=== PATIENT | male | born 1950 | race Caucasian/White ===

== ENCOUNTER → 2016-11-10 | Outpatient (CLI) | payer OTHER ==
[~2016-11-10] MED LIST: AMLO10TA2 PO; CLIN1CAP5 PO; GLIP10TA6 PO; GLUCTES27 TOP; LANTUS2P SQ; LISI40TA PO; PERM5CRE TOPICAL; TAMS0.4C4 PO
[2016-11-10 07:49] LABS: ALKALINE PHOSPHATASE 134 U/L (45-117); HDL CHOLESTEROL 38.3 MG/DL (40.0-60.0); TOTAL BILIRUBIN ADULT 0.5 MG/DL (0.2-1.0)
[2016-11-10 07:51] LABS: ALT (GPT) 30 U/L (12-78); ANION GAP 7 MEQ/L (5-15); AST (GOT) 26 U/L (15-37); BICARBONATE 24.8 MEQ/L (21.0-32.0); BLOOD UREA NITROGEN 17 MG/DL (7-18); CHLORIDE 108 MEQ/L (98-107); GLOMERULAR FILTRATION RATE 42 ML/MIN (>89); GLUCOSE,FASTING 152 MG/DL (74-99); LDL CHOLESTEROL 106 MG/DL (0-99); SODIUM (NA) 140 MEQ/L (136-145)
[2016-11-10 07:52] LABS: POTASSIUM 4.3 MEQ/L (3.5-5.1)
[2016-11-10 13:32] LABS: HEMOGLOBIN A1a 1.1 %; HEMOGLOBIN Ao 80.7 %; HEMOGLOBIN LA1C 2.9 %; HEMOGLOBIN P3 4.9 %
== END ==
LOC: CLAB 06:47
PROVIDERS: ATTEND Family Medicine
DX: E11.40 Type 2 diabetes mellitus with diabetic neuropathy, unspecified (principal); I10 Essential (primary) hypertension
CPT/HCPCS: 36415; 80053; 80061; 83036; 84443

== ENCOUNTER → 2016-11-14 | Outpatient (CLI) | payer OTHER ==
[2016-11-14 07:30] LABS: BICARBONATE 27.2 MEQ/L (21.0-32.0); POTASSIUM 4.3 MEQ/L (3.5-5.1)
[2016-11-14 09:59] LABS: URINE TOTAL PROTEIN TIMED 230.5 MG/DL
== END ==
LOC: CLAB 06:34
PROVIDERS: ATTEND Family Medicine
DX: N19 Unspecified kidney failure (principal)
CPT/HCPCS: 36415; 80069; 84157

== ENCOUNTER → 2016-12-09 | Outpatient (CLI) | payer OTHER ==
[~2016-12-09] MED LIST changes: -TAMS0.4C4 PO
--- NOTE | 2016-12-09 11:20 | RADRPT ---
EXAM DATE/TIME: 12/09/2016 08:50 [facility] COMPARISON: US KIDNEY/RENAL/BLADDER, April 17, 2013, 12:16. INDICATIONS : Elevated protein in urine. MEDICAL HISTORY : Hypertension. Diabetes mellitus type 2. Elevated protein in urine. Renal cyst. SURGICAL HISTORY : None. Wrist surgery. ENCOUNTER: Initial ACUITY: 4-6 days PAIN SCORE: 0/10 LOCATION: Bilateral flank MEASUREMENTS: RIGHT KIDNEY: 10.9 x 5.5 x 6.6 cm LEFT KIDNEY: 12.2 x 4.4 x 5.8 cm FINDINGS: RIGHT KIDNEY: Renal cortex is normal in thickness and echotexture. No hydronephrosis, stone, or mass. Kidney is s table compared to prior study and 2013. 2 simple cysts are again identified within the right kidney. There is a 5.3 cm cyst in the upper pole and a 2.7 cm cyst in the midpole. LEFT KIDNEY: Renal cortex is normal in thickness and echotexture. No hydronephrosis, stone, or mass. BLADDER: Within normal limits given the degree of distension. CONCLUSION: Stable renal ultrasound No evidence of hydronephrosis Stable right renal cysts. Kaden Guidry MD on December 09, 2016 at 10:56 Board Certified Radiologist. This report was verified electronically.
== END ==
LOC: HRAD 08:00
PROVIDERS: ATTEND Family Medicine
DX: N19 Unspecified kidney failure (principal); R80.9 Proteinuria, unspecified
CPT/HCPCS: 76775

== ENCOUNTER 2017-03-25 10:00 | Emergency (ER) | payer OTHER ==
[~2017-03-25] VITALS: Ht 180.3 cm; Wt 90.0 kg
[~2017-03-25 10:00] MED LIST changes: -CLIN1CAP5 PO; -PERM5CRE TOPICAL
[2017-03-25 10:02] VITALS: BP 139/81; PULSE 92; RESP 14; TEMP 98; O2SAT 98
[2017-03-25] MEDS ORDERED: CLIN1CAP5 PO (11:04)
--- NOTE | 2017-03-25 11:04 | PD ---
HPI Chief Complaint: Skin Problem Time Seen by Provider: 11:02 Travel History International Travel<30 days: No Contact w/Intl Traveler<30days: No Traveled to known affect area: No History of Present Illness HPI 66-year-old male presents to the emergency department with complaint of possible bug bite to the back of his right leg since Thursday. Reports drainage from the area. Denies fever, vomiting. Has not taken any medications return intermittently to his symptoms. [facility] come to the emergency department for evaluation. Has a follow-up appointment at the [facility] on Thursday. Reports being up-to-date on his tetanus vaccination. Has no other medical complaints. Allergies to metoprolol. No other modifying factors or associated signs and symptoms. PFSH Past Medical History Arthritis: Yes Blood Disorders: No Anxiety: No Depression: No Cancer: No Cardiovascular Problems: Yes Diabetes: Yes (TYPE 2 ) Patient Takes Glucophage: No Diminished Hearing: No Endocrine: Yes Gastrointestinal Disorders: Yes ( ABDOMINAL HERNIATION) GERD: Yes Genitourinary: Yes (PATIENT STATED WAS TOLD HE HAD DECREASE IN KIDNEY FUNCTION) Hypertension: Yes Immune Disorder: No Implanted Vascular Access Dvce: No Musculoskeletal: Yes (OCC. 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 Reported Meds & Prescriptions Reported Meds & Active Scripts Active Clindamycin (Clindamycin HCl) 150 Mg Cap 450 Mg PO Q6H 10 Days Lantus Inj (Insulin Glargine) 1,000 Unit/10 Ml Vial 30 Units SQ HS Glipizide 10 Mg Tab 10 Mg PO BIDAC Take 30 minutes before a meal Amlodipine (Amlodipine Besylate) 10 Mg Tab 10 Mg PO DAILY Lisinopril 40 Mg Tab 40 Mg PO HS Review of Systems Except as stated in HPI: all other systems reviewed are Neg Physical Exam Narrative GENERAL: Well-nourished, well-developed male patient, in no acute distress; afebrile, nontoxic-appearing SKIN: There is an indurated area to the right calf which measures about 2cm in diameter. It is fluctuant and there is pointing and purulent drainage. There is a zone of inflammation around it but no lymphangitis. HEAD: Atraumatic. Normocephalic. EYES: Pupils equal and round. No scleral icterus. No injection or drainage. ENT: Mucosa pink and moist. Airway patent. NECK: Trachea midline. CARDIOVASCULAR: Regular rate. RESPIRATORY: No accessory muscle use. GASTROINTESTINAL: Flat. MUSCULOSKELETAL: No obvious deformities. No clubbing. No cyanosis. No edema. NEUROLOGICAL: Awake and alert. Oriented 3. No obvious cranial nerve deficits. Motor grossly within normal limits. Normal speech. PSYCHIATRIC: Appropriate mood and affect; insight and judgment normal. Data Data Last Documented VS Vital Signs Date Time Temp Pulse Resp B/P Pulse Ox O2 Delivery O2 Flow Rate FiO2 03/25/17 10:02 98.0 92 14 139/81 98 Orders Wound Culture And Gram Stain (03/25/17 11:01) [facility] Medical Decision Making Medical Screen Exam Complete: Yes Emergency Medical Condition: Yes Medical Record Reviewed: Yes Differential Diagnosis Abscess, cellulitis, folliculitis, infected insect bite Narrative Course 66-year-old male with purulent abscess to his right calf. Wound culture pending. Patient is afebrile and nontoxic-appearing. Up-to-date on tetanus vaccination. Clindamycin prescribed for home. Patient verbalizes understanding and agreement with treatment plan. Patient is medically cleared and stable for discharge. Discussed reasons to return to the emergency department. Instructed patient to follow up with primary care provider. Patient agrees with treatment plan. The patients vital signs are stable and the patient is stable for outpatient follow-up and treatment. Patient discharged home, stable and in no acute distress. Diagnosis Primary Impression: Skin abscess Qualified Code: L02.415 - Cutaneous abscess of right lower extremity Referrals: [employer] Attorney Primary Care Physician Patient Instructions: Abscess (ED), Abscess Follow-up (ED), General Instructions Additional Instructions: Complete full course of antibiotics Warm compresses to the affected area Keep area clean and dry Ibuprofen or Tylenol as directed and as needed for pain and inflammation Follow-up with primary care provider Return to emergency department immediately with worsening of symptoms Med/Other Pt SpecificInfo: Prescription(s) given Scripts Clindamycin 150 Mg [id number] Mg PO Q6H 10 Days Ref 0 Prov:Aida Larsen 03/25/17 Disposition: 01 DISCHARGE HOME Condition: Stable Aida Larsen Mar 25, 2017 11:04
== END 2017-03-25 11:20 | disposition home or self-care (01) ==
LOC: NEPK 10:00
DX: L02.415 Cutaneous abscess of right lower limb (principal); M19.90 Unspecified osteoarthritis, unspecified site; E11.9 Type 2 diabetes mellitus without complications; K21.9 Gastro-esophageal reflux disease without esophagitis; I10 Essential (primary) hypertension; Z79.4 Long term (current) use of insulin; Z79.899 Other long term (current) drug therapy
CPT/HCPCS: 86403; 87070; 87186; 99283

== ENCOUNTER 2017-04-29 09:18 | Observation (INO) | payer OTHER ==
[2017-04-29] VITALS (7 sets, daily range): BP systolic 138–169; BP diastolic 71–100; PULSE 77–99; RESP 18–19; TEMP 98.1–98.6; O2SAT 95–99
[~2017-04-29 09:18] MED LIST changes: +CLIN1CAP5 PO; -GLUCTES27 TOP
[2017-04-29] MEDS ORDERED: SODIUM CHLOR 0.9% 1000 ML INJ 1,000 ML IV ONE (10:45)
[2017-04-29] MEDS ORDERED: INSULIN HUMAN REGULAR 1,000 UNITS/10 ML VIAL IV PUSH ONE (10:45)
[2017-04-29] MEDS ORDERED: SODIUM CHLORIDE 0.9% FLUSH 10 ML FLUSH IVF PRN (10:45)
--- NOTE | 2017-04-29 11:08 | PD ---
HPI Chief Complaint: Neuro Symptoms/ Deficits Time Seen by Provider: 10:33 Travel History International Travel<30 days: No Contact w/Intl Traveler<30days: No Traveled to known affect area: No History of Present Illness HPI This is a 66-year-old male with a history of diabetes mellitus, hypertension, presents today with complaints of slurred speech and difficulty walking since Thursday. The patient is homeless and his reported to the EMS team that Thursday he started having slurred speech. She also remarked that he was unsteady with his gait. He has a history of previous trauma to his upper extremities which we will today and numbness and tingling and weakness of his bilateral upper extremities. This is not new. He denies any headache or neck pain. He denies any history of trauma. He denies any fevers, chills. PFSH Past Medical History Arthritis: Yes Blood Disorders: No Anxiety: No Depression: No Cancer: No Cardiovascular Problems: Yes Diabetes: Yes Patient Takes Glucophage: Yes Diminished Hearing: No Endocrine: Yes Gastrointestinal Disorders: Yes ( ABDOMINAL HERNIATION) GERD: Yes Genitourinary: Yes (PATIENT STATED WAS TOLD HE HAD DECREASE IN KIDNEY FUNCTION) Hypertension: Yes Immune Disorder: No Implanted Vascular Access Dvce: No Musculoskeletal: Yes (OCC. 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 fib), No: Chest Pain or Discomfort, Palpitations Respiratory: No: Cough, Shortness of Breath Gastrointestinal: No: Nausea, Vomiting, Abdominal Pain Musculoskeletal: No: Weakness, Pain Neurologic: Positive: Ataxia, Sensory Disturbance (chronic bilateral upper extremities), No: Weakness, Dizziness, Syncope, Headache, Incontinence Physical Exam Narrative GENERAL: Well developed well-nourished gentleman in no obvious respiratory distress. SKIN: Focused skin assessment warm/dry. HEAD: Atraumatic. Normocephalic. EYES: Pupils equal and round. No scleral icterus. No injection or drainage. ENT: No nasal bleeding or discharge. Mucous membranes pink and moist. NECK: Trachea midline. Supple CARDIOVASCULAR: Regular rate with occasional premature beat. No murmurs. RESPIRATORY: No accessory muscle use. Clear to auscultation. Breath sounds equal bilaterally. GASTROINTESTINAL: Abdomen soft, non-tender, nondistended. MUSCULOSKELETAL: No obvious deformities. No clubbing. No cyanosis. No edema. NEUROLOGICAL: Awake and alert. No obvious cranial nerve deficits. Motor grossly within normal limits. Normal heel velasquez bilaterally. Dysarthria Data Data Last Documented VS Vital Signs Date Time Temp Pulse Resp B/P Pulse Ox O2 Delivery O2 Flow Rate FiO2 04/29/17 12:10 95 Room Air 04/29/17 12:08 98.4 92 19 142/80 Orders Electrocardiogram (04/29/17 10:33) Prothrombin Time / Inr (Pt) (04/29/17 10:33) Act Partial Throm Time (Ptt) (04/29/17 10:33) Complete Blood Count With Diff (04/29/17 10:33) Comprehensive Metabolic Panel (04/29/17 10:33) Urinalysis - C+S If Indicated (04/29/17 10:33) Ct Brain W/O Iv Contrast(Rout) (04/29/17 10:33) Chest, Single Ap (04/29/17 10:33) Ecg Monitoring (04/29/17 10:33) Iv Access Insert/Monitor (04/29/17 10:33) Oximetry (04/29/17 10:33) Sodium Chloride 0.9% Flush (Ns Flush) (04/29/17 10:45) Insulin Human Regular Inj (Novolin R Inj (04/29/17 10:45) Sodium Chlor 0.9% 1000 Ml Inj (Ns 1000 M (04/29/17 10:45) Diet Heart Healthy (04/29/17 Dinner) Diet 1800 Ada Cons Carb (04/29/17 Dinner) Vital Signs (Adult) DON.Q4H (04/29/17 14:43) Blood Glucose Goal (Criteria) (04/29/17 14:43) Hypoglycemia 70 Mg/Dl Or < (04/29/17 14:43) Notify Dr: Other (04/29/17 14:43) Dextrose 50% In Kt (Vial) Inj (D50w (Vi (04/29/17 14:45) Glucagon Inj (Glucagon Inj) (04/29/17 14:45) Insulin Aspart Supplemtl Scale (Novolog (04/29/17 16:00) Labs Laboratory Tests Test 04/29/17 04/29/17 10:55 13:35 White Blood Count 9.5 TH/MM3 Red Blood Count 4.57 MIL/MM3 Hemoglobin 14.0 GM/DL Hematocrit 41.7 % Mean Corpuscular Volume 91.4 FL Mean Corpuscular Hemoglobin 30.7 PG Mean Corpuscular Hemoglobin 33.6 % Concent Red Cell Distribution Width 13.6 % Platelet Count 231 TH/MM3 Mean Platelet Volume 8.1 FL Neutrophils (%) (Auto) 71.8 % Lymphocytes (%) (Auto) 17.4 % Monocytes (%) (Auto) 7.3 % Eosinophils (%) (Auto) 3.1 % Basophils (%) (Auto) 0.4 % Neutrophils # (Auto) 6.8 TH/MM3 Lymphocytes # (Auto) 1.7 TH/MM3 Monocytes # (Auto) 0.7 TH/MM3 Eosinophils # (Auto) 0.3 TH/MM3 Basophils # (Auto) 0.0 TH/MM3 CBC Comment DIFF FINAL Differential Comment Prothrombin Time 10.9 SEC Prothromb Time International 1.0 RATIO Ratio Activated Partial 27.9 SEC Thromboplast Time Sodium Level 140 MEQ/L Potassium Level 3.9 MEQ/L Chloride Level 107 MEQ/L Carbon Dioxide Level 23.6 MEQ/L Anion Gap 9 MEQ/L Blood Urea Nitrogen 17 MG/DL Creatinine 1.88 MG/DL Estimat Glomerular Filtration 36 ML/MIN Rate Random Glucose 274 MG/DL Calcium Level 8.5 MG/DL Total Bilirubin 0.6 MG/DL Aspartate Amino Transf 23 U/L (AST/SGOT) Alanine Aminotransferase 34 U/L (ALT/SGPT) Alkaline Phosphatase 117 U/L Total Protein 7.1 GM/DL Albumin 3.2 GM/DL Urine Color YELLOW Urine Turbidity CLEAR Urine pH 6.5 Urine Specific [place] 1.024 Urine Protein 300 mg/dL Urine Glucose (UA) 1000 mg/dL Urine Ketones NEG mg/dL Urine Occult Blood SMALL Urine Nitrite NEG Urine Bilirubin NEG Urine Urobilinogen LESS THAN 2.0 MG/DL Urine Leukocyte Esterase NEG Urine RBC 1 /hpf Urine WBC 1 /hpf Urine Squamous Epithelial <1 /hpf Cells Urine Hyaline Casts 10 /lpf Urine Mucus FEW /lpf Microscopic Urinalysis Comment CATH-CULT NOT IND MDM Medical Decision Making Medical Screen Exam Complete: Yes Emergency Medical Condition: Yes Differential Diagnosis CVA versus TIA versus metabolic arrangement Narrative Course 66-year-old male history diabetes mellitus, hypertension, presents here with slurred speech and ataxia since Thursday. Today is Thursday. 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 Blood sugar was 274. Patient's creatinine was 1.8. Patient does have obvious dysarthria. He was not ambulated secondary to his abnormal gait. He does have normal [id number] bilaterally. 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 [facility] the patient under observation. There'll be an MRI ordered. He has been given 5 units of Regular Insulin and I V fluids. Diagnosis Primary Impression: Dysarthria Additional Impressions: Ataxia Suspected cerebrovascular accident (CVA) Chronic kidney disease Hyperglycemia Admitting Information Admitting Physician Requests: Observation Jd Singh MD Apr 29, 2017 11:08
[2017-04-29 11:52] LABS: AUTOMATED NEUTROPHIL # 6.8 TH/MM3 (1.8-7.7); BASOPHIL % 0.4 % (0.0-2.0); EOSINOPHIL # 0.3 TH/MM3 (0-0.4); EOSINOPHIL % 3.1 % (0.0-4.0); HEMATOCRIT 41.7 % (39.0-51.0); HEMO FLAGS DIFF FINAL; LYMPH % 17.4 % (9.0-44.0); LYMPHOCYTE # 1.7 TH/MM3 (1.0-4.8); MEAN CELL VOLUME 91.4 FL (80.0-100.0); MEAN CORPUSCULAR HEMOGLOBIN 30.7 PG (27.0-34.0); MEAN CORPUSCULAR HGB CONC 33.6 % (32.0-36.0); MONO % 7.3 % (0.0-8.0); NEUT % 71.8 % (16.0-70.0); PLATELET COUNT 231 TH/MM3 (150-450); RED BLOOD COUNT 4.57 MIL/MM3 (4.50-5.90); RED CELL DISTRIBUTION WIDTH 13.6 % (11.6-17.2); WHITE BLOOD COUNT 9.5 TH/MM3 (4.0-11.0)
[2017-04-29 12:00] LABS: APTT (PATIENT) 27.9 SEC (24.3-30.1); PROTHROMBIN TIME - PATIENT 10.9 SEC (9.8-11.6)
--- NOTE | 2017-04-29 12:00 | RADRPT ---
EXAM DATE/TIME: 04/29/2017 11:00 [facility] COMPARISON: No previous studies available for comparison. INDICATIONS : Possible stroke MEDICAL HISTORY : abdominal hernia, heart murmur SURGICAL HISTORY : None. ENCOUNTER: Initial ACUITY: 1 day PAIN SCORE: 0/10 LOCATION: Bilateral chest FINDINGS: A single view of the chest demonstrates the lungs to be symmetrically aerated without evidence of mas s, infiltrate or effusion. The cardiomediastinal contours are unremarkable. Osseous structures are intact. CONCLUSION: 1. No acute cardiopulmonary disease. Niles Hardy MD on April 29, 2017 at 11:58 Board Certified Radiologist. This report was verified electronically.
[2017-04-29 12:06] LABS: ALKALINE PHOSPHATASE 117 U/L (45-117); ALT (GPT) 34 U/L (12-78); TOTAL BILIRUBIN ADULT 0.6 MG/DL (0.2-1.0)
[2017-04-29 12:21] LABS: ANION GAP 9 MEQ/L (5-15); AST (GOT) 23 U/L (15-37); BICARBONATE 23.6 MEQ/L (21.0-32.0); BLOOD UREA NITROGEN 17 MG/DL (7-18); CHLORIDE 107 MEQ/L (98-107); GLOMERULAR FILTRATION RATE 36 ML/MIN (>89); POTASSIUM 3.9 MEQ/L (3.5-5.1); SODIUM (NA) 140 MEQ/L (136-145)
[2017-04-29 14:06] LABS: BLOOD, URINE SMALL (NEG); GLUCOSE,URINE 1000 mg/dL (NEG); HYALINE CAST, URINE 10 /lpf (RARE); KETONE, URINE NEG (NEG); MUCUS URINE FEW /lpf (OCC); NITRITE,URINE NEG (NEG); PH, URINE 6.5 (5.0-8.5); SQUAMOUS EPITHELIAL CELL URINE <1 /hpf (0-5); URINE COLOR YELLOW (YELLW/STRAW)
[2017-04-29 14:09] LABS: COMMENT (UR) CATH-CULT NOT IND; CULTURE IF INDICATED CATH CULTURE NOT IND
--- NOTE | 2017-04-29 14:36 | RADRPT ---
EXAM DATE/TIME: 04/29/2017 13:59 [facility] COMPARISON: MRI BRAIN W/O CONTRAST, June 12, 2016, 12:58. CT BRAIN W/O CONTRAST, June 02, 2016, 13:12. INDICATIONS : Slurred speech, difficulty walking. RADIATION DOSE: 38.18 CTDIvol (mGy) MEDICAL HISTORY : Cardiovascular disease. Hypertension. SURGICAL HISTORY : None. ENCOUNTER: Initial ACUITY: 3 days PAIN SCALE: 0/10 LOCATION: Cranial TECHNIQUE: Multiple contiguous axial images were obtained of the head. Using automated exposure control and adj ustment of the mA and/or kV according to patient size, radiation dose was kept as low as reasonably a chievable to obtain optimal diagnostic quality images. DICOM format image data is available electro nically for review and comparison. FINDINGS: Scattered areas of decreased attenuation are again noted within the bilateral basal ganglia consistent with old lacunar infarcts. Mild to moderate periventricular and subcortical white matter small vessel ischemic changes are again noted and are stable. There is no acute hemorrhage, midline shift or extr a-axial fluid collections. The ventricles, sulci cisterns are astable. The bone windows are unremarkable. Areas of decreased attenuation are noted within the bilateral ricardo consistent with ischemic changes and/or old lacunar infarcts. CONCLUSION: 1. Scattered old lacunar infarcts within the bilateral basal ganglia. 2. Mild to moderate periventricular and subcortical white matter small vessel ischemic changes bilate rally. 3. Scattered old lacunar infarcts and/or ischemic changes within the ricardo bilaterally. 4. No acute hemorrhage, mass effect or extra-axial bleed. Edwardo Arenas MD on April 29, 2017 at 14:13 Board Certified Radiologist. This report was verified electronically.
[2017-04-29] MEDS ORDERED: GLUCAGON 1 MG/ML VIAL OTHER PRN ×2 (14:45→22:00)
[2017-04-29] MEDS ORDERED: DEXTROSE 50% IN WATER 50 ML VIAL(D50) IV PRN (14:45)
--- NOTE | 2017-04-29 15:12 | HHI.HP ---
[facility] Service [facility] Primary Care Physician Khalida Lizarraga MD Admission Diagnosis TIA vs CVA Diagnoses: (1) TIA vs CVA Diagnosis: Principal Chief Complaint: inability to walk Travel History International Travel<30 Days: No Contact w/Intl Traveler <30 Da: No Traveled to Known Affected Are: No History of Present Illness patient is a 66 y/o male with history of hypertension, diabetes, ex-smoker, who presented to ER with ambulatory dysfunction. he says that when he woke up Thursday morning he wasn't steady on his feet and this hasn't improved since then. he denies any focal weakness, headache or vision changes. but he says that he was told that he had some slurred speech this morning. he doesn't recall any prior similar episodes in the past. Review of Systems Constitutional: DENIES: Fever, Weight loss, Chills, Night Sweats Eyes: DENIES: Blurred vision, Diplopia, Vision loss, Double Vision Ears, nose, mouth, throat: DENIES: Tinnitus, Vertigo, Throat pain, Epistaxis Respiratory: DENIES: Apneas, Cough, Snoring, Wheezing, Hemoptysis, Sputum production, Shortness of breath Cardiovascular: DENIES: Chest pain, Palpitations, Syncope, Dyspnea on Exertion , PND, Lower Extremity Edema, Orthopnea, Claudication Gastrointestinal: DENIES: Abdominal pain, Black stools, Bloody stools, Constipation, Diarrhea, Nausea, Vomiting, Difficulty Swallowing, Anorexia Genitourinary: DENIES: Urinary frequency, Urgency, Hematuria, Dysuria Musculoskeletal: DENIES: Joint pain, Muscle aches, Stiffness, Joint Swelling Integumentary: DENIES: Rash Neurologic: COMPLAINS OF: Speech Problems, Poor Balance, DENIES: Abnormal gait , Headache, Localized weakness, Paresthesias, Seizures, Tremor Psychiatric: DENIES: Anxiety, Confusion, Mood changes, Depression, Hallucinations, Agitation, Suicidal Ideation, Homicidal Ideation, Delusions Past Family Social History Past Medical History hypertension diabetes mellitus Reported Medications Clindamycin (Clindamycin HCl) 150 Mg Cap 450 Mg PO Q6H 10 Days Lantus Inj (Insulin Glargine) 1,000 Unit/10 Ml Vial 30 Units SQ HS Glipizide 10 Mg Tab 10 Mg PO BIDAC Take 30 minutes before a meal Amlodipine (Amlodipine Besylate) 10 Mg Tab 10 Mg PO DAILY Lisinopril 40 Mg Tab 40 Mg PO HS Allergies: Coded Allergies: Metoprolol (Verified Allergy, Severe, Itching, 04/29/17) *MDRO Multi-Drug Resistant Organism (Verified Allergy, Unknown, 04/29/17) MRSA 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 Active Ordered Medications Current Medications Sodium Chloride (NS Flush) 2 ml UNSCH PRN IVF FLUSH AFTER USING IV ACCESS; Start 04/29/17 at 10:45 Insulin Human Regular 5 units 5 units ONCE ONCE IV PUSH Last administered on 11:52; Start 04/29/17 at 10:45; Stop 04/29/17 at 10:47; Status DC Sodium Chloride (NS 1000 ml Inj) 1,000 ml @ 999 mls/hr BOLUS ONCE IV Last administered on 04/29/17 11:51; Start 04/29/17 at 10:45; Stop 04/29/17 at 11:45 ; Status DC Dextrose (D50w (Vial) Inj) 50 ml UNSCH PRN IV HYPOGLYCEMIA-SEE COMMENTS; Start 04/29/17 at 14:45; Status UNV Glucagon (Glucagon Inj) 1 mg UNSCH PRN OTHER HYPOGLYCEMIA-SEE COMMENTS; Start 04/29/17 at 14:45; Status UNV Insulin Aspart (NovoLOG SUPPLEMENTAL SCALE) 1 ACHS SLIDING SCALE SQ ; Start at 16:00; Status UNV Family History not significant. Social History quit smoking years ago- quit drinking few months ago. Physical Exam Vital Signs Vital Signs Date Time Temp Pulse Resp B/P Pulse Ox O2 Delivery O2 Flow Rate FiO2 04/29/17 12:10 95 Room Air 04/29/17 12:08 98.4 92 19 142/80 96 Room Air 04/29/17 10:33 98.6 88 19 138/77 95 Physical Exam GENERAL: This is a well-nourished, well-developed patient, in no apparent distress. SKIN: No rashes, ecchymoses or lesions. Cool and dry. HEAD: Atraumatic. Normocephalic. No temporal or scalp tenderness. EYES: Pupils equal round and reactive. Extraocular motions intact. No scleral icterus. No injection or drainage. ENT: Nose without bleeding, purulent drainage or septal hematoma. Throat without erythema, tonsillar hypertrophy or exudate. Uvula midline. Airway patent. NECK: Trachea midline. No JVD or lymphadenopathy. Supple, nontender, no meningeal signs. CARDIOVASCULAR: Regular rate and rhythm without murmurs, gallops, or rubs. RESPIRATORY: Clear to auscultation. Breath sounds equal bilaterally. No wheezes , rales, or rhonchi. GASTROINTESTINAL: Abdomen soft, non-tender, nondistended. No hepato-splenomegaly , or palpable masses. No guarding. MUSCULOSKELETAL: Extremities without clubbing, cyanosis, or edema. No joint tenderness, effusion, or edema noted. No calf tenderness. Negative Homans sign bilaterally. NEUROLOGICAL: Awake and alert.with some dysarthria. Laboratory Laboratory Tests Test 04/29/17 04/29/17 10:55 13:35 White Blood Count 9.5 Red Blood Count 4.57 Hemoglobin 14.0 Hematocrit 41.7 Mean Corpuscular Volume 91.4 Mean Corpuscular Hemoglobin 30.7 Mean Corpuscular Hemoglobin 33.6 Concent Red Cell Distribution Width 13.6 Platelet Count 231 Mean Platelet Volume 8.1 Neutrophils (%) (Auto) 71.8 Lymphocytes (%) (Auto) 17.4 Monocytes (%) (Auto) 7.3 Eosinophils (%) (Auto) 3.1 Basophils (%) (Auto) 0.4 Neutrophils # (Auto) 6.8 Lymphocytes # (Auto) 1.7 Monocytes # (Auto) 0.7 Eosinophils # (Auto) 0.3 Basophils # (Auto) 0.0 CBC Comment DIFF FINAL Differential Comment Prothrombin Time 10.9 Prothromb Time International 1.0 Ratio Activated Partial 27.9 Thromboplast Time Sodium Level 140 Potassium Level 3.9 Chloride Level 107 Carbon Dioxide Level 23.6 Anion Gap 9 Blood Urea Nitrogen 17 Creatinine 1.88 Estimat Glomerular Filtration 36 Rate Random Glucose 274 Calcium Level 8.5 Total Bilirubin 0.6 Aspartate Amino Transf 23 (AST/SGOT) Alanine Aminotransferase 34 (ALT/SGPT) Alkaline Phosphatase 117 Total Protein 7.1 Albumin 3.2 Urine Color YELLOW Urine Turbidity CLEAR Urine pH 6.5 Urine Specific [place] 1.024 Urine Protein 300 Urine Glucose (UA) 1000 Urine Ketones NEG Urine Occult Blood SMALL Urine Nitrite NEG Urine Bilirubin NEG Urine Urobilinogen LESS THAN 2.0 Urine Leukocyte Esterase NEG Urine RBC 1 Urine WBC 1 Urine Squamous Epithelial <1 Cells Urine Hyaline Casts 10 Urine Mucus FEW Microscopic Urinalysis Comment CATH-CULT NOT IND Result Diagram: 04/29/17 1055 04/29/17 1055 Imaging Last Impressions Chest X-Ray 04/29/17 1033 Signed Impressions: Service Date/Time: Thursday, April 29, 2017 11:00 - CONCLUSION: 1. No acute cardiopulmonary disease. Niles Hardy MD Assessment and Plan Assessment and Plan A/P - possible CVA start aspirin- neuro-checks- obtain echo and carotid doppler- consult neurology lipid panel in am- consult PT/ST -hypertension; vasotec as needed- will resume home meds soon. -chronic renal insufficiency- will monitor -diabetes mellitus; accu-check with SSI -DVT prophylaxis with SCD's Discussed Condition With ER physician and the patient. Edgardo Yo MD Apr 29, 2017 15:12
[2017-04-29] MEDS ORDERED: ENALAPRILAT 1.25 MG/ML VIAL IV PUSH PRN (15:15)
[2017-04-29] MEDS: INSULIN ASPART SUPPLEMENTAL SCALE SQ SCH ×2 (16:00→20:10)
[2017-04-29] MEDS ORDERED: ASPIRIN 81 MG CHEW TAB CHEW SCH (16:00)
--- NOTE | 2017-04-29 16:56 | RADRPT ---
EXAM DATE/TIME: 04/29/2017 15:42 [facility] COMPARISON: No previous studies available for comparison. INDICATIONS : Cerebrovascular accident. MEDICAL HISTORY : Hypertension. Arthritis. Diabetes mellitus type 1. Abdominal herniation. GERD. Mumps. MRSA. SURGICAL HISTORY : Right wrist. ENCOUNTER: Initial ACUITY: 4-6 days PAIN SCORE: 0/10 LOCATION: Bilateral neck PEAK SYSTOLIC VELOCITIES (cm/sec): ICA/CCA RATIO: Right: 0.7 Left: 1.7 ICA: Right: 84.5 Left: 139.0 CCA: Right: 127.9 Left: 100.0 ECA: Right: 108.4 Left: 174.7 VERTEBRAL: Right: 32.9 antegrade Left: 51.7 antegrade Elevated flow velocities and ICA/CCA ratios have been found to correlate with increased degrees of vessel stenosis, calculated as percentage of diameter relative to a normal segment of distal ICA/CCA FINDINGS: RIGHT CAROTID: No significant stenosis is visualized. The waveforms are within normal limits. LEFT CAROTID: Abundant calcific plaquing in the carotid bifurcation region. Visibly, there appear to be significant stenosis and there is mild flow velocity acceleration. VERTEBRAL ARTERIES: Antegrade flow is seen in both vertebral arteries. MISCELLANEOUS: None. CONCLUSION: Suspect significant left carotid bifurcation stenosis, likely 50-69%, however potentially more severe . Further evaluation with CTA examination of the arch and carotids is recommended Kris Acharya MD on April 29, 2017 at 16:51 Board Certified Radiologist. This report was verified electronically.
[2017-04-29] MEDS: CEPHALEXIN MONOHYDRATE 250 MG CAP PO SCH ×2 (17:44→22:12)
[2017-04-29] MEDS ORDERED: DEXTROSE 50% IN WATER 50 ML VIAL(D50) IV PUSH PRN (22:00)
[2017-04-29] MEDS ORDERED: SODIUM CHLORIDE 0.9% FLUSH 5 ML FLUSH IV FLUSH PRN (22:00)
[2017-04-29] MEDS: SODIUM CHLOR 0.9% 1000 ML INJ 1,000 ML IV SCH (22:13)
[2017-04-30 04:30] VITALS: PULSE 92
[2017-04-30 05:48] VITALS: BP 136/74; PULSE 67; RESP 18; TEMP 98; O2SAT 98
--- NOTE | 2017-04-30 06:47 | MB ---
cc: IKE MONTGOMERY M.D. DATE OF CONSULTATION 04/29/2017 REASON FOR CONSULTATION Stroke HISTORY OF PRESENT ILLNESS Mr. Miller is a 66-year-old man who on Thursday began to feel weakness, difficulty walking. He thought his left leg was weak and he had slurred speech. He presented to the emergency room today because his symptoms were not improving. PAST MEDICAL HISTORY He has a history of: 1. Hypertension 2. Diabetes MEDICINES AT HOME 1. Lantus 2. Insulin 3. Clindamycin 4. Glipizide 5. Amlodipine 6. Lisinopril ALLERGIES METOPROLOL NEUROLOGIC EXAMINATION VITAL SIGNS: Blood pressure 160/71, pulse 96, respirations 18, temperature 98 degrees. Higher cortical function, he is alert. His speech is dysarthric. Cranial nerves, he has a left facial droop. Motor exam, he has had normal strength in both upper extremities, but slightly diminished fine motor skills in the left hand. He is weak in the left leg at 4/5 with normal strength in the right leg. CT of the brain, no acute change. Carotid ultrasound, he has got 50-69% left carotid stenosis, 50-60% left carotid stenosis. The right carotid is normal. LABORATORY DATA White count 9005, hemoglobin 14, hematocrit 41%, platelet count 231,000, PT 2.9, INR 1, APTT 27.9. Sodium is 140, potassium 3.9, chloride 107, CO2 22.6, BUN is 17, creatinine 1.11, GFR is 36. IMPRESSION Probable right hemisphere stroke with left-sided weakness. He does have left carotid stenosis which is probably not responsible for the current symptoms. RECOMMENDATIONS Start aspirin 325 mg daily. I would like to get a CT angiogram of the carotids for further evaluation, as well as an MRI of the brain and echocardiogram. We will also check a lipid panel. MD MAE Graham/MARÍA ELENA /9:47 PM /6:37 AM
[2017-04-30] MEDS: CEPHALEXIN MONOHYDRATE 250 MG CAP PO SCH ×3 (06:52→16:00)
[2017-04-30] MEDS: INSULIN ASPART SUPPLEMENTAL SCALE SQ SCH ×3 (06:59→16:00)
[2017-04-30 08:07] LABS: HDL CHOLESTEROL 32.1 MG/DL (40.0-60.0); LDL CHOLESTEROL 106 MG/DL (0-99)
[2017-04-30 08:33] VITALS: BP 133/88; PULSE 96; RESP 19; TEMP 97.9; O2SAT 97
[2017-04-30 08:59] LABS: BICARBONATE 20.8 MEQ/L (21.0-32.0)
[2017-04-30] MEDS ORDERED: ASPIRIN 325 MG TAB PO SCH (09:00)
[2017-04-30] MEDS ORDERED: SODIUM CHLORIDE 0.9% FLUSH 5 ML FLUSH IV FLUSH SCH (09:00)
--- NOTE | 2017-04-30 09:47 | RADRPT ---
EXAM DATE/TIME: 04/30/2017 08:42 [facility] COMPARISON: No previous studies available for comparison. INDICATIONS : Dysphasis with difficulty ambulating. MEDICAL HISTORY : Hypertension. Diabetes mellitus type 2. SURGICAL HISTORY : wrist ENCOUNTER: Subsequent ACUITY: 2 day PAIN SCORE: 0/10 LOCATION: cranial Please note a normal MRA of the brain does not entirely exclude the possibility of a small aneurysm, nor the possibility of distal intracranial vessel disease. TECHNIQUE: 3D time of flight MRA was performed. Source images, multiplanar STS MIP, and 3D volume MIP reconstru ctions were reviewed. FINDINGS: Anterior circulation: There is excellent visualization of the major intracranial arteries out to the second-order branch ve ssels. Flow is noted in the anterior and middle cerebral artery branches. There is no evidence for an eurysm, large vessel occlusion or stenosis, and no evidence for vascular malformation. Posterior circulation: The distal right vertebral artery appears occluded and is not visualized. Left vertebral artery is pr ominent in size with flow extending to the basilar artery. 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 Flow extends to the basilar artery and posterior sternal arteries. There is no evidence for aneurysm, large vessel occlusion or stenosis and no evidence for vascular malformation. CONCLUSION: 1. 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 There is a prominent left vertebral artery supplyi ng the basilar artery. 2. Otherwise, unremarkable MRA examination of the brain. Niles Hardy MD on April 30, 2017 at 9:13 Board Certified Radiologist. This report was verified electronically.
--- NOTE | 2017-04-30 09:56 | RADRPT ---
EXAM DATE/TIME: 04/30/2017 08:42 [facility] COMPARISON: MRI BRAIN W/O CONTRAST, June 12, 2016, 12:58. INDICATIONS : Dysphasia with difficulty ambulating. MEDICAL HISTORY : Hypertension. Diabetes mellitus type 2. SURGICAL HISTORY : Wrist surgery. ENCOUNTER: Subsequent ACUITY: 2 day PAIN SCORE: 0/10 LOCATION: Cranial TECHNIQUE: Multiplanar, multisequence MRI of the brain was performed without contrast. FINDINGS: There is a focal signal abnormality within the right ricardo on the diffusion-weighted images indicating acute lacunar infarct. Clinical correlation is recommended. Scattered old lacunar infarcts are not ed within the bilateral basal ganglia. Periventricular and subcortical white matter ischemic changes as well as bilateral pontine ischemic changes are also again noted and are stable. The ventricles, sulci and cisterns are normal in size, shape and position for the patient's age. There is no acute h emorrhage, midline shift or extra-axial fluid collections. The sagittal images demonstrate normal mi dline structures including corpus callosum, pituitary gland and craniocervical junction. CONCLUSION: 1. Acute lacunar infarct within the right ricardo. Clinical correlation is recommended. 2. Mild to moderate periventricular and subcortical white matter small vessel ischemic changes as wel l as mild bilateral pontine small vessel ischemic changes. 3. Scattered old lacunar infarcts within the bilateral basal ganglia. 4. No acute hemorrhage, midline shift or extra-axial fluid collections. Edwardo Arenas MD on April 30, 2017 at 9:46 Board Certified Radiologist. This report was verified electronically.
[2017-04-30 11:00] VITALS: PULSE 97
--- NOTE | 2017-04-30 11:31 | ECHRPT ---
Indication: CVA/TIA CONCLUSIONS Normal size (M-mode measurement off axis) Mild concentric left ventricular hypertrophy. The left ventricular systolic function is low normal with an estimated ejection fraction in the rang e of 50- 55%. Moderate mitral annular calcification. Trace mitral valve regurgitation. Mild aortic valve sclerosis is present. There is trace tricuspid valve regurgitation. The estimated pulmonary arterial pressure is 25 mmHg. The pulmonary valve is not well visualized. BP: / HR: Rhythm: Sinus MEASUREMENTS (Male / Female) Normal Values Technical Quality:Good 2D ECHO LV Diastolic Diameter PLAX 6.4 cm 4.2 - 5.9 / 3.9 - 5.3 cm LV Systolic Diameter PLAX 4.8 cm IVS Diastolic Thickness 1.1 cm 0.6 - 1.0 / 0.6 - 0.9 cm LVPW Diastolic Thickness 0.8 cm 0.6 - 1.0 / 0.6 - 0.9 cm LV Relative Wall Thickness 0.3 RV Internal Dim ED PLAX 1.9 cm LA Systolic Diameter LX 4.0 cm 3.0 - 4.0 / 2.7 - 3.8 cm M-MODE Aortic Root Diameter MM 3.4 cm AV Cusp Separation MM 1.8 cm DOPPLER AV Peak Velocity 310.0 cm/s AV Peak Gradient 38.4 mmHg AV Mean Gradient 19.0 mmHg AV Velocity Time Integral 73.6 cm LVOT Peak Velocity 126.0 cm/s LVOT Peak Gradient 6.4 mmHg MV Peak Velocity 199.0 cm/s MV Peak Gradient 15.8 mmHg MV Mean Velocity 93.6 cm/s MV Mean Gradient 5.0 mmHg MV Area PHT 3.1 cm Mitral E Point Velocity 91.6 cm/s Mitral A Point Velocity 93.8 cm/s Mitral E to A Ratio 1.0 TR Peak Velocity 224.0 cm/s TR Peak Gradient 20.1 mmHg FINDINGS LEFT VENTRICLE Normal size (M-mode measurement off axis) Mild concentric left ventricular hypertrophy. The left ventricular systolic function is low normal with an estimated ejection fraction in the rang e of 50- 55%. RIGHT VENTRICLE Normal right ventricular size and systolic function. LEFT ATRIUM The left atrial size is normal. RIGHT ATRIUM The right atrial size is normal. ATRIAL SEPTUM Normal atrial septal thickness without atrial level shunting by limited color doppler interrogation. AORTA The aortic root and proximal ascending aorta are normal in size on limited imaging. MITRAL VALVE Moderate mitral annular calcification. Trace mitral valve regurgitation. AORTIC VALVE Mild aortic valve sclerosis is present. TRICUSPID VALVE There is trace tricuspid valve regurgitation. The estimated pulmonary arterial pressure is 25 mmHg. PULMONARY VALVE The pulmonary valve is not well visualized. VESSELS The inferior vena cava is normal in size. PERICARDIUM No pericardial effusion. Anoop Lopez MD (Electronically Signed) Final Date:30 April 2017 11:30
[2017-04-30] MEDS: SODIUM CHLOR 0.9% 1000 ML INJ 1,000 ML IV SCH (12:08)
[2017-04-30 12:12] VITALS: BP 155/73; PULSE 88; RESP 18; TEMP 98.1; O2SAT 92
--- NOTE | 2017-04-30 13:03 | EKG ---
Date Performed: 04/29/2017 Time Performed: 12:05:25 PTAGE: 66 years EKG: Sinus rhythm WITH OCCASIONAL SUPRAVENTRICULAR PREMATURE COMPLEXES NONSPECIFIC ST & T-WAVE ABNORMALITY BORDERLINE ECG PREVIOUS TRACING : 06/02/2016 12.49 DOCTOR: Leonid Davenport Interpretating Date/Time 04/30/2017 12:56:29
[2017-04-30 16:00] VITALS: BP 132/82; PULSE 86; RESP 18; TEMP 98.3; O2SAT 93
--- NOTE | 2017-04-30 16:02 | HHI.PR ---
Subjective Remarks Follow up for acute stroke. Patient is currently doing well. He feels that he is back to his baseline. His speech is back to normal. Objective Vitals Vital Signs Date Time Temp Pulse Resp B/P Pulse Ox O2 Delivery O2 Flow Rate FiO2 04/30/17 12:12 98.1 88 18 155/73 92 04/30/17 10:12 21 04/30/17 08:33 97.9 96 19 133/88 97 04/30/17 05:48 98.0 67 18 136/74 98 04/30/17 04:30 92 04/29/17 23:40 98.4 77 18 142/83 98 04/29/17 21:30 21 04/29/17 21:25 98.1 96 18 160/71 97 04/29/17 17:44 99 18 169/100 97 Room Air Result Diagram: 04/29/17 1055 04/30/17 0640 Imaging Last Impressions Head Magnetic Resonance Angiography 04/30/17 0000 Signed Impressions: Service Date/Time: April 08:42 - CONCLUSION: 1. 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 There is a prominent left vertebral artery supplying the basilar artery. 2. Otherwise, unremarkable MRA examination of the brain. Niles Hardy MD Brain MRI 04/30/17 0000 Signed Impressions: Service Date/Time: April 08:42 - CONCLUSION: 1. Acute lacunar infarct within the right ricardo. Clinical correlation is recommended. 2. Mild to moderate periventricular and subcortical white matter small vessel ischemic changes as well as mild bilateral pontine small vessel ischemic changes. 3. Scattered old lacunar infarcts within the bilateral basal ganglia. 4. No acute hemorrhage, midline shift or extra-axial fluid collections. Edwardo Arenas MD Head CT 04/29/17 1033 Signed Impressions: Service Date/Time: Saturday, April 29, 2017 13:59 - CONCLUSION: 1. Scattered old lacunar infarcts within the bilateral basal ganglia. 2. Mild to moderate periventricular and subcortical white matter small vessel ischemic changes bilaterally. 3. Scattered old lacunar infarcts and/or ischemic changes within the ricardo bilaterally. 4. No acute hemorrhage, mass effect or extra-axial bleed. Edwardo Arenas MD Chest X-Ray 04/29/17 1033 Signed Impressions: Service Date/Time: Saturday, April 29, 2017 11:00 - CONCLUSION: 1. No acute cardiopulmonary disease. Niles Hardy MD Carotid Artery Ultrasound 04/29/17 0000 Signed Impressions: Service Date/Time: Saturday, April 29, 2017 15:42 - CONCLUSION: Suspect significant left carotid bifurcation stenosis, likely 50-69%%, however potentially more severe. Further evaluation with CTA examination of the arch and carotids is recommended Kris Acharya MD Objective Remarks GENERAL: Alert, NAD SKIN: Warm and dry. HEAD: Normocephalic. EYES: No scleral icterus. No injection or drainage. NECK: Supple, trachea midline. No JVD or lymphadenopathy. CARDIOVASCULAR: Regular rate and rhythm without murmurs, gallops, or rubs. RESPIRATORY: Breath sounds equal bilaterally. No accessory muscle use. GASTROINTESTINAL: Abdomen soft, non-tender, nondistended. MUSCULOSKELETAL: No cyanosis, or edema. BACK: Nontender without obvious deformity. No CVA tenderness. A/P Problem List: (1) TIA vs CVA Status: Acute Assessment and Plan Mr. Miller is a 66 year old male with a history of DM, HTN who was admitted due to acute stroke. MRI Shows acute right ricardo lacunar infarction. Patient's symptoms improved very quickly and felt like he was at his baseline on the day of discharge (04/30/2017) - Acute lacunar infarction of right ricardo - Neurology evaluated patient. - Continue Aspirin 325mg Qday - Will start Lipitor on discharge. - Hypertension - Diabetes mellitus - Continue home medications. Full code. Discharge patient to home Condition on discharge: Improved Diabetic Diet as tolerated Ad Mirian activity Rx written: Aspirin 325mg Qday Lipitor 40mg QHS Follow-up with primary care physician within one week. Prema Mccarthy DO Apr 30, 2017 16:02
[2017-04-30] MEDS ORDERED: LIPI40TA PO (16:05)
[2017-04-30] MEDS ORDERED: ASPI325T PO (16:05)
[2017-04-30 18:08] LABS: HEMOGLOBIN A1b 0.8 %; HEMOGLOBIN F 1.2 %; HEMOGLOBIN P3 4.7 %
--- NOTE | 2017-05-01 08:42 | PD.CONS ---
Assessment and Plan Plan Consult received per stroke order set. EMR reviewed. Patient noted to be neurological baseline. Ambulating with RW CG/min assist with PT. Wiill follow pt as outpatient. Thanks. Olga Lozano MD May 01, 2017 08:42
== END 2017-04-30 19:39 | disposition home or self-care (01) ==
LOC: NEPE 09:18 → NEDH 15:32 → NEPHCDU 19:27
PROVIDERS: ADMIT Hospitalist; ATTEND Hospitalist
DX: I63.9 Cerebral infarction, unspecified (principal); R27.0 Ataxia, unspecified; N18.9 Chronic kidney disease, unspecified; I12.9 Hypertensive chronic kidney disease with stage 1 through stage 4 chronic kidney disease, or unspecified chronic kidney disease; E11.22 Type 2 diabetes mellitus with diabetic chronic kidney disease; I65.22 Occlusion and stenosis of left carotid artery; R47.1 Dysarthria and anarthria; K21.9 Gastro-esophageal reflux disease without esophagitis; M19.079 Primary osteoarthritis, unspecified ankle and foot; M19.049 Primary osteoarthritis, unspecified hand; Z59.0 Homelessness; N28.9 Disorder of kidney and ureter, unspecified; Z79.899 Other long term (current) drug therapy; Z87.891 Personal history of nicotine dependence; Z79.4 Long term (current) use of insulin
CPT/HCPCS: 70450; 70544; 70551; 71010; 80048; 80053; 80061; 81001; 82948; 83036; 85025; 85610; 85730; 87641; 92523; 93005; 93306; 93880; 96361; 96374; 97162; 99285; G0378; G8987; G8988; G8999; G9158; G9186; J1815; J7030

== ENCOUNTER 2017-06-24 10:30 | Emergency (ER) | payer MEDICARE, OTHER ==
[~2017-06-24] VITALS: Ht 180.3 cm; Wt 91.3 kg
[~2017-06-24 10:30] MED LIST changes: +ASPI325T PO; -CLIN1CAP5 PO; +LIPI40TA PO
[2017-06-24 10:32] VITALS: BP 160/79; PULSE 99; RESP 20; TEMP 97.5; O2SAT 99
[2017-06-24] MEDS ORDERED: CLIN1CAP6 PO (11:16)
[2017-06-24] MEDS ORDERED: MUPI2OIN TOPICAL (11:16)
--- NOTE | 2017-06-24 11:18 | PD ---
HPI Chief Complaint: Skin Problem Time Seen by Provider: 10:52 Travel History International Travel<30 days: No Contact w/Intl Traveler<30days: No Traveled to known affect area: No History of Present Illness HPI 7-year-old male presenting to the emergency department for evaluation of possible skin infection. Patient states a few days ago he was scratching his legs, he then noticed pustules on the back of his right lower leg and a friend at work told him to get it evaluated. He denies any fever, chills, nausea, vomiting. He rates his pain is a 3 out of 10 and states it's sore. Patient has had similar rashes in the past. Past medical history is significant for type 2 diabetes, CVA, hypertension, hyperlipidemia. He is currently followed at the community [facility] with Dr. Lizarraga. COUNT INCLUDES THE [facility] Past Medical History Arthritis: Yes Asthma: No Blood Disorders: No Anxiety: No Depression: No Heart Rhythm Problems: No Cancer: No High Cholesterol: Yes Chemotherapy: No Chest Pain: No Congestive Heart Failure: No COPD: No Cerebrovascular Accident: Yes Diabetes: Yes Diminished Hearing: No Gastrointestinal Disorders: Yes ( ABDOMINAL HERNIATION) GERD: Yes Hypertension: Yes Immune Disorder: No Implanted Vascular Access Dvce: No Neurologic: No Psychiatric: No Reproductive: No Respiratory: No Immunizations Current: Yes Radiation Therapy: No Sleep Apnea: No Thyroid Disease: No Past Surgical History AICD: No Joint Replacement: No Pacemaker: No Other Surgery: No Social History Alcohol Use: No (CLEAN FIVE YEARS) Tobacco Use: No Substance Use: No Allergies-Medications (Allergen,Severity, Reaction): Coded Allergies: metoprolol (Verified Allergy, Severe, Itching, 06/24/17) *MDRO Multi-Drug Resistant Organism (Verified Allergy, Unknown, 06/24/17) MRSA Hand wound 10/2012 Reported Meds & Prescriptions Reported Meds & Active Scripts Active Amlodipine (Amlodipine Besylate) 10 Mg Tab 10 Mg PO DAILY Lisinopril 40 Mg Tab 40 Mg PO HS Glipizide 10 Mg Tab 10 Mg PO BIDAC Take 30 minutes before a meal Lipitor (Atorvastatin Calcium) 40 Mg Tab 40 Mg PO HS Aspirin 325 Mg Tab 325 Mg PO DAILY Lantus Inj (Insulin Glargine) 1,000 Unit/10 Ml Vial 30 Units SQ HS Review of Systems Except as stated in HPI: all other systems reviewed are Neg General / Constitutional: No: Fever, Chills Cardiovascular: No: Chest Pain or Discomfort Respiratory: No: Shortness of Breath Gastrointestinal: No: Nausea, Abdominal Pain Musculoskeletal: Positive: Pain Skin: Positive Rash, Positive Itching, Positive Lesions Physical Exam Narrative GENERAL: Well-developed, well-nourished, alert male. Resting comfortably in no acute distress. SKIN: Warm and dry. Small pustular lesions noted to the posterior right lower leg. Healing, scabbed lesions noted to bilateral thighs and bilateral forearms. HEAD: Normocephalic. EYES: No scleral icterus. No injection or drainage. NECK: Supple, trachea midline. No JVD or lymphadenopathy. CARDIOVASCULAR: Regular rate and rhythm without murmurs, gallops, or rubs. RESPIRATORY: Breath sounds equal bilaterally. No accessory muscle use. GASTROINTESTINAL: Abdomen soft, non-tender, nondistended. MUSCULOSKELETAL: No cyanosis. Trace pedal edema, 2+ dorsalis pedal pulses bilaterally. BACK: Nontender without obvious deformity. No CVA tenderness. Data Data Last Documented VS Vital Signs Date Time Temp Pulse Resp B/P (MAP) Pulse Ox O2 Delivery O2 Flow Rate FiO2 06/24/17 10:32 97.5 99 20 160/79 (106) 99 Room Air Orders Orders Wound Culture And Gram Stain (06/24/17 11:02) Wound Care (06/24/17 11:04) MDM Medical Decision Making Medical Screen Exam Complete: Yes Emergency Medical Condition: Yes Medical Record Reviewed: Yes Interpretation(s) Vital Signs Date Time Temp Pulse Resp B/P (MAP) Pulse Ox O2 Delivery O2 Flow Rate FiO2 06/24/17 10:32 97.5 99 20 160/79 (106) 99 Room Air Differential Diagnosis Folliculitis versus contact dermatitis versus impetigo versus cellulitis versus other Narrative Course Patient is 67-year-old male presenting for evaluation of a skin rash to the posterior right lower leg. Vital signs are stable, wound culture obtained, wound care ordered. Patient will be started on clindamycin, he was encouraged to keep area covered and apply topical antibiotic ointment as prescribed. He is encouraged to follow -up with his primary doctor. He was advised to return to emergency department immediately for any new or worsening symptoms. Patient verbalized understanding of discharge instructions. Patient stable for discharge. Diagnosis Primary Impression: Pruritic rash Additional Impression: Pustular lesion Referrals: Khalida Lizarraga MD 2 days Patient Instructions: General Instructions Additional Instructions: Complete full course of antibiotics as prescribed Follow up with Dr. Lizarraga Keep area clean and dry, cover with gauze dressing Return to the Emergency Department for any new or worsening symptoms Med/Other Pt SpecificInfo: Prescription(s) given Scripts Mupirocin Topical (Mupirocin Topical) 2 % Oint 1 APPLIC TOPICAL BID for Mgmt Bacterial Infection, #22 GM 0 Refills Prov: Bryanna Martinez 06/24/17 Clindamycin (Clindamycin) 300 Mg Cap 300 MG PO Q6H for Infection for 10 Days, #40 CAP 0 Refills Prov: Bryanna Martinez 06/24/17 Disposition: 01 DISCHARGE HOME Condition: Stable Bryanna Martinez Jun 24, 2017 11:17
== END 2017-06-24 12:06 | disposition home or self-care (01) ==
LOC: NEPD 10:30
DX: L08.0 Pyoderma (principal); B95.61 Methicillin susceptible Staphylococcus aureus infection as the cause of diseases classified elsewhere; B95.0 Streptococcus, group A, as the cause of diseases classified elsewhere
CPT/HCPCS: 86403; 87070; 87186; 99283

== ENCOUNTER 2017-07-03 09:08 | Emergency (ER) | payer SELFPAY ==
[~2017-07-03 09:08] MED LIST changes: +CLIN1CAP6 PO; +MUPI2OIN TOPICAL
[2017-07-03 09:10] VITALS: BP 153/106; PULSE 90; RESP 12; TEMP 97.9; O2SAT 97
--- NOTE | 2017-07-03 10:01 | PD ---
HPI Chief Complaint: Musculoskeletal Complaint Time Seen by Provider: 09:25 Travel History International Travel<30 days: No Contact w/Intl Traveler<30days: No Traveled to known affect area: No History of Present Illness HPI 67-year-old male presents emergency department for evaluation of wound recheck. Patient was seen and treated for folliculitis/cellulitis on the right lower extremity approximately one week ago. Patient reports that he is compliant with the antibiotics. He reports decreased pain and redness. He denies fever or chills. He has no medical complaint. PFSH Past Medical History Arthritis: Yes Asthma: No Blood Disorders: No Anxiety: No Depression: No Heart Rhythm Problems: No Cancer: No Cardiovascular Problems: Yes (murmur) High Cholesterol: Yes Chemotherapy: No Chest Pain: No Congestive Heart Failure: No COPD: No Cerebrovascular Accident: Yes (April 29) Diabetes: Yes Diminished Hearing: No Gastrointestinal Disorders: Yes ( ABDOMINAL HERNIATION) GERD: Yes Hypertension: Yes Immune Disorder: No Implanted Vascular Access Dvce: No Neurologic: No Psychiatric: No Reproductive: No Respiratory: No Immunizations Current: Yes Radiation Therapy: No Sleep Apnea: No Thyroid Disease: No Past Surgical History AICD: No Joint Replacement: No Pacemaker: No Other Surgery: No Social History Alcohol Use: No (CLEAN FIVE YEARS) Tobacco Use: No Substance Use: No Allergies-Medications (Allergen,Severity, Reaction): Coded Allergies: metoprolol (Verified Allergy, Severe, Itching, 07/03/17) *MDRO Multi-Drug Resistant Organism (Verified Allergy, Unknown, 07/03/17) MRSA Hand wound 10/2012 Reported Meds & Prescriptions Reported Meds & Active Scripts Active Mupirocin Topical (Mupirocin) 2 % Oint 1 Applic TOPICAL BID Clindamycin (Clindamycin HCl) 300 Mg Cap 300 Mg PO Q6H 10 Days Amlodipine (Amlodipine Besylate) 10 Mg Tab 10 Mg PO DAILY Lisinopril 40 Mg Tab 40 Mg PO HS Glipizide 10 Mg Tab 10 Mg PO BIDAC Take 30 minutes before a meal Lipitor (Atorvastatin Calcium) 40 Mg Tab 40 Mg PO HS Aspirin 325 Mg Tab 325 Mg PO DAILY Lantus Inj (Insulin Glargine) 1,000 Unit/10 Ml Vial 30 Units SQ HS Review of Systems Except as stated in HPI: all other systems reviewed are Neg Physical Exam Narrative GENERAL: Well-nourished, well-developed patient. SKIN: Focused skin assessment warm/dry. Healing wounds to the right lower extremity without evidence of infection. No lymphangitis no cellulitis. HEAD: Normocephalic. EYES: No scleral icterus. No injection or drainage. NECK: Supple, trachea midline. No JVD or lymphadenopathy. CARDIOVASCULAR: Regular rate and rhythm without murmurs, gallops, or rubs. RESPIRATORY: Breath sounds equal bilaterally. No accessory muscle use. GASTROINTESTINAL: Abdomen soft, non-tender, nondistended. MUSCULOSKELETAL: No cyanosis, or edema. Data Data Last Documented VS Vital Signs Date Time Temp Pulse Resp B/P (MAP) Pulse Ox O2 Delivery O2 Flow Rate FiO2 07/03/17 09:10 97.9 90 12 153/106 (122) 97 MDM Medical Decision Making Medical Screen Exam Complete: Yes Emergency Medical Condition: Yes Differential Diagnosis Wound recheck, infected wound, cellulitis Narrative Course 67-year-old male here for wound recheck of his right lower kidney. Patient was seen and evaluated diagnosed with folliculitis/cellulitis. Patient reports compliance with medication. He has no medical complaint. He denies fever or chills. He reports wounds are healing. On exam he has healing wounds to the right lower extremity without evidence of infection. He was instructed to follow-up with his PCP in the future. Patient verbalizes understanding and agrees to plan Diagnosis Primary Impression: Encounter for wound re-check Referrals: [facility] Additional Instructions: Continue the antibiotics as prescribed. Keep her follow-up appointment with your primary doctor as discussed. Return to emergency department if he developed new or worsening symptoms. Disposition: 01 DISCHARGE HOME Condition: Stable Mimi Davis Jul 03, 2017 10:01
== END 2017-07-03 10:10 | disposition home or self-care (01) ==
LOC: NEPK 09:08
DX: Z51.89 Encounter for other specified aftercare (principal); L03.115 Cellulitis of right lower limb; M19.90 Unspecified osteoarthritis, unspecified site; E78.00 Pure hypercholesterolemia, unspecified; E11.9 Type 2 diabetes mellitus without complications; I10 Essential (primary) hypertension; K21.9 Gastro-esophageal reflux disease without esophagitis; R01.1 Cardiac murmur, unspecified; Z86.73 Personal history of transient ischemic attack (TIA), and cerebral infarction without residual deficits
CPT/HCPCS: 99281

== ENCOUNTER 2017-09-08 12:40 | Emergency (ER) | payer MEDICARE, OTHER ==
[~2017-09-08 12:40] MED LIST changes: +ASPI-183 PO; -ASPI325T PO; -CLIN1CAP6 PO; +CLIN300C5 PO
[2017-09-08 12:44] VITALS: BP 167/92; PULSE 97; RESP 18; TEMP 98; O2SAT 98
[2017-09-08] MEDS ORDERED: INSULIN DETEMIR 100 UNITS/ML VIAL SQ STA (13:22)
[2017-09-08] MEDS ORDERED: SODIUM CHLOR 0.9% 1000 ML INJ 1,000 ML IV ONE ×2 (13:30)
[2017-09-08] MEDS ORDERED: INSULIN ASPART 1,000 UNITS/10 ML VIAL SQ ONE ×2 (13:30)
[2017-09-08 13:50] VITALS: BP 152/69; PULSE 92; RESP 18; O2SAT 96
[2017-09-08 13:57] LABS: AUTOMATED NEUTROPHIL # 10.2 TH/MM3 (1.8-7.7); BASOPHIL % 0.4 % (0.0-2.0); EOSINOPHIL # 0.1 TH/MM3 (0-0.4); EOSINOPHIL % 0.7 % (0.0-4.0); HEMATOCRIT 39.4 % (39.0-51.0); HEMO FLAGS DIFF FINAL; LYMPH % 12.7 % (9.0-44.0); LYMPHOCYTE # 1.6 TH/MM3 (1.0-4.8); MEAN CELL VOLUME 90.6 FL (80.0-100.0); MEAN CORPUSCULAR HEMOGLOBIN 30.8 PG (27.0-34.0); MONO % 6.7 % (0.0-8.0); NEUT % 79.5 % (16.0-70.0); PLATELET COUNT 190 TH/MM3 (150-450); RED BLOOD COUNT 4.34 MIL/MM3 (4.50-5.90); RED CELL DISTRIBUTION WIDTH 13.9 % (11.6-17.2); WHITE BLOOD COUNT 12.9 TH/MM3 (4.0-11.0)
[2017-09-08 14:13] LABS: BICARBONATE 24.8 MEQ/L (21.0-32.0); POTASSIUM 3.7 MEQ/L (3.5-5.1)
[2017-09-08] MEDS ORDERED: LANTUS2P SQ (14:34)
[2017-09-08] MEDS ORDERED: GLIP10TA6 PO (14:34)
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
[2017-09-08 15:34] VITALS: BP 161/83
== END 2017-09-08 15:37 | disposition home or self-care (01) ==
LOC: NEPC 12:40
DX: E11.65 Type 2 diabetes mellitus with hyperglycemia (principal); R42 Dizziness and giddiness; D64.9 Anemia, unspecified; Z79.4 Long term (current) use of insulin; Z79.82 Long term (current) use of aspirin; Z79.899 Other long term (current) drug therapy; Z88.8 Allergy status to other drugs, medicaments and biological substances
CPT/HCPCS: 80048; 85025; 96360; 96372; 99283; J1815; J7030

== ENCOUNTER 2017-09-30 09:48 | Emergency (ER) | payer OTHER ==
[~2017-09-30] VITALS: Ht 175.3 cm; Wt 89.0 kg
[~2017-09-30 09:48] MED LIST changes: -CLIN300C5 PO
[2017-09-30 09:51] VITALS: BP 179/98; PULSE 99; RESP 20; TEMP 97.9; O2SAT 96
[2017-09-30] MEDS ORDERED: CEPH-460 PO (10:26)
[2017-09-30] MEDS ORDERED: DOXY100C PO (10:26)
[2017-09-30] MEDS ORDERED: DIPHTH/TETANUS/ACEL PERTUSSIS (BOOSTER) 0.5 ML VIAL/PFS IM ONE (10:30)
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
[2017-09-30 12:45] VITALS: BP 172/76
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
== END 2017-09-30 13:15 | disposition home or self-care (01) ==
LOC: NEPC 09:48
DX: L03.116 Cellulitis of left lower limb (principal); E11.9 Type 2 diabetes mellitus without complications; I10 Essential (primary) hypertension; E78.00 Pure hypercholesterolemia, unspecified; Z23 Encounter for immunization; Z79.4 Long term (current) use of insulin
CPT/HCPCS: 73590; 90471; 90715

== ENCOUNTER 2017-11-14 08:47 | Emergency (ER) | payer OTHER ==
[~2017-11-14] VITALS: Ht 180.3 cm; Wt 90.0 kg
[~2017-11-14 08:47] MED LIST changes: +CEPH-460 PO; +DOXY100C PO
[2017-11-14 08:49] VITALS: BP 170/84; PULSE 91; RESP 14; TEMP 98.8; O2SAT 99
[2017-11-14 09:08] VITALS: BP 159/83; PULSE 89; RESP 14; O2SAT 96; O2SAT 97
[2017-11-14] MEDS ORDERED: CEPH-460 PO (10:05)
--- NOTE | 2017-11-14 10:05 | PD ---
HPI Chief Complaint: Skin Problem Time Seen by Provider: 09:15 Travel History International Travel<30 days: No Contact w/Intl Traveler<30days: No Traveled to known affect area: No History of Present Illness HPI This 67-year-old male presents emergency department complaining of a wound to his right great toe. He states he split it open about a month or so ago. 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 Is a minimal pain. There is no erythema redness fevers. Does have a history of diabetes with neuropathy. He otherwise has been feeling generally well and healthy. No history of chronic infections or other problems. No other complaints. History Past Medical History Narrative Medical Hypertension Diabetes Tetanus Vaccination: < 5 Years Influenza Vaccination: Yes Social History Alcohol Use: No Tobacco Use: No Allergies-Medications (Allergen,Severity, Reaction): Coded Allergies: metoprolol (Verified Allergy, Severe, Itching, 11/14/17) *MDRO Multi-Drug Resistant Organism (Verified Allergy, Unknown, 09/08/17) MRSA Hand wound 10/2012 Reported Meds & Prescriptions Reported Meds & Active Scripts Active Keflex (Cephalexin) 500 Mg Capsule 500 Mg PO Q8H 7 Days Glipizide 10 Mg Tab 10 Mg PO BIDAC Take 30 minutes before a meal Lantus Inj (Insulin Glargine) 1,000 Unit/10 Ml Vial 30 Units SQ HS Amlodipine (Amlodipine Besylate) 10 Mg Tab 10 Mg PO DAILY Lisinopril 40 Mg Tab 40 Mg PO HS Lipitor (Atorvastatin Calcium) 40 Mg Tab 40 Mg PO HS Review of Systems Except as stated in HPI: all other systems reviewed are Neg Physical Exam Narrative GENERAL: 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 SKIN: Warm and dry. CARDIOVASCULAR: Warm and well perfused. RESPIRATORY: Normal rate and effort. MUSCULOSKELETAL: Focused examination of the right foot reveals minimal swelling. There is no real erythema or warmth. There is some hyperkeratotic tissue on the distal part of the toe with the splint that appears to be well- healed. There is a subungual hematoma. The nail was not dislodged. NEUROLOGICAL: Awake and alert. No gross deficits. Data Data Last Documented VS Vital Signs Date Time Temp Pulse Resp B/P (MAP) Pulse Ox O2 Delivery O2 Flow Rate FiO2 11/14/17 09:08 89 14 159/83 (108) 97 Room Air 11/14/17 08:49 98.8 Orders Orders Toe (Min 2vws) (11/14/17 ) [facility] Medical Decision Making Medical Screen Exam Complete: Yes Emergency Medical Condition: Yes Interpretation(s) My personal review of right great toe x-ray: Negative. Differential Diagnosis Diabetic neuropathy, infection, occult injury, other Narrative Course Medical decision making INITIAL: Is a 67-year-old man who presents to the emergency department complaining of right great toe wound. It actually looks pretty well-healed. There is a subungual hematoma. He has neuropathy and may have some occult trauma. Will check an x-ray. Suspect this will be normal. There is not really significant erythema or redness around the toe. I will give him a prescription of Bactrim to start if the redness worsens. I will have him follow up with the wound care center if needed. Diagnosis Primary Impression: Open wound of right great toe Referrals: [facility] as needed Patient Instructions: General Instructions Additional Instructions: If you develop redness swelling or drainage from the wound, take Keflex as prescribed. Follow-up with wound care if needed. Return to the emergency department for any new or worsening symptoms. Med/Other Pt SpecificInfo: Prescription(s) given Scripts Cephalexin (Keflex) 500 Mg Capsule 500 MG PO Q8H for Infection for 7 Days, #21 CAP 0 Refills Prov: Aquiles Wilkins MD 11/14/17 Disposition: 01 DISCHARGE HOME Condition: Stable Aquiles Wilkins MD Nov 14, 2017 10:05
--- NOTE | 2017-11-14 10:13 | RADRPT ---
EXAM DATE/TIME: 11/14/2017 09:44 [facility] COMPARISON: No previous studies available for comparison. INDICATIONS : Open sore on right distal great toe for 1 month MEDICAL HISTORY : None. SURGICAL HISTORY : None. ENCOUNTER: Initial ACUITY: 1 month PAIN SCORE: 0/10 LOCATION: Right distal great toe FINDINGS: Examination of the first digit of the right foot demonstrates no evidence of fracture or dislocation. No radiopaque foreign bodies are seen. There is soft tissue disruption overlying the first digit di stal phalanx. CONCLUSION: Soft tissue disruption of the distal first phalanx without evidence of osteomyelitis or foreign body. Mone Nelson MD on November 14, 2017 at 10:09 Board Certified Radiologist. This report was verified electronically.
== END 2017-11-14 10:16 | disposition home or self-care (01) ==
LOC: NEPC 08:47
DX: S91.101A Unspecified open wound of right great toe without damage to nail, initial encounter (principal); E11.40 Type 2 diabetes mellitus with diabetic neuropathy, unspecified; I10 Essential (primary) hypertension; X58.XXXA Exposure to other specified factors, initial encounter; Z79.4 Long term (current) use of insulin
CPT/HCPCS: 73660; 99283

== ENCOUNTER 2018-01-26 22:31 | Emergency (ER) | payer OTHER ==
[~2018-01-26] VITALS: Ht 180.3 cm; Wt 85.0 kg
[~2018-01-26 22:31] MED LIST changes: -ASPI-183 PO; -DOXY100C PO; -MUPI2OIN TOPICAL
[2018-01-26 23:08] VITALS: BP 162/76; PULSE 91; RESP 16; TEMP 98.4; O2SAT 98
[2018-01-27 00:10] VITALS: BP_SYST 155; BP_SYST 174; BP_DIAS 70; BP_DIAS 93; PULSE 84; RESP 15; O2SAT 95
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
[2018-01-27] MEDS ORDERED: KETOROLAC TROMETHAMINE 30 MG/ML (IVP) VIAL IV PUSH ONE (01:00)
[2018-01-27] MEDS ORDERED: CLINDAMYCIN 600 MG/NS PREMIX 50 ML IV ONE (01:00)
[2018-01-27 01:18] LABS: BASOPHIL # 0.1 TH/MM3 (0-0.2); BASOPHIL % 0.7 % (0.0-2.0); EOSINOPHIL # 0.3 TH/MM3 (0-0.4); EOSINOPHIL % 2.4 % (0.0-4.0); HEMATOCRIT 41.4 % (39.0-51.0); HEMOGLOBIN 14.3 GM/DL (13.0-17.0); LYMPH % 17.2 % (9.0-44.0); LYMPHOCYTE # 1.9 TH/MM3 (1.0-4.8); MEAN CELL VOLUME 87.7 FL (80.0-100.0); MEAN CORPUSCULAR HEMOGLOBIN 30.2 PG (27.0-34.0); MEAN CORPUSCULAR HGB CONC 34.4 % (32.0-36.0); MEAN PLATELET VOLUME 7.8 FL (7.0-11.0); MONO % 6.8 % (0.0-8.0); MONOCYTE # 0.7 TH/MM3 (0-0.9); NEUT % 72.9 % (16.0-70.0); PLATELET COUNT 271 TH/MM3 (150-450); RED BLOOD COUNT 4.73 MIL/MM3 (4.50-5.90); RED CELL DISTRIBUTION WIDTH 14.3 % (11.6-17.2)
[2018-01-27 01:38] LABS: BICARBONATE 25.7 MEQ/L (21.0-32.0); CALCIUM 8.7 MG/DL (8.5-10.1); CREATININE 1.59 MG/DL (0.60-1.30)
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
[2018-01-27] MEDS ORDERED: CLIN150C14 PO (03:27)
[2018-01-27 03:30] VITALS: RESP 20
== END 2018-01-27 03:53 | disposition home or self-care (01) ==
LOC: NEPC 22:31
DX: L03.116 Cellulitis of left lower limb (principal); E11.9 Type 2 diabetes mellitus without complications; E78.00 Pure hypercholesterolemia, unspecified; I10 Essential (primary) hypertension; Z79.4 Long term (current) use of insulin
CPT/HCPCS: 73560; 73590; 73620; 80048; 85025; 96374; 96375; 99284; J1885

== ENCOUNTER 2018-07-09 19:11 | Observation (INO) ==
--- NOTE | 2018-07-09 20:25 | ED ---
HPI General Chief Complaint: Chest Pain Stated Complaint: Chest pain Time Seen by Provider: 07/09/18 20:12 History of Present Illness HPI narrative: Patient is 68-year-old male with history of diabetes, high blood pressure, presented to ER for chronic chest pain since April 2018. Patient stated that he was diagnosed with cHEST/Mediastinal mass in [facility]. Patient was evaluated for this mass(had endoscopy done, CT, was recommended to f /u with oncologist when have medical insurance(?) No new complaints today. No dyspnea. No fever. Sometimes patient has difficulty to swallow food. Related Data Home Medications Medication Instructions Recorded Confirmed amlodipine 10 mg PO DAILY 07/09/18 07/09/18 glipizide 10 mg PO DAILY 07/09/18 07/09/18 Allergies Allergy/AdvReac Type Severity Reaction Status Date / Time metoprolol Allergy Severe Itching Verified 03/29/18 13:15 *MDRO Multi-Drug Resistant Allergy Unknown Uncoded 01/26/18 23:08 Organism Review of Systems ROS: all other systems reviewed are negative Cardiovascular Reports [facility] Medical History Medical History Diabetes (Acute) HTN (hypertension) (Acute) Heart murmur (Acute) History of abdominal hernia (Acute) Surgical History Surgical History S/P wrist surgery (Acute) Social History Social History Substance History: No History of Abuse Second Hand Smoke Exposure: Yes Smoking Status: Former smoker Tobacco Type: Cigarettes How Often Do You Have a Drink Containing Alcohol: Never Recent Travel in [place] within the Last 8 Weeks: No Recent Out of Country Travel within the Last 8 Weeks: No Exam Narrative Exam Narrative: GENERAL: 68-year-old male in no apparent distress SKIN: Focused skin assessment warm/dry. HEAD: Atraumatic. Normocephalic. EYES: Pupils equal and round. No scleral icterus. No injection or drainage. ENT: No nasal bleeding or discharge. Mucous membranes pink and moist. NECK: Trachea midline. No JVD. CARDIOVASCULAR: Regular rate and rhythm. No murmur appreciated. RESPIRATORY: No accessory muscle use. Clear to auscultation. Breath sounds equal bilaterally. GASTROINTESTINAL: Abdomen soft, non-tender, nondistended. Hepatic and splenic margins not palpable. MUSCULOSKELETAL: No obvious deformities. No clubbing. No cyanosis. No edema. NEUROLOGICAL: Awake and alert. No obvious cranial nerve deficits. Motor grossly within normal limits. Normal speech. PSYCHIATRIC: Appropriate mood and affect; insight and judgment normal. 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 Today he presented for evaluation of his chest pain, cardiac workup will be done. Medical Screen Exam Complete: Yes Emergency Medical Condition: Yes Differential Diagnosis Differential Diagnosis: Chest pain rule out ME versus chronic chest mass. Lab Data Result diagrams: 07/09/18 21:00 07/09/18 21:00 Lab Results 07/09/18 07/09/18 07/09/18 Range/Units 21:00 21:00 21:00 WBC 15.8 H (4.0-11.0) th/mm3 RBC 4.43 L (4.50-5.90) mil/mm3 Hgb 13.6 (13.0-17.0) gm/dL Hct 39.6 (39.0-51.0) % MCV 89.5 (80.0-100.0) fL MCH 30.6 (27.0-34.0) pg MCHC 34.2 (32.0-36.0) % RDW 13.3 (11.6-17.2) % Plt Count 414 (150-450) th/mm3 MPV 7.8 (7.0-11.0) fL Neut % (Auto) 69.9 (16.0-70.0) % Lymph % (Auto) 20.9 (9.0-44.0) % [place] % (Auto) 6.9 (0.0-8.0) % Eos % (Auto) 1.7 (0.0-4.0) % Baso % (Auto) 0.6 (0.0-2.0) % Neut # (Auto) 11.1 H (1.8-7.7) th/mm3 Lymph # (Auto) 3.3 (1.0-4.8) th/mm3 [place] # (Auto) 1.1 H (0.0-0.9) th/mm3 Eos # (Auto) 0.3 (0.0-0.4) th/mm3 Baso # (Auto) 0.1 (0.0-0.2) th/mm3 WBC Differential . Differential Comment Auto diff final PT 10.5 (9.8-11.6) sec INR 1.0 Ratio APTT 27.1 (24.3-30.1) sec Sodium (136-145) meq/L Potassium (3.5-5.1) meq/L Chloride (98-107) meq/L Carbon Dioxide (21.0-32.0) meq/L Anion Gap (5-15) meq/L BUN (7-18) mg/dL Creatinine (0.60-1.30) mg/dL Estimated GFR (>89) mL/min Random Glucose (74-106) mg/dL Calcium (8.5-10.1) mg/dL Total Bilirubin (0.2-1.0) mg/dL AST (15-37) U/L ALT (12-78) U/L Alkaline Phosphatase (45-117) U/L Troponin I (0.02-0.05) ng/mL B-Natriuretic Peptide 115 H (0-100) pg/mL Total Protein (6.4-8.2) g/dL Albumin (3.4-5.0) g/dL Urine Color (Yellw/Straw) Urine Clarity (Clear) Urine pH (5.0-8.5) Ur Specific [place] (1.002-1.035) Urine Protein (Neg-Trace) mg/dL Urine Glucose (UA) (Negative) mg/dL Urine Ketones (Negative) mg/dL Urine Occult Blood (Negative) Urine Nitrate (Negative) Urine Bilirubin (Negative) Urine Urobilinogen (Less than 2) mg/dL Ur Leukocyte Esterase (Negative) Urine WBC (0-5) /hpf Ur Squamous Epith Cells (0-5) /hpf Hyaline Casts (0-3) /lpf Granular Casts (None) /lpf Urine Mucus (Occasional) /lpf Ur Microscopic Review 07/09/18 07/09/18 07/10/18 Range/Units 21:00 22:05 04:19 WBC (4.0-11.0) th/mm3 RBC (4.50-5.90) mil/mm3 Hgb (13.0-17.0) gm/dL Hct (39.0-51.0) % MCV (80.0-100.0) fL MCH (27.0-34.0) pg MCHC (32.0-36.0) % RDW (11.6-17.2) % Plt Count (150-450) th/mm3 MPV (7.0-11.0) fL Neut % (Auto) (16.0-70.0) % Lymph % (Auto) (9.0-44.0) % [place] % (Auto) (0.0-8.0) % Eos % (Auto) (0.0-4.0) % Baso % (Auto) (0.0-2.0) % Neut # (Auto) (1.8-7.7) th/mm3 Lymph # (Auto) (1.0-4.8) th/mm3 [place] # (Auto) (0.0-0.9) th/mm3 Eos # (Auto) (0.0-0.4) th/mm3 Baso # (Auto) (0.0-0.2) th/mm3 WBC Differential Differential Comment PT (9.8-11.6) sec INR Ratio APTT (24.3-30.1) sec Sodium 141 (136-145) meq/L Potassium 3.1 L (3.5-5.1) meq/L Chloride 105 (98-107) meq/L Carbon Dioxide 26.4 (21.0-32.0) meq/L Anion Gap 10 (5-15) meq/L BUN 18 (7-18) mg/dL Creatinine 1.75 H (0.60-1.30) mg/dL Estimated GFR 39 L (>89) mL/min Random Glucose 155 H (74-106) mg/dL Calcium 8.1 L (8.5-10.1) mg/dL Total Bilirubin 0.5 (0.2-1.0) mg/dL AST 16 (15-37) U/L ALT 16 (12-78) U/L Alkaline Phosphatase 178 H (45-117) U/L Troponin I Less than 0.02 L Less than 0.02 L (0.02-0.05) ng/mL B-Natriuretic Peptide (0-100) pg/mL Total Protein 7.2 (6.4-8.2) g/dL Albumin 2.4 L (3.4-5.0) g/dL Urine Color Yellow (Yellw/Straw) Urine Clarity Hazy H (Clear) Urine pH 5.0 (5.0-8.5) Ur Specific [place] 1.026 (1.002-1.035) Urine Protein 500 or greater (Neg-Trace) mg/dL Urine Glucose (UA) 150 H (Negative) mg/dL Urine Ketones Negative (Negative) mg/dL Urine Occult Blood Negative (Negative) Urine Nitrate Negative (Negative) Urine Bilirubin Negative (Negative) Urine Urobilinogen Less than 2 (Less than 2) mg/dL Ur Leukocyte Esterase Negative (Negative) Urine WBC 3 (0-5) /hpf Ur Squamous Epith Cells <1 (0-5) /hpf Hyaline Casts 11 (0-3) /lpf Granular Casts 3 (None) /lpf Urine Mucus Few H (Occasional) /lpf Ur Microscopic Review Not Reportable Imaging Data Radiologist's impression: Chest X-Ray 07/09/18 20:19 CONCLUSION: No evidence of acute cardiopulmonary disease. Chest CT 07/09/18 22:04 CONCLUSION: 1. Large mass of the mid esophagus, malignant until proven otherwise. No convincing evidence of metastatic disease on these noncontrast images. 2. Nonaneurysmal thoracic aorta. A noncontrast study was done. Nothing to suggest dissection. 3. Cirrhotic liver. 4. Coronary artery calcification. ECG Data EKG Prior to Arrival: Yes Attestation: I personally reviewed and interpreted this ECG as follows: Prior ECG tracings: available for review Interpretation: Normal sinus rhythm with PVCs, rate 94, no ST elevation. Discharge Plan Discharge Disposition Patient Disposition: 30 Still Patient Discharge Condition Condition: Fair Discharge Details Diagnosis: Atypical chest pain, Mass of esophagus Physicians Team ED Provider: Roberto Killian Primary Care Provider: UNKNOWN, Attending Provider: Henna Yo Other Providers: Cece Berman Status ED Status: Left Department Discharge Information Discharge Date/Time: 07/09/18 23:52
--- NOTE | 2018-07-09 21:02 | XR ---
EXAM DATE: 07/09/2018 8:19 PM EDT AGE/SEX: 68 years / Male INDICATIONS: Chest pain. CLINICAL DATA: This is the patient's initial encounter. Patient reports that signs and symptoms have been present for 3 months and indicates a pain score of 4/10. MEDICAL/SURGICAL HISTORY: . Hypertension. Diabetes mellitus type II. . Rt wrist surgery COMPARISON: [facility] [place], CHEST SINGLE AP, 03/29/2018. . FINDINGS: A single AP view of the chest demonstrates the lungs to be symmetrically aerated without evidence of mass, infiltrate or effusion. The cardiomediastinal contours are unremarkable. Osseous structures a re intact. CONCLUSION: No evidence of acute cardiopulmonary disease. Electronically signed by: Kris Lozano MD 07/09/2018 9:01 PM EDT
[2018-07-09 21:37] LABS: Baso # (Auto) 0.1 th/mm3 (0.0-0.2); Baso % (Auto) 0.6 % (0.0-2.0); Eos # (Auto) 0.3 th/mm3 (0.0-0.4); Eos % (Auto) 1.7 % (0.0-4.0); Hematocrit 39.6 % (39.0-51.0); Hemoglobin 13.6 gm/dL (13.0-17.0); Lymph # (Auto) 3.3 th/mm3 (1.0-4.8); Lymph % (Auto) 20.9 % (9.0-44.0); Mean Corpuscular HGB Conc 34.2 % (32.0-36.0); Mean Corpuscular Hemoglobin 30.6 pg (27.0-34.0); Mean Corpuscular Volume 89.5 fL (80.0-100.0); Mean Platelet Volume 7.8 fL (7.0-11.0); Mono # (Auto) 1.1 th/mm3 (0.0-0.9); Mono % (Auto) 6.9 % (0.0-8.0); Neut # (Auto) 11.1 th/mm3 (1.8-7.7); Neut % (Auto) 69.9 % (16.0-70.0); Platelet Count 414 th/mm3 (150-450); Red Blood Count 4.43 mil/mm3 (4.50-5.90); Red Cell Distribution Width 13.3 % (11.6-17.2); White Blood Count 15.8 th/mm3 (4.0-11.0)
[2018-07-09 21:38] LABS: Activated Partial Thrombo Time 27.1 sec (24.3-30.1); Prothrombin Time 10.5 sec (9.8-11.6)
[2018-07-09 21:59] LABS: Albumin 2.4 g/dL (3.4-5.0); Anion Gap 10 meq/L (5-15); Aspartate Aminotransferase 16 U/L (15-37); Blood Urea Nitrogen 18 mg/dL (7-18); Calcium 8.1 mg/dL (8.5-10.1); Carbon Dioxide 26.4 meq/L (21.0-32.0); Chloride 105 meq/L (98-107); Glomerular Filtration Rate 39 mL/min (>89); Glucose,Random 155 mg/dL (74-106); Potassium 3.1 meq/L (3.5-5.1); Sodium 141 meq/L (136-145)
[2018-07-09 22:00] LABS: Alanine Aminotransferase 16 U/L (12-78)
[2018-07-09 22:03] LABS: Alkaline Phosphatase 178 U/L (45-117); Total Protein 7.2 g/dL (6.4-8.2)
[2018-07-09 22:28] LABS: Bilirubin,Urine Negative (Negative); Clarity,Urine Hazy (Clear); Color,Urine Yellow (Yellw/Straw); Glucose,Urine (UA) 150 mg/dL (Negative); Hyaline Casts,Urine 11 /lpf (0-3); Leukocyte Esterase,Urine Negative (Negative); Mucus,Urine Few /lpf (Occasional); Nitrite,Urine Negative (Negative); Specific Gravity,Urine 1.026 (1.002-1.035); Squamous Epithelial Cell,Urine <1 /hpf (0-5)
--- NOTE | 2018-07-09 22:29 | CT ---
EXAM DATE: 07/09/2018 10:07 PM EDT AGE/SEX: 68 years / Male INDICATIONS: Chest pain; possible aneurysm. CLINICAL DATA: This is the patient's initial encounter. Patient reports that signs and symptoms have been present for 1 day and indicates a pain score of 8/10. MEDICAL/SURGICAL HISTORY: Diabetes. Hypertension. Hernia None. RADIATION DOSE: 7.63 CTDI (mGy) COMPARISON: No prior exams available for comparison. TECHNIQUE: Multiple contiguous axial images were obtained through the chest without contrast. Image s were obtained in suspended respiration using multiple row detector helical technique. Using automa shawn exposure control and adjustment of the mA and/or kV according to patient size, radiation dose was kept as low as reasonably achievable to obtain optimal diagnostic quality images. DICOM format imag e data is available electronically for review and comparison. FINDINGS: Near the level of the saad is a large mass of the esophagus, approximately 4.1 x 5.5 x 11 cm in siz e. There appears to be some nodular thickening of the wall of the esophagus distal to the main portio n of the mass. Upstream esophagus is distended consistent with a degree of associated obstruction. On these noncontrast images, no lymphadenopathy seen. No infiltrate, effusion or pneumothorax of the lungs. There is a 4 mm left mid lung nodule which is p robably postinflammatory. The upper abdomen is partly included on the study. There is a macro lobular configuration of the live r consistent with cirrhosis. No perceptible focal hepatic lesion. No ascites. Spleen size appears to be upper limits of normal. There are couple cysts partly seen of the right kidney. Mild atherosclerosis seen of the thoracic aorta. There is no aneurysm. Heart size within normal limit s. There is coronary artery calcification. CONCLUSION: 1. Large mass of the mid esophagus, malignant until proven otherwise. No convincing evidence of meta static disease on these noncontrast images. 2. Nonaneurysmal thoracic aorta. A noncontrast study was done. Nothing to suggest dissection. 3. Cirrhotic liver. 4. Coronary artery calcification. Electronically signed by: Kris Lozano MD 07/09/2018 10:28 PM EDT
[2018-07-09] MEDS ORDERED: Bisacodyl 10 MG Supp RECTAL PRN (23:17)
[2018-07-09] MEDS ORDERED: Dextrose 50% in Water 50 ML Vial IV.PUSH PRN (23:20)
--- NOTE | 2018-07-09 23:21 | P.HPIM ---
History of Present Illness Primary Care Physician: UNKNOWN History of Present Illness: This is a 68-year-old male with a PMH of HTN, Hyperlipidemia and DM who presented to ER with complaints of chest pain. States symptoms have been ongoing since April 2018, was seen at at that time and diagnosed w/ mass in his chest, was instructed to follow up w/ Oncology, however did not have insurance at the time and unable to do so. Returns today w/ ongoing symptoms, now w/ difficulty swallowing. Reports chest pain is substernal, constant, moderate, 7/10, non-radiating. On arrival, BP 189/82, HR 92, O2 sat 96% on RA, Afebrile. WBC 15.8. INR 1.0. K+ 3.1. Creatinine 1.75, previously 1.33 on . Troponin negative. CXR with no acute findings. CT Chest with large mass of mid esophagus, malignant until proven otherwise, no convincing evidence of metastatic disease, non-aneurysmal thoracic aorta, cirrhotic liver. Currently chest pain-free. - Diagnosis (1) Chest pain (2) Esophageal mass (3) Renal insufficiency (4) Leukocytosis (5) DM (diabetes mellitus) Review of Systems PAST FAMILY HISTORY: Reviewed. No h/o DM or CAD All other systems reviewed negative except as stated in HPI PMFSH - History History Provided By: Patient - Medical History Medical History: Medical History (Last Updated 07/09/18 @ 21:26 by Scotty Bashir) Diabetes HTN (hypertension) Heart murmur History of abdominal hernia - Surgical History Surgical History: Surgical History (Last Updated 07/09/18 @ 21:26 by Scotty Bashir) S/P wrist surgery - Tobacco History Smoking Status: Former smoker - Alcohol History How Often Do You Have a Drink Containing Alcohol: Never - Substance Use History Substance History: No History of Abuse - Travel History Recent Travel in the [place] Within the Last 8 Weeks: No Recent Travel Out of the Country Within the Last 8 Weeks: No - Immunization History Tetanus Immunization: Unsure Medications and Allergies Active Medications: Active Medications Sodium Chloride (Ns Flush) 2 ml IV.FLUSH UNSCH PRN PRN Reason: FLUSH AFTER USING IV ACCESS Allergies Allergy/AdvReac Type Severity Reaction Status Date / Time metoprolol Allergy Severe Itching Verified 03/29/18 13:15 *MDRO Multi-Drug Resistant Allergy Unknown Uncoded 01/26/18 23:08 Organism Home Medications Medication Instructions Recorded Confirmed Type amlodipine 10 mg PO DAILY 07/09/18 07/09/18 History glipizide 10 mg PO DAILY 07/09/18 07/09/18 History Exam Vital signs: Vital Signs 07/09/18 19:20 07/09/18 21:26 07/09/18 21:27 Temperature 98.4 F 98.4 F Pulse Rate 92 H 97 H 97 H Respiratory Rate 20 18 Blood Pressure 189/82 H 169/80 H Pulse Oximetry 96 99 99 07/09/18 22:38 Temperature Pulse Rate Respiratory Rate 16 Blood Pressure Pulse Oximetry Intake & Output 07/09/18 07/09/18 07/10/18 06:59 18:59 06:59 Weight 77.111 kg Narrative: PE: GENERAL: Middle-aged white male in no acute distress. SKIN: Focused skin assessment warm and dry. HEENT: PERRLA, EOMI. No scleral icterus or conjunctival pallor. No lid lag or facial droop. CARDIOVASCULAR: Regular rate and rhythm. No obvious murmurs to auscultation. No chest tenderness to palpation. RESPIRATORY: No obvious rhonchi or wheezing. Clear to auscultation. Breath sounds equal bilaterally. GASTROINTESTINAL: Abdomen soft, non-tender, nondistended. BS normal. MUSCULOSKELETAL: Extremities without clubbing, cyanosis, or edema. No obvious deformities. NEUROLOGICAL: Awake, alert and oriented x4. No focal neurologic deficits. Moving both upper and lower extremities spontaneously. PSYCHIATRIC: Appropriate mood and affect. Insight and judgment normal. Results - Labs CBC & Chem 7: 07/09/18 21:00 07/09/18 21:00 Labs: Short CBC 07/09/18 Range/Units 21:00 WBC 15.8 H (4.0-11.0) th/mm3 Hgb 13.6 (13.0-17.0) gm/dL Hct 39.6 (39.0-51.0) % Plt Count 414 (150-450) th/mm3 BMP 07/09/18 21:00 Sodium 141 Potassium 3.1 L Chloride 105 Carbon Dioxide 26.4 BUN 18 Creatinine 1.75 H Calcium 8.1 L Cardiac Enzymes 07/09/18 Range/Units 21:00 Troponin I Less than 0.02 L (0.02-0.05) ng/mL Liver Function 07/09/18 Range/Units 21:00 Total Bilirubin 0.5 (0.2-1.0) mg/dL AST 16 (15-37) U/L ALT 16 (12-78) U/L Alkaline Phosphatase 178 H (45-117) U/L Albumin 2.4 L (3.4-5.0) g/dL Urine 07/09/18 Range/Units 22:05 Urine Color Yellow (Yellw/Straw) Urine Clarity Hazy H (Clear) Urine pH 5.0 (5.0-8.5) Ur Specific [place] 1.026 (1.002-1.035) Urine Protein 500 or greater (Neg-Trace) mg/dL Urine Glucose (UA) 150 H (Negative) mg/dL - Imaging Impressions Chest X-Ray 07/09/18 20:19 CONCLUSION: No evidence of acute cardiopulmonary disease. Chest CT 07/09/18 22:04 CONCLUSION: 1. Large mass of the mid esophagus, malignant until proven otherwise. No convincing evidence of metastatic disease on these noncontrast images. 2. Nonaneurysmal thoracic aorta. A noncontrast study was done. Nothing to suggest dissection. 3. Cirrhotic liver. 4. Coronary artery calcification. Caprini VTE Risk Assessment Caprini VTE Risk Assessment: No/Low Risk (score <= 1) Caprini Risk Assessment Model: Point Value = 1 Point Value = 2 Point Value = 3 Point Value = 5 Age 41-60 Minor surgery BMI > 25 kg/m2 Swollen legs Varicose veins or History of unexplained or recurrent spontaneous Oral contraceptives or hormone replacement Sepsis (< 1 month) Serious lung disease, including pneumonia (< 1 month) Abnormal pulmonary function Acute myocardial infarction Congestive heart failure (< 1 month) History of inflammatory bowel disease Medical patient at bed rest Age 61-74 Arthroscopic surgery Major open surgery (> 45 min) Laparoscopic surgery (> 45 min) Malignancy Confined to bed (> 72 hours) Immobilizing plaster cast Central venous access Age >= 75 History of VTE Family history of VTE Factor V Leiden Prothrombin [id number] Lupus anticoagulant Anticardiolipin antibodies Elevated serum homocysteine Heparin-induced thrombocytopenia Other congenital or acquired thrombophilia Stroke (< 1 month) Elective arthroplasty Hip, pelvis, or leg fracture Acute spinal cord injury (< 1 month) Prophylaxis Regimen: Total Risk Factor Score Risk Level Prophylaxis Regimen 0-1 Low Early ambulation 2 Moderate Order ONE of the following: *Sequential Compression Device (SCD) *Heparin 5000 units SQ BID 3-4 Higher Order ONE of the following medications: *Heparin 5000 units SQ TID *Enoxaparin/Lovenox 40 mg SQ daily (WT < 150 kg, CrCl > 30 mL/min) *Enoxaparin/Lovenox 30 mg SQ daily (WT < 150 kg, CrCl > 10-29 mL/min) *Enoxaparin/Lovenox 30 mg SQ BID (WT < 150 kg, CrCl > 30 mL/min) AND/OR *Sequential Compression Device (SCD) 5 or more Highest Order ONE of the following medications: *Heparin 5000 units SQ TID (Preferred with Epidurals) *Enoxaparin/Lovenox 40 mg SQ daily (WT < 150 kg, CrCl > 30 mL/min) *Enoxaparin/Lovenox 30 mg SQ daily (WT < 150 kg, CrCl > 10-29 mL/min) *Enoxaparin/Lovenox 30 mg SQ BID (WT < 150 kg, CrCl > 30 mL/min) AND *Sequential Compression Device (SCD) Assessment and Plan - Assessment (1) Chest pain Code(s): R07.9 - Chest pain, unspecified Status: Acute (2) Esophageal mass Code(s): K22.9 - Disease of esophagus, unspecified Status: Acute (3) Renal insufficiency Code(s): N28.9 - Disorder of kidney and ureter, unspecified Status: Acute (4) Leukocytosis Code(s): D72.829 - Elevated white blood cell count, unspecified Status: Acute (5) DM (diabetes mellitus) Code(s): E11.9 - Type 2 diabetes mellitus without complications Status: Acute - Plan A/P: 1. Chest Pain: Atypical, likely related to esophageal mass, initial trop negative, will place on telemetry, check serial cardiac enzymes, hold ASA in light of esophageal mass and risk for bleed. Morphine prn as needed. 2. Esophageal Mass: reports initially diagnosed April 2018, no further intervention/follow-up due to insurance, CT Chest w/ large esophageal mass, likely malignant, images reviewed. Consult GI/Oncology for further eval/ intervention. Protonix IV. Analgesics/antiemetics as needed. 3. PAM: Acute on Chronic. Creatinine 1.75, previously 1.33 on 04/01/18, IVF for hydration, repeat labs in am, monitor I/O. 4. Leukocytosis: WBC 12, no evidence of infection, possibly reactive, will repeat labs in am. 5. DM: Sliding scale w/ Accu-checks. 6. DVT Prophylaxis: SCD/Teds 7. Social work for d/c planning as needed 8. Case discussed w/ ER physician at length, labs/records/imaging reviewed by me.
[2018-07-09] MEDS ORDERED: Sodium Chloride 0.9% 2 ML Flush PRN IV.FLUSH (23:29)
[2018-07-10] MEDS: Pantoprazole Inj 40 MG Vial IV.PUSH SCH ×3 (02:08→23:16)
[2018-07-10] MEDS: Sod Chloride 0.9% Inj 1,000 ML IV.CONT SCH ×3 (02:09→20:53)
[2018-07-10 08:00] LABS: Baso # (Auto) 0.1 th/mm3 (0.0-0.2); Baso % (Auto) 0.6 % (0.0-2.0); Eos # (Auto) 0.2 th/mm3 (0.0-0.4); Eos % (Auto) 1.8 % (0.0-4.0); Hematocrit 35.5 % (39.0-51.0); Hemoglobin 12.3 gm/dL (13.0-17.0); Lymph # (Auto) 2.2 th/mm3 (1.0-4.8); Lymph % (Auto) 17.8 % (9.0-44.0); Mean Corpuscular HGB Conc 34.7 % (32.0-36.0); Mean Corpuscular Hemoglobin 31.1 pg (27.0-34.0); Mean Corpuscular Volume 89.6 fL (80.0-100.0); Mean Platelet Volume 7.4 fL (7.0-11.0); Mono % (Auto) 7.9 % (0.0-8.0); Neut # (Auto) 8.8 th/mm3 (1.8-7.7); Neut % (Auto) 71.9 % (16.0-70.0); Platelet Count 276 th/mm3 (150-450); Red Blood Count 3.97 mil/mm3 (4.50-5.90); Red Cell Distribution Width 13.2 % (11.6-17.2); White Blood Count 12.2 th/mm3 (4.0-11.0)
[2018-07-10] MEDS: Sodium Chloride 0.9% 2 ML Flush BID IV.FLUSH SCH ×2 (08:04→20:52)
[2018-07-10] MEDS: Senna/Docusate Sodium 8.6/50 MG Tablet PO SCH ×2 (08:04→20:52)
[2018-07-10 08:25] LABS: Alanine Aminotransferase 15 U/L (12-78); Albumin 2.2 g/dL (3.4-5.0); Anion Gap 9 meq/L (5-15); Aspartate Aminotransferase 13 U/L (15-37); Blood Urea Nitrogen 19 mg/dL (7-18); Calcium 7.6 mg/dL (8.5-10.1); Carbon Dioxide 27.1 meq/L (21.0-32.0); Chloride 108 meq/L (98-107); Glomerular Filtration Rate 44 mL/min (>89); Glucose,Random 162 mg/dL (74-106); Potassium 3.2 meq/L (3.5-5.1); Sodium 144 meq/L (136-145)
[2018-07-10] MEDS ORDERED: Potassium Chlor 20 mEq Premix 20 MEQ/100 ML PIGGYBACK IV.SIG ONE (08:27)
[2018-07-10 08:29] LABS: Alkaline Phosphatase 156 U/L (45-117); Total Protein 6.3 g/dL (6.4-8.2)
[2018-07-10] MEDS: Insulin NovoLOG Aspart Correctional Sugar Inj SQ SCH ×4 (08:32→20:52)
[2018-07-10] MEDS: Morphine Sulfate Inj 2 MG/ML Vial IV.PUSH PRN ×4 (09:00→23:15)
--- NOTE | 2018-07-10 09:23 | P.PN ---
Subjective Interval history: Follow-up for chest pain with esophageal mass. Patient reports continued constant substernal chest pressure, temporarily relieved by pain medications. He denies any nausea or vomiting. She denies any abdominal pain. Denies any fever/chills. He denies any dysphasia/odynophagia. He states he has been tolerating oral intake without difficulty. He has no other medical complaints at this time. Physical Exam Vital signs: Vital Signs 07/09/18 19:20 07/09/18 21:26 07/09/18 21:27 Temperature 98.4 F 98.4 F Pulse Rate 92 H 97 H 97 H Respiratory Rate 20 18 Blood Pressure 189/82 H 169/80 H Pulse Oximetry 96 99 99 07/09/18 22:38 07/10/18 00:00 07/10/18 04:00 Temperature 98.3 F 98.1 F Pulse Rate 77 73 Respiratory Rate 16 18 19 Blood Pressure 162/87 H 164/87 H Pulse Oximetry 94 L 95 07/10/18 08:00 Temperature 98.0 F Pulse Rate 75 Respiratory Rate 16 Blood Pressure 156/86 H Pulse Oximetry 97 Intake & Output 07/09/18 07/10/18 07/10/18 18:59 06:59 18:59 Intake Total 600 / 600 Balance 600 / 600 Weight 77.11 kg Intake: Other 600 / 600 Other: Other Intake Source Saline Solution # Voids 3 Date of Last Bowel Movement 07/09/18 Weight On Admission 77.111 kg Narrative: GENERAL: Well-nourished, well-developed male patient in [facility]. SKIN: Warm and dry. No rash. HEENT: Normocephalic. Atraumatic. Pupils equal and round. Mucous membranes pink and moist. NECK: Supple. Trachea midline. CARDIOVASCULAR: Regular rate and rhythm. 3/6 systolic murmur noted. RESPIRATORY: No accessory muscle use. Clear to auscultation. Breath sounds equal bilaterally. GASTROINTESTINAL: Abdomen soft, non-tender, nondistended. Normoactive bowel sounds x4. MUSCULOSKELETAL: No obvious deformities. Extremities without clubbing, cyanosis , or edema. NEUROLOGICAL: Awake and alert. No obvious cranial nerve deficits. Motor grossly within normal limits. Moving all extremities spontaneously. Normal speech. PSYCHIATRIC: Appropriate mood and affect; insight and judgment normal. Results - Labs CBC & Chem 7: 07/10/18 06:45 07/10/18 06:40 Laboratory Results - last 24 hr 07/09/18 07/09/18 07/09/18 21:00 21:00 21:00 WBC 15.8 H RBC 4.43 L Hgb 13.6 Hct 39.6 MCV 89.5 MCH 30.6 MCHC 34.2 RDW 13.3 Plt Count 414 MPV 7.8 Neut % (Auto) 69.9 Lymph % (Auto) 20.9 Adams % (Auto) 6.9 Eos % (Auto) 1.7 Baso % (Auto) 0.6 Neut # (Auto) 11.1 H Lymph # (Auto) 3.3 Adams # (Auto) 1.1 H Eos # (Auto) 0.3 Baso # (Auto) 0.1 WBC Differential . Differential Comment Auto diff final PT 10.5 INR 1.0 APTT 27.1 Sodium Potassium Chloride Carbon Dioxide Anion Gap BUN Creatinine Estimated GFR Random Glucose Calcium Total Bilirubin AST ALT Alkaline Phosphatase Troponin I B-Natriuretic Peptide 115 H Total Protein Albumin Urine Color Urine Clarity Urine pH Ur Specific Hamilton Urine Protein Urine Glucose (UA) Urine Ketones Urine Occult Blood Urine Nitrate Urine Bilirubin Urine Urobilinogen Ur Leukocyte Esterase Urine WBC Ur Squamous Epith Cells Hyaline Casts Granular Casts Urine Mucus Ur Microscopic Review 07/09/18 07/09/18 07/10/18 21:00 22:05 04:19 WBC RBC Hgb Hct MCV MCH MCHC RDW Plt Count MPV Neut % (Auto) Lymph % (Auto) Adams % (Auto) Eos % (Auto) Baso % (Auto) Neut # (Auto) Lymph # (Auto) Adams # (Auto) Eos # (Auto) Baso # (Auto) WBC Differential Differential Comment PT INR APTT Sodium 141 Potassium 3.1 L Chloride 105 Carbon Dioxide 26.4 Anion Gap 10 BUN 18 Creatinine 1.75 H Estimated GFR 39 L Random Glucose 155 H Calcium 8.1 L Total Bilirubin 0.5 AST 16 ALT 16 Alkaline Phosphatase 178 H Troponin I Less than 0.02 L Less than 0.02 L B-Natriuretic Peptide Total Protein 7.2 Albumin 2.4 L Urine Color Yellow Urine Clarity Hazy H Urine pH 5.0 Ur Specific Hamilton 1.026 Urine Protein 500 or greater Urine Glucose (UA) 150 H Urine Ketones Negative Urine Occult Blood Negative Urine Nitrate Negative Urine Bilirubin Negative Urine Urobilinogen Less than 2 Ur Leukocyte Esterase Negative Urine WBC 3 Ur Squamous Epith Cells <1 Hyaline Casts 11 Granular Casts 3 Urine Mucus Few H Ur Microscopic Review Not Reportable 07/10/18 07/10/18 07/10/18 06:40 06:40 06:45 WBC 12.2 H RBC 3.97 L Hgb 12.3 L Hct 35.5 L MCV 89.6 MCH 31.1 MCHC 34.7 RDW 13.2 Plt Count 276 D MPV 7.4 Neut % (Auto) 71.9 H Lymph % (Auto) 17.8 Adams % (Auto) 7.9 Eos % (Auto) 1.8 Baso % (Auto) 0.6 Neut # (Auto) 8.8 H Lymph # (Auto) 2.2 Adams # (Auto) 1.0 H Eos # (Auto) 0.2 Baso # (Auto) 0.1 WBC Differential . Differential Comment Auto diff final PT INR APTT Sodium 144 Potassium 3.2 L Chloride 108 H Carbon Dioxide 27.1 Anion Gap 9 BUN 19 H Creatinine 1.58 H Estimated GFR 44 L Random Glucose 162 H Calcium 7.6 L Total Bilirubin 0.5 AST 13 L ALT 15 Alkaline Phosphatase 156 H Troponin I Less than 0.02 L Less than 0.02 L B-Natriuretic Peptide Total Protein 6.3 L D Albumin 2.2 L Urine Color Urine Clarity Urine pH Ur Specific Hamilton Urine Protein Urine Glucose (UA) Urine Ketones Urine Occult Blood Urine Nitrate Urine Bilirubin Urine Urobilinogen Ur Leukocyte Esterase Urine WBC Ur Squamous Epith Cells Hyaline Casts Granular Casts Urine Mucus Ur Microscopic Review - Imaging Impressions Chest X-Ray 07/09/18 20:19 CONCLUSION: No evidence of acute cardiopulmonary disease. Chest CT 07/09/18 22:04 CONCLUSION: 1. Large mass of the mid esophagus, malignant until proven otherwise. No convincing evidence of metastatic disease on these noncontrast images. 2. Nonaneurysmal thoracic aorta. A noncontrast study was done. Nothing to suggest dissection. 3. Cirrhotic liver. 4. Coronary artery calcification. Assessment and Plan - Assessment (1) Chest pain Code(s): R07.9 - Chest pain, unspecified Status: Acute (2) Esophageal mass Code(s): K22.9 - Disease of esophagus, unspecified Status: Acute (3) Renal insufficiency Code(s): N28.9 - Disorder of kidney and ureter, unspecified Status: Acute (4) Leukocytosis Code(s): D72.829 - Elevated white blood cell count, unspecified Status: Acute (5) DM (diabetes mellitus) Code(s): E11.9 - Type 2 diabetes mellitus without complications Status: Acute - Plan 68-year-old male with a PMH of HTN, Hyperlipidemia and DM who presented to ER with complaints of chest pain. States symptoms have been ongoing since April 2018, was seen at at that time and diagnosed w/ mass in his chest, was instructed to follow up w/ Oncology, however did not have insurance at the time and unable to do so. Chest Pain: Atypical, likely related to esophageal mass. -ACS ruled out with negative serial cardiac enzymes x3 and EKG without acute ischemic changes -Pain control with IV morphine -Monitor on telemetry -hold ASA in light of esophageal mass and risk for bleed. 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 -Consult GI and Oncology for further eval/intervention. -Give Protonix IV. Analgesics/antiemetics as needed. -Diet as tolerated for now PAM: Acute on Chronic. -Creatinine 1.75, previously 1.33 on 04/01/18 -Continue IVF for hydration -Avoid nephrotoxins -Repeat labs improving, Cr 1.58 today -Monitor BMP Leukocytosis: WBC 12, no evidence of infection, possibly reactive -Monitor for fevers -Repeat labs show improvement, WBC 12.2 K today -Continue to monitor DM: Chronic -Sliding scale w/ Accu-checks. Hypokalemia: K 3.2, suspect secondary to decreased oral intake -give IV KCl replacement -Repeat labs in am DVT Prophylaxis: SCD/Teds
--- NOTE | 2018-07-10 09:31 | P.CONGI ---
History of Present Illness Consult date: 07/10/18 Consult reason: Esophageal mass Chief complaint: chronic Chest pain, mass of esophagus History of Present Illness: This patient is a 68-year-old male with a past medical history significant for hypertension, hyperlipidemia and diabetes. Patient was diagnosed with esophageal mass in June 2018. Patient presented to the emergency room at [facility] on 07/09/2018 with complaints of midsternal chest wall pain patient states that the pain has been present since April 2018 he describes the pain as a pressure type pain rates it at this time at 8 out of 10 accompanied by intermittent weakness and is constant. The pain is aggravated per patient when he is laying supine and is somewhat alleviated when he is standing. Patient denies any dysphagia. He denies any coughing or choking or pain with swallowing. Patient also denies hematemesis. Patient states he stopped drinking alcohol 5 years ago. Prior to that he drank a 6 pack of beer each day for many years. Patient states he quit smoking cigarettes in the 1970s. He denies any known family history of gastrointestinal cancers patient states his last EGD was in June whereby he was diagnosed with his esophageal mass. Patient denies any blood noted in stool states his stools are soft and brown and he moves his bowels daily. Patient denies ever having had a colonoscopy in the past and denies taking any blood thinners. CT of chest done on admission reveals the following--Large mass of the mid esophagus, malignant until proven otherwise. No convincing evidence of metastatic disease on these noncontrast images. Nonaneurysmal thoracic aorta. A noncontrast study was done. Nothing to suggest dissection.Cirrhotic liver.Coronary artery calcification. Patient reports inability to follow-up with oncology post discharge from [facility] in April 2018 due to lack of insurance but states he is able to follow with oncology at this time due to receiving insurance. 07/10/2018 labs WBC 12.2 hemoglobin 12.3 hematocrit 35.5 with a platelet count of 276 INR 1.0 total bilirubin 0.5 AST 13 ALT 15 with a alk phos of 156. <Ingrid Gray - Last Filed: 07/10/18 09:43> Review of Systems All other systems reviewed negative except as stated in HPI <Ingrid Gray - Last Filed: 07/10/18 09:43> PMFSH - History History Provided By: Patient - Medical History Medical History: Medical History (Last Updated 07/09/18 @ 21:26 by Scotty Bashir) Diabetes HTN (hypertension) Heart murmur History of abdominal hernia - Surgical History Surgical History: Surgical History (Last Updated 07/09/18 @ 21:26 by Scotty Bashir) S/P wrist surgery - Tobacco History Second Hand Smoke Exposure: Yes Tobacco Use In Past 30 Days: No Smoking Status: Former smoker Tobacco Type: Cigarettes - Alcohol History How Often Do You Have a Drink Containing Alcohol: Never - Substance Use History Substance History: No History of Abuse - Travel History Recent Travel in the [place] Within the Last 8 Weeks: No Recent Travel Out of the Country Within the Last 8 Weeks: No - Immunization History Tetanus Immunization: Unsure <Ingrid Gray - Last Filed: 07/10/18 09:43> - Medical History Medical History: Medical History (Last Updated 07/09/18 @ 21:26 by Scotty Bashir) Diabetes HTN (hypertension) Heart murmur History of abdominal hernia - Surgical History Surgical History: Surgical History (Last Updated 07/09/18 @ 21:26 by Scotty Bashir) S/P wrist surgery <Cece Berman - Last Filed: 07/10/18 11:41> Medications and Allergies Active Medications: Active Medications Al Hydroxide/Mg Hydroxide (Milk Of Magnesia Liq) 30 ml PO Q12H PRN PRN Reason: Mild Constipation Bisacodyl (Dulcolax Supp) 10 mg RECTAL DAILY PRN PRN Reason: SEVERE CONSITIPATION Dextrose (D50w Vial) 50 ml IV.PUSH UNSCH PRN PRN Reason: PER HYPOGLYCEMIA PROTOCOL Glucagon (Glucagon Inj) 1 mg OTHER PRN PRN PRN Reason: for Hypoglycemia Protocol Sodium Chloride (Ns Inj) 1,000 mls @ 100 mls/hr IV.CONT .Q10H LORIE Last Admin: 07/10/18 02:09 Dose: 100 mls/hr Potassium Chloride (Kcl 20 Meq Premix Inj) 20 meq in 100 mls @ 50 mls/hr IV.SIG ONCE ONE Stop: 07/10/18 10:26 Insulin Aspart (Novolog Insulin Correctional Sugar Inj) 0 unit SQ ACHS LORIE; Protocol Last Admin: 07/10/18 08:32 Dose: Not Given Lactulose (Lactulose Liq) 30 ml PO DAILY PRN PRN Reason: SEVERE CONSITIPATION Morphine Sulfate (Morphine Inj) 2 mg IV.PUSH Q4H PRN PRN Reason: PAIN 6-10 Ondansetron HCl (Zofran Inj) 4 mg IV.PUSH Q6H PRN PRN Reason: NAUSEA OR VOMITING Pantoprazole Sodium (Protonix Inj) 40 mg IV.PUSH Q12H [facility] Last Admin: 07/10/18 02:08 Dose: 40 mg Senna/Docusate Sodium (Poly-Colace) 1 tab PO BID [facility] Last Admin: 07/10/18 08:04 Dose: Not Given Sennosides (Senokot) 17.2 mg PO Q12H PRN PRN Reason: Moderate Constipation Sodium Chloride (Ns Flush) 2 ml IV.FLUSH BID [facility] Last Admin: 07/10/18 08:04 Dose: Not Given Sodium Chloride (Ns Flush) 2 ml IV.FLUSH PRN PRN PRN Reason: FLUSH AFTER USING IV ACCESS <Ingrid Gray - Last Filed: 07/10/18 09:43> Active Medications: Active Medications Al Hydroxide/Mg Hydroxide (Milk Of Magnesia Liq) 30 ml PO Q12H PRN PRN Reason: Mild Constipation Bisacodyl (Dulcolax Supp) 10 mg RECTAL DAILY PRN PRN Reason: SEVERE CONSITIPATION Dextrose (D50w Vial) 50 ml IV.PUSH UNSCH PRN PRN Reason: PER HYPOGLYCEMIA PROTOCOL Glucagon (Glucagon Inj) 1 mg OTHER PRN PRN PRN Reason: for Hypoglycemia Protocol Sodium Chloride (Ns Inj) 1,000 mls @ 100 mls/hr IV.CONT .Q10H [facility] Last Admin: 07/10/18 10:10 Dose: 100 mls/hr Insulin Aspart (Novolog Insulin Correctional Sugar Inj) 0 unit SQ [facility]; Protocol Last Admin: 07/10/18 08:32 Dose: Not Given Lactulose (Lactulose Liq) 30 ml PO DAILY PRN PRN Reason: SEVERE CONSITIPATION Morphine Sulfate (Morphine Inj) 2 mg IV.PUSH Q4H PRN PRN Reason: PAIN 6-10 Last Admin: 07/10/18 09:00 Dose: 2 mg Ondansetron HCl (Zofran Inj) 4 mg IV.PUSH Q6H PRN PRN Reason: NAUSEA OR VOMITING Last Admin: 07/10/18 09:00 Dose: 4 mg Pantoprazole Sodium (Protonix Inj) 40 mg IV.PUSH Q12H [facility] Last Admin: 07/10/18 02:08 Dose: 40 mg Senna/Docusate Sodium (Poly-Colace) 1 tab PO BID [facility] Last Admin: 07/10/18 08:04 Dose: Not Given Sennosides (Senokot) 17.2 mg PO Q12H PRN PRN Reason: Moderate Constipation Sodium Chloride (Ns Flush) 2 ml IV.FLUSH BID [facility] Last Admin: 07/10/18 08:04 Dose: Not Given Sodium Chloride (Ns Flush) 2 ml IV.FLUSH PRN PRN PRN Reason: FLUSH AFTER USING IV ACCESS <Cece Berman - Last Filed: 07/10/18 11:41> Allergies Allergy/AdvReac Type Severity Reaction Status Date / Time metoprolol Allergy Severe Itching Verified 03/29/18 13:15 *MDRO Multi-Drug Resistant Allergy Unknown Uncoded 01/26/18 23:08 Organism Home Medications Medication Instructions Recorded Confirmed Type amlodipine 10 mg PO DAILY 07/09/18 07/09/18 History glipizide 10 mg PO DAILY 07/09/18 07/09/18 History Exam Vital signs: Vital Signs 07/09/18 19:20 07/09/18 21:26 07/09/18 21:27 Temperature 98.4 F 98.4 F Pulse Rate 92 H 97 H 97 H Respiratory Rate 20 18 Blood Pressure 189/82 H 169/80 H Pulse Oximetry 96 99 99 07/09/18 22:38 07/10/18 00:00 07/10/18 04:00 Temperature 98.3 F 98.1 F Pulse Rate 77 73 Respiratory Rate 16 18 19 Blood Pressure 162/87 H 164/87 H Pulse Oximetry 94 L 95 07/10/18 08:00 Temperature 98.0 F Pulse Rate 75 Respiratory Rate 16 Blood Pressure 156/86 H Pulse Oximetry 97 Intake & Output 07/09/18 07/10/18 07/10/18 18:59 06:59 18:59 Intake Total 600 / 600 Balance 600 / 600 Weight 77.11 kg Intake: Other 600 / 600 Other: Other Intake Source Saline Solution # Voids 3 Date of Last Bowel Movement 07/09/18 Weight On Admission 77.111 kg - Constitutional no acute distress, mild distress - Routine HEENT Exam Head: Present: normocephalic ENT: Present: mucous membranes moist, oropharynx clear - Routine Neck Exam Present: supple, full ROM, trachea midline. Absent: tenderness, swelling - Routine Respiratory Exam Present: CTA bilaterally. Absent: accessory muscle use, respiratory distress - Routine Cardiovascular Exam Present: RRR - Routine Abdominal Exam Present: soft, normoactive bowel sounds. Absent: tenderness, distended, guarding, firm - Routine Extremities Exam Present: full ROM. Absent: edema - Routine Neurological Exam Present: alert, oriented X3 <Ingrid Gray - Last Filed: 07/10/18 09:43> Vital signs: Vital Signs 07/09/18 19:20 07/09/18 21:26 07/09/18 21:27 Temperature 98.4 F 98.4 F Pulse Rate 92 H 97 H 97 H Respiratory Rate 20 18 Blood Pressure 189/82 H 169/80 H Pulse Oximetry 96 99 99 07/09/18 22:38 07/10/18 00:00 07/10/18 04:00 Temperature 98.3 F 98.1 F Pulse Rate 77 73 Respiratory Rate 16 18 19 Blood Pressure 162/87 H 164/87 H Pulse Oximetry 94 L 95 07/10/18 08:00 Temperature 98.0 F Pulse Rate 75 Respiratory Rate 16 Blood Pressure 156/86 H Pulse Oximetry 97 Intake & Output 07/09/18 07/10/18 07/10/18 18:59 06:59 18:59 Intake Total 600 / 600 1100 / 1100 Balance 600 / 600 1100 / 1100 Weight 77.11 kg Intake: IV 1100 / 1100 NS Inj 1,000 ML @ 100 mls/hr IV 1000 / 1000 .CONT .Q10H LORIE Rx#:[id number] KCl 20 mEq Premix Inj 20 meq In 100 / 100 100 ml @ 50 mls/hr IV.SIG ONCE ONE Rx#:[id number] Other 600 / 600 Other: Other Intake Source Saline Solution # Voids 3 Date of Last Bowel Movement 07/09/18 07/09/18 Weight On Admission 77.111 kg <Cece Berman - Last Filed: 07/10/18 11:41> Results - Labs CBC & Chem 7: 07/10/18 06:45 07/10/18 06:40 Labs: Laboratory Results - last 24 hr 07/09/18 07/09/18 07/09/18 21:00 21:00 21:00 WBC 15.8 H RBC 4.43 L Hgb 13.6 Hct 39.6 MCV 89.5 MCH 30.6 MCHC 34.2 RDW 13.3 Plt Count 414 MPV 7.8 Neut % (Auto) 69.9 Lymph % (Auto) 20.9 Moody % (Auto) 6.9 Eos % (Auto) 1.7 Baso % (Auto) 0.6 Neut # (Auto) 11.1 H Lymph # (Auto) 3.3 Moody # (Auto) 1.1 H Eos # (Auto) 0.3 Baso # (Auto) 0.1 WBC Differential . Differential Comment Auto diff final PT 10.5 INR 1.0 APTT 27.1 Sodium Potassium Chloride Carbon Dioxide Anion Gap BUN Creatinine Estimated GFR Random Glucose Calcium Total Bilirubin AST ALT Alkaline Phosphatase Troponin I B-Natriuretic Peptide 115 H Total Protein Albumin Urine Color Urine Clarity Urine pH Ur Specific [place] Urine Protein Urine Glucose (UA) Urine Ketones Urine Occult Blood Urine Nitrate Urine Bilirubin Urine Urobilinogen Ur Leukocyte Esterase Urine WBC Ur Squamous Epith Cells Hyaline Casts Granular Casts Urine Mucus Ur Microscopic Review 07/09/18 07/09/18 07/10/18 21:00 22:05 04:19 WBC RBC Hgb Hct MCV MCH MCHC RDW Plt Count MPV Neut % (Auto) Lymph % (Auto) Moody % (Auto) Eos % (Auto) Baso % (Auto) Neut # (Auto) Lymph # (Auto) Moody # (Auto) Eos # (Auto) Baso # (Auto) WBC Differential Differential Comment PT INR APTT Sodium 141 Potassium 3.1 L Chloride 105 Carbon Dioxide 26.4 Anion Gap 10 BUN 18 Creatinine 1.75 H Estimated GFR 39 L Random Glucose 155 H Calcium 8.1 L Total Bilirubin 0.5 AST 16 ALT 16 Alkaline Phosphatase 178 H Troponin I Less than 0.02 L Less than 0.02 L B-Natriuretic Peptide Total Protein 7.2 Albumin 2.4 L Urine Color Yellow Urine Clarity Hazy H Urine pH 5.0 Ur Specific [place] 1.026 Urine Protein 500 or greater Urine Glucose (UA) 150 H Urine Ketones Negative Urine Occult Blood Negative Urine Nitrate Negative Urine Bilirubin Negative Urine Urobilinogen Less than 2 Ur Leukocyte Esterase Negative Urine WBC 3 Ur Squamous Epith Cells <1 Hyaline Casts 11 Granular Casts 3 Urine Mucus Few H Ur Microscopic Review Not Reportable 07/10/18 07/10/18 07/10/18 06:40 06:40 06:45 WBC 12.2 H RBC 3.97 L Hgb 12.3 L Hct 35.5 L MCV 89.6 MCH 31.1 MCHC 34.7 RDW 13.2 Plt Count 276 D MPV 7.4 Neut % (Auto) 71.9 H Lymph % (Auto) 17.8 Moody % (Auto) 7.9 Eos % (Auto) 1.8 Baso % (Auto) 0.6 Neut # (Auto) 8.8 H Lymph # (Auto) 2.2 Moody # (Auto) 1.0 H Eos # (Auto) 0.2 Baso # (Auto) 0.1 WBC Differential . Differential Comment Auto diff final PT INR APTT Sodium 144 Potassium 3.2 L Chloride 108 H Carbon Dioxide 27.1 Anion Gap 9 BUN 19 H Creatinine 1.58 H Estimated GFR 44 L Random Glucose 162 H Calcium 7.6 L Total Bilirubin 0.5 AST 13 L ALT 15 Alkaline Phosphatase 156 H Troponin I Less than 0.02 L Less than 0.02 L B-Natriuretic Peptide Total Protein 6.3 L D Albumin 2.2 L Urine Color Urine Clarity Urine pH Ur Specific [place] Urine Protein Urine Glucose (UA) Urine Ketones Urine Occult Blood Urine Nitrate Urine Bilirubin Urine Urobilinogen Ur Leukocyte Esterase Urine WBC Ur Squamous Epith Cells Hyaline Casts Granular Casts Urine Mucus Ur Microscopic Review - Imaging Impressions Chest X-Ray 07/09/18 20:19 CONCLUSION: No evidence of acute cardiopulmonary disease. Chest CT 07/09/18 22:04 CONCLUSION: 1. Large mass of the mid esophagus, malignant until proven otherwise. No convincing evidence of metastatic disease on these noncontrast images. 2. Nonaneurysmal thoracic aorta. A noncontrast study was done. Nothing to suggest dissection. 3. Cirrhotic liver. 4. Coronary artery calcification. <Ingrid Gray - Last Filed: 07/10/18 09:43> - Labs CBC & Chem 7: 07/10/18 06:45 07/10/18 06:40 Labs: Laboratory Results - last 24 hr 07/09/18 07/09/18 07/09/18 21:00 21:00 21:00 WBC 15.8 H RBC 4.43 L Hgb 13.6 Hct 39.6 MCV 89.5 MCH 30.6 MCHC 34.2 RDW 13.3 Plt Count 414 MPV 7.8 Neut % (Auto) 69.9 Lymph % (Auto) 20.9 Moody % (Auto) 6.9 Eos % (Auto) 1.7 Baso % (Auto) 0.6 Neut # (Auto) 11.1 H Lymph # (Auto) 3.3 Moody # (Auto) 1.1 H Eos # (Auto) 0.3 Baso # (Auto) 0.1 WBC Differential . Differential Comment Auto diff final PT 10.5 INR 1.0 APTT 27.1 Sodium Potassium Chloride Carbon Dioxide Anion Gap BUN Creatinine Estimated GFR Random Glucose Calcium Magnesium Total Bilirubin AST ALT Alkaline Phosphatase Troponin I B-Natriuretic Peptide 115 H Total Protein Albumin Urine Color Urine Clarity Urine pH Ur Specific [place] Urine Protein Urine Glucose (UA) Urine Ketones Urine Occult Blood Urine Nitrate Urine Bilirubin Urine Urobilinogen Ur Leukocyte Esterase Urine WBC Ur Squamous Epith Cells Hyaline Casts Granular Casts Urine Mucus Ur Microscopic Review 07/09/18 07/09/18 07/10/18 21:00 22:05 04:19 WBC RBC Hgb Hct MCV MCH MCHC RDW Plt Count MPV Neut % (Auto) Lymph % (Auto) Moody % (Auto) Eos % (Auto) Baso % (Auto) Neut # (Auto) Lymph # (Auto) Moody # (Auto) Eos # (Auto) Baso # (Auto) WBC Differential Differential Comment PT INR APTT Sodium 141 Potassium 3.1 L Chloride 105 Carbon Dioxide 26.4 Anion Gap 10 BUN 18 Creatinine 1.75 H Estimated GFR 39 L Random Glucose 155 H Calcium 8.1 L Magnesium Total Bilirubin 0.5 AST 16 ALT 16 Alkaline Phosphatase 178 H Troponin I Less than 0.02 L Less than 0.02 L B-Natriuretic Peptide Total Protein 7.2 Albumin 2.4 L Urine Color Yellow Urine Clarity Hazy H Urine pH 5.0 Ur Specific [place] 1.026 Urine Protein 500 or greater Urine Glucose (UA) 150 H Urine Ketones Negative Urine Occult Blood Negative Urine Nitrate Negative Urine Bilirubin Negative Urine Urobilinogen Less than 2 Ur Leukocyte Esterase Negative Urine WBC 3 Ur Squamous Epith Cells <1 Hyaline Casts 11 Granular Casts 3 Urine Mucus Few H Ur Microscopic Review Not Reportable 07/10/18 07/10/18 07/10/18 06:40 06:40 06:40 WBC RBC Hgb Hct MCV MCH MCHC RDW Plt Count MPV Neut % (Auto) Lymph % (Auto) Moody % (Auto) Eos % (Auto) Baso % (Auto) Neut # (Auto) Lymph # (Auto) Moody # (Auto) Eos # (Auto) Baso # (Auto) WBC Differential Differential Comment PT INR APTT Sodium 144 Potassium 3.2 L Chloride 108 H Carbon Dioxide 27.1 Anion Gap 9 BUN 19 H Creatinine 1.58 H Estimated GFR 44 L Random Glucose 162 H Calcium 7.6 L Magnesium 2.0 Total Bilirubin 0.5 AST 13 L ALT 15 Alkaline Phosphatase 156 H Troponin I Less than 0.02 L Less than 0.02 L B-Natriuretic Peptide Total Protein 6.3 L D Albumin 2.2 L Urine Color Urine Clarity Urine pH Ur Specific [place] Urine Protein Urine Glucose (UA) Urine Ketones Urine Occult Blood Urine Nitrate Urine Bilirubin Urine Urobilinogen Ur Leukocyte Esterase Urine WBC Ur Squamous Epith Cells Hyaline Casts Granular Casts Urine Mucus Ur Microscopic Review 07/10/18 06:45 WBC 12.2 H RBC 3.97 L Hgb 12.3 L Hct 35.5 L MCV 89.6 MCH 31.1 MCHC 34.7 RDW 13.2 Plt Count 276 D MPV 7.4 Neut % (Auto) 71.9 H Lymph % (Auto) 17.8 Moody % (Auto) 7.9 Eos % (Auto) 1.8 Baso % (Auto) 0.6 Neut # (Auto) 8.8 H Lymph # (Auto) 2.2 Moody # (Auto) 1.0 H Eos # (Auto) 0.2 Baso # (Auto) 0.1 WBC Differential . Differential Comment Auto diff final PT INR APTT Sodium Potassium Chloride Carbon Dioxide Anion Gap BUN Creatinine Estimated GFR Random Glucose Calcium Magnesium Total Bilirubin AST ALT Alkaline Phosphatase Troponin I B-Natriuretic Peptide Total Protein Albumin Urine Color Urine Clarity Urine pH Ur Specific [place] Urine Protein Urine Glucose (UA) Urine Ketones Urine Occult Blood Urine Nitrate Urine Bilirubin Urine Urobilinogen Ur Leukocyte Esterase Urine WBC Ur Squamous Epith Cells Hyaline Casts Granular Casts Urine Mucus Ur Microscopic Review - Imaging Impressions Chest X-Ray 07/09/18 20:19 CONCLUSION: No evidence of acute cardiopulmonary disease. Chest CT 07/09/18 22:04 CONCLUSION: 1. Large mass of the mid esophagus, malignant until proven otherwise. No convincing evidence of metastatic disease on these noncontrast images. 2. Nonaneurysmal thoracic aorta. A noncontrast study was done. Nothing to suggest dissection. 3. Cirrhotic liver. 4. Coronary artery calcification. <CullenCece altman - Last Filed: 07/10/18 11:41> Assessment and Plan (1) Esophageal mass Status: Acute Code(s): K22.9 - Disease of esophagus, unspecified - Plan This patient is a 68-year-old male with a past medical history significant for hypertension, hyperlipidemia and diabetes. Patient was diagnosed with esophageal mass in June 2018. Patient presented to the emergency room at [facility] on 07/09/2018 with complaints of midsternal chest wall pain patient states that the pain has been present since April 2018 he describes the pain as a pressure type pain rates it at this time at 8 out of 10 accompanied by intermittent weakness and is constant. The pain is aggravated per patient when he is laying supine and is somewhat alleviated when he is standing. Patient denies any dysphagia. He denies any coughing or choking or pain with swallowing. Patient also denies hematemesis. Patient states he stopped drinking alcohol 5 years ago. Prior to that he drank a 6 pack of beer each day for many years. Patient states he quit smoking cigarettes in the 1970s. He denies any known family history of gastrointestinal cancers patient states his last EGD was in June whereby he was diagnosed with his esophageal mass. Patient denies any blood noted in stool states his stools are soft and brown and he moves his bowels daily. Patient denies ever having had a colonoscopy in the past and denies taking any blood thinners. CT of chest done on admission reveals the following--Large mass of the mid esophagus, malignant until proven otherwise. No convincing evidence of metastatic disease on these noncontrast images. Nonaneurysmal thoracic aorta. A noncontrast study was done. Nothing to suggest dissection.Cirrhotic liver.Coronary artery calcification. Patient reports inability to follow-up with oncology post discharge from [facility] in April 2018 due to lack of insurance but states he is able to follow with oncology at this time due to receiving insurance. 07/10/2018 labs WBC 12.2 hemoglobin 12.3 hematocrit 35.5 with a platelet count of 276 INR 1.0 total bilirubin 0.5 AST 13 ALT 15 with a alk phos of 156. Plan: -Low sodium diet -Continue PPI -Obtain medical records from [facility]--> EGD with BX results -Possible EGD on Thursday -Analgesics and anti-emetics as needed -Supportive care -Further recommendations to follow This patient has been seen by myself in Dr. Berman and this note is written on his behalf - Attending Attestation Dr. Berman <Ingrid Gray - Last Filed: 07/10/18 09:43> (1) Esophageal mass Status: Acute Code(s): K22.9 - Disease of esophagus, unspecified - Plan Seen and examined with [facility], recent diagnosis of esophageal cancer per patient. Waiting for insurance to kick in to see oncologist. Records requested from [facility]. Possible egd on thursday. Thank you The exam, history, and the medical decision-making described in the above note were completed with the assistance of the mid-level provider. I reviewed and agree with the findings presented. I attest that I had a [id number] encounter with the patient on the same day, and personally performed and documented my assessment and findings in the medical record. <Cece Berman - Last Filed: 07/10/18 11:41>
--- NOTE | 2018-07-10 12:55 | MB ---
cc: Marina Sanchez MD DATE: 07/09/2018 CHIEF COMPLAINT: Esophageal mass. HISTORY OF PRESENT ILLNESS: Mr. Miller is a 68-year-old gentleman with a history of diabetes, hypertension, abdominal hernia, hyperlipidemia, who presented to our emergency department on 07/09/2018 with chest pain of approximately 4 months' duration. The patient reports that his chest pain began in approximately April 2018. He reports that he was diagnosed with an esophageal mass sometime approximately 06/24/2018. He reports that he underwent an EGD and biopsy. He states that he was unable to follow up with Oncology prior to that because he did not have insurance. He reports that he has some intermittent difficulty with swallowing. CT scan of the chest performed on admission showed a large mass of the mid esophagus likely malignant. No convincing evidence of metastatic disease and evidence of liver cirrhosis. Also noted is a 4 mm left mid lung nodule, which is probably postinflammatory. Esophageal mass measures 4.1 x 5.5 x 11 cm in size. The gastroenterology service has been consulted on this patient and, of course, we will plan to proceed with getting records from [facility] to see if further EGD and procedures would need to be done. ROS as above in HPI PAST MEDICAL HISTORY: 1. Esophageal mass. 2. Diabetes. 3. Hypertension. 4. Hyperlipidemia. 5. History of hernias. PAST SURGICAL HISTORY: Wrist surgery. SOCIAL HISTORY: The patient reports that he quit smoking approximately 30 years ago and he quit drinking approximately 5 years ago. He reports a past history of heavy tobacco and alcohol use. He has a good support system in this area. FAMILY HISTORY: No known family history of malignancy. ALLERGIES: METOPROLOL. HOSPITAL MEDICATIONS: Include, 1. Lactulose. 2. Morphine. 3. Zofran. 4. Protonix. 5. Senna. PHYSICAL EXAMINATION: VITAL SIGNS: Temperature 98, pulse 75, respiratory rate 16, blood pressure 156/86. GENERAL: Thin, chronically ill-appearing man, in no distress. HEENT: Head is normocephalic, atraumatic. Eyes: PERRLA. EOMI. NECK: Supple with no palpable lymphadenopathy. CARDIOVASCULAR: Regular rate and rhythm. No murmurs. RESPIRATORY: Clear to auscultation bilaterally. ABDOMEN: Soft, nontender, and nondistended. Bowel sounds present. EXTREMITIES: No edema. NEUROLOGIC: Grossly nonfocal. PSYCHIATRIC: Appropriate mood and affect. ASSESSMENT AND PLAN: 1. Esophageal mass suspicious for a malignancy. We will obtain CT scan with contrast of the abdomen to ensure the patient does not have any lesions that are suspicious for metastatic disease. We will need to obtain records from [facility] including records of EGD and biopsy. If no evidence of distant metastatic disease in the outpatient setting, he will need to have close followup with Radiation Oncology. He will also need to have an outpatient PET/CT scan. Inpatient oncology service will continue to follow. MD LAXMI Hill/milagros , 12:19 PM , 12:27 PM MTDD
--- NOTE | 2018-07-10 13:14 | ECG ---
Date Performed: 07/09/2018 Time Performed: 19:19:56 PTAGE: 68 years EKG: Sinus rhythm WITH FREQUENT SUPRAVENTRICULAR PREMATURE COMPLEXES MINIMAL VOLTAGE CRITERIA FOR LVH, CONSIDER NORMAL VARIANT NONSPECIFIC T-WAVE ABNORMALITY ABNORMAL RHYTHM ECG PREVIOUS TRACING : 03/30/2018 07.06 DOCTOR: Andrea Trimble Interpretating Date/Time 07/10/2018 13:10:18
[2018-07-11] MEDS ORDERED: Acetaminophen 325 MG Tablet PO PRN (04:38)
[2018-07-11 05:29] LABS: Baso # (Auto) 0.1 th/mm3 (0.0-0.2); Baso % (Auto) 0.5 % (0.0-2.0); Eos # (Auto) 0.2 th/mm3 (0.0-0.4); Eos % (Auto) 1.2 % (0.0-4.0); Hematocrit 35.9 % (39.0-51.0); Hemoglobin 12.4 gm/dL (13.0-17.0); Lymph # (Auto) 1.5 th/mm3 (1.0-4.8); Lymph % (Auto) 10.8 % (9.0-44.0); Mean Corpuscular HGB Conc 34.5 % (32.0-36.0); Mean Corpuscular Hemoglobin 30.6 pg (27.0-34.0); Mean Corpuscular Volume 88.7 fL (80.0-100.0); Mean Platelet Volume 7.4 fL (7.0-11.0); Mono # (Auto) 0.9 th/mm3 (0.0-0.9); Mono % (Auto) 6.8 % (0.0-8.0); Neut # (Auto) 11.1 th/mm3 (1.8-7.7); Neut % (Auto) 80.7 % (16.0-70.0); Platelet Count 269 th/mm3 (150-450); Red Blood Count 4.04 mil/mm3 (4.50-5.90); Red Cell Distribution Width 12.8 % (11.6-17.2); White Blood Count 13.7 th/mm3 (4.0-11.0)
[2018-07-11 05:44] LABS: Calcium 7.8 mg/dL (8.5-10.1); Carbon Dioxide 27.8 meq/L (21.0-32.0); Magnesium 1.8 mg/dL (1.5-2.5); Potassium 4.1 meq/L (3.5-5.1)
[2018-07-11] MEDS: Sod Chloride 0.9% Inj 1,000 ML IV.CONT SCH ×3 (06:41→20:47)
[2018-07-11] MEDS: Sodium Chloride 0.9% 2 ML Flush BID IV.FLUSH SCH ×2 (09:19→21:49)
[2018-07-11] MEDS: Senna/Docusate Sodium 8.6/50 MG Tablet PO SCH ×2 (09:19→21:49)
[2018-07-11] MEDS: Morphine Sulfate Inj 2 MG/ML Vial IV.PUSH PRN (09:19)
[2018-07-11] MEDS: Insulin NovoLOG Aspart Correctional Sugar Inj SQ SCH ×4 (09:19→21:46)
--- NOTE | 2018-07-11 10:07 | ECG ---
Date Performed: 07/10/2018 Time Performed: 05:26:08 PTAGE: 68 years EKG: Sinus rhythm WITH OCCASIONAL SUPRAVENTRICULAR PREMATURE COMPLEXES BORDERLINE ECG NO PREVIOUS TRACING DOCTOR: Andrea Trimble Interpretating Date/Time 07/11/2018 10:04:01
--- NOTE | 2018-07-11 10:32 | P.PN ---
Subjective Interval history: Follow-up for esophageal mass, atypical chest pain. Patient reports continued constant substernal chest pain/pressure, consistent with previous days. He continues to deny any difficulty swallowing. He is tolerating oral intake. He does get some temporary relief with IV morphine, however then the pain returns when it wears off. He denies any shortness of breath, abdominal pain, nausea/ vomiting, or diarrhea. He has no other medical complaints at this time. Physical Exam Vital signs: Vital Signs 07/10/18 12:00 07/10/18 16:00 07/10/18 19:30 Temperature 97.9 F 97.9 F Pulse Rate 75 77 84 Respiratory Rate 14 18 Blood Pressure 158/91 H 155/56 H Pulse Oximetry 99 97 07/10/18 20:00 07/10/18 23:17 07/11/18 00:00 Temperature 98.0 F 98.4 F Pulse Rate 94 H 84 83 Respiratory Rate 19 18 Blood Pressure 171/103 H 156/88 H Pulse Oximetry 96 96 07/11/18 00:02 07/11/18 04:00 07/11/18 08:00 Temperature 100.6 F H 98.7 F Pulse Rate 88 85 Respiratory Rate 14 19 16 Blood Pressure 138/82 185/83 H Pulse Oximetry 95 95 Intake & Output 07/10/18 07/11/18 07/11/18 18:59 06:59 18:59 Intake Total 1100 / 1100 1999 / 2000 Balance 1100 / 1100 1999 / 1999 Intake: IV 1100 / 1100 1000 / 1000 NS Inj 1,000 ML @ 100 mls/hr IV 1000 / 1000 1000 / 1000 .CONT .Q10H LORIE Rx#:[id number] KCl 20 mEq Premix Inj 20 meq In 100 / 100 100 ml @ 50 mls/hr IV.SIG ONCE ONE Rx#:[id number] Other 1000 / 1000 Other: Other Intake Source Saline Solution # Voids 1 Date of Last Bowel Movement 07/09/18 07/09/18 07/10/18 Narrative: GENERAL: Well-nourished, well-developed male patient in [facility]. SKIN: Warm and dry. No rash. HEENT: Normocephalic. Atraumatic. Pupils equal and round. Mucous membranes pink and moist. NECK: Supple. Trachea midline. CARDIOVASCULAR: Regular rate and rhythm. 3/6 systolic murmur noted. RESPIRATORY: No accessory muscle use. Clear to auscultation. Breath sounds equal bilaterally. GASTROINTESTINAL: Abdomen soft, non-tender, nondistended. Normoactive bowel sounds x4. MUSCULOSKELETAL: No obvious deformities. Extremities without clubbing, cyanosis , or edema. NEUROLOGICAL: Awake and alert. No obvious cranial nerve deficits. Motor grossly within normal limits. Moving all extremities spontaneously. Normal speech. PSYCHIATRIC: Appropriate mood and affect; insight and judgment normal. Results - Labs CBC & Chem 7: 07/11/18 05:13 07/11/18 05:00 Laboratory Results - last 24 hr 07/10/18 07/10/18 07/10/18 12:59 18:31 20:29 WBC RBC Hgb Hct MCV MCH MCHC RDW Plt Count MPV Neut % (Auto) Lymph % (Auto) [place] % (Auto) Eos % (Auto) Baso % (Auto) Neut # (Auto) Lymph # (Auto) [place] # (Auto) Eos # (Auto) Baso # (Auto) WBC Differential Differential Comment Sodium Potassium Chloride Carbon Dioxide Anion Gap BUN Creatinine Estimated GFR POC Glucose 133 H 198 H 249 H Random Glucose Calcium Magnesium 07/11/18 07/11/18 07/11/18 05:00 05:13 09:18 WBC 13.7 H RBC 4.04 L Hgb 12.4 L Hct 35.9 L MCV 88.7 MCH 30.6 MCHC 34.5 RDW 12.8 Plt Count 269 MPV 7.4 Neut % (Auto) 80.7 H Lymph % (Auto) 10.8 [place] % (Auto) 6.8 Eos % (Auto) 1.2 Baso % (Auto) 0.5 Neut # (Auto) 11.1 H Lymph # (Auto) 1.5 [place] # (Auto) 0.9 Eos # (Auto) 0.2 Baso # (Auto) 0.1 WBC Differential . Differential Comment Auto diff final Sodium 141 Potassium 4.1 D Chloride 105 Carbon Dioxide 27.8 Anion Gap 8 BUN 16 Creatinine 1.59 H Estimated GFR 44 L POC Glucose 114 H Random Glucose 140 H Calcium 7.8 L Magnesium 1.8 - Imaging Chest X-Ray 07/09/18 20:19 CONCLUSION: No evidence of acute cardiopulmonary disease. Chest CT 07/09/18 22:04 CONCLUSION: 1. Large mass of the mid esophagus, malignant until proven otherwise. No convincing evidence of metastatic disease on these noncontrast images. 2. Nonaneurysmal thoracic aorta. A noncontrast study was done. Nothing to suggest dissection. 3. Cirrhotic liver. 4. Coronary artery calcification. Assessment and Plan - Assessment (1) Chest pain Code(s): R07.9 - Chest pain, unspecified Status: Acute (2) Esophageal mass Code(s): K22.9 - Disease of esophagus, unspecified Status: Acute (3) Renal insufficiency Code(s): N28.9 - Disorder of kidney and ureter, unspecified Status: Acute (4) Leukocytosis Code(s): D72.829 - Elevated white blood cell count, unspecified Status: Acute (5) DM (diabetes mellitus) Code(s): E11.9 - Type 2 diabetes mellitus without complications Status: Acute - Plan 68-year-old male with a PMH of HTN, Hyperlipidemia and DM who presented to ER with complaints of chest pain. States symptoms have been ongoing since April 2018, was seen at at that time and diagnosed w/ mass in his chest, was instructed to follow up w/ Oncology, however did not have insurance at the time and unable to do so. Chest Pain: Atypical, likely related to esophageal mass. -ACS ruled out with negative serial cardiac enzymes x3 and EKG without acute ischemic changes -Pain control with IV morphine -Monitor on telemetry -hold ASA in light of esophageal mass and risk for bleed. 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 -Consult GI and Oncology for further eval/intervention. -Give Protonix IV, antiemetics prn, pain control with [place] prn and IV morphine prn breakthrough pain -Diet as tolerated for now -Case management to assist with arranging outpatient follow up PAM on CKD stage III: Acute on Chronic. -Creatinine 1.75, previously 1.33 on 04/01/18 -Continue IVF for hydration -Avoid nephrotoxins -Repeat labs improving, Cr 1.59 today, consistent with patient's baseline -Monitor BMP SIRS: WBC 15.8K, Tmax 100.6, tachycardia HR 97, no obvious source of infection , possibly reactive -Monitor for recurrent fevers -Blood cultures pending -Repeat labs show improvement with WBC 13.7 K today -Continue to monitor DM: Chronic. A1c 8.12 April 2017 -Sliding scale w/ Accu-checks. -Repeat HgbA1c Hypokalemia: K 3.2, suspect secondary to decreased oral intake -given IV KCl replacement -Repeat labs improved with K 4.1 DVT Prophylaxis: SCD/Teds Discharge Planning: Patient spiked fever today. Await blood cultures. Await further recommendations from oncology. Possible discharge tomorrow.
[2018-07-11] MEDS: Pantoprazole Inj 40 MG Vial IV.PUSH SCH (13:03)
[2018-07-11 13:04] LABS: Hemoglobin A1c 7.5 % (4.3-6.0)
--- NOTE | 2018-07-11 17:09 | P.PNGI ---
Subjective Interval history: Patient sitting up in bed resting comfortably. Reports intermittent continued chest wall pain. Plan of care discussed. <Ingrid Gray - Last Filed: 07/11/18 16:59> Physical Exam Vital signs: Vital Signs 07/10/18 19:30 07/10/18 20:00 07/10/18 23:17 Temperature 98.0 F Pulse Rate 84 94 H 84 Respiratory Rate 19 Blood Pressure 171/103 H Pulse Oximetry 96 07/11/18 00:00 07/11/18 00:02 07/11/18 04:00 Temperature 98.4 F 100.6 F H Pulse Rate 83 88 Respiratory Rate 18 14 19 Blood Pressure 156/88 H 138/82 Pulse Oximetry 96 95 07/11/18 08:00 07/11/18 10:00 07/11/18 12:00 Temperature 98.7 F 98.5 F Pulse Rate 85 84 83 Respiratory Rate 16 16 Blood Pressure 185/83 H 130/73 Pulse Oximetry 95 96 07/11/18 16:00 Temperature 98.3 F Pulse Rate 80 Respiratory Rate 14 Blood Pressure 144/77 H Pulse Oximetry 95 Intake & Output 07/10/18 07/11/18 07/11/18 18:59 06:59 18:59 Intake Total 1100 / 1100 2000 / 2000 Balance 1100 / 1100 2000 / 2000 Intake: IV 1100 / 1100 1000 / 1000 NS Inj 1,000 ML @ 100 mls/hr IV 1000 / 1000 1000 / 1000 .CONT .Q10H LORIE Rx#:[id number] KCl 20 mEq Premix Inj 20 meq In 100 / 100 100 ml @ 50 mls/hr IV.SIG ONCE ONE Rx#:[id number] Other 1000 / 1000 Other: Other Intake Source Saline Solution # Voids 1 Date of Last Bowel Movement 07/09/18 07/09/18 07/10/18 - Constitutional no acute distress, mild distress - Routine HEENT Exam Head: Present: normocephalic - Routine Neck Exam Present: supple, full ROM - Routine Respiratory Exam Present: CTA bilaterally. Absent: accessory muscle use - Routine Cardiovascular Exam Present: RRR - Routine Abdominal Exam Present: soft, normoactive bowel sounds. Absent: tenderness, distended - Routine Extremities Exam Present: full ROM. Absent: edema - Routine Skin Exam Present: dry, warm - Routine Neurological Exam Present: alert, oriented X3 - Detailed Neurological Exam: Coma Scale Eye Opening: Spontaneous Verbal Response: Oriented Motor Response: Obey commands [place] Coma Scale Total: 15 - Routine Psychiatric Exam Present: normal affect, cooperative <Ingrid Gray - Last Filed: 07/11/18 16:59> Vital signs: Vital Signs 07/11/18 16:00 07/11/18 19:35 07/11/18 20:00 Temperature 98.3 F 100.1 F H Pulse Rate 80 85 78 Respiratory Rate 14 21 19 Blood Pressure 144/77 H 146/88 H Pulse Oximetry 95 94 L 07/11/18 23:00 07/11/18 23:38 07/12/18 03:47 Temperature 98.9 F 98.7 F Pulse Rate 82 77 80 Respiratory Rate 19 21 Blood Pressure 156/78 H 162/78 H Pulse Oximetry 93 L 99 07/12/18 08:46 07/12/18 10:16 07/12/18 12:06 Temperature 98.4 F 98.5 F 98.4 F Pulse Rate 83 80 83 Respiratory Rate 18 20 16 Blood Pressure 162/96 H 138/68 164/94 H Pulse Oximetry 96 97 98 Intake & Output 07/11/18 07/12/18 07/12/18 18:59 06:59 18:59 Intake Total 1000 / 1000 1000 / 1000 400 / 400 Output Total 700 / 700 Balance 1000 / 1000 1000 / 1000 -300 / -300 Intake: IV 1000 / 1000 1000 / 1000 NS Inj 1,000 ML @ 100 mls/hr IV 1000 / 1000 1000 / 1000 .CONT .Q10H COUNT INCLUDES [facility] Rx#:[id number] Anesthesia Amount 400 / 400 Output: Urine 700 / 700 Other: # Voids 2 Date of Last Bowel Movement 07/10/18 07/10/18 <Cece Berman - Last Filed: 07/12/18 14:59> Results - Labs CBC & Chem 7: 07/11/18 05:13 07/11/18 05:00 Laboratory Results - last 24 hr 07/10/18 07/10/18 07/11/18 18:31 20:29 05:00 WBC RBC Hgb Hct MCV MCH MCHC RDW Plt Count MPV Neut % (Auto) Lymph % (Auto) [place] % (Auto) Eos % (Auto) Baso % (Auto) Neut # (Auto) Lymph # (Auto) [place] # (Auto) Eos # (Auto) Baso # (Auto) WBC Differential Differential Comment Sodium 141 Potassium 4.1 D Chloride 105 Carbon Dioxide 27.8 Anion Gap 8 BUN 16 Creatinine 1.59 H Estimated GFR 44 L POC Glucose 198 H 249 H Random Glucose 140 H Hemoglobin A1c Calcium 7.8 L Magnesium 1.8 07/11/18 07/11/18 07/11/18 05:13 05:13 09:18 WBC 13.7 H RBC 4.04 L Hgb 12.4 L Hct 35.9 L MCV 88.7 MCH 30.6 MCHC 34.5 RDW 12.8 Plt Count 269 MPV 7.4 Neut % (Auto) 80.7 H Lymph % (Auto) 10.8 [place] % (Auto) 6.8 Eos % (Auto) 1.2 Baso % (Auto) 0.5 Neut # (Auto) 11.1 H Lymph # (Auto) 1.5 [place] # (Auto) 0.9 Eos # (Auto) 0.2 Baso # (Auto) 0.1 WBC Differential . Differential Comment Auto diff final Sodium Potassium Chloride Carbon Dioxide Anion Gap BUN Creatinine Estimated GFR POC Glucose 114 H Random Glucose Hemoglobin A1c 7.5 H Calcium Magnesium 07/11/18 12:50 WBC RBC Hgb Hct MCV MCH MCHC RDW Plt Count MPV Neut % (Auto) Lymph % (Auto) [place] % (Auto) Eos % (Auto) Baso % (Auto) Neut # (Auto) Lymph # (Auto) [place] # (Auto) Eos # (Auto) Baso # (Auto) WBC Differential Differential Comment Sodium Potassium Chloride Carbon Dioxide Anion Gap BUN Creatinine Estimated GFR POC Glucose 234 H Random Glucose Hemoglobin A1c Calcium Magnesium <Ingrid Gray - Last Filed: 07/11/18 16:59> - Labs CBC & Chem 7: 07/11/18 05:13 07/11/18 05:00 Laboratory Results - last 24 hr 07/11/18 07/11/18 07/12/18 17:55 20:45 08:39 POC Glucose 213 H 182 H 120 H 07/12/18 07/12/18 10:26 13:50 POC Glucose 128 H 120 H Microbiology 07/11/18 05:13 Blood - Peripheral Aerobic Blood Culture - Preliminary No growth in 1 day 07/11/18 05:13 Blood - Peripheral Anaerobic Blood Culture - Preliminary No growth in 1 day 07/11/18 05:00 Blood - Peripheral Aerobic Blood Culture - Preliminary No growth in 1 day 07/11/18 05:00 Blood - Peripheral Anaerobic Blood Culture - Preliminary No growth in 1 day <Cece Berman - Last Filed: 07/12/18 14:59> Assessment and Plan (1) Esophageal mass Status: Acute Code(s): K22.9 - Disease of esophagus, unspecified - Plan his patient is a 68-year-old male with a past medical history significant for hypertension, hyperlipidemia and diabetes. Patient was diagnosed with esophageal mass in June 2018. Patient presented to the emergency room at [facility] on 07/09/2018 with complaints of midsternal chest wall pain patient states that the pain has been present since April 2018 he describes the pain as a pressure type pain rates it at this time at 8 out of 10 accompanied by intermittent weakness and is constant. The pain is aggravated per patient when he is laying supine and is somewhat alleviated when he is standing. Patient denies any dysphagia. He denies any coughing or choking or pain with swallowing. Patient also denies hematemesis. Patient states he stopped drinking alcohol 5 years ago. Prior to that he drank a 6 pack of beer each day for many years. Patient states he quit smoking cigarettes in the 1970s. He denies any known family history of gastrointestinal cancers patient states his last EGD was in June whereby he was diagnosed with his esophageal mass. Patient denies any blood noted in stool states his stools are soft and brown and he moves his bowels daily. Patient denies ever having had a colonoscopy in the past and denies taking any blood thinners. CT of chest done on admission reveals the following--Large mass of the mid esophagus, malignant until proven otherwise. No convincing evidence of metastatic disease on these noncontrast images. Nonaneurysmal thoracic aorta. A noncontrast study was done. Nothing to suggest dissection.Cirrhotic liver.Coronary artery calcification. Patient reports inability to follow-up with oncology post discharge from [facility] in April 2018 due to lack of insurance but states he is able to follow with oncology at this time due to receiving insurance. 07/10/2018 labs WBC 12.2 hemoglobin 12.3 hematocrit 35.5 with a platelet count of 276 INR 1.0 total bilirubin 0.5 AST 13 ALT 15 with a alk phos of 156. 07/11/18-patient resting comfortably in bed, reports intermittent continued chest wall pain. Denies any difficulty swallowing or painful swallowing. States he is tolerating diet well. Patient will be n.p.o. after midnight for possible EGD. 07/11/2018 hemoglobin 12.4 hematocrit 35.9 platelet count 269 most recent INR on 07/09/2018 1.0. As per progress note by APRYL Amaya documented on 07/11/2018, EGD June 2018 showed an esophageal mass approximately 5 cm with ulceration, Davis's appearing epithelium, hiatal hernia, antral erythema. Pathology consistent with invasive squamous cell carcinoma. Plan -N.p.o. after midnight for possible EGD -Continue PPI -Analgesics and antiemetics as ordered -Continue supportive care -Further recommendations to follow This patient has been seen by myself and Dr. Berman and this note is written on his behalf <Ingrid Gray - Last Filed: 07/11/18 16:59> (1) Esophageal mass Status: Acute Code(s): K22.9 - Disease of esophagus, unspecified - Plan Seen and examined with [employer], egd planned. <Cece Berman - Last Filed: 07/12/18 14:59>
[2018-07-12] MEDS: Pantoprazole Inj 40 MG Vial IV.PUSH SCH ×3 (00:05→23:36)
[2018-07-12] MEDS: Sod Chloride 0.9% Inj 1,000 ML IV.CONT SCH ×4 (03:41→21:36)
[2018-07-12] MEDS: Insulin NovoLOG Aspart Correctional Sugar Inj SQ SCH ×4 (08:56→21:20)
--- NOTE | 2018-07-12 09:09 | P.PN ---
Subjective Interval history: Follow up for esophageal mass. The patient reports continued constant substernal chest pain. He does get some relief with pain medications. Continue to deny any dysphagia/odynophagia. He is tolerating oral intake. He has no new medical complaints today. Going for EGD. Physical Exam Vital signs: Vital Signs 07/11/18 10:00 07/11/18 12:00 07/11/18 16:00 Temperature 98.5 F 98.3 F Pulse Rate 84 83 80 Respiratory Rate 16 14 Blood Pressure 130/73 144/77 H Pulse Oximetry 96 95 07/11/18 19:35 07/11/18 20:00 07/11/18 23:00 Temperature 100.1 F H Pulse Rate 85 78 82 Respiratory Rate 21 19 Blood Pressure 146/88 H Pulse Oximetry 94 L 07/11/18 23:38 07/12/18 03:47 07/12/18 08:46 Temperature 98.9 F 98.7 F Pulse Rate 77 80 83 Respiratory Rate 19 21 18 Blood Pressure 156/78 H 162/78 H 162/96 H Pulse Oximetry 93 L 99 96 Intake & Output 07/11/18 07/12/18 07/12/18 18:59 06:59 18:59 Intake Total 1000 / 1000 1000 / 1000 Balance 1000 / 1000 1000 / 1000 Intake: IV 1000 / 1000 1000 / 1000 NS Inj 1,000 ML @ 100 mls/hr IV 1000 / 1000 1000 / 1000 .CONT .Q10H LORIE Rx#:[id number] Other: # Voids 2 Date of Last Bowel Movement 07/10/18 07/10/18 Narrative: GENERAL: Well-nourished, well-developed male patient in [facility]. SKIN: Warm and dry. No rash. HEENT: Normocephalic. Atraumatic. Pupils equal and round. Mucous membranes pink and moist. NECK: Supple. Trachea midline. CARDIOVASCULAR: Regular rate and rhythm. 3/6 systolic murmur noted. RESPIRATORY: No accessory muscle use. Clear to auscultation. Breath sounds equal bilaterally. GASTROINTESTINAL: Abdomen soft, non-tender, nondistended. Normoactive bowel sounds x4. MUSCULOSKELETAL: No obvious deformities. Extremities without clubbing, cyanosis , or edema. NEUROLOGICAL: Awake and alert. No obvious cranial nerve deficits. Motor grossly within normal limits. Moving all extremities spontaneously. Normal speech. PSYCHIATRIC: Appropriate mood and affect; insight and judgment normal. Results - Labs CBC & Chem 7: 07/11/18 05:13 07/11/18 05:00 Laboratory Results - last 24 hr 07/11/18 07/11/18 07/11/18 05:13 09:18 12:50 POC Glucose 114 H 234 H Hemoglobin A1c 7.5 H 07/11/18 07/11/18 07/12/18 17:55 20:45 08:39 POC Glucose 213 H 182 H 120 H Hemoglobin A1c - Imaging Chest X-Ray 07/09/18 20:19 CONCLUSION: No evidence of acute cardiopulmonary disease. Chest CT 07/09/18 22:04 CONCLUSION: 1. Large mass of the mid esophagus, malignant until proven otherwise. No convincing evidence of metastatic disease on these noncontrast images. 2. Nonaneurysmal thoracic aorta. A noncontrast study was done. Nothing to suggest dissection. 3. Cirrhotic liver. 4. Coronary artery calcification. Assessment and Plan - Assessment (1) Chest pain Code(s): R07.9 - Chest pain, unspecified Status: Acute (2) Esophageal mass Code(s): K22.9 - Disease of esophagus, unspecified Status: Acute (3) Renal insufficiency Code(s): N28.9 - Disorder of kidney and ureter, unspecified Status: Acute (4) Leukocytosis Code(s): D72.829 - Elevated white blood cell count, unspecified Status: Acute (5) DM (diabetes mellitus) Code(s): E11.9 - Type 2 diabetes mellitus without complications Status: Acute - Plan 68-year-old male with a PMH of HTN, Hyperlipidemia and DM who presented to ER with complaints of chest pain. States symptoms have been ongoing since April 2018, was seen at at that time and diagnosed w/ mass in his chest, was instructed to follow up w/ Oncology, however did not have insurance at the time and unable to do so. Chest Pain: Atypical, likely related to esophageal mass. -ACS ruled out with negative serial cardiac enzymes x3 and EKG without acute ischemic changes -Pain control with [place] prn and IV morphine prn -Monitor on telemetry -hold ASA in light of esophageal mass and risk for bleed. Esophageal Mass: reports initially diagnosed April 2018, no further intervention /follow-up due to insurance barriers -Records from reviewed: -EGD Jun 2018 showed esophageal mass approximately 5 cm with ulceration, Davis's appearing epithelium, hiatal hernia, antral erythema -Pathology consistent with invasive squamous cell carcinoma -Repeat CT Chest w/ large esophageal mass, likely malignant, images reviewed. -Consult GI and Oncology for further eval/intervention. -Give Protonix IV, antiemetics prn, pain control with [place] prn and IV morphine prn breakthrough pain -Planning for EGD today 07/12 -CT abd/pelvis ordered and pending -Case management to assist with arranging outpatient follow up with oncology PAM on CKD stage III: Acute on Chronic. -Creatinine 1.75, previously 1.33 on 04/01/18 -Continue IVF for hydration -Avoid nephrotoxins -Repeat labs improving, Cr 1.59, consistent with patient's baseline -Monitor BMP SIRS: WBC 15.8K, Tmax 100.6, tachycardia HR 97, no obvious source of infection , possibly reactive -Monitor for recurrent fevers -Blood cultures pending -Repeat labs show improvement with WBC 13.7 K -Continue to monitor DM: Chronic. A1c 8.12 April 2017 -Sliding scale w/ Accu-checks. -HgbA1c 7.5 Hypokalemia: K 3.2, suspect secondary to decreased oral intake -given IV KCl replacement -Repeat labs improved with K 4.1 DVT Prophylaxis: SCD/Teds Discharge Planning: Planning for EGD today. CT abd/pelvis pending. Case management to assist with arranging outpatient follow up with oncology. Possible discharge tomorrow 07/13 if cleared by GI/oncology.
[2018-07-12] MEDS ORDERED: Metoprolol Tartrate 25 MG Tablet PO ONE (09:35)
[2018-07-12] MEDS ORDERED: Chlorhexidine Gluconate 2% 1 Pack (2 Cloths) TOPICAL SCH (09:35)
[2018-07-12] MEDS ORDERED: Sodium Chlor 0.9% Inj 500 ML IV.SIG SCH (10:00)
--- NOTE | 2018-07-12 10:09 | GIPROC ---
[facility] [address] [facility]. [facility], [address] EGD PROCEDURE REPORT EXAM DATE: 07/12/2018 PATIENT NAME: Aquiles Miller MR #: [id number] BIRTHDATE: 1950 ATTENDING: Cece Berman MD ORDER #: [id number] PRODUCT DELIVERY SPECIALIST: Monique Luis Wilcox-Hassen, Alice, and Nic Smart STATUS: inpatient INDICATIONS: The patient is a 68 yr old male here for an EGD due to abnormal CT of the GI tract PROCEDURE PERFORMED: EGD w/ biopsy MEDICATIONS: None and Per Anesthesia. TOPICAL ANESTHETIC: CONSENT: The patient understands the risks and benefits of the procedure and understands that these risks include, but are not limited to: sedation, allergic reaction, infection, perforation and/or bleeding. Alternative means of evaluation and treatment include, among others: physical exam, x-rays, and/or surgical intervention. The patient elects to proceed with this endoscopic procedure. medical equipment was checked for proper function. Hand hygiene and appropriate measures for infection prevention was taken. After the risks, benefits and alternatives of the procedure were thoroughly explained, Informed consent was verified, confirmed and timeout was successfully executed by the treatment team. The patient was anesthetized with topical anesthesia and the Pentax [id number] endoscope was introduced through the mouth and advanced to the esophagus mid. The gastroscope was then slowly withdrawn and removed. ESOPHAGUS: Large partially obstructing mid esophageal mass. Unable to traverse. Multiple biopsies obtained. ADVERSE EVENTS: There were no complications. IMPRESSIONS: Large partially obstructing mid esophageal mass. Unable to traverse. Multiple biopsies obtained RECOMMENDATIONS: 1. Await biopsy results. Biopsy results will not be ready for 7-10 days. If you don't hear from us in two weeks, call our office for biopsy results. 2. Continue PPI PATIENT CONDITION: stable DISPOSITION: Inpatient REPEAT EXAM: NONE Cece Berman MD eSigned: Cece Berman MD 07/12/2018 10:08 AM cc:
[2018-07-12] MEDS: Sodium Chloride 0.9% 2 ML Flush BID IV.FLUSH SCH ×2 (14:42→21:20)
[2018-07-12] MEDS: Senna/Docusate Sodium 8.6/50 MG Tablet PO SCH ×2 (14:43→21:20)
--- NOTE | 2018-07-12 15:47 | P.PNONC ---
Subjective Interval history: Resting comfortably in bed. Reports mild abdominal discomfort after EGD. Objective Vital Signs/Intake & Output: Vital Signs 07/11/18 16:00 07/11/18 19:35 07/11/18 20:00 Temperature 98.3 F 100.1 F H Pulse Rate 80 85 78 Respiratory Rate 14 21 19 Blood Pressure 144/77 H 146/88 H Pulse Oximetry 95 94 L 07/11/18 23:00 07/11/18 23:38 07/12/18 03:47 Temperature 98.9 F 98.7 F Pulse Rate 82 77 80 Respiratory Rate 19 21 Blood Pressure 156/78 H 162/78 H Pulse Oximetry 93 L 99 07/12/18 08:46 07/12/18 10:16 07/12/18 12:06 Temperature 98.4 F 98.5 F 98.4 F Pulse Rate 83 80 83 Respiratory Rate 18 20 16 Blood Pressure 162/96 H 138/68 164/94 H Pulse Oximetry 96 97 98 Intake & Output 07/11/18 07/12/18 07/12/18 18:59 06:59 18:59 Intake Total 1000 / 1000 1000 / 1000 400 / 400 Output Total 700 / 700 Balance 1000 / 1000 1000 / 1000 -300 / -300 Intake: IV 1000 / 1000 1000 / 1000 NS Inj 1,000 ML @ 100 mls/hr IV 1000 / 1000 1000 / 1000 .CONT .Q10H LORIE Rx#:[id number] Anesthesia Amount 400 / 400 Output: Urine 700 / 700 Other: # Voids 2 Date of Last Bowel Movement 07/10/18 07/10/18 Result Diagrams: 07/11/18 05:13 07/11/18 05:00 Laboratory Results: Laboratory Results - last 24 hr 07/11/18 07/11/18 07/12/18 17:55 20:45 08:39 POC Glucose 213 H 182 H 120 H 07/12/18 07/12/18 10:26 13:50 POC Glucose 128 H 120 H Culture Results: Microbiology 07/11/18 05:13 Aerobic Blood Culture - Preliminary Blood - Peripheral No growth in 1 day Anaerobic Blood Culture - Preliminary No growth in 1 day 07/11/18 05:00 Aerobic Blood Culture - Preliminary Blood - Peripheral No growth in 1 day Anaerobic Blood Culture - Preliminary No growth in 1 day Medications: Active Medications Generic Name Dose Route Start Last Admin Trade Name Freq PRN Reason Stop Dose Admin Acetaminophen 650 mg 07/11/18 04:38 07/11/18 05:34 Tylenol PO 650 mg Q4H PRN Administration headache/fever/pain1-5 Hydrocodone Bitart/Acetaminophen 1 tab 07/11/18 10:26 07/11/18 22:31 [place] 5/325 PO 1 tab Q6H PRN Administration PAIN SCALE 6 TO 10 Sodium Chloride 1,000 mls @ 100 mls/hr 07/09/18 23:30 07/12/18 14:45 Ns Inj IV.CONT Not Given .Q10H LORIE Lactated Ringer's 1,000 mls @ 30 mls/hr 07/12/18 09:45 07/12/18 14:44 Lr 1000 Ml Inj IV.SIG 07/15/18 09:44 Not Given .Q24H LORIE Sodium Chloride 500 mls @ 30 mls/hr 07/12/18 10:00 07/12/18 14:44 Ns Inj IV.SIG Not Given .Q10H [facility] Insulin Aspart 0 unit 07/10/18 08:00 07/12/18 13:51 Novolog Insulin Correctional Sugar Inj SQ Not Given ACHS [facility] Protocol Morphine Sulfate 2 mg 07/09/18 23:19 07/11/18 09:19 Morphine Inj IV.PUSH 2 mg Q4H PRN Administration BREAKTHROUGH PAIN Ondansetron HCl 4 mg 07/09/18 23:17 07/10/18 09:00 Zofran Inj IV.PUSH 4 mg Q6H PRN Administration NAUSEA OR VOMITING Pantoprazole Sodium 40 mg 07/10/18 00:00 07/12/18 14:45 Protonix Inj IV.PUSH 40 mg Q12H LORIE Administration Senna/Docusate Sodium 1 tab 07/10/18 09:00 07/12/18 14:43 Poly-Colace PO 1 tab BID LORIE Administration Sodium Chloride 2 ml 07/10/18 09:00 07/12/18 14:42 Ns Flush IV.FLUSH Not Given BID LORIE Sodium Chloride 2 ml 07/09/18 23:29 07/10/18 23:16 Ns Flush IV.FLUSH 2 ml PRN PRN Administration FLUSH AFTER USING IV ACCESS Objective Remarks: GENERAL: Well-nourished, well-developed patient. SKIN: Warm and dry. HEAD: Normocephalic. EYES: No scleral icterus. No injection or drainage. RESPIRATORY: No accessory muscle use. EXTREMITIES: No edema. MUSCULOSKELETAL: Adequate muscle tone. NEUROLOGICAL: No obvious focal deficit. Awake, alert, and oriented x3. PSYCHIATRIC: Appropriate mood and affect; insight and judgment normal. Assessment/Plan - Plan 1. findings suspicious for esophageal cancer: s/p EGD with biopsy today. Will obtain CT abdomen/pelvis. Patient will need close follow up in oncology clinic in the outpatient setting.
[2018-07-12] MEDS ORDERED: Diatrizoate Meglum/Diatrizoate Sod Liq 9 ML UDC PO ONE (16:30)
[2018-07-12] MEDS: Morphine Sulfate Inj 2 MG/ML Vial IV.PUSH PRN (18:38)
--- NOTE | 2018-07-12 20:04 | CT ---
EXAM DATE: 07/12/2018 7:43 PM EDT AGE/SEX: 68 years / Male INDICATIONS: Diffuse abdomen pain today. CLINICAL DATA: This is the patient's initial encounter. Patient reports that signs and symptoms have been present for 1 day and indicates a pain score of 3/10. MEDICAL/SURGICAL HISTORY: Diabetes. Hypertension. esophageal cancer . abdominal surgery ORAL CONTRAST: Prescribed oral contrast ingested. RADIATION DOSE: 9.07 CTDI (mGy) COMPARISON: [facility] – [place], CT ABDOMEN & PELVIS W/O CONTRAST, 03/29/2018. . TECHNIQUE: Multiple contiguous axial images were obtained through the abdomen and pelvis following b olus infusion of 86 ml Omnipaque 350 (iohexol) nonionic water-soluble contrast as a single exam dos e. Prescribed oral contrast ingested. Using automated exposure control and adjustment of the mA and/ or kV according to patient size, radiation dose was kept as low as reasonably achievable to obtain op timal diagnostic quality images. DICOM format image data is available electronically for review and comparison. FINDINGS: Lower Lungs: Small bilateral pleural effusions measuring 13 mm on the right and 14 mm on the left, ne w finding from prior examination. Liver: Cirrhotic appearing liver with lobular surface contour; similar to March 2018. No focal masses seen. No biliary ductal dilatation. No calcified gallstone. Spleen: Homogeneous density without enlargement. Pancreas: Unremarkable without mass or calcification. Kidneys: Normal in size and shape. No evidence of mass or hydronephrosis. Large right renal cysts st able from prior. Adrenal Glands: Unremarkable. Aorta: The aorta and proximal iliac vessels are grossly unremarkable without aneurysmal dilation. Bowel/Mesentery: No dilated loops of small or large bowel. Oral contrast passes two thirds of the sm all bowel. Moderate amount of stool throughout the transverse and left colon. Abdominal Wall: Intact. Retroperitoneum: Scattered subcentimeter periaortic lymph nodes in the mid and lower abdomen stable in appearance from prior. Bladder: Contours are smooth. Reproductive Organs: No abnormal masses or calcifications seen. Inguinal: The inguinal region is unremarkable without evidence of adenopathy. Bony Structures: Stable mild degenerative changes in the lower spine.. CONCLUSION: 1. Small bilateral pleural effusions which are a new finding when compared to prior CT in March 2018. 2. Mild amount stool in the left and transverse colon. 3. Other findings, including lobular surface contour to the liver, right renal cyst, subcentimeter p luciano-aortic lymph nodes, and degenerative changes in lumbar spine, stable from prior. Electronically signed by: Justin Anna MD 07/12/2018 8:02 PM EDT
[2018-07-13 07:25] LABS: Baso # (Auto) 0.1 th/mm3 (0.0-0.2); Baso % (Auto) 0.4 % (0.0-2.0); Eos # (Auto) 0.2 th/mm3 (0.0-0.4); Eos % (Auto) 1.2 % (0.0-4.0); Hematocrit 38.3 % (39.0-51.0); Hemoglobin 13.1 gm/dL (13.0-17.0); Lymph # (Auto) 1.9 th/mm3 (1.0-4.8); Lymph % (Auto) 14.3 % (9.0-44.0); Mean Corpuscular HGB Conc 34.2 % (32.0-36.0); Mean Corpuscular Hemoglobin 30.3 pg (27.0-34.0); Mean Corpuscular Volume 88.7 fL (80.0-100.0); Mean Platelet Volume 7.7 fL (7.0-11.0); Mono # (Auto) 0.8 th/mm3 (0.0-0.9); Mono % (Auto) 6.1 % (0.0-8.0); Neut # (Auto) 10.4 th/mm3 (1.8-7.7); Platelet Count 287 th/mm3 (150-450); Red Blood Count 4.32 mil/mm3 (4.50-5.90); Red Cell Distribution Width 13.5 % (11.6-17.2); White Blood Count 13.4 th/mm3 (4.0-11.0)
[2018-07-13] MEDS: Sod Chloride 0.9% Inj 1,000 ML IV.CONT SCH (07:36)
[2018-07-13] MEDS: Sodium Chloride 0.9% 2 ML Flush BID IV.FLUSH SCH (08:10)
[2018-07-13] MEDS: Senna/Docusate Sodium 8.6/50 MG Tablet PO SCH (08:10)
[2018-07-13 08:15] LABS: Calcium 8.5 mg/dL (8.5-10.1); Carbon Dioxide 26.4 meq/L (21.0-32.0); Potassium 3.5 meq/L (3.5-5.1)
[2018-07-13] MEDS: Insulin NovoLOG Aspart Correctional Sugar Inj SQ SCH ×2 (09:11→14:36)
[2018-07-13] MEDS: Pantoprazole Inj 40 MG Vial IV.PUSH SCH (11:58)
[2018-07-13 12:19] VITALS: RESP 16
--- NOTE | 2018-07-13 12:23 | P.PNIM ---
Subjective Interval history: f/u; esophageal mass in no acute distress. has some epigastric pain but with no reported dysphagia,nausea or emesis. Physical Exam Vital signs: Vital Signs 07/12/18 16:00 07/12/18 20:00 07/13/18 00:00 Temperature 98.3 F 98.3 F 98.2 F Pulse Rate 83 75 83 Respiratory Rate 16 16 Blood Pressure 145/88 H 160/79 H 169/80 H Pulse Oximetry 95 98 96 07/13/18 04:00 07/13/18 08:00 07/13/18 11:29 Temperature 98.6 F 97.9 F Pulse Rate 78 85 79 Respiratory Rate 16 18 Blood Pressure 163/92 H 164/89 H Pulse Oximetry 97 97 07/13/18 12:00 Temperature 98.1 F Pulse Rate 102 H Respiratory Rate 16 Blood Pressure 157/93 H Pulse Oximetry 96 Intake & Output 07/12/18 07/13/18 07/13/18 18:59 06:59 18:59 Intake Total 400 / 400 2500 / 2500 Output Total 700 / 700 Balance -300 / -300 2500 / 2500 Intake: IV 1999 NS Inj 1,000 ML @ 100 mls/hr IV 1999 .CONT .Q10H LORIE Rx#:[id number] Oral 500 / 500 Anesthesia Amount 400 / 400 Output: Urine 700 / 700 Other: Date of Last Bowel Movement 07/10/18 - Constitutional no acute distress - Routine Respiratory Exam Present: CTA bilaterally - Routine Cardiovascular Exam Present: RRR - Routine Abdominal Exam Present: soft - Routine Extremities Exam Comments: no pedal edema. - Routine Neurological Exam Present: alert, oriented X3 Results - Labs CBC & Chem 7: 07/13/18 06:00 07/13/18 06:00 Laboratory Results - last 24 hr 07/12/18 07/12/18 07/12/18 13:50 17:19 21:19 WBC RBC Hgb Hct MCV MCH MCHC RDW Plt Count MPV Neut % (Auto) Lymph % (Auto) [place] % (Auto) Eos % (Auto) Baso % (Auto) Neut # (Auto) Lymph # (Auto) [place] # (Auto) Eos # (Auto) Baso # (Auto) WBC Differential Differential Comment Sodium Potassium Chloride Carbon Dioxide Anion Gap BUN Creatinine Estimated GFR POC Glucose 120 H 261 H 132 H Random Glucose Calcium 07/13/18 07/13/18 07/13/18 06:00 06:00 08:12 WBC 13.4 H RBC 4.32 L Hgb 13.1 Hct 38.3 L MCV 88.7 MCH 30.3 MCHC 34.2 RDW 13.5 Plt Count 287 MPV 7.7 Neut % (Auto) 78.0 H Lymph % (Auto) 14.3 [place] % (Auto) 6.1 Eos % (Auto) 1.2 Baso % (Auto) 0.4 Neut # (Auto) 10.4 H Lymph # (Auto) 1.9 [place] # (Auto) 0.8 Eos # (Auto) 0.2 Baso # (Auto) 0.1 WBC Differential . Differential Comment Auto diff final Sodium 141 Potassium 3.5 Chloride 105 Carbon Dioxide 26.4 Anion Gap 10 BUN 12 Creatinine 1.25 Estimated GFR 58 L POC Glucose 119 H Random Glucose 87 Calcium 8.5 07/13/18 12:02 WBC RBC Hgb Hct MCV MCH MCHC RDW Plt Count MPV Neut % (Auto) Lymph % (Auto) [place] % (Auto) Eos % (Auto) Baso % (Auto) Neut # (Auto) Lymph # (Auto) [place] # (Auto) Eos # (Auto) Baso # (Auto) WBC Differential Differential Comment Sodium Potassium Chloride Carbon Dioxide Anion Gap BUN Creatinine Estimated GFR POC Glucose 218 H Random Glucose Calcium Microbiology 07/11/18 05:13 Blood - Peripheral Aerobic Blood Culture - Preliminary No growth in 2 days 07/11/18 05:13 Blood - Peripheral Anaerobic Blood Culture - Preliminary No growth in 2 days 07/11/18 05:00 Blood - Peripheral Aerobic Blood Culture - Preliminary No growth in 2 days 07/11/18 05:00 Blood - Peripheral Anaerobic Blood Culture - Preliminary No growth in 2 days - Imaging Impressions Abdomen/Pelvis CT 07/12/18 00:00 CONCLUSION: 1. Small bilateral pleural effusions which are a new finding when compared to prior CT in March 2018. 2. Mild amount stool in the left and transverse colon. 3. Other findings, including lobular surface contour to the liver, right renal cyst, subcentimeter para-aortic lymph nodes, and degenerative changes in lumbar spine, stable from prior. Assessment and Plan - Assessment (1) Chest pain Code(s): R07.9 - Chest pain, unspecified Status: Acute (2) Esophageal mass Code(s): K22.9 - Disease of esophagus, unspecified Status: Acute (3) Renal insufficiency Code(s): N28.9 - Disorder of kidney and ureter, unspecified Status: Acute (4) Leukocytosis Code(s): D72.829 - Elevated white blood cell count, unspecified Status: Acute (5) DM (diabetes mellitus) Code(s): E11.9 - Type 2 diabetes mellitus without complications Status: Acute - Plan 68-year-old male with a PMH of HTN, Hyperlipidemia and DM who presented to ER with complaints of chest pain. States symptoms have been ongoing since April 2018, was seen at at that time and diagnosed w/ mass in his chest, was instructed to follow up w/ Oncology, however did not have insurance at the time and unable to do so. Chest Pain: Atypical, likely related to esophageal mass. 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 -Consult GI and Oncology for further eval/intervention. -Give Protonix IV, antiemetics prn, pain control with [place] prn and IV morphine prn breakthrough pain -s/p EGD 07/12 with Large partially obstructing mid esophageal mass. Unable to traverse./Multiple biopsies obtained. -Case management to assist with arranging outpatient follow up with oncology PAM on CKD stage III: Acute on Chronic. -improved. SIRS: WBC 15.8K, Tmax 100.6, tachycardia HR 97, no obvious source of infection , possibly reactive -Monitor for recurrent fevers -Blood cultures negative. DM: Chronic. A1c 8.12 April 2017 -Sliding scale w/ Accu-checks. -HgbA1c 7.5 Hypokalemia: improved. DVT Prophylaxis: SCD/Teds Discharge Planning: dc home today with f/u; pcp,oncology and GI. see med list. d/w the patient and . d/vladislav Peter. Arnol-Kat was consulted prior to discharge.
--- NOTE | 2018-07-13 12:38 | P.DS ---
Date of admission: 07/09/18 23:13 Primary care physician: UNKNOWN Brief History from admission: This is a 68-year-old male with a PMH of HTN, Hyperlipidemia and DM who presented to ER with complaints of chest pain. States symptoms have been ongoing since April 2018, was seen at at that time and diagnosed w/ mass in his chest, was instructed to follow up w/ Oncology, however did not have insurance at the time and unable to do so. Returns today w/ ongoing symptoms, now w/ difficulty swallowing. Reports chest pain is substernal, constant, moderate, 7/10, non-radiating. On arrival, BP 189/82, HR 92, O2 sat 96% on RA, Afebrile. WBC 15.8. INR 1.0. K+ 3.1. Creatinine 1.75, previously 1.33 on . Troponin negative. CXR with no acute findings. CT Chest with large mass of mid esophagus, malignant until proven otherwise, no convincing evidence of metastatic disease, non-aneurysmal thoracic aorta, cirrhotic liver. Currently chest pain-free. DS: Diagnosis - Discharge Diagnosis (1) Chest pain Status: Acute (2) Esophageal mass Status: Acute (3) Renal insufficiency Status: Acute (4) Leukocytosis Status: Acute (5) DM (diabetes mellitus) Status: Acute DS: Medications - Discharge Medications Prescriptions: hydrocodone-acetaminophen 1 tab PO Q6H PRN #8 tab PRN Reason: acute pain DS: Summary Hospital Course: patient was admitted. he was found to have esophageal mass for which GI was consulted and he underwent EGD. biopsy of the mass was done-the result of which is pending and needs to be followed up. he was seen by oncology as well and he will have f/u with oncology as outpatient. - Time Spent with Patient Total time spent providing and/or coordinating discharge services: Less than 30 minutes - Quality: VTE Deep Vein Thrombosis/Pulmonary Embolism Present on Admission: No Exam Vital signs: Vital Signs 07/12/18 16:00 07/12/18 20:00 07/13/18 00:00 Temperature 98.3 F 98.3 F 98.2 F Pulse Rate 83 75 83 Respiratory Rate 16 16 Blood Pressure 145/88 H 160/79 H 169/80 H Pulse Oximetry 95 98 96 07/13/18 04:00 07/13/18 08:00 07/13/18 11:29 Temperature 98.6 F 97.9 F Pulse Rate 78 85 79 Respiratory Rate 16 18 Blood Pressure 163/92 H 164/89 H Pulse Oximetry 97 97 07/13/18 12:00 Temperature 98.1 F Pulse Rate 102 H Respiratory Rate 16 Blood Pressure 157/93 H Pulse Oximetry 96 Intake & Output 07/12/18 07/13/18 07/13/18 18:59 06:59 18:59 Intake Total 400 / 400 3500 / 3500 Output Total 700 / 700 Balance -300 / -300 3500 / 3500 Intake: IV 3000 / 3000 NS Inj 1,000 ML @ 100 mls/hr IV 3000 / 3000 .CONT .Q10H LORIE Rx#:[id number] Oral 500 / 500 Anesthesia Amount 400 / 400 Output: Urine 700 / 700 Other: Date of Last Bowel Movement 07/10/18 - Constitutional no acute distress - Routine Respiratory Exam Present: CTA bilaterally - Routine Cardiovascular Exam Present: RRR - Routine Abdominal Exam Present: soft - Routine Extremities Exam Comments: no pedal edema. - Routine Neurological Exam Present: alert, oriented X3 Results Procedures completed during hospitalization: EGD Pending studies at discharge: Pending at discharge 07/12/18 12:32 Surgical [PTH] Routine Labs on day of discharge: Labs from last 24 hours 07/13/18 07/13/18 07/13/18 12:02 08:12 06:00 WBC RBC Hgb Hct MCV MCH MCHC RDW Plt Count MPV Neut % (Auto) Lymph % (Auto) [place] % (Auto) Eos % (Auto) Baso % (Auto) Neut # (Auto) Lymph # (Auto) [place] # (Auto) Eos # (Auto) Baso # (Auto) WBC Differential Differential Comment Sodium 141 Potassium 3.5 Chloride 105 Carbon Dioxide 26.4 Anion Gap 10 BUN 12 Creatinine 1.25 Estimated GFR 58 L POC Glucose 218 H 119 H Random Glucose 87 Calcium 8.5 07/13/18 07/12/18 07/12/18 06:00 21:19 17:19 WBC 13.4 H RBC 4.32 L Hgb 13.1 Hct 38.3 L MCV 88.7 MCH 30.3 MCHC 34.2 RDW 13.5 Plt Count 287 MPV 7.7 Neut % (Auto) 78.0 H Lymph % (Auto) 14.3 [place] % (Auto) 6.1 Eos % (Auto) 1.2 Baso % (Auto) 0.4 Neut # (Auto) 10.4 H Lymph # (Auto) 1.9 [place] # (Auto) 0.8 Eos # (Auto) 0.2 Baso # (Auto) 0.1 WBC Differential . Differential Comment Auto diff final Sodium Potassium Chloride Carbon Dioxide Anion Gap BUN Creatinine Estimated GFR POC Glucose 132 H 261 H Random Glucose Calcium 07/12/18 13:50 WBC RBC Hgb Hct MCV MCH MCHC RDW Plt Count MPV Neut % (Auto) Lymph % (Auto) [place] % (Auto) Eos % (Auto) Baso % (Auto) Neut # (Auto) Lymph # (Auto) [place] # (Auto) Eos # (Auto) Baso # (Auto) WBC Differential Differential Comment Sodium Potassium Chloride Carbon Dioxide Anion Gap BUN Creatinine Estimated GFR POC Glucose 120 H Random Glucose Calcium Preliminary micro results at discharge 07/11/18 05:13 Aerobic Blood Culture - Preliminary Blood - Peripheral No growth in 2 days Anaerobic Blood Culture - Preliminary No growth in 2 days 07/11/18 05:00 Aerobic Blood Culture - Preliminary Blood - Peripheral No growth in 2 days Anaerobic Blood Culture - Preliminary No growth in 2 days - Impressions ITS Impressions Chest X-Ray 07/09/18 20:19 CONCLUSION: No evidence of acute cardiopulmonary disease. Chest CT 07/09/18 22:04 CONCLUSION: 1. Large mass of the mid esophagus, malignant until proven otherwise. No convincing evidence of metastatic disease on these noncontrast images. 2. Nonaneurysmal thoracic aorta. A noncontrast study was done. Nothing to suggest dissection. 3. Cirrhotic liver. 4. Coronary artery calcification. Abdomen/Pelvis CT 07/12/18 00:00 CONCLUSION: 1. Small bilateral pleural effusions which are a new finding when compared to prior CT in March 2018. 2. Mild amount stool in the left and transverse colon. 3. Other findings, including lobular surface contour to the liver, right renal cyst, subcentimeter para-aortic lymph nodes, and degenerative changes in lumbar spine, stable from prior. Discharge Plan - Discharge Disposition Patient Disposition: 01 Discharge Home - Discharge Condition Condition: Fair - Physicians Team Primary Care Provider: UNKNOWN, Attending Provider: Henna Yo Other Providers: Cece Berman MD ; Marina Sanchez ; [employer]
--- NOTE | 2018-07-13 15:33 | P.PNONC ---
Subjective Interval history: Resting comfortably in bed. CT scan of the abdomen with no evidence of metastatic disease. Objective Vital Signs/Intake & Output: Vital Signs 07/12/18 16:00 07/12/18 20:00 07/13/18 00:00 Temperature 98.3 F 98.3 F 98.2 F Pulse Rate 83 75 83 Respiratory Rate 16 16 Blood Pressure 145/88 H 160/79 H 169/80 H Pulse Oximetry 95 98 96 07/13/18 04:00 07/13/18 08:00 07/13/18 11:29 Temperature 98.6 F 97.9 F Pulse Rate 78 85 79 Respiratory Rate 16 18 Blood Pressure 163/92 H 164/89 H Pulse Oximetry 97 97 07/13/18 12:00 Temperature 98.1 F Pulse Rate 102 H Respiratory Rate 16 Blood Pressure 157/93 H Pulse Oximetry 96 Intake & Output 07/12/18 07/13/18 07/13/18 18:59 06:59 18:59 Intake Total 400 / 400 3500 / 3500 Output Total 700 / 700 Balance -300 / -300 3500 / 3500 Intake: IV 3000 / 3000 NS Inj 1,000 ML @ 100 mls/hr IV 3000 / 3000 .CONT .Q10H LORIE Rx#:[id number] Oral 500 / 500 Anesthesia Amount 400 / 400 Output: Urine 700 / 700 Other: Date of Last Bowel Movement 07/10/18 Result Diagrams: 07/13/18 06:00 07/13/18 06:00 Laboratory Results: Laboratory Results - last 24 hr 07/12/18 07/12/18 07/13/18 17:19 21:19 06:00 WBC 13.4 H RBC 4.32 L Hgb 13.1 Hct 38.3 L MCV 88.7 MCH 30.3 MCHC 34.2 RDW 13.5 Plt Count 287 MPV 7.7 Neut % (Auto) 78.0 H Lymph % (Auto) 14.3 [place] % (Auto) 6.1 Eos % (Auto) 1.2 Baso % (Auto) 0.4 Neut # (Auto) 10.4 H Lymph # (Auto) 1.9 [place] # (Auto) 0.8 Eos # (Auto) 0.2 Baso # (Auto) 0.1 WBC Differential . Differential Comment Auto diff final Sodium Potassium Chloride Carbon Dioxide Anion Gap BUN Creatinine Estimated GFR POC Glucose 261 H 132 H Random Glucose Calcium 07/13/18 07/13/18 07/13/18 06:00 08:12 12:02 WBC RBC Hgb Hct MCV MCH MCHC RDW Plt Count MPV Neut % (Auto) Lymph % (Auto) [place] % (Auto) Eos % (Auto) Baso % (Auto) Neut # (Auto) Lymph # (Auto) [place] # (Auto) Eos # (Auto) Baso # (Auto) WBC Differential Differential Comment Sodium 141 Potassium 3.5 Chloride 105 Carbon Dioxide 26.4 Anion Gap 10 BUN 12 Creatinine 1.25 Estimated GFR 58 L POC Glucose 119 H 218 H Random Glucose 87 Calcium 8.5 Culture Results: Microbiology 07/11/18 05:13 Aerobic Blood Culture - Preliminary Blood - Peripheral No growth in 2 days Anaerobic Blood Culture - Preliminary No growth in 2 days 07/11/18 05:00 Aerobic Blood Culture - Preliminary Blood - Peripheral No growth in 2 days Anaerobic Blood Culture - Preliminary No growth in 2 days Imaging Studies: Impressions Abdomen/Pelvis CT 07/12/18 00:00 CONCLUSION: 1. Small bilateral pleural effusions which are a new finding when compared to prior CT in March 2018. 2. Mild amount stool in the left and transverse colon. 3. Other findings, including lobular surface contour to the liver, right renal cyst, subcentimeter para-aortic lymph nodes, and degenerative changes in lumbar spine, stable from prior. Medications: Active Medications Generic Name Dose Route Start Last Admin Trade Name Freq PRN Reason Stop Dose Admin Acetaminophen 650 mg 07/11/18 04:38 07/11/18 05:34 Tylenol PO 650 mg Q4H PRN Administration headache/fever/pain1-5 Hydrocodone Bitart/Acetaminophen 1 tab 07/11/18 10:26 07/13/18 11:58 [place] 5/325 PO 1 tab Q6H PRN Administration PAIN SCALE 6 TO 10 Sodium Chloride 1,000 mls @ 100 mls/hr 07/09/18 23:30 07/13/18 12:27 Ns Inj IV.CONT Infused .Q10H LORIE Infusion Lactated Ringer's 1,000 mls @ 30 mls/hr 07/12/18 09:45 07/13/18 09:12 Lr 1000 Ml Inj IV.SIG 07/15/18 09:44 Not Given .Q24H LORIE Sodium Chloride 500 mls @ 30 mls/hr 07/12/18 10:00 07/12/18 14:44 Ns Inj IV.SIG Not Given .Q10H LORIE Insulin Aspart 0 unit 07/10/18 08:00 07/13/18 14:36 Novolog Insulin Correctional Sugar Inj SQ 3 unit ACHS LORIE Administration Protocol Morphine Sulfate 2 mg 07/09/18 23:19 07/12/18 18:38 Morphine Inj IV.PUSH 2 mg Q4H PRN Administration BREAKTHROUGH PAIN Ondansetron HCl 4 mg 07/09/18 23:17 07/10/18 09:00 Zofran Inj IV.PUSH 4 mg Q6H PRN Administration NAUSEA OR VOMITING Pantoprazole Sodium 40 mg 07/10/18 00:00 07/13/18 11:58 Protonix Inj IV.PUSH 40 mg Q12H LORIE Administration Senna/Docusate Sodium 1 tab 07/10/18 09:00 07/13/18 08:10 Poly-Colace PO 1 tab BID LORIE Administration Sodium Chloride 2 ml 07/10/18 09:00 07/13/18 08:10 Ns Flush IV.FLUSH 2 ml BID LORIE Administration Sodium Chloride 2 ml 07/09/18 23:29 07/10/18 23:16 Ns Flush IV.FLUSH 2 ml PRN PRN Administration FLUSH AFTER USING IV ACCESS Objective Remarks: GENERAL: Well-nourished, well-developed patient. SKIN: Warm and dry. HEAD: Normocephalic. EYES: No scleral icterus. No injection or drainage. CARDIOVASCULAR: Regular rate and rhythm without murmurs. RESPIRATORY: No accessory muscle use. GASTROINTESTINAL: Abdomen soft, non-tender, nondistended. EXTREMITIES: No cyanosis, or edema. MUSCULOSKELETAL: Adequate muscle tone. NEUROLOGICAL: Awake, alert, and oriented x3. Assessment/Plan - Plan 1. Esophageal mass: s/p EGD with biopsy pending. CT CAP with no evidence of distant metastatic disease. He will need close follow up in clinic to discuss further care of malignancy.
[2018-07-13 17:12] VITALS: BP 189/94; PULSE 78; TEMP 98; O2SAT 98
== END 2018-07-13 18:11 | disposition home or self-care (01) ==
LOC: NEPC 19:11 → NEDA 19:11 → NEPGCP 23:54
PROVIDERS: ADMIT Internal Medicine; ATTEND Internal Medicine

== ENCOUNTER 2018-07-22 19:42 | Observation (INO) ==
[2018-07-22] MEDS ORDERED: Famotidine PF Inj 20 MG/2 ML Vial IV.PUSH ONE (20:22)
--- NOTE | 2018-07-22 20:31 | ED ---
HPI General Chief Complaint: Chest Pain Stated Complaint: Chest Pain Complaint Time Seen by Provider: 07/22/18 19:59 Source: patient and old records reviewed Mode of arrival: ambulatory Limitations: no limitations History of Present Illness HPI narrative: Patient is a 68-year-old male, past medical history significant for diabetes, renal insufficiency, esophageal mass, who presents with complaint of chest pain over the last 6 months that has been gradually worsening. He is unsure if there is shortness of breath. It is not associated with exertion. No cough. He has had bilateral lower extremity edema but is unsure if this is new or not. No fever nor chills. complaint: Reports chest pain STEMI Alert: No Onset (ago): month(s) Duration: constant Onset: during rest Pain location: Reports substernal Severity: moderate Quality: Reports heaviness and dull Pain radiation: Reports none Relieving factors: nothing Exacerbating factors: nothing Treatments prior to arrival chest pain: Reports none Related Data Home Medications Medication Instructions Recorded Confirmed amlodipine 10 mg PO DAILY 07/09/18 07/22/18 glipizide 10 mg PO DAILY 07/09/18 07/22/18 atorvastatin 10 mg PO DAILY 07/22/18 07/22/18 Previous Rx's Medication Instructions Recorded hydrocodone-acetaminophen 1 tab PO Q6H PRN #8 tab 07/13/18 pantoprazole [Protonix] 40 mg PO DAILY 14 Days each 07/13/18 Allergies Allergy/AdvReac Type Severity Reaction Status Date / Time metoprolol Allergy Severe Itching Verified 07/22/18 19:53 *MDRO Multi-Drug Resistant Allergy Unknown Anxiety Uncoded 07/22/18 19:53 Organism Review of Systems ROS: all other systems reviewed are negative COUNTS INCLUDE 234 BEDS AT THE [facility] Medical History Medical History Diabetes (Acute) HTN (hypertension) (Acute) Heart murmur (Acute) History of abdominal hernia (Acute) Surgical History Surgical History S/P wrist surgery (Acute) Social History Social History Substance History: No History of Abuse Second Hand Smoke Exposure: Yes Smoking Status: Former smoker Tobacco Type: Cigarettes How Often Do You Have a Drink Containing Alcohol: Never Recent Travel in [facility] within the Last 8 Weeks: No Recent Out of Country Travel within the Last 8 Weeks: No Immunization History Tetanus Immunization: <5 Years Tetanus Immunization Year if Known: 2017 Exam Narrative Exam Narrative: GENERAL: Chronically ill-appearing male in no acute distress SKIN: Focused skin assessment warm/dry. No rashes. HEAD: Atraumatic. Normocephalic. EYES: Pupils equal and round. No scleral icterus. No injection or drainage. ENT: No nasal bleeding or discharge. Mucous membranes pink and moist. NECK: Trachea midline. No JVD. CARDIOVASCULAR: Regular rate and rhythm. No murmur appreciated. Intact and equal peripheral pulses. RESPIRATORY: No accessory muscle use. Clear to auscultation. Breath sounds equal bilaterally. GASTROINTESTINAL: Abdomen soft, non-tender, nondistended. Hepatic and splenic margins not palpable. MUSCULOSKELETAL: No obvious deformities. No clubbing. No cyanosis. No edema. NEUROLOGICAL: Awake and alert. No obvious cranial nerve deficits. Motor grossly within normal limits. Normal sensation. Normal speech. PSYCHIATRIC: Appropriate mood and affect; insight and judgment normal. Course Initial Documented Vital Signs Temperature 97.7 F 07/22/18 19:54 Pulse Rate 76 07/22/18 19:54 Respiratory Rate 20 07/22/18 19:54 Blood Pressure 183/111 H 07/22/18 19:54 Pulse Oximetry 100 07/22/18 19:54 Last Documented Vital Signs Temperature 98.6 F 07/23/18 12:31 Pulse Rate 80 07/23/18 12:31 Respiratory Rate 20 07/23/18 12:31 Blood Pressure 162/83 H 07/23/18 12:31 Pulse Oximetry 99 07/23/18 12:31 Sign Out Sign Out Data: Patient Sign Out occurred on 07/23/18 at 00:57. Patient's care was discussed, and care was transferred from Antonella Loo MD to Saw Weston MD. Sign Out Comment: Delta trop pending. DC home if WNL. Last updated by Antonella Loo MD at 07/22/18 23:24 Medical Decision Making MDM Narrative Medical decision making narrative: Patient is a 68-year-old male who presents with complaint of chest pain. EKG is without acute ischemic changes. Labs reveal renal insufficiency which is consistent with previous values. CT shows chronic mass but no PE. I spoke with Dr Burkett whom stated that his renal insufficiency is relatively chronic and not criteria for admission at this time. Delta troponin pending at time of check out. The patient is 68 years old. He has coronary calcifications on CT pulmonary angiogram. I see no record of catheter or stress test on file here, which is somewhat limited due to some very recent changes in the EHR records which make it very difficult to actually see specifically what has been done however with a reasonable degree of certainty I cannot see any record of cardiology evaluation here. The patient also denies history of cath or stress test. The EKG shows sinus arrhythmia LVH criteria noted nonspecific ST changes noted as well. the troponin has increased from 0.03-0.04. He is chronic hypertensive with noncompliance. 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 I am concerned this patient has coronary disease and he would benefit from nuclear medicine stress test or provocative diagnostic evaluation per discretion of cardiology service. Given the relative chronicity of electrolyte/ renal indices abnormalities I do not believe the patient would benefit from inpatient management and neither is the hospitalist, Dr. Burkett. Chest pain order set has been placed by the undersigned. The patient is in agreement with this. He received 10 mg of oral amlodipine and Nitropaste was applied to the chest wall. Medical Screen Exam Complete: Yes Emergency Medical Condition: Yes Differential Diagnosis Differential Diagnosis: Differential diagnosis includes but is not limited to ACS, cancer pain, pulmonary embolism. Medical Records Medical records reviewed: Yes I reviewed the patient's medical records. Lab Data Lab results reviewed: Yes I reviewed the patient's lab results. Result diagrams: 07/22/18 20:50 07/22/18 20:50 Lab Results 07/22/18 07/22/18 07/22/18 Range/Units 20:50 20:50 20:50 WBC 17.0 H (4.0-11.0) th/mm3 RBC 3.99 L (4.50-5.90) mil/mm3 Hgb 12.1 L (13.0-17.0) gm/dL Hct 35.4 L (39.0-51.0) % MCV 88.6 (80.0-100.0) fL MCH 30.4 (27.0-34.0) pg MCHC 34.3 (32.0-36.0) % RDW 13.0 (11.6-17.2) % Plt Count 317 (150-450) th/mm3 MPV 7.8 (7.0-11.0) fL Neut % (Auto) 82.1 H (16.0-70.0) % Lymph % (Auto) 10.6 (9.0-44.0) % Hettinger % (Auto) 6.0 (0.0-8.0) % Eos % (Auto) 1.0 (0.0-4.0) % Baso % (Auto) 0.3 (0.0-2.0) % Neut # (Auto) 13.9 H (1.8-7.7) th/mm3 Lymph # (Auto) 1.8 (1.0-4.8) th/mm3 Hettinger # (Auto) 1.0 H (0.0-0.9) th/mm3 Eos # (Auto) 0.2 (0.0-0.4) th/mm3 Baso # (Auto) 0.0 (0.0-0.2) th/mm3 WBC Differential . Differential Comment Auto diff final Sodium 139 (136-145) meq/L Potassium 3.3 L (3.5-5.1) meq/L Chloride 103 (98-107) meq/L Carbon Dioxide 26.2 (21.0-32.0) meq/L Anion Gap 10 (5-15) meq/L BUN 21 H (7-18) mg/dL Creatinine 1.79 H (0.60-1.30) mg/dL Estimated GFR 38 L (>89) mL/min Random Glucose 240 H (74-106) mg/dL Calcium 8.5 (8.5-10.1) mg/dL Total Bilirubin 0.5 (0.2-1.0) mg/dL AST 16 (15-37) U/L ALT 21 (12-78) U/L Alkaline Phosphatase 176 H (45-117) U/L Total Creatine Kinase (39-308) U/L Troponin I 0.03 (0.02-0.05) ng/mL B-Natriuretic Peptide 161 H (0-100) pg/mL Total Protein 7.3 (6.4-8.2) g/dL Albumin 2.3 L (3.4-5.0) g/dL 10/07/23/18 07/23/18 Range/Units 00:15 03:20 07:18 WBC (4.0-11.0) th/mm3 RBC (4.50-5.90) mil/mm3 Hgb (13.0-17.0) gm/dL Hct (39.0-51.0) % MCV (80.0-100.0) fL MCH (27.0-34.0) pg MCHC (32.0-36.0) % RDW (11.6-17.2) % Plt Count (150-450) th/mm3 MPV (7.0-11.0) fL Neut % (Auto) (16.0-70.0) % Lymph % (Auto) (9.0-44.0) % Hettinger % (Auto) (0.0-8.0) % Eos % (Auto) (0.0-4.0) % Baso % (Auto) (0.0-2.0) % Neut # (Auto) (1.8-7.7) th/mm3 Lymph # (Auto) (1.0-4.8) th/mm3 Hettinger # (Auto) (0.0-0.9) th/mm3 Eos # (Auto) (0.0-0.4) th/mm3 Baso # (Auto) (0.0-0.2) th/mm3 WBC Differential Differential Comment Sodium (136-145) meq/L Potassium (3.5-5.1) meq/L Chloride (98-107) meq/L Carbon Dioxide (21.0-32.0) meq/L Anion Gap (5-15) meq/L BUN (7-18) mg/dL Creatinine (0.60-1.30) mg/dL Estimated GFR (>89) mL/min Random Glucose (74-106) mg/dL Calcium (8.5-10.1) mg/dL Total Bilirubin (0.2-1.0) mg/dL AST (15-37) U/L ALT (12-78) U/L Alkaline Phosphatase (45-117) U/L Total Creatine Kinase 51 43 (39-308) U/L Troponin I 0.04 0.05 0.04 (0.02-0.05) ng/mL B-Natriuretic Peptide (0-100) pg/mL Total Protein (6.4-8.2) g/dL Albumin (3.4-5.0) g/dL Imaging Data Attestation: I personally reviewed and interpreted this imaging study as follows : Radiologist's impression: Chest X-Ray 07/22/18 20:22 CONCLUSION: No evidence of acute cardiopulmonary disease. Chest CTA 07/22/18 20:35 CONCLUSION: 1. Negative for pulmonary embolus. 2. Mass in mid esophagus measuring around 5 cm in diameter, at least partially obstructing with air-fluid level in the dilated proximal esophagus. 3. Mildly enlarged lymph nodes around the right bronchus intermedius and at the GE junction. 4. Liver cirrhosis. Moderate to severe coronary calcifications. Myocardial Perfusion Scan Nuc Med 07/23/18 00:00 CONCLUSION: 1. No definite reversible perfusion defects are identified to suggest stress- induced myocardial ischemia. ECG Data EKG Prior to Arrival: No Attestation: I personally reviewed and interpreted this ECG as follows: (Sinus rhythm at a rate of 95 bpm. There are slight T wave inversions in aVL but no other ST or T wave changes.) Discharge Plan Discharge Disposition Patient Disposition: 30 Still Patient Discharge Condition Condition: Stable Discharge Details Anticipated Discharge Date: 07/23/18 Diagnosis: Chronic chest pain Physicians Team ED Provider: Saw Weston Primary Care Provider: NON STAFF,PROVIDER Attending Provider: Neftali Bahena Other Providers: Alana Warner Discharge Interventions Interventions: ED Discharge Assessment Last Done: 07/23/18 09:46 Status ED Status: Left Department Discharge Information Discharge Date/Time: 07/23/18 09:49
--- NOTE | 2018-07-22 20:41 | XR ---
EXAM DATE: 07/22/2018 8:22 PM EDT AGE/SEX: 68 years / Male INDICATIONS: . Chest pain CLINICAL DATA: This is the patient's initial encounter. Patient reports that signs and symptoms have been present for 1 day and indicates a pain score of 3/10. MEDICAL/SURGICAL HISTORY: . Hypertension. Diabetes mellitus type II. .Carcinoma, throat . R t wrist surgery COMPARISON: No prior exams available for comparison. FINDINGS: PA and lateral views of the chest demonstrate the lungs to be symmetrically aerated without evidence of mass, infiltrate or effusion. The cardiomediastinal contours are unremarkable. Osseous structures are intact. CONCLUSION: No evidence of acute cardiopulmonary disease. Electronically signed by: Kris Lozano MD 07/22/2018 8:39 PM EDT
[2018-07-22 21:19] LABS: Baso % (Auto) 0.3 % (0.0-2.0); Eos # (Auto) 0.2 th/mm3 (0.0-0.4); Hematocrit 35.4 % (39.0-51.0); Hemoglobin 12.1 gm/dL (13.0-17.0); Lymph # (Auto) 1.8 th/mm3 (1.0-4.8); Lymph % (Auto) 10.6 % (9.0-44.0); Mean Corpuscular HGB Conc 34.3 % (32.0-36.0); Mean Corpuscular Hemoglobin 30.4 pg (27.0-34.0); Mean Corpuscular Volume 88.6 fL (80.0-100.0); Mean Platelet Volume 7.8 fL (7.0-11.0); Neut # (Auto) 13.9 th/mm3 (1.8-7.7); Neut % (Auto) 82.1 % (16.0-70.0); Platelet Count 317 th/mm3 (150-450); Red Blood Count 3.99 mil/mm3 (4.50-5.90)
[2018-07-22 21:39] LABS: Albumin 2.3 g/dL (3.4-5.0); Anion Gap 10 meq/L (5-15); Aspartate Aminotransferase 16 U/L (15-37); Blood Urea Nitrogen 21 mg/dL (7-18); Calcium 8.5 mg/dL (8.5-10.1); Carbon Dioxide 26.2 meq/L (21.0-32.0); Chloride 103 meq/L (98-107); Glomerular Filtration Rate 38 mL/min (>89); Glucose,Random 240 mg/dL (74-106); Potassium 3.3 meq/L (3.5-5.1); Sodium 139 meq/L (136-145)
[2018-07-22 21:44] LABS: Alanine Aminotransferase 21 U/L (12-78); Alkaline Phosphatase 176 U/L (45-117); Total Protein 7.3 g/dL (6.4-8.2); Troponin I 0.03 ng/mL (0.02-0.05)
--- NOTE | 2018-07-22 22:05 | CT ---
EXAM DATE: 07/22/2018 9:05 PM EDT AGE/SEX: 68 years / Male INDICATIONS: Sub-sternal chest pain. CLINICAL DATA: This is the patient's initial encounter. Patient reports that signs and symptoms have been present for 1 day and indicates a pain score of 8/10. MEDICAL/SURGICAL HISTORY: Diabetes. Hypertension. Renal insufficiency. Esophageal mass. None. RADIATION DOSE: 8.32 CTDI (mGy) [place] [facility] [place]09/[place]. . TECHNIQUE: Volumetric scanning was performed using a multi-row detector CT scanner during bolus infu eugenio of 50 ml Visipaque 320 (iodixanol) nonionic water-soluble contrast as a cumulative dose for mul tiple exams. The data was post processed with a variety of visualization algorithms including full vo lume maximum intensity projection and sliding thin slab reformation. Using automated exposure contro l and adjustment of the mA and/or kV according to patient size, radiation dose was kept as low as jennifer sonably achievable to obtain optimal diagnostic quality images. DICOM format image data is available electronically for review and comparison. FINDINGS: No filling defects identified within the pulmonary arteries to suggest pulmonary embolic disease. Aga in seen is a mass in the mid esophagus measuring up to around 5 cm in diameter with esophageal dilata tion and air-fluid level proximal to the mass. Mildly enlarged right peribronchial lymph node noted a t bronchus intermedius. No lung consolidation. No pleural or pericardial effusion. Dense coronary artery calcifications. Upper abdomen reveals cirrhotic liver. Mildly enlarged 1.5 cm lymph node around the GE junction. CONCLUSION: 1. Negative for pulmonary embolus. 2. Mass in mid esophagus measuring around 5 cm in diameter, at least partially obstructing with air- fluid level in the dilated proximal esophagus. 3. Mildly enlarged lymph nodes around the right bronchus intermedius and at the GE junction. 4. Liver cirrhosis. Moderate to severe coronary calcifications. Electronically signed by: Jason Toscano MD 07/22/2018 10:03 PM EDT
[2018-07-22] MEDS ORDERED: Aluminum/Magnesium/Simethacone Susp 30 ML UDC PO ONE (22:35)
[2018-07-22] MEDS ORDERED: Sodium Chlor 0.9% Inj 500 ML IV.SIG SCH (23:00)
[2018-07-23] MEDS ORDERED: amLODIPine 10 MG Tablet PO ONE (00:53)
[2018-07-23] MEDS ORDERED: Aspirin 325 MG Tablet PO ONE (01:24)
[2018-07-23] MEDS ORDERED: Temazepam 15 MG Capsule PO PRN (01:24)
[2018-07-23] MEDS ORDERED: ALPRAZolam 0.25 MG Tablet PO PRN (01:24)
[2018-07-23 04:08] LABS: Troponin I 0.05 ng/mL (0.02-0.05)
[2018-07-23 08:11] LABS: Troponin I 0.04 ng/mL (0.02-0.05)
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
[2018-07-23] MEDS ORDERED: amLODIPine 10 MG Tablet PO SCH (12:00)
[2018-07-23 12:33] VITALS: BP 162/83; PULSE 80; RESP 20; TEMP 98.6; O2SAT 99
[2018-07-23] MEDS ORDERED: Regadenoson Inj 0.4 MG/5 ML Syringe IV.PUSH ONE (13:26)
--- NOTE | 2018-07-23 14:57 | NM ---
EXAM DATE: 07/23/2018 12:53 PM EDT AGE/SEX: 68 years / Male INDICATIONS:Angina. . Chest pain for 6 months. CLINICAL DATA: This is the patient's initial encounter. Patient reports that signs and symptoms have been present for 1 day and indicates a pain score of 2/10. MEDICAL/SURGICAL HISTORY: Diabetes mellitus type II. Hypertension. Renal disease. Inguinal he rnia repair. COMPARISON: No prior exams available for comparison. DOSE: 8.5 mCi Tc 99m Myoview at rest 27.2 mCi [id number] at stress 0.4 mg Lexiscan STRESS SYMPTOMS: None. EJECTION FRACTION: 46 % TECHNIQUE: The patient underwent pharmacologic stress with infusion of prescribed dose. Continuous ECG tracing was monitored during stress. Gated SPECT imaging was performed after stress and conventi onal SPECT imaging was performed at rest. The examination was performed on a SPECT/CT scanner, both attenuation and non-corrected datasets were reviewed. FINDINGS: Distribution: The maximum perfused segment at stress is in the inferior wall. Perfusion Study: The pattern of perfusion at stress is within normal limits. Gated Study: There are intact wall motion and wall thickening without hypokinetic or dyskinetic segm ents. The ejection fraction is calculated at 46%. RISK CATEGORY: Intermediate (1-3 % Annual Mortality Rate) CONCLUSION: 1. No definite reversible perfusion defects are identified to suggest stress-induced myocardial isch emia. Electronically signed by: Delta Yip MD 07/23/2018 2:56 PM EDT
--- NOTE | 2018-07-23 15:38 | TR ---
Date Performed: 07/23/2018 Time Performed: 13:30:11 DOCTOR: Neftali Bahena DRUG LIST: CLINICAL HISTORY: REASON FOR TEST: REASON FOR ENDING: OBSERVATION: CONCLUSION: COMMENTS: Lexiscan stress test was performed under standard four minute protocol. Radionuclide was injected one minute prior to ending the test. No electrocardiographic abormalities were present t o suggest ischemia. Nuclear imaging and interpretation are pending.
--- NOTE | 2018-07-23 17:57 | ECG ---
Date Performed: 07/23/2018 Time Performed: 01:51:28 PTAGE: 68 years EKG: Sinus rhythm WITH OCCASIONAL SUPRAVENTRICULAR PREMATURE COMPLEXES MODERATE VOLTAGE CRITERIA FOR LVH, CONSIDER NOR MAL VARIANT MINOR NONSPECIFIC T WAVE CHANGES Since the previous tracing, no significant change noted BORDERLINE ECG NO PREVIOUS TRACING DOCTOR: Neftali Bahena Interpretating Date/Time 07/23/2018 17:56:53
--- NOTE | 2018-07-23 17:57 | ECG ---
Date Performed: 07/22/2018 Time Performed: 20:22:45 PTAGE: 68 years EKG: Sinus rhythm WITH FREQUENT SUPRAVENTRICULAR PREMATURE COMPLEXES VOLTAGE CRITERIA FOR LVH NONSPECIFIC ST & T-WAVE ABNORMALITY Compared to previous tracing, T wave changes in lead aVL is slightly more prominent, othe rwise no significant change ABNORMAL ECG NO PREVIOUS TRACING DOCTOR: Neftali Bahena Interpretating Date/Time 07/23/2018 17:56:31
--- NOTE | 2018-07-23 17:58 | ECG ---
Date Performed: 07/23/2018 Time Performed: 04:30:53 PTAGE: 68 years EKG: Sinus rhythm WITH FREQUENT SUPRAVENTRICULAR PREMATURE COMPLEXES VOLTAGE CRITERIA FOR LVH MINOR NONSPECIFIC T WAVE CHANGE Since the previous tracing, no significant change noted ABNORMAL ECG PREVIOUS TRACING : 07/22/2018 20.22 DOCTOR: Neftali Bahena Interpretating Date/Time 07/23/2018 17:57:23
== END 2018-07-23 17:06 | disposition home or self-care (01) ==
LOC: NEDA 19:42 → NEPE 19:42 → NEDH 07-23 05:49 → HCIS 07-23 07:55 → NEDH 07-23 09:49 → NEPFCDU 07-23 10:44
DX: E78.5 Hyperlipidemia, unspecified; Z59.0 Homelessness; F17.210 Nicotine dependence, cigarettes, uncomplicated; E11.9 Type 2 diabetes mellitus without complications; Z16.24 Resistance to multiple antibiotics; K22.9 Disease of esophagus, unspecified; R94.31 Abnormal electrocardiogram [ECG] [EKG]; Z79.4 Long term (current) use of insulin; R07.89 Other chest pain; I10 Essential (primary) hypertension

== ENCOUNTER 2018-08-27 19:59 | Inpatient (IN) ==
[2018-08-27] MEDS ORDERED: Morphine Sulfate Inj 2 MG/ML Vial IV.PUSH ONE (20:35)
[2018-08-27] MEDS ORDERED: Sod Chloride 0.9% Inj 1,000 ML IV.SIG SCH (20:45)
--- NOTE | 2018-08-27 20:55 | ED ---
HPI General Chief complaint: Nausea/Vomiting/Diarrhea Stated complaint: N/V Evac Time Seen by Provider: 08/27/18 20:15 Source: patient Mode of arrival: EMS Limitations: no limitations History of Present Illness HPI narrative: 68-year-old male came to the emergency room with history unable to swallow any liquid since yesterday. Patient was diagnosed with esophageal cancer about 2 months back. Patient says that he is supposed to see an oncologist for the first time on Thursday but his condition is worsening. He is unable to keep anything down. Patient was in A. fib with RVR. Upon asking patient says that he does not have history of A. fib. He does have history of diabetes. Patient was seen last month in our emergency department and a CAT scan of the chest was done which showed a 5 cm mass in the esophagus. No history of vomiting or diarrhea. Patient says his last bowel movement was yesterday. Patient has lost 30 pounds in the past 2 months. Patient is complaining of right-sided eye pain and wanted something for the pain. He says this started this morning. Related Data Home Medications Medication Instructions Recorded Confirmed pantoprazole 40 mg PO DAILY 08/27/18 08/27/18 Previous Rx's Medication Instructions Recorded amlodipine 10 mg PO DAILY #30 mg 07/23/18 atorvastatin 10 mg PO DAILY #30 mg 07/23/18 glipizide 10 mg PO DAILY #30 mg 07/23/18 Allergies Allergy/AdvReac Type Severity Reaction Status Date / Time metoprolol Allergy Severe Itching Verified 08/27/18 20:11 *MDRO Multi-Drug Resistant Allergy Unknown Anxiety Uncoded 07/22/18 19:53 Organism Review of Systems ROS: all other systems reviewed are negative [facility] Medical History Medical History Diabetes (Acute) Esophageal mass (Acute) HTN (hypertension) (Acute) Heart murmur (Acute) History of abdominal hernia (Acute) Surgical History Surgical History S/P wrist surgery (Acute) Family History Family History Other Diabetes mellitus Social History Social History Substance History: No History of Abuse Second Hand Smoke Exposure: Yes Smoking Status: Former smoker Tobacco Type: Cigarettes How Often Do You Have a Drink Containing Alcohol: Never Recent Travel in [place] within the Last 8 Weeks: No Recent Out of Country Travel within the Last 8 Weeks: No Immunization History Tetanus Immunization: <5 Years Tetanus Immunization Year if Known: 2014 Exam Narrative Exam Narrative: GENERAL: Awake, alert, moderate distress, disheveled, emaciated SKIN: Focused skin assessment warm/dry. HEAD: Atraumatic. Normocephalic. EYES: Pupils equal and round. No scleral icterus. No injection or drainage. ENT: No nasal bleeding or discharge. Dry mucous membrane, coated tongue, oral thrush NECK: Trachea midline. No JVD. CARDIOVASCULAR: Irregularly irregular heart rhythm with tachycardia. No murmur appreciated. RESPIRATORY: No accessory muscle use. Clear to auscultation. Breath sounds equal bilaterally. GASTROINTESTINAL: Abdomen soft, non-tender, nondistended. Hepatic and splenic margins not palpable. MUSCULOSKELETAL: No obvious deformities. No clubbing. No cyanosis. No edema. NEUROLOGICAL: Awake and alert. No obvious cranial nerve deficits. Motor grossly within normal limits. Normal speech. PSYCHIATRIC: Appropriate mood and affect; insight and judgment normal. Course Initial Documented Vital Signs Temperature 99.7 F H 08/27/18 20:04 Pulse Rate 112 H 08/27/18 20:04 Respiratory Rate 20 08/27/18 20:04 Blood Pressure 119/75 08/27/18 20:04 Pulse Oximetry 98 08/27/18 20:04 Last Documented Vital Signs Temperature 98.6 F 09/01/18 15:51 Pulse Rate 90 09/01/18 17:11 Respiratory Rate 20 09/01/18 15:51 Blood Pressure 162/89 H 09/01/18 15:51 Pulse Oximetry 96 09/01/18 08:00 Medical Decision Making [facility] Narrative Medical decision making narrative: 9 PM awaiting for the blood test results. Patient is getting 1 L of IV fluid bolus. CT scan of his chest, head and neck has been ordered. Awaiting for the CAT scan be done and resulted. 11:[address] scan shows a large mass in the mid thoracic esophagus with dilatation of the proximal esophagus. Patient will require admission for at least a G-tube placement and further plan for the large tumor. Waiting for the hospitalist to call back. His potassium was low and I have ordered for IV potassium replacement. Medical Screen Exam Complete: Yes Emergency Medical Condition: Yes Lab Data Result diagrams: 08/31/18 05:54 08/31/18 05:54 Lab Results 08/27/18 08/27/18 08/28/18 Range/Units 20:35 20:35 03:55 WBC 21.1 H (4.0-11.0) th/mm3 RBC 3.71 L (4.50-5.90) mil/mm3 Hgb 11.7 L (13.0-17.0) gm/dL Hct 31.8 L (39.0-51.0) % MCV 85.8 (80.0-100.0) fL MCH 31.7 (27.0-34.0) pg MCHC 36.9 H (32.0-36.0) % RDW 13.4 (11.6-17.2) % Plt Count 401 (150-450) th/mm3 MPV 7.5 (7.0-11.0) fL Prelim Diff (Auto) Slide review pending Neut % (Auto) 87.0 H (16.0-70.0) % Lymph % (Auto) 6.5 L (9.0-44.0) % [place] % (Auto) 5.6 (0.0-8.0) % Eos % (Auto) 0.3 (0.0-4.0) % Baso % (Auto) 0.6 (0.0-2.0) % Neut # (Auto) 18.3 H (1.8-7.7) th/mm3 Lymph # (Auto) 1.4 (1.0-4.8) th/mm3 [place] # (Auto) 1.2 H (0.0-0.9) th/mm3 Eos # (Auto) 0.1 (0.0-0.4) th/mm3 Baso # (Auto) 0.1 (0.0-0.2) th/mm3 WBC Differential . Diff Scan Auto diff confirmed Differential Comment . PT 11.6 (9.8-11.6) sec INR 1.1 Ratio APTT 30.1 (23.4-31.7) sec Sodium 142 (136-145) meq/L Potassium 3.0 L (3.5-5.1) meq/L Chloride 105 (98-107) meq/L Carbon Dioxide 31.0 (21.0-32.0) meq/L Anion Gap 6 (5-15) meq/L BUN 16 (7-18) mg/dL Creatinine 1.56 H (0.60-1.30) mg/dL Estimated GFR 45 L (>89) mL/min POC Glucose (68-110) mg/dl Random Glucose 139 H (74-106) mg/dL Calcium 8.8 (8.5-10.1) mg/dL Magnesium 1.9 (1.5-2.5) mg/dL Total Bilirubin 0.8 (0.2-1.0) mg/dL AST 22 (15-37) U/L ALT 16 (12-78) U/L Alkaline Phosphatase 151 H (45-117) U/L Total Protein 7.3 (6.4-8.2) g/dL Albumin 2.3 L (3.4-5.0) g/dL Urine Color (Yellw/Straw) Urine Clarity (Clear) Urine pH (5.0-8.5) Ur Specific [place] (1.002-1.035) Urine Protein (Neg-Trace) mg/dL Urine Glucose (UA) (Negative) mg/dL Urine Ketones (Negative) mg/dL Urine Occult Blood (Negative) Urine Nitrate (Negative) Urine Bilirubin (Negative) Urine Urobilinogen (Less than 2) mg/dL Ur Leukocyte Esterase (Negative) Urine RBC (0-3) /hpf Urine WBC (0-5) /hpf Ur Squamous Epith Cells (0-5) /hpf Micro UA Comment Ur Microscopic Review Urine Culture Comments 08/28/18 08/28/18 08/28/18 Range/Units 07:48 11:38 11:40 WBC (4.0-11.0) th/mm3 RBC (4.50-5.90) mil/mm3 Hgb (13.0-17.0) gm/dL Hct (39.0-51.0) % MCV (80.0-100.0) fL MCH (27.0-34.0) pg MCHC (32.0-36.0) % RDW (11.6-17.2) % Plt Count (150-450) th/mm3 MPV (7.0-11.0) fL Prelim Diff (Auto) Neut % (Auto) (16.0-70.0) % Lymph % (Auto) (9.0-44.0) % [place] % (Auto) (0.0-8.0) % Eos % (Auto) (0.0-4.0) % Baso % (Auto) (0.0-2.0) % Neut # (Auto) (1.8-7.7) th/mm3 Lymph # (Auto) (1.0-4.8) th/mm3 [place] # (Auto) (0.0-0.9) th/mm3 Eos # (Auto) (0.0-0.4) th/mm3 Baso # (Auto) (0.0-0.2) th/mm3 WBC Differential Diff Scan Differential Comment PT (9.8-11.6) sec INR Ratio APTT (23.4-31.7) sec Sodium (136-145) meq/L Potassium (3.5-5.1) meq/L Chloride (98-107) meq/L Carbon Dioxide (21.0-32.0) meq/L Anion Gap (5-15) meq/L BUN (7-18) mg/dL Creatinine (0.60-1.30) mg/dL Estimated GFR (>89) mL/min POC Glucose 103 197 H (68-110) mg/dl Random Glucose (74-106) mg/dL Calcium (8.5-10.1) mg/dL Magnesium (1.5-2.5) mg/dL Total Bilirubin (0.2-1.0) mg/dL AST (15-37) U/L ALT (12-78) U/L Alkaline Phosphatase (45-117) U/L Total Protein (6.4-8.2) g/dL Albumin (3.4-5.0) g/dL Urine Color Yellow (Yellw/Straw) Urine Clarity Clear (Clear) Urine pH 6.0 (5.0-8.5) Ur Specific [place] 1.035 (1.002-1.035) Urine Protein 500 or greater (Neg-Trace) mg/dL Urine Glucose (UA) 50 (Negative) mg/dL Urine Ketones Negative (Negative) mg/dL Urine Occult Blood Negative (Negative) Urine Nitrate Negative (Negative) Urine Bilirubin Negative (Negative) Urine Urobilinogen 0.2 (Less than 2) mg/dL Ur Leukocyte Esterase Negative (Negative) Urine RBC 1 (0-3) /hpf Urine WBC 1 (0-5) /hpf Ur Squamous Epith Cells <1 (0-5) /hpf Micro UA Comment Culture not ind Ur Microscopic Review Not Reportable Urine Culture Comments Culture not ind 08/28/18 08/28/18 08/29/18 Range/Units 16:39 20:34 03:25 WBC (4.0-11.0) th/mm3 RBC (4.50-5.90) mil/mm3 Hgb (13.0-17.0) gm/dL Hct (39.0-51.0) % MCV (80.0-100.0) fL MCH (27.0-34.0) pg MCHC (32.0-36.0) % RDW (11.6-17.2) % Plt Count (150-450) th/mm3 MPV (7.0-11.0) fL Prelim Diff (Auto) Neut % (Auto) (16.0-70.0) % Lymph % (Auto) (9.0-44.0) % [place] % (Auto) (0.0-8.0) % Eos % (Auto) (0.0-4.0) % Baso % (Auto) (0.0-2.0) % Neut # (Auto) (1.8-7.7) th/mm3 Lymph # (Auto) (1.0-4.8) th/mm3 [place] # (Auto) (0.0-0.9) th/mm3 Eos # (Auto) (0.0-0.4) th/mm3 Baso # (Auto) (0.0-0.2) th/mm3 WBC Differential Diff Scan Differential Comment PT (9.8-11.6) sec INR Ratio APTT (23.4-31.7) sec Sodium (136-145) meq/L Potassium (3.5-5.1) meq/L Chloride (98-107) meq/L Carbon Dioxide (21.0-32.0) meq/L Anion Gap (5-15) meq/L BUN (7-18) mg/dL Creatinine (0.60-1.30) mg/dL Estimated GFR (>89) mL/min POC Glucose 170 H 89 131 H (68-110) mg/dl Random Glucose (74-106) mg/dL Calcium (8.5-10.1) mg/dL Magnesium (1.5-2.5) mg/dL Total Bilirubin (0.2-1.0) mg/dL AST (15-37) U/L ALT (12-78) U/L Alkaline Phosphatase (45-117) U/L Total Protein (6.4-8.2) g/dL Albumin (3.4-5.0) g/dL Urine Color (Yellw/Straw) Urine Clarity (Clear) Urine pH (5.0-8.5) Ur Specific [place] (1.002-1.035) Urine Protein (Neg-Trace) mg/dL Urine Glucose (UA) (Negative) mg/dL Urine Ketones (Negative) mg/dL Urine Occult Blood (Negative) Urine Nitrate (Negative) Urine Bilirubin (Negative) Urine Urobilinogen (Less than 2) mg/dL Ur Leukocyte Esterase (Negative) Urine RBC (0-3) /hpf Urine WBC (0-5) /hpf Ur Squamous Epith Cells (0-5) /hpf Micro UA Comment Ur Microscopic Review Urine Culture Comments 08/29/18 08/29/18 08/29/18 Range/Units 06:00 06:00 08:26 WBC 13.3 H (4.0-11.0) th/mm3 RBC 3.30 L (4.50-5.90) mil/mm3 Hgb 10.2 L (13.0-17.0) gm/dL Hct 29.1 L (39.0-51.0) % MCV 88.1 (80.0-100.0) fL MCH 30.8 (27.0-34.0) pg MCHC 34.9 (32.0-36.0) % RDW 13.8 (11.6-17.2) % Plt Count 235 D (150-450) th/mm3 MPV 7.4 (7.0-11.0) fL Prelim Diff (Auto) Neut % (Auto) 82.0 H (16.0-70.0) % Lymph % (Auto) 10.5 (9.0-44.0) % [place] % (Auto) 6.3 (0.0-8.0) % Eos % (Auto) 0.8 (0.0-4.0) % Baso % (Auto) 0.4 (0.0-2.0) % Neut # (Auto) 10.9 H (1.8-7.7) th/mm3 Lymph # (Auto) 1.4 (1.0-4.8) th/mm3 [place] # (Auto) 0.8 (0.0-0.9) th/mm3 Eos # (Auto) 0.1 (0.0-0.4) th/mm3 Baso # (Auto) 0.1 (0.0-0.2) th/mm3 WBC Differential . Diff Scan Differential Comment Auto diff final PT (9.8-11.6) sec INR Ratio APTT (23.4-31.7) sec Sodium 142 (136-145) meq/L Potassium 3.8 D (3.5-5.1) meq/L Chloride 108 H (98-107) meq/L Carbon Dioxide 25.6 (21.0-32.0) meq/L Anion Gap 8 (5-15) meq/L BUN 14 (7-18) mg/dL Creatinine 1.39 H (0.60-1.30) mg/dL Estimated GFR 51 L (>89) mL/min POC Glucose 134 H (68-110) mg/dl Random Glucose 143 H (74-106) mg/dL Calcium 7.9 L D (8.5-10.1) mg/dL Magnesium (1.5-2.5) mg/dL Total Bilirubin (0.2-1.0) mg/dL AST (15-37) U/L ALT (12-78) U/L Alkaline Phosphatase (45-117) U/L Total Protein (6.4-8.2) g/dL Albumin (3.4-5.0) g/dL Urine Color (Yellw/Straw) Urine Clarity (Clear) Urine pH (5.0-8.5) Ur Specific [place] (1.002-1.035) Urine Protein (Neg-Trace) mg/dL Urine Glucose (UA) (Negative) mg/dL Urine Ketones (Negative) mg/dL Urine Occult Blood (Negative) Urine Nitrate (Negative) Urine Bilirubin (Negative) Urine Urobilinogen (Less than 2) mg/dL Ur Leukocyte Esterase (Negative) Urine RBC (0-3) /hpf Urine WBC (0-5) /hpf Ur Squamous Epith Cells (0-5) /hpf Micro UA Comment Ur Microscopic Review Urine Culture Comments 08/29/18 08/29/18 08/29/18 Range/Units 12:00 16:56 21:06 WBC (4.0-11.0) th/mm3 RBC (4.50-5.90) mil/mm3 Hgb (13.0-17.0) gm/dL Hct (39.0-51.0) % MCV (80.0-100.0) fL MCH (27.0-34.0) pg MCHC (32.0-36.0) % RDW (11.6-17.2) % Plt Count (150-450) th/mm3 MPV (7.0-11.0) fL Prelim Diff (Auto) Neut % (Auto) (16.0-70.0) % Lymph % (Auto) (9.0-44.0) % [place] % (Auto) (0.0-8.0) % Eos % (Auto) (0.0-4.0) % Baso % (Auto) (0.0-2.0) % Neut # (Auto) (1.8-7.7) th/mm3 Lymph # (Auto) (1.0-4.8) th/mm3 [place] # (Auto) (0.0-0.9) th/mm3 Eos # (Auto) (0.0-0.4) th/mm3 Baso # (Auto) (0.0-0.2) th/mm3 WBC Differential Diff Scan Differential Comment PT (9.8-11.6) sec INR Ratio APTT (23.4-31.7) sec Sodium (136-145) meq/L Potassium (3.5-5.1) meq/L Chloride (98-107) meq/L Carbon Dioxide (21.0-32.0) meq/L Anion Gap (5-15) meq/L BUN (7-18) mg/dL Creatinine (0.60-1.30) mg/dL Estimated GFR (>89) mL/min POC Glucose 184 H 195 H 112 H (68-110) mg/dl Random Glucose (74-106) mg/dL Calcium (8.5-10.1) mg/dL Magnesium (1.5-2.5) mg/dL Total Bilirubin (0.2-1.0) mg/dL AST (15-37) U/L ALT (12-78) U/L Alkaline Phosphatase (45-117) U/L Total Protein (6.4-8.2) g/dL Albumin (3.4-5.0) g/dL Urine Color (Yellw/Straw) Urine Clarity (Clear) Urine pH (5.0-8.5) Ur Specific [place] (1.002-1.035) Urine Protein (Neg-Trace) mg/dL Urine Glucose (UA) (Negative) mg/dL Urine Ketones (Negative) mg/dL Urine Occult Blood (Negative) Urine Nitrate (Negative) Urine Bilirubin (Negative) Urine Urobilinogen (Less than 2) mg/dL Ur Leukocyte Esterase (Negative) Urine RBC (0-3) /hpf Urine WBC (0-5) /hpf Ur Squamous Epith Cells (0-5) /hpf Micro UA Comment Ur Microscopic Review Urine Culture Comments 08/30/18 08/30/18 08/30/18 Range/Units 03:16 07:51 11:45 WBC (4.0-11.0) th/mm3 RBC (4.50-5.90) mil/mm3 Hgb (13.0-17.0) gm/dL Hct (39.0-51.0) % MCV (80.0-100.0) fL MCH (27.0-34.0) pg MCHC (32.0-36.0) % RDW (11.6-17.2) % Plt Count (150-450) th/mm3 MPV (7.0-11.0) fL Prelim Diff (Auto) Neut % (Auto) (16.0-70.0) % Lymph % (Auto) (9.0-44.0) % [place] % (Auto) (0.0-8.0) % Eos % (Auto) (0.0-4.0) % Baso % (Auto) (0.0-2.0) % Neut # (Auto) (1.8-7.7) th/mm3 Lymph # (Auto) (1.0-4.8) th/mm3 [place] # (Auto) (0.0-0.9) th/mm3 Eos # (Auto) (0.0-0.4) th/mm3 Baso # (Auto) (0.0-0.2) th/mm3 WBC Differential Diff Scan Differential Comment PT (9.8-11.6) sec INR Ratio APTT (23.4-31.7) sec Sodium (136-145) meq/L Potassium (3.5-5.1) meq/L Chloride (98-107) meq/L Carbon Dioxide (21.0-32.0) meq/L Anion Gap (5-15) meq/L BUN (7-18) mg/dL Creatinine (0.60-1.30) mg/dL Estimated GFR (>89) mL/min POC Glucose 105 134 H 104 (68-110) mg/dl Random Glucose (74-106) mg/dL Calcium (8.5-10.1) mg/dL Magnesium (1.5-2.5) mg/dL Total Bilirubin (0.2-1.0) mg/dL AST (15-37) U/L ALT (12-78) U/L Alkaline Phosphatase (45-117) U/L Total Protein (6.4-8.2) g/dL Albumin (3.4-5.0) g/dL Urine Color (Yellw/Straw) Urine Clarity (Clear) Urine pH (5.0-8.5) Ur Specific [place] (1.002-1.035) Urine Protein (Neg-Trace) mg/dL Urine Glucose (UA) (Negative) mg/dL Urine Ketones (Negative) mg/dL Urine Occult Blood (Negative) Urine Nitrate (Negative) Urine Bilirubin (Negative) Urine Urobilinogen (Less than 2) mg/dL Ur Leukocyte Esterase (Negative) Urine RBC (0-3) /hpf Urine WBC (0-5) /hpf Ur Squamous Epith Cells (0-5) /hpf Micro UA Comment Ur Microscopic Review Urine Culture Comments 08/30/18 08/30/18 08/31/18 Range/Units 17:20 21:17 03:14 WBC (4.0-11.0) th/mm3 RBC (4.50-5.90) mil/mm3 Hgb (13.0-17.0) gm/dL Hct (39.0-51.0) % MCV (80.0-100.0) fL MCH (27.0-34.0) pg MCHC (32.0-36.0) % RDW (11.6-17.2) % Plt Count (150-450) th/mm3 MPV (7.0-11.0) fL Prelim Diff (Auto) Neut % (Auto) (16.0-70.0) % Lymph % (Auto) (9.0-44.0) % [place] % (Auto) (0.0-8.0) % Eos % (Auto) (0.0-4.0) % Baso % (Auto) (0.0-2.0) % Neut # (Auto) (1.8-7.7) th/mm3 Lymph # (Auto) (1.0-4.8) th/mm3 [place] # (Auto) (0.0-0.9) th/mm3 Eos # (Auto) (0.0-0.4) th/mm3 Baso # (Auto) (0.0-0.2) th/mm3 WBC Differential Diff Scan Differential Comment PT (9.8-11.6) sec INR Ratio APTT (23.4-31.7) sec Sodium (136-145) meq/L Potassium (3.5-5.1) meq/L Chloride (98-107) meq/L Carbon Dioxide (21.0-32.0) meq/L Anion Gap (5-15) meq/L BUN (7-18) mg/dL Creatinine (0.60-1.30) mg/dL Estimated GFR (>89) mL/min POC Glucose 128 H 116 H 253 H (68-110) mg/dl Random Glucose (74-106) mg/dL Calcium (8.5-10.1) mg/dL Magnesium (1.5-2.5) mg/dL Total Bilirubin (0.2-1.0) mg/dL AST (15-37) U/L ALT (12-78) U/L Alkaline Phosphatase (45-117) U/L Total Protein (6.4-8.2) g/dL Albumin (3.4-5.0) g/dL Urine Color (Yellw/Straw) Urine Clarity (Clear) Urine pH (5.0-8.5) Ur Specific [place] (1.002-1.035) Urine Protein (Neg-Trace) mg/dL Urine Glucose (UA) (Negative) mg/dL Urine Ketones (Negative) mg/dL Urine Occult Blood (Negative) Urine Nitrate (Negative) Urine Bilirubin (Negative) Urine Urobilinogen (Less than 2) mg/dL Ur Leukocyte Esterase (Negative) Urine RBC (0-3) /hpf Urine WBC (0-5) /hpf Ur Squamous Epith Cells (0-5) /hpf Micro UA Comment Ur Microscopic Review Urine Culture Comments 08/31/18 08/31/18 08/31/18 Range/Units 05:54 05:54 08:02 WBC 15.1 H (4.0-11.0) th/mm3 RBC 3.26 L (4.50-5.90) mil/mm3 Hgb 9.7 L (13.0-17.0) gm/dL Hct 28.1 L (39.0-51.0) % MCV 86.1 (80.0-100.0) fL MCH 29.8 (27.0-34.0) pg MCHC 34.6 (32.0-36.0) % RDW 13.5 (11.6-17.2) % Plt Count 250 (150-450) th/mm3 MPV 7.5 (7.0-11.0) fL Prelim Diff (Auto) Neut % (Auto) 82.4 H (16.0-70.0) % Lymph % (Auto) 11.3 (9.0-44.0) % [place] % (Auto) 5.3 (0.0-8.0) % Eos % (Auto) 0.7 (0.0-4.0) % Baso % (Auto) 0.3 (0.0-2.0) % Neut # (Auto) 12.5 H (1.8-7.7) th/mm3 Lymph # (Auto) 1.7 (1.0-4.8) th/mm3 [place] # (Auto) 0.8 (0.0-0.9) th/mm3 Eos # (Auto) 0.1 (0.0-0.4) th/mm3 Baso # (Auto) 0.0 (0.0-0.2) th/mm3 WBC Differential . Diff Scan Differential Comment Auto diff final PT (9.8-11.6) sec INR Ratio APTT (23.4-31.7) sec Sodium 138 (136-145) meq/L Potassium 3.6 (3.5-5.1) meq/L Chloride 106 (98-107) meq/L Carbon Dioxide 25.9 (21.0-32.0) meq/L Anion Gap 6 (5-15) meq/L BUN 16 (7-18) mg/dL Creatinine 1.43 H (0.60-1.30) mg/dL Estimated GFR 49 L (>89) mL/min POC Glucose 183 H (68-110) mg/dl Random Glucose 236 H (74-106) mg/dL Calcium 7.8 L (8.5-10.1) mg/dL Magnesium (1.5-2.5) mg/dL Total Bilirubin 0.3 (0.2-1.0) mg/dL AST 9 L (15-37) U/L ALT 9 L (12-78) U/L Alkaline Phosphatase 109 (45-117) U/L Total Protein 5.4 L D (6.4-8.2) g/dL Albumin 1.7 L (3.4-5.0) g/dL Urine Color (Yellw/Straw) Urine Clarity (Clear) Urine pH (5.0-8.5) Ur Specific [place] (1.002-1.035) Urine Protein (Neg-Trace) mg/dL Urine Glucose (UA) (Negative) mg/dL Urine Ketones (Negative) mg/dL Urine Occult Blood (Negative) Urine Nitrate (Negative) Urine Bilirubin (Negative) Urine Urobilinogen (Less than 2) mg/dL Ur Leukocyte Esterase (Negative) Urine RBC (0-3) /hpf Urine WBC (0-5) /hpf Ur Squamous Epith Cells (0-5) /hpf Micro UA Comment Ur Microscopic Review Urine Culture Comments 08/31/18 08/31/18 08/31/18 Range/Units 12:35 16:36 21:19 WBC (4.0-11.0) th/mm3 RBC (4.50-5.90) mil/mm3 Hgb (13.0-17.0) gm/dL Hct (39.0-51.0) % MCV (80.0-100.0) fL MCH (27.0-34.0) pg MCHC (32.0-36.0) % RDW (11.6-17.2) % Plt Count (150-450) th/mm3 MPV (7.0-11.0) fL Prelim Diff (Auto) Neut % (Auto) (16.0-70.0) % Lymph % (Auto) (9.0-44.0) % [place] % (Auto) (0.0-8.0) % Eos % (Auto) (0.0-4.0) % Baso % (Auto) (0.0-2.0) % Neut # (Auto) (1.8-7.7) th/mm3 Lymph # (Auto) (1.0-4.8) th/mm3 [place] # (Auto) (0.0-0.9) th/mm3 Eos # (Auto) (0.0-0.4) th/mm3 Baso # (Auto) (0.0-0.2) th/mm3 WBC Differential Diff Scan Differential Comment PT (9.8-11.6) sec INR Ratio APTT (23.4-31.7) sec Sodium (136-145) meq/L Potassium (3.5-5.1) meq/L Chloride (98-107) meq/L Carbon Dioxide (21.0-32.0) meq/L Anion Gap (5-15) meq/L BUN (7-18) mg/dL Creatinine (0.60-1.30) mg/dL Estimated GFR (>89) mL/min POC Glucose 175 H 201 H 206 H (68-110) mg/dl Random Glucose (74-106) mg/dL Calcium (8.5-10.1) mg/dL Magnesium (1.5-2.5) mg/dL Total Bilirubin (0.2-1.0) mg/dL AST (15-37) U/L ALT (12-78) U/L Alkaline Phosphatase (45-117) U/L Total Protein (6.4-8.2) g/dL Albumin (3.4-5.0) g/dL Urine Color (Yellw/Straw) Urine Clarity (Clear) Urine pH (5.0-8.5) Ur Specific [place] (1.002-1.035) Urine Protein (Neg-Trace) mg/dL Urine Glucose (UA) (Negative) mg/dL Urine Ketones (Negative) mg/dL Urine Occult Blood (Negative) Urine Nitrate (Negative) Urine Bilirubin (Negative) Urine Urobilinogen (Less than 2) mg/dL Ur Leukocyte Esterase (Negative) Urine RBC (0-3) /hpf Urine WBC (0-5) /hpf Ur Squamous Epith Cells (0-5) /hpf Micro UA Comment Ur Microscopic Review Urine Culture Comments 09/01/18 09/01/18 09/01/18 Range/Units 03:16 12:21 16:42 WBC (4.0-11.0) th/mm3 RBC (4.50-5.90) mil/mm3 Hgb (13.0-17.0) gm/dL Hct (39.0-51.0) % MCV (80.0-100.0) fL MCH (27.0-34.0) pg MCHC (32.0-36.0) % RDW (11.6-17.2) % Plt Count (150-450) th/mm3 MPV (7.0-11.0) fL Prelim Diff (Auto) Neut % (Auto) (16.0-70.0) % Lymph % (Auto) (9.0-44.0) % [place] % (Auto) (0.0-8.0) % Eos % (Auto) (0.0-4.0) % Baso % (Auto) (0.0-2.0) % Neut # (Auto) (1.8-7.7) th/mm3 Lymph # (Auto) (1.0-4.8) th/mm3 [place] # (Auto) (0.0-0.9) th/mm3 Eos # (Auto) (0.0-0.4) th/mm3 Baso # (Auto) (0.0-0.2) th/mm3 WBC Differential Diff Scan Differential Comment PT (9.8-11.6) sec INR Ratio APTT (23.4-31.7) sec Sodium (136-145) meq/L Potassium (3.5-5.1) meq/L Chloride (98-107) meq/L Carbon Dioxide (21.0-32.0) meq/L Anion Gap (5-15) meq/L BUN (7-18) mg/dL Creatinine (0.60-1.30) mg/dL Estimated GFR (>89) mL/min POC Glucose 173 H 214 H 143 H (68-110) mg/dl Random Glucose (74-106) mg/dL Calcium (8.5-10.1) mg/dL Magnesium (1.5-2.5) mg/dL Total Bilirubin (0.2-1.0) mg/dL AST (15-37) U/L ALT (12-78) U/L Alkaline Phosphatase (45-117) U/L Total Protein (6.4-8.2) g/dL Albumin (3.4-5.0) g/dL Urine Color (Yellw/Straw) Urine Clarity (Clear) Urine pH (5.0-8.5) Ur Specific [place] (1.002-1.035) Urine Protein (Neg-Trace) mg/dL Urine Glucose (UA) (Negative) mg/dL Urine Ketones (Negative) mg/dL Urine Occult Blood (Negative) Urine Nitrate (Negative) Urine Bilirubin (Negative) Urine Urobilinogen (Less than 2) mg/dL Ur Leukocyte Esterase (Negative) Urine RBC (0-3) /hpf Urine WBC (0-5) /hpf Ur Squamous Epith Cells (0-5) /hpf Micro UA Comment Ur Microscopic Review Urine Culture Comments Imaging Data Radiologist's impression: Chest CT 08/27/18 20:33 CONCLUSION: 1. Large mass of the mid esophagus. Malignancy is the main diagnostic consideration. Patient does appear to have cirrhosis so a component of varices is in the differential but considered less likely. Direct visualization and, if deemed safe, tissue diagnosis is recommended. 2. Scattered nodular opacities of both lungs. Some of it appears infectious or inflammatory although some of the more isolated individual nodules measuring up to 9 mm in size would also have the differential of metastatic disease. Head CT 08/27/18 20:35 CONCLUSION: 1. No acute intracranial abnormality. 2. Chronic ischemic changes. . Soft Tissue Neck CT 08/27/18 20:37 CONCLUSION: 1. Distended upper esophagus. Patient has a mass in the mid thoracic portion of the esophagus and please refer to the chest CT report. 2. No masses or lymphadenopathy at the level of the neck. Port Line Insertion 08/31/18 00:00 CONCLUSION: 1. Uncomplicated ultrasound and fluoroscopic guided implanted central venous port catheter placement as described in detail above. An 8 [employer] port was placed. Abdomen CT 09/01/18 00:00 CONCLUSION: 1. Distal esophageal abnormality and changes in the lung bases as described. 2. Cirrhotic liver appearance and stigmata of portal hypertension including splenomegaly and ascites. 3. Upper abdominal and retroperitoneal lymph node enlargement which is nonspecific 4. Nothing to suggest metastatic disease to the liver parenchyma at present. ECG Data Attestation: I personally reviewed and interpreted this ECG as follows: Interpretation: Twelve-lead EKG was reviewed by me. Anjel bradley with RVR. Heart rate of 114 bpm. Discharge Plan Discharge Disposition Patient Disposition: 30 Still Patient Physicians Team ED Provider: Gail Orona Primary Care Provider: NON STAFF,PROVIDER Attending Provider: Sharla Beck Other Providers: Charo Chandler ; Cameron Hunter ; Clay Jean, Agency ; Marina Sanchez ; Imelda Butler,Agency ; [facility],Agency Status ED Status: Left Department Discharge Information Discharge Date/Time: 08/28/18 04:55
[2018-08-27 21:14] LABS: Baso # (Auto) 0.1 th/mm3 (0.0-0.2); Baso % (Auto) 0.6 % (0.0-2.0); Eos # (Auto) 0.1 th/mm3 (0.0-0.4); Eos % (Auto) 0.3 % (0.0-4.0); Hematocrit 31.8 % (39.0-51.0); Hemoglobin 11.7 gm/dL (13.0-17.0); Lymph # (Auto) 1.4 th/mm3 (1.0-4.8); Lymph % (Auto) 6.5 % (9.0-44.0); Mean Corpuscular Hemoglobin 31.7 pg (27.0-34.0); Mean Corpuscular Volume 85.8 fL (80.0-100.0); Mean Platelet Volume 7.5 fL (7.0-11.0); Mono # (Auto) 1.2 th/mm3 (0.0-0.9); Mono % (Auto) 5.6 % (0.0-8.0); Neut # (Auto) 18.3 th/mm3 (1.8-7.7); Platelet Count 401 th/mm3 (150-450); Red Blood Count 3.71 mil/mm3 (4.50-5.90); Red Cell Distribution Width 13.4 % (11.6-17.2); White Blood Count 21.1 th/mm3 (4.0-11.0)
[2018-08-27 21:27] LABS: Mean Corpuscular HGB Conc 36.9 % (32.0-36.0)
[2018-08-27 21:31] LABS: Albumin 2.3 g/dL (3.4-5.0); Anion Gap 6 meq/L (5-15); Aspartate Aminotransferase 22 U/L (15-37); Blood Urea Nitrogen 16 mg/dL (7-18); Calcium 8.8 mg/dL (8.5-10.1); Chloride 105 meq/L (98-107); Glomerular Filtration Rate 45 mL/min (>89); Glucose,Random 139 mg/dL (74-106); Magnesium 1.9 mg/dL (1.5-2.5); Sodium 142 meq/L (136-145)
[2018-08-27 21:32] LABS: Alanine Aminotransferase 16 U/L (12-78)
[2018-08-27 21:34] LABS: Alkaline Phosphatase 151 U/L (45-117); Total Protein 7.3 g/dL (6.4-8.2)
[2018-08-27] MEDS ORDERED: Potassium Chlor 20 mEq Premix 20 MEQ/100 ML PIGGYBACK IV.SIG ONE (22:06)
--- NOTE | 2018-08-27 22:31 | CT ---
EXAM DATE: 08/27/2018 10:28 PM EST AGE/SEX: 68 years / Male INDICATIONS: Headache. Nausea and vomiting. CLINICAL DATA: This is the patient's initial encounter. Patient reports that signs and symptoms have been present for 1 day and indicates a pain score of 2/10. MEDICAL/SURGICAL HISTORY: Diabetes. Hypertension. Carcinoma, esophageal. Abdominal hernia. None . RADIATION DOSE: 56.35 CTDI (mGy) COMPARISON: [facility] [place]O [place], 03/29/2018. . TECHNIQUE: CT of the head without contrast. Using automated exposure control and adjustment of the mA and/or kV according to patient size, radiation dose was kept as low as reasonably achievable to ob tain optimal diagnostic quality images. DICOM format image data is available electronically for revi ew and comparison. FINDINGS: Cerebrum: The ventricles are normal for age. No evidence of midline shift, mass lesion, hemorrhage or acute infarction. No extraaxial fluid collections are seen. Chronic low-attenuation seen in the p eriventricular white matter. 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 Posterior Fossa: The cerebellum and brainstem are intact. The 4th ventricle is midline. The cerebe llopontine angle is unremarkable. Extracranial: The visualized portion of the orbits is intact. Skull: The calvaria is intact. No evidence of skull fracture. CONCLUSION: 1. No acute intracranial abnormality. 2. Chronic ischemic changes. . Electronically signed by: Kris Lozano MD 08/27/2018 10:30 PM EST
--- NOTE | 2018-08-27 22:48 | CT ---
EXAM DATE: 08/27/2018 10:34 PM EST AGE/SEX: 68 years / Male INDICATIONS: Chest pain. Nausea and vomiting. CLINICAL DATA: This is the patient's initial encounter. Patient reports that signs and symptoms have been present for 2 months and indicates a pain score of 5/10. MEDICAL/SURGICAL HISTORY: Diabetes. Hypertension. Carcinoma, esophageal. Abdominal hernia. None. RADIATION DOSE: 7.21 CTDI (mGy) COMPARISON: [facility], CTA PULMONARY W CONTRAST W 3D, 07/22/2018. . TECHNIQUE: Multiple contiguous axial images were obtained through the chest during bolus infusion of 54 ml Omnipaque 350 (iohexol) nonionic water-soluble contrast as a single exam dose. Images were obtained in suspended respiration using multiple row detector helical technique. Using automated exp osure control and adjustment of the mA and/or kV according to patient size, radiation dose was kept a s low as reasonably achievable to obtain optimal diagnostic quality images. DICOM format image data is available electronically for review and comparison. FINDINGS: Large irregular mass involves the mid esophagus, measures up to 6.7 cm across and roughly 16.5 cm in length. The upstream esophagus is distended and air and fluid-filled. The level of the superior media stinum are some paraesophageal lymph nodes that measure up to 18 mm in size and appear at least parti ally chronic. Liver appears cirrhotic. No ascites seen in the upper abdomen. Spleen size appears normal. There is some patchy tree-in-bud type inflammatory infiltrate in the lung bases, mostly on the left. Scattered individual nodules measure up to 9 mm in size. Tiny pericardial effusion. Coronary artery calcification present. No lytic or sclerotic lesion or other acute abnormality seen of the visualized osseous structures. CONCLUSION: 1. Large mass of the mid esophagus. Malignancy is the main diagnostic consideration. Patient does ap pear to have cirrhosis so a component of varices is in the differential but considered less likely. D irect visualization and, if deemed safe, tissue diagnosis is recommended. 2. Scattered nodular opacities of both lungs. Some of it appears infectious or inflammatory although some of the more isolated individual nodules measuring up to 9 mm in size would also have the differ ential of metastatic disease. Electronically signed by: Kris Lozano MD 08/27/2018 10:47 PM EST
--- NOTE | 2018-08-27 22:52 | CT ---
EXAM DATE: 08/27/2018 10:39 PM EST AGE/SEX: 68 years / Male INDICATIONS: Metastatic disease. CLINICAL DATA: This is the patient's initial encounter. Patient reports that signs and symptoms have been present for 1 day and indicates a pain score of 5/10. MEDICAL/SURGICAL HISTORY: Hypertension. Diabetes. Carcinoma, esophageal. None. RADIATION DOSE: 25.67 CTDI (mGy) COMPARISON: [facility] – [place] CHEST W [place]AST, 08/27/2018. . TECHNIQUE: Helical acquisition was performed using a multirow detector CT scanner during the adminis tration of 54 ml Omnipaque 350 (iohexol) nonionic water-soluble contrast as a single exam dose. Usi ng automated exposure control and adjustment of the mA and/or kV according to patient size, radiation dose was kept as low as reasonably achievable to obtain optimal diagnostic quality images. DICOM fo rmat image data is available electronically for review and comparison. FINDINGS: Nasopharynx: The nasopharyngeal airway has a normal configuration. No mucosal thickening or mass is seen. Oropharynx: The intrinsic muscles of the tongue are symmetric. The tonsillar pillars are intact. T he prevertebral soft tissues are not thickened. Larynx: The supraglottic, glottic, and infraglottic structures are intact. Parapharyngeal: The parapharyngeal space is intact. The cervical portion of the esophagus is distend ed and has air and fluid/debris within the lumen. Salivary Glands: The parotid and submandibular glands are intact. Lymph Nodes: No enlarged or necrotic-appearing nodes. Thyroid: Homogeneous enhancement without evidence of nodule. Bones: Unremarkable. Post Contrast: No abnormal areas of enhancement seen. CONCLUSION: 1. Distended upper esophagus. Patient has a mass in the mid thoracic portion of the esophagus and pl ease refer to the chest CT report. 2. No masses or lymphadenopathy at the level of the neck. Electronically signed by: Kris Lozano MD 08/27/2018 10:51 PM EST
[2018-08-28] MEDS ORDERED: Dextrose 50% in Water 50 ML Vial IV.PUSH PRN (03:30)
[2018-08-28] MEDS ORDERED: Sod Chloride 0.9% Inj 1,000 ML IV.CONT SCH (03:30)
--- NOTE | 2018-08-28 03:43 | P.HP ---
History of Present Illness Service: [facility] Primary Care Physician: PROVIDER NON STAFF History of Present Illness: 68-year-old male with a past medical history significant for recently diagnosed esophageal cancer, biopsy-proven, type 2 diabetes mellitus and hypertension presents the emergency department for the evaluation of inability to swallow. The patient reports that he has been unable to swallow since . He states he has a chest fullness that is worse with swallowing. He is spitting his secretions into a bag. He is an extremely poor historian and states that he was diagnosed at [facility] however records review shows that he was evaluated by oncology at [facility] and a EGD with biopsy was performed here. The patient states he has an appointment with oncology next week and believes that it is in this building but is not sure. He also cannot tell me who his oncologist will be. He denies any fever/chills. No cough or congestion. No chest pain or shortness of breath. No abdominal pain. No nausea/vomiting/diarrhea. No focal neurologic deficits. Inpatient Certification: I certify that the inpatient services were ordered in accordance with Medicare regulations governing the order. This includes certification that hospital inpatient services are reasonable and necessary and in the case of services not specified as inpatient-only under 42 CFR 419.22(n), that they are appropriately provided as inpatient services in accordance to with the 2-midnight benchmark under 43 CFR 412.3(e) Estimated Total Length of Stay (Days): 3 Plans for Post Hospital Care: Not yet determined Review of Systems All other systems reviewed negative except as stated in HPI [facility] - History History Provided By: Patient - Medical History Medical History: Medical History (Last Reviewed 08/28/18 @ 03:36 by Lizzie Burkett MD) Diabetes Esophageal mass HTN (hypertension) Heart murmur History of abdominal hernia - Surgical History Surgical History: Surgical History (Last Reviewed 08/28/18 @ 03:36 by Lizzie Burkett MD) S/P wrist surgery - Family History Family History: Family History (Last Updated 08/28/18 @ 03:36 by Lizzie Burkett MD) Other Diabetes mellitus - Tobacco History Second Hand Smoke Exposure: No Tobacco Use In Past 30 Days: No Smoking Status: Former smoker Tobacco Type: Cigarettes - Alcohol History How Often Do You Have a Drink Containing Alcohol: Never - Substance Use History Substance History: No History of Abuse - Travel History Recent Travel in the [place] Within the Last 8 Weeks: No Recent Travel Out of the Country Within the Last 8 Weeks: No - Immunization History Tetanus Immunization: <5 Years Tetanus Immunization Year if Known: 2014 Medications and Allergies Active Medications: Active Medications Dextrose (D50w Vial) 50 ml IV.PUSH UNSCH PRN PRN Reason: PER HYPOGLYCEMIA PROTOCOL Glucagon (Glucagon Inj) 1 mg OTHER PRN PRN PRN Reason: for Hypoglycemia Protocol Potassium Chloride/Sodium Chloride (Ns + Kcl 20 Meq Inj) 1,000 mls @ 100 mls/ hr IV.CONT .Q10H LORIE Potassium Chloride (Kcl 20 Meq Premix Inj) 20 meq in 100 mls @ 50 mls/hr IV.SIG Q2H LORIE Stop: 08/28/18 07:32 Insulin Aspart (Novolog Insulin Correctional Sugar Inj) 0 unit SQ ACHS AND 3AM LORIE; Protocol Morphine Sulfate (Morphine Inj) 4 mg IV.PUSH Q4H PRN PRN Reason: pain 6-10 Ondansetron HCl (Zofran Inj) 4 mg IV.PUSH Q6H PRN PRN Reason: NAUSEA OR VOMITING Pantoprazole Sodium (Protonix Inj) 40 mg IV.PUSH Q12H LORIE Allergies Allergy/AdvReac Type Severity Reaction Status Date / Time metoprolol Allergy Severe Itching Verified 08/27/18 20:11 *MDRO Multi-Drug Resistant Allergy Unknown Anxiety Uncoded 07/22/18 19:53 Organism Home Medications Medication Instructions Recorded Confirmed Type pantoprazole 40 mg PO DAILY 08/27/18 08/27/18 History Exam Vital signs: Vital Signs 08/27/18 20:04 08/27/18 23:26 Temperature 99.7 F H Pulse Rate 112 H 112 H Respiratory Rate 20 17 Blood Pressure 119/75 137/76 Pulse Oximetry 98 97 Intake & Output 08/27/18 08/27/18 08/28/18 06:59 18:59 06:59 Intake Total 1100 / 1100 Balance 1100 / 1100 Weight 68.353 kg Intake: IV 1100 / 1100 KCl 20 mEq Premix Inj 20 meq In 100 / 100 100 ml @ 50 mls/hr IV.SIG ONCE ONE Rx#:[id number] NS Inj 1,000 ML @ 1000 mls/hr 1000 / 1000 IV.SIG BOLUS LORIE Rx#:[id number] Narrative: Gen.: No acute distress. Lying in bed spitting secretions into a bag. Head: Normocephalic. Atraumatic. EENT: Pupils equal round and reactive to light. Nose without drainage. Airway intact. Throat without injection. Cardiovascular: Regular rate and rhythm. No murmurs, rubs or gallops. Respiratory: Lungs clear to auscultation bilaterally. No wheezes or rhonchi. Abdomen: Soft, nontender, nondistended. No peritoneal signs. Musculoskeletal: No gross deformities. No edema. Skin: No obvious rashes or erythema. Neuro: Sensory and motor grossly intact. Cranial nerves II through XII grossly intact. Results - Labs CBC & Chem 7: 08/27/18 20:35 08/27/18 20:35 Labs: Laboratory Results - last 24 hr 08/27/18 08/27/18 20:35 20:35 WBC 21.1 H RBC 3.71 L Hgb 11.7 L Hct 31.8 L MCV 85.8 MCH 31.7 MCHC 36.9 H RDW 13.4 Plt Count 401 MPV 7.5 Prelim Diff (Auto) Slide review pending Neut % (Auto) 87.0 H Lymph % (Auto) 6.5 L [place] % (Auto) 5.6 Eos % (Auto) 0.3 Baso % (Auto) 0.6 Neut # (Auto) 18.3 H Lymph # (Auto) 1.4 [place] # (Auto) 1.2 H Eos # (Auto) 0.1 Baso # (Auto) 0.1 WBC Differential . Diff Scan Auto diff confirmed Differential Comment . Sodium 142 Potassium 3.0 L Chloride 105 Carbon Dioxide 31.0 Anion Gap 6 BUN 16 Creatinine 1.56 H Estimated GFR 45 L Random Glucose 139 H Calcium 8.8 Magnesium 1.9 Total Bilirubin 0.8 AST 22 ALT 16 Alkaline Phosphatase 151 H Total Protein 7.3 Albumin 2.3 L - Imaging Impressions Chest CT 08/27/18 20:33 CONCLUSION: 1. Large mass of the mid esophagus. Malignancy is the main diagnostic consideration. Patient does appear to have cirrhosis so a component of varices is in the differential but considered less likely. Direct visualization and, if deemed safe, tissue diagnosis is recommended. 2. Scattered nodular opacities of both lungs. Some of it appears infectious or inflammatory although some of the more isolated individual nodules measuring up to 9 mm in size would also have the differential of metastatic disease. Head CT 08/27/18 20:35 CONCLUSION: 1. No acute intracranial abnormality. 2. Chronic ischemic changes. . Soft Tissue Neck CT 08/27/18 20:37 CONCLUSION: 1. Distended upper esophagus. Patient has a mass in the mid thoracic portion of the esophagus and please refer to the chest CT report. 2. No masses or lymphadenopathy at the level of the neck. Caprini VTE Risk Assessment Caprini VTE Risk Assessment: Moderate/High Risk (score >= 2) Caprini Risk Assessment Model: Point Value = 1 Point Value = 2 Point Value = 3 Point Value = 5 Age 41-60 Minor surgery BMI > 25 kg/m2 Swollen legs Varicose veins or History of unexplained or recurrent spontaneous Oral contraceptives or hormone replacement Sepsis (< 1 month) Serious lung disease, including pneumonia (< 1 month) Abnormal pulmonary function Acute myocardial infarction Congestive heart failure (< 1 month) History of inflammatory bowel disease Medical patient at bed rest Age 61-74 Arthroscopic surgery Major open surgery (> 45 min) Laparoscopic surgery (> 45 min) Malignancy Confined to bed (> 72 hours) Immobilizing plaster cast Central venous access Age >= 75 History of VTE Family history of VTE Factor V Leiden Prothrombin [id number] Lupus anticoagulant Anticardiolipin antibodies Elevated serum homocysteine Heparin-induced thrombocytopenia Other congenital or acquired thrombophilia Stroke (< 1 month) Elective arthroplasty Hip, pelvis, or leg fracture Acute spinal cord injury (< 1 month) Prophylaxis Regimen: Total Risk Factor Score Risk Level Prophylaxis Regimen 0-1 Low Early ambulation 2 Moderate Order ONE of the following: *Sequential Compression Device (SCD) *Heparin 5000 units SQ BID 3-4 Higher Order ONE of the following medications: *Heparin 5000 units SQ TID *Enoxaparin/Lovenox 40 mg SQ daily (WT < 150 kg, CrCl > 30 mL/min) *Enoxaparin/Lovenox 30 mg SQ daily (WT < 150 kg, CrCl > 10-29 mL/min) *Enoxaparin/Lovenox 30 mg SQ BID (WT < 150 kg, CrCl > 30 mL/min) AND/OR *Sequential Compression Device (SCD) 5 or more Highest Order ONE of the following medications: *Heparin 5000 units SQ TID (Preferred with Epidurals) *Enoxaparin/Lovenox 40 mg SQ daily (WT < 150 kg, CrCl > 30 mL/min) *Enoxaparin/Lovenox 30 mg SQ daily (WT < 150 kg, CrCl > 10-29 mL/min) *Enoxaparin/Lovenox 30 mg SQ BID (WT < 150 kg, CrCl > 30 mL/min) AND *Sequential Compression Device (SCD) Assessment and Plan - Plan Assessment/plan: 1. Esophageal cancer Biopsy of esophageal mass done on 07/12/18 shows invasive poorly differentiated squamous cell carcinoma arising in a background of Davis's mucosa Oncology consulted, appreciate assistance 2. Dysphagia Patient will likely need evaluation for a G tube, pending oncology evaluation N.p.o. 3. Leukocytosis WBC 21.[address] shows large mass of the esophagus and scattered nodular opacities of both lungs infectious versus metastatic disease Azithromycin/Rocephin to cover for possible pneumonia UA pending 4. Diabetes mellitus Holding home glipizide Findings scale insulin Monitor blood glucose 5. Hypertension/hyperlipidemia Patient normotensive at this time Holding amlodipine as patient n.p.o. Monitor 6. CKD Creatinine 1.56, baseline Monitor renal function FEN N.p.o. Electrolytes: Status post IV repletion of potassium, monitor BMP NS +20 KCl at 100 cc/hour Holding pharmacologic anticoagulation for possible G-tube evaluation
[2018-08-28] MEDS ORDERED: Azithromycin Inj 500 MG in Sodium Chlor 0.9% Inj 250 ML IV.SIG SCH (04:00)
[2018-08-28] MEDS: Pantoprazole Inj 40 MG Vial IV.PUSH SCH ×2 (04:15→16:42)
[2018-08-28 04:26] LABS: Activated Partial Thrombo Time 30.1 sec (23.4-31.7); INR 1.1 Ratio; Prothrombin Time 11.6 sec (9.8-11.6)
[2018-08-28] MEDS: Potassium Chlor 20 mEq Premix 20 MEQ/100 ML PIGGYBACK IV.SIG SCH ×2 (05:15→10:09)
[2018-08-28] MEDS: Morphine Inj 4 MG/ML Vial IV.PUSH PRN ×2 (05:21→10:10)
[2018-08-28] MEDS: Insulin NovoLOG Aspart Correctional Sugar Inj SQ SCH ×4 (07:58→21:13)
[2018-08-28] MEDS ORDERED: Potassium Chloride 25 MEQ Effervescent Tablet PO ONE (11:07)
--- NOTE | 2018-08-28 11:08 | P.PN ---
Subjective Interval history: Follow-up history of throat/esophageal cancer//dysphagia August 28, 2018-patient seen and examined, states he was able to tolerate pured diet after passing swallow eval. Denies any significant shortness of breath. Physical Exam Vital signs: Vital Signs 08/27/18 20:04 08/27/18 23:26 08/28/18 04:16 Temperature 99.7 F H Pulse Rate 112 H 112 H 93 H Respiratory Rate 20 17 16 Blood Pressure 119/75 137/76 136/95 H Pulse Oximetry 98 97 98 08/28/18 05:00 08/28/18 07:00 08/28/18 07:46 Temperature 98.1 F 99.3 F Pulse Rate 119 H 80 90 Respiratory Rate 14 18 Blood Pressure 137/86 142/84 H Pulse Oximetry 96 97 Intake & Output 08/27/18 08/28/18 08/28/18 18:59 06:59 18:59 Intake Total 1200 / 1200 350 / 350 Balance 1200 / 1200 350 / 350 Weight 68.3 kg Intake: IV 1200 / 1200 350 / 350 Azithromycin Inj 500 MG In NS 250 / 250 Inj 250 ML @ 250 mls/hr IV.SIG Q24H LORIE Rx#:[id number] KCl 20 mEq Premix Inj 20 meq In 100 / 100 100 / 100 100 ml @ 50 mls/hr IV.SIG Q2H LORIE Rx#:[id number] NS Inj 1,000 ML @ 1000 mls/hr 1000 / 1000 IV.SIG BOLUS LORIE Rx#:[id number] Rocephin Inj 1,000 MG In NS Inj 100 / 100 100 ML @ 200 mls/hr IV.SIG Q24H LORIE Rx#:[id number] Other: Date of Last Bowel Movement 08/19/18 Narrative: Gen.: NAD Head: Normocephalic. Atraumatic. EENT: Pupils equal round and reactive to light. Nose without drainage. Airway intact. Throat without injection. Cardiovascular: Regular rate and rhythm. No murmurs, rubs or gallops. Respiratory: Lungs clear to auscultation bilaterally. No wheezes or rhonchi. Abdomen: Soft, nontender, nondistended. No peritoneal signs.+BS Musculoskeletal: No gross deformities. No edema. Skin: No obvious rashes or erythema. Neuro: Sensory and motor grossly intact. Cranial nerves II through XII grossly intact. Results - Labs CBC & Chem 7: 08/27/18 20:35 08/27/18 20:35 Laboratory Results - last 24 hr 08/27/18 08/27/18 08/28/18 20:35 20:35 03:55 WBC 21.1 H RBC 3.71 L Hgb 11.7 L Hct 31.8 L MCV 85.8 MCH 31.7 MCHC 36.9 H RDW 13.4 Plt Count 401 MPV 7.5 Prelim Diff (Auto) Slide review pending Neut % (Auto) 87.0 H Lymph % (Auto) 6.5 L [place] % (Auto) 5.6 Eos % (Auto) 0.3 Baso % (Auto) 0.6 Neut # (Auto) 18.3 H Lymph # (Auto) 1.4 [place] # (Auto) 1.2 H Eos # (Auto) 0.1 Baso # (Auto) 0.1 WBC Differential . Diff Scan Auto diff confirmed Differential Comment . PT 11.6 INR 1.1 APTT 30.1 Sodium 142 Potassium 3.0 L Chloride 105 Carbon Dioxide 31.0 Anion Gap 6 BUN 16 Creatinine 1.56 H Estimated GFR 45 L POC Glucose Random Glucose 139 H Calcium 8.8 Magnesium 1.9 Total Bilirubin 0.8 AST 22 ALT 16 Alkaline Phosphatase 151 H Total Protein 7.3 Albumin 2.3 L 08/28/18 07:48 WBC RBC Hgb Hct MCV MCH MCHC RDW Plt Count MPV Prelim Diff (Auto) Neut % (Auto) Lymph % (Auto) [place] % (Auto) Eos % (Auto) Baso % (Auto) Neut # (Auto) Lymph # (Auto) [place] # (Auto) Eos # (Auto) Baso # (Auto) WBC Differential Diff Scan Differential Comment PT INR APTT Sodium Potassium Chloride Carbon Dioxide Anion Gap BUN Creatinine Estimated GFR POC Glucose 103 Random Glucose Calcium Magnesium Total Bilirubin AST ALT Alkaline Phosphatase Total Protein Albumin - Imaging Impressions Chest CT 08/27/18 20:33 CONCLUSION: 1. Large mass of the mid esophagus. Malignancy is the main diagnostic consideration. Patient does appear to have cirrhosis so a component of varices is in the differential but considered less likely. Direct visualization and, if deemed safe, tissue diagnosis is recommended. 2. Scattered nodular opacities of both lungs. Some of it appears infectious or inflammatory although some of the more isolated individual nodules measuring up to 9 mm in size would also have the differential of metastatic disease. Head CT 08/27/18 20:35 CONCLUSION: 1. No acute intracranial abnormality. 2. Chronic ischemic changes. . Soft Tissue Neck CT 08/27/18 20:37 CONCLUSION: 1. Distended upper esophagus. Patient has a mass in the mid thoracic portion of the esophagus and please refer to the chest CT report. 2. No masses or lymphadenopathy at the level of the neck. Assessment and Plan - Plan 68-year-old man with 1. Esophageal cancer with metastasis Biopsy of esophageal mass done on 07/12/18 shows invasive poorly differentiated squamous cell carcinoma arising in a background of Davis's mucosa Oncology consulted, appreciate assistance 2. Dysphagia Speech therapy consulted and patient currently on pured thin liquid diet And will need a PEG tube placement however he is homeless currently 3. Aspiration pneumonia Currently on azithromycin and Rocephin 4. Diabetes mellitus Holding home glipizide Continue insulin scale Monitor blood glucose 5. Hypertension/hyperlipidemia Resume outpatient medications including Norvasc, statin 6. CKD Creatinine 1.56, baseline Monitor renal function
[2018-08-28 12:07] LABS: Bilirubin,Urine Negative (Negative); Clarity,Urine Clear (Clear); Color,Urine Yellow (Yellw/Straw); Glucose,Urine (UA) 50 mg/dL (Negative); Leukocyte Esterase,Urine Negative (Negative); Nitrite,Urine Negative (Negative); Specific Gravity,Urine 1.035 (1.002-1.035); Squamous Epithelial Cell,Urine <1 /hpf (0-5)
[2018-08-28 12:13] LABS: Urobilinogen,Urine 0.2 mg/dL (Less than 2)
--- NOTE | 2018-08-28 14:10 | ECG ---
Date Performed: 08/27/2018 Time Performed: 20:07:21 PTAGE: 68 years EKG: Sinus rhythm WITH FREQUENT PACs NONSPECIFIC ST & T-WAVE ABNORMALITY ABNORMAL RHYTHM ECG PREVIOUS TRACING : 07/23/2018 04.30 DOCTOR: Dominic Adam Interpretating Date/Time 08/28/2018 14:09:40
[2018-08-28] MEDS: Morphine Sulfate Oral Liq 10 MG/0.5 ML Syringe PO PRN (14:30)
--- NOTE | 2018-08-28 15:55 | MB ---
cc: Neftali Macdonald MD DATE: 08/28/2018 REASON FOR CONSULTATION: 68-year-old male, homeless, with a near obstructing esophageal cancer. PATIENT PROFILE: The patient is a 68-year-old white male. He is . He was once. Has 3 children, 2 sons and a daughter. He was born in [place] and has lived in [place] since 1997. He is homeless. He has recently been staying with a friend, but the social situation has deteriorated. He has not worked in 2 years. 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 He stopped smoking 30 years ago and before this had smoked a pack of cigarettes per day. He stopped drinking 5 years ago and prior to this would drink a quart of whiskey a day and then minesh this down with beer. HISTORY OF PRESENT ILLNESS: The patient is a 68-year-old male whose history dates back to about 3 months ago when he developed dysphagia. He was evaluated at [facility] and had a number of tests done leading to a diagnosis of esophageal cancer. On 05/14/2018, he had a CT of the chest which showed a mass in the mid esophagus measuring 5 cm in diameter with at least a partially obstructing mid air fluid level in the dilated proximal esophagus. It was negative for pulmonary embolus. There were mildly enlarged lymph nodes along the right bronchus intermedius and at the GE junction. There was evidence of liver cirrhosis and calcifications involving the coronary arteries. A CT of the abdomen and pelvis dated 07/12/2018 showed small bilateral pleural effusions. There was no evidence of metastatic disease. The contour to the liver was abnormal in that it was lobular. The patient underwent an upper endoscopy by Dr. Berman on 07/12/2018 and was found to have a large partially obstructing mid esophageal mass. He was unable to traverse the mass. Multiple biopsies were obtained. The patient was seen by Dr. Sanchez and an attempt was made to do an outpatient PET scan to be followed by treatment, probably with chemo and radiation therapy and then possible surgery. His situation deteriorated. He returned to live with his friends and nothing worked out. He was unable to make appointments. He was unable to access care. He is a very simple man and is not in a position to understand or deal with the situation that he is faced with. This Thanksgiving he attempted to swallow mashed potatoes and could not. For this reason, he returned to the hospital and is now admitted and I am asked to see him in consultation. He is still able to swallow liquids. There has been a 20 pound weight loss. He has pain in the area of the esophagus where the tumor is present. PAST SURGICAL HISTORY: 1. He had an injury to the right wrist approximately a year ago. His was dying of cancer. She was using cocaine and in attempting to stop her from using the cocaine, she tried to amputated his hand at the wrist. 2. Alcoholism. 3. Locally advanced esophageal cancer. 4. Hypertension. 5. Elevated cholesterol. MEDICATIONS PRIOR TO ADMISSION: 1. Amlodipine 10 mg once a day. 2. Atorvastatin 10 mg a day. 3. Glipizide 10 mg a day. 4. Protonix 40 mg a day. ALLERGIES: METOPROLOL. REVIEW OF SYSTEMS: VISION: He has cataracts. EARS: Hearing is fine. CARDIOVASCULAR: No chest pain, palpitations, orthopnea, PND. RESPIRATORY: No shortness of breath. GASTROINTESTINAL: Severe dysphagia. Discomfort in the mid lower esophageal area. weight loss. GENITOURINARY: No dysuria or frequency. MUSCULOSKELETAL: Muscle loss. NEUROLOGIC: No headaches, focal weakness, TIAs, or syncope. LABORATORY STUDIES: Hemoglobin 11.7, white count 21,000, platelets 401,000. Electrolytes, BUN, and creatinine notable for creatinine 1.56. Alkaline phosphatase 151. On 08/27/2018, CT of the thorax shows large mass in the mid esophagus. The patient appears to have cirrhosis. Scattered nodular opacities in both lungs, some of it appears infectious or inflammatory, although one cannot rule out metastatic disease. CT scan of the head without contrast, no acute intracranial abnormalities. CT soft tissue of neck 08/27/2018, distended upper esophagus with a mass in the mid thoracic portion of the esophagus. No masses or adenopathy involving the neck. PHYSICAL EXAMINATION: GENERAL: Reveals a disheveled male. He started to cry during the interview. He has very limited insight and is very ineffective. His has muscle wasting and appears 20 years older than stated age. VITAL SIGNS: Blood pressure is 135/80, O2 saturation 96%, respiratory rate 18, pulse 88, temperature 99. HEENT: Head is normocephalic. Sclerae and conjunctivae are normal. Oropharynx poor hygiene. 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 Missing teeth. There is no cervical, supraclavicular, axillary, or inguinal adenopathy. HEART: Regular rate and rhythm. LUNGS: Clear. ABDOMEN: Soft. No hepatosplenomegaly or masses. EXTREMITIES: No edema. MUSCULOSKELETAL: Muscle wasting. NEUROLOGIC: Generalized weakness secondary to muscle wasting. PSYCHIATRIC: Limited insight and patient is fearful and overwhelmed. 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 He has no overt evidence of metastatic disease. An attempt was made to pursue further outpatient evaluation and then treatment. This was unsuccessful. This man has limited resources. He is essentially homeless. He has little insight and does not have the ability to direct his own care. RECOMMENDATIONS: 1. He cannot swallow food. I have asked GI to see him and make arrangements for a gastrostomy tube. It may have to be done by radiology. 2. He will need radiation therapy and placement of a port for combined chemo and radiation. I have placed a consult to social service as I do not believe he can continue to live in the current setting. He needs to go to an assisted living facility. He needs to start treatment as soon as possible. He will therefore need a gastrostomy tube, port placement, and radiation oncology consult. Dr. Sanchez will be back at the beginning of the week to see him. MD ILAN Sexton/diane , 01:23 PM , 01:41 PM RYLEE
--- NOTE | 2018-08-28 16:52 | P.CONGI ---
History of Present Illness Consult date: 08/28/18 Consult reason: PEG tube placement Chief complaint: esophageal cancer, dysphagia, dehydration History of Present Illness: This patient is a 68-year-old male with past medical history significant for esophageal cancer diagnosed July 2018, type 2 diabetes and hypertension. Patient presented to the emergency room at [facility] for evaluation of difficulty swallowing. Patient states that he began to have increasing difficulty swallowing 2 days ago. He describes pressure and chest fullness when he attempts to eat meals. Patient spitting saliva into emesis bag during consultation. Patient endorses some coughing and choking with meals. Patient denies any shortness of breath fever or chills. Denies any abdominal pain, nausea or vomiting. Patient denies heartburn. States last EGD was done in July 2018 where in he was found to have a gastric mass. Patient denies ever having had a colonoscopy in the past. Patient denies diarrhea or constipation. Denies any noted bleeding or change in bowel habits. Our service has been consulted to evaluate patient for PEG tube placement <Ingrid Gray - Last Filed: 08/28/18 16:41> Review of Systems All other systems reviewed negative except as stated in HPI <Ingrid Gray - Last Filed: 08/28/18 16:41> PMFSH - History History Provided By: Patient - Medical History Medical History: Medical History (Last Reviewed 08/28/18 @ 08:08 by Nayla Colunga) Diabetes Esophageal mass HTN (hypertension) Heart murmur History of abdominal hernia - Surgical History Surgical History: Surgical History (Last Reviewed 08/28/18 @ 03:36 by Lizzie Burkett MD) S/P wrist surgery - Family History Family History: Family History (Last Updated 08/28/18 @ 03:36 by Lizzie Burkett MD) Other Diabetes mellitus - Tobacco History Second Hand Smoke Exposure: Yes Tobacco Use In Past 30 Days: No Smoking Status: Former smoker Tobacco Type: Cigarettes - Alcohol History How Often Do You Have a Drink Containing Alcohol: Never - Substance Use History Substance History: No History of Abuse - Travel History Recent Travel in the [place] Within the Last 8 Weeks: No Recent Travel Out of the Country Within the Last 8 Weeks: No - Immunization History Tetanus Immunization: <5 Years Tetanus Immunization Year if Known: 2014 Hx Influenza Vaccine This Season: No <Ingrid Gray - Last Filed: 08/28/18 16:41> - Medical History Medical History: Medical History (Last Reviewed 08/28/18 @ 08:08 by Nayla Colunga) Diabetes Esophageal mass HTN (hypertension) Heart murmur History of abdominal hernia - Surgical History Surgical History: Surgical History (Last Reviewed 08/28/18 @ 03:36 by Lizzie Burkett MD) S/P wrist surgery - Family History Family History: Family History (Last Updated 08/28/18 @ 03:36 by Lizzie Burkett MD) Other Diabetes mellitus <Charo Chandler - Last Filed: 08/29/18 11:44> Medications and Allergies Active Medications: Active Medications Amlodipine Besylate (Norvasc) 10 mg PO DAILY LORIE Dextrose (D50w Vial) 50 ml IV.PUSH UNSCH PRN PRN Reason: PER HYPOGLYCEMIA PROTOCOL Glucagon (Glucagon Inj) 1 mg OTHER PRN PRN PRN Reason: for Hypoglycemia Protocol Potassium Chloride/Sodium Chloride (Ns + Kcl 20 Meq Inj) 1,000 mls @ 70 mls/hr IV.CONT .[id number] LORIE Last Admin: 08/28/18 08:36 Dose: 100 mls/hr Ceftriaxone Sodium 1,000 mg/ (Sodium Chloride) 100 mls @ 200 mls/hr IV.SIG Q24H LORIE Azithromycin 500 mg/ Sodium (Chloride) 250 mls @ 250 mls/hr IV.SIG Q24H LORIE Insulin Aspart (Novolog Insulin Correctional Sugar Inj) 0 unit SQ ACHS AND 3AM LORIE; Protocol Last Admin: 08/28/18 11:45 Dose: 1 unit Morphine Sulfate (Roxanol Liq) 10 mg PO Q3H PRN PRN Reason: PAIN 6-10 Last Admin: 08/28/18 14:30 Dose: 10 mg Ondansetron HCl (Zofran Inj) 4 mg IV.PUSH Q6H PRN PRN Reason: NAUSEA OR VOMITING Pantoprazole Sodium (Protonix Inj) 40 mg IV.PUSH Q12H LORIE Last Admin: 08/28/18 04:15 Dose: 40 mg <Ingrid Gray - Last Filed: 08/28/18 16:41> Active Medications: Active Medications Amlodipine Besylate (Norvasc) 10 mg PO DAILY LORIE Last Admin: 08/29/18 08:26 Dose: 10 mg Dextrose (D50w Vial) 50 ml IV.PUSH UNSCH PRN PRN Reason: PER HYPOGLYCEMIA PROTOCOL Glucagon (Glucagon Inj) 1 mg OTHER PRN PRN PRN Reason: for Hypoglycemia Protocol Potassium Chloride/Sodium Chloride (Ns + Kcl 20 Meq Inj) 1,000 mls @ 70 mls/hr IV.CONT .[id number] LORIE Last Infusion: 08/28/18 21:16 Dose: 70 mls/hr Ceftriaxone Sodium 1,000 mg/ (Sodium Chloride) 100 mls @ 200 mls/hr IV.SIG Q24H LORIE Last Infusion: 08/29/18 03:58 Dose: Infused Azithromycin 500 mg/ Sodium (Chloride) 250 mls @ 250 mls/hr IV.SIG Q24H LORIE Last Infusion: 08/29/18 09:52 Dose: Infused Insulin Aspart (Novolog Insulin Correctional Sugar Inj) 0 unit SQ ACHS AND 3AM LORIE; Protocol Last Admin: 08/29/18 08:27 Dose: Not Given Morphine Sulfate (Roxanol Liq) 10 mg PO Q3H PRN PRN Reason: PAIN 6-10 Last Admin: 08/28/18 14:30 Dose: 10 mg Ondansetron HCl (Zofran Inj) 4 mg IV.PUSH Q6H PRN PRN Reason: NAUSEA OR VOMITING Pantoprazole Sodium (Protonix Inj) 40 mg IV.PUSH Q12H LORIE Last Admin: 08/29/18 03:25 Dose: 40 mg <Charo Chandler A - Last Filed: 08/29/18 11:44> Allergies Allergy/AdvReac Type Severity Reaction Status Date / Time metoprolol Allergy Severe Itching Verified 08/27/18 20:11 *MDRO Multi-Drug Resistant Allergy Unknown Anxiety Uncoded 07/22/18 19:53 Organism Home Medications Medication Instructions Recorded Confirmed Type pantoprazole 40 mg PO DAILY 08/27/18 08/27/18 History Exam Vital signs: Vital Signs 08/27/18 20:04 08/27/18 23:26 08/28/18 04:16 Temperature 99.7 F H Pulse Rate 112 H 112 H 93 H Respiratory Rate 20 17 16 Blood Pressure 119/75 137/76 136/95 H Pulse Oximetry 98 97 98 08/28/18 05:00 08/28/18 07:00 08/28/18 07:46 Temperature 98.1 F 99.3 F Pulse Rate 119 H 80 90 Respiratory Rate 14 18 Blood Pressure 137/86 142/84 H Pulse Oximetry 96 97 08/28/18 11:00 08/28/18 11:34 08/28/18 15:54 Temperature 99 F 99.1 F Pulse Rate 90 88 93 H Respiratory Rate 18 18 Blood Pressure 135/87 137/96 H Pulse Oximetry 96 96 Intake & Output 08/27/18 08/28/18 08/28/18 18:59 06:59 18:59 Intake Total 1200 / 1200 350 / 350 Balance 1200 / 1200 350 / 350 Weight 68.3 kg Intake: IV 1200 / 1200 350 / 350 Azithromycin Inj 500 MG In NS 250 / 250 Inj 250 ML @ 250 mls/hr IV.SIG Q24H LORIE Rx#:[id number] KCl 20 mEq Premix Inj 20 meq In 100 / 100 100 / 100 100 ml @ 50 mls/hr IV.SIG Q2H LORIE Rx#:[id number] NS Inj 1,000 ML @ 1000 mls/hr 1000 / 1000 IV.SIG BOLUS LORIE Rx#:[id number] Rocephin Inj 1,000 MG In NS Inj 100 / 100 100 ML @ 200 mls/hr IV.SIG Q24H LORIE Rx#:[id number] Other: Date of Last Bowel Movement 08/19/18 - Constitutional no acute distress - Routine HEENT Exam Head: Present: normocephalic - Routine Respiratory Exam Present: CTA bilaterally - Routine Cardiovascular Exam Present: RRR - Routine Abdominal Exam Present: soft, normoactive bowel sounds. Absent: tenderness, distended, guarding, firm - Routine Extremities Exam Absent: edema - Routine Skin Exam Present: dry, warm - Routine Neurological Exam Present: alert <Gray,Ingrid - Last Filed: 08/28/18 16:41> Vital signs: Vital Signs 08/28/18 15:54 08/28/18 16:00 08/28/18 20:00 Temperature 99.1 F 99.1 F Pulse Rate 93 H 97 H 102 H Respiratory Rate 18 20 Blood Pressure 137/96 H 143/97 H Pulse Oximetry 96 98 08/28/18 23:00 08/28/18 23:41 08/29/18 03:00 Temperature 99 F Pulse Rate 91 H 97 H 96 H Respiratory Rate 18 Blood Pressure 130/75 Pulse Oximetry 97 08/29/18 03:38 08/29/18 07:00 08/29/18 08:19 Temperature 99.4 F 99.9 F H Pulse Rate 99 H 126 H 118 H Respiratory Rate 18 18 Blood Pressure 147/93 H 154/93 H Pulse Oximetry 96 96 Intake & Output 08/28/18 08/29/18 08/29/18 18:59 06:59 18:59 Intake Total 1830 / 1830 581 / 581 250 / 250 Output Total 700 / 700 Balance 1830 / 1830 -119 / -119 250 / 250 Intake: IV 1350 / 1350 101 / 101 250 / 250 NS + KCl 20 mEq Inj 1,000 ML @ 1000 / 1000 1 / 1 70 mls/hr IV.CONT .[id number] LORIE Rx#:[id number] Azithromycin Inj 500 MG In NS 250 / 250 250 / 250 Inj 250 ML @ 250 mls/hr IV.SIG Q24H LORIE Rx#:[id number] KCl 20 mEq Premix Inj 20 meq In 100 / 100 100 ml @ 50 mls/hr IV.SIG Q2H LORIE Rx#:[id number] Rocephin Inj 1,000 MG In NS Inj 100 / 100 100 ML @ 200 mls/hr IV.SIG Q24H LORIE Rx#:[id number] Oral 480 / 480 480 / 480 Output: Urine 700 / 700 Other: # Voids 1 Date of Last Bowel Movement 08/19/18 08/27/18 08/26/18 <Charo Chandler A - Last Filed: 08/29/18 11:44> Results - Labs CBC & Chem 7: 08/27/18 20:35 08/27/18 20:35 Labs: Laboratory Results - last 24 hr 08/27/18 08/27/18 08/28/18 20:35 20:35 03:55 WBC 21.1 H RBC 3.71 L Hgb 11.7 L Hct 31.8 L MCV 85.8 MCH 31.7 MCHC 36.9 H RDW 13.4 Plt Count 401 MPV 7.5 Prelim Diff (Auto) Slide review pending Neut % (Auto) 87.0 H Lymph % (Auto) 6.5 L [place] % (Auto) 5.6 Eos % (Auto) 0.3 Baso % (Auto) 0.6 Neut # (Auto) 18.3 H Lymph # (Auto) 1.4 [place] # (Auto) 1.2 H Eos # (Auto) 0.1 Baso # (Auto) 0.1 WBC Differential . Diff Scan Auto diff confirmed Differential Comment . PT 11.6 INR 1.1 APTT 30.1 Sodium 142 Potassium 3.0 L Chloride 105 Carbon Dioxide 31.0 Anion Gap 6 BUN 16 Creatinine 1.56 H Estimated GFR 45 L POC Glucose Random Glucose 139 H Calcium 8.8 Magnesium 1.9 Total Bilirubin 0.8 AST 22 ALT 16 Alkaline Phosphatase 151 H Total Protein 7.3 Albumin 2.3 L Urine Color Urine Clarity Urine pH Ur Specific [place] Urine Protein Urine Glucose (UA) Urine Ketones Urine Occult Blood Urine Nitrate Urine Bilirubin Urine Urobilinogen Ur Leukocyte Esterase Urine RBC Urine WBC Ur Squamous Epith Cells Micro UA Comment Ur Microscopic Review Urine Culture Comments 08/28/18 08/28/18 08/28/18 07:48 11:38 11:40 WBC RBC Hgb Hct MCV MCH MCHC RDW Plt Count MPV Prelim Diff (Auto) Neut % (Auto) Lymph % (Auto) [place] % (Auto) Eos % (Auto) Baso % (Auto) Neut # (Auto) Lymph # (Auto) [place] # (Auto) Eos # (Auto) Baso # (Auto) WBC Differential Diff Scan Differential Comment PT INR APTT Sodium Potassium Chloride Carbon Dioxide Anion Gap BUN Creatinine Estimated GFR POC Glucose 103 197 H Random Glucose Calcium Magnesium Total Bilirubin AST ALT Alkaline Phosphatase Total Protein Albumin Urine Color Yellow Urine Clarity Clear Urine pH 6.0 Ur Specific [place] 1.035 Urine Protein 500 or greater Urine Glucose (UA) 50 Urine Ketones Negative Urine Occult Blood Negative Urine Nitrate Negative Urine Bilirubin Negative Urine Urobilinogen 0.2 Ur Leukocyte Esterase Negative Urine RBC 1 Urine WBC 1 Ur Squamous Epith Cells <1 Micro UA Comment Culture not ind Ur Microscopic Review Not Reportable Urine Culture Comments Culture not ind - Imaging Impressions Chest CT 08/27/18 20:33 CONCLUSION: 1. Large mass of the mid esophagus. Malignancy is the main diagnostic consideration. Patient does appear to have cirrhosis so a component of varices is in the differential but considered less likely. Direct visualization and, if deemed safe, tissue diagnosis is recommended. 2. Scattered nodular opacities of both lungs. Some of it appears infectious or inflammatory although some of the more isolated individual nodules measuring up to 9 mm in size would also have the differential of metastatic disease. Head CT 08/27/18 20:35 CONCLUSION: 1. No acute intracranial abnormality. 2. Chronic ischemic changes. . Soft Tissue Neck CT 08/27/18 20:37 CONCLUSION: 1. Distended upper esophagus. Patient has a mass in the mid thoracic portion of the esophagus and please refer to the chest CT report. 2. No masses or lymphadenopathy at the level of the neck. <Ingrid Gary - Last Filed: 08/28/18 16:41> - Labs CBC & Chem 7: 08/29/18 06:00 08/29/18 06:00 Labs: Laboratory Results - last 24 hr 08/28/18 08/28/18 08/28/18 11:38 11:40 16:39 WBC RBC Hgb Hct MCV MCH MCHC RDW Plt Count MPV Neut % (Auto) Lymph % (Auto) [place] % (Auto) Eos % (Auto) Baso % (Auto) Neut # (Auto) Lymph # (Auto) [place] # (Auto) Eos # (Auto) Baso # (Auto) WBC Differential Differential Comment Sodium Potassium Chloride Carbon Dioxide Anion Gap BUN Creatinine Estimated GFR POC Glucose 197 H 170 H Random Glucose Calcium Urine Color Yellow Urine Clarity Clear Urine pH 6.0 Ur Specific [place] 1.035 Urine Protein 500 or greater Urine Glucose (UA) 50 Urine Ketones Negative Urine Occult Blood Negative Urine Nitrate Negative Urine Bilirubin Negative Urine Urobilinogen 0.2 Ur Leukocyte Esterase Negative Urine RBC 1 Urine WBC 1 Ur Squamous Epith Cells <1 Micro UA Comment Culture not ind Ur Microscopic Review Not Reportable Urine Culture Comments Culture not ind 08/28/18 08/29/18 08/29/18 20:34 03:25 06:00 WBC 13.3 H RBC 3.30 L Hgb 10.2 L Hct 29.1 L MCV 88.1 MCH 30.8 MCHC 34.9 RDW 13.8 Plt Count 235 D MPV 7.4 Neut % (Auto) 82.0 H Lymph % (Auto) 10.5 [place] % (Auto) 6.3 Eos % (Auto) 0.8 Baso % (Auto) 0.4 Neut # (Auto) 10.9 H Lymph # (Auto) 1.4 [place] # (Auto) 0.8 Eos # (Auto) 0.1 Baso # (Auto) 0.1 WBC Differential . Differential Comment Auto diff final Sodium Potassium Chloride Carbon Dioxide Anion Gap BUN Creatinine Estimated GFR POC Glucose 89 131 H Random Glucose Calcium Urine Color Urine Clarity Urine pH Ur Specific [place] Urine Protein Urine Glucose (UA) Urine Ketones Urine Occult Blood Urine Nitrate Urine Bilirubin Urine Urobilinogen Ur Leukocyte Esterase Urine RBC Urine WBC Ur Squamous Epith Cells Micro UA Comment Ur Microscopic Review Urine Culture Comments 08/29/18 08/29/18 06:00 08:26 WBC RBC Hgb Hct MCV MCH MCHC RDW Plt Count MPV Neut % (Auto) Lymph % (Auto) [place] % (Auto) Eos % (Auto) Baso % (Auto) Neut # (Auto) Lymph # (Auto) [place] # (Auto) Eos # (Auto) Baso # (Auto) WBC Differential Differential Comment Sodium 142 Potassium 3.8 D Chloride 108 H Carbon Dioxide 25.6 Anion Gap 8 BUN 14 Creatinine 1.39 H Estimated GFR 51 L POC Glucose 134 H Random Glucose 143 H Calcium 7.9 L D Urine Color Urine Clarity Urine pH Ur Specific [place] Urine Protein Urine Glucose (UA) Urine Ketones Urine Occult Blood Urine Nitrate Urine Bilirubin Urine Urobilinogen Ur Leukocyte Esterase Urine RBC Urine WBC Ur Squamous Epith Cells Micro UA Comment Ur Microscopic Review Urine Culture Comments <Charo Chandler - Last Filed: 08/29/18 11:44> Assessment and Plan (1) Dysphagia Status: Acute Code(s): R13.10 - Dysphagia, unspecified (2) PEG (percutaneous endoscopic gastrostomy) adjustment/replacement/removal Status: Acute Code(s): Z43.1 - Encounter for attention to gastrostomy - Plan This patient is a 68-year-old male with past medical history significant for esophageal cancer diagnosed July 2018, type 2 diabetes and hypertension. Patient presented to the emergency room at [facility] for evaluation of difficulty swallowing. Patient states that he began to have increasing difficulty swallowing 2 days ago. He describes pressure and chest fullness when he attempts to eat meals. Patient spitting saliva into emesis bag during consultation. Patient endorses some coughing and choking with meals. Patient denies any shortness of breath fever or chills. Denies any abdominal pain, nausea or vomiting. Patient denies heartburn. States last EGD was done in July 2018 where in he was found to have a gastric mass. Patient denies ever having had a colonoscopy in the past. Patient denies diarrhea or constipation. Denies any noted bleeding or change in bowel habits. Our service has been consulted to evaluate patient for PEG tube placement PEG tube placement Dysphagia Patient recently diagnosed in July 2018 with esophageal mass. Patient presents to [place] emergency room today with complaint of difficulty swallowing times 2 days. Patient spitting saliva into emesis bag intermittently. Reports some coughing and choking with meals. 07/12/2018 EGD revealed the following: Large partially obstructing mid esophageal mass. Unable to traverse. Multiple biopsies obtained. 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 Plan -Diet as tolerated -Aspiration precautions -Obtain consent for PEG tube placement -Pantoprazole 40 mg IV every 12 -Analgesics and antiemetics as per attending -Patient currently on IV antibiotics-azithromycin and Rocephin daily -Supportive care -Further recommendations to follow This patient has been seen by myself and Dr. Chandler and this note is written on his behalf - Attending Attestation Dr. Chandler <Ingrid Gray - Last Filed: 08/28/18 16:41> (1) Dysphagia Status: Acute Code(s): R13.10 - Dysphagia, unspecified (2) PEG (percutaneous endoscopic gastrostomy) adjustment/replacement/removal Status: Acute Code(s): Z43.1 - Encounter for attention to gastrostomy - Attending Attestation Seen and examined, plan as above. Will obtain consent for PEG tube placement for Thursday. Thank you for the consult. <Charo Chandler - Last Filed: 08/29/18 11:44>
[2018-08-29] MEDS: Pantoprazole Inj 40 MG Vial IV.PUSH SCH ×2 (03:25→16:13)
[2018-08-29] MEDS: Insulin NovoLOG Aspart Correctional Sugar Inj SQ SCH ×5 (03:40→21:08)
[2018-08-29 06:56] LABS: Baso # (Auto) 0.1 th/mm3 (0.0-0.2); Baso % (Auto) 0.4 % (0.0-2.0); Eos # (Auto) 0.1 th/mm3 (0.0-0.4); Eos % (Auto) 0.8 % (0.0-4.0); Hematocrit 29.1 % (39.0-51.0); Hemoglobin 10.2 gm/dL (13.0-17.0); Lymph # (Auto) 1.4 th/mm3 (1.0-4.8); Lymph % (Auto) 10.5 % (9.0-44.0); Mean Corpuscular HGB Conc 34.9 % (32.0-36.0); Mean Corpuscular Hemoglobin 30.8 pg (27.0-34.0); Mean Corpuscular Volume 88.1 fL (80.0-100.0); Mean Platelet Volume 7.4 fL (7.0-11.0); Mono # (Auto) 0.8 th/mm3 (0.0-0.9); Mono % (Auto) 6.3 % (0.0-8.0); Neut # (Auto) 10.9 th/mm3 (1.8-7.7); Platelet Count 235 th/mm3 (150-450); Red Cell Distribution Width 13.8 % (11.6-17.2); White Blood Count 13.3 th/mm3 (4.0-11.0)
[2018-08-29 07:27] LABS: Calcium 7.9 mg/dL (8.5-10.1); Carbon Dioxide 25.6 meq/L (21.0-32.0); Potassium 3.8 meq/L (3.5-5.1)
[2018-08-29] MEDS: Azithromycin Inj 500 MG in Sodium Chlor 0.9% Inj 250 ML IV.SIG SCH (08:26)
[2018-08-29] MEDS: amLODIPine 10 MG Tablet PO SCH (08:26)
--- NOTE | 2018-08-29 12:03 | P.PNONC ---
Subjective Interval history: Patient sleeping on approach, awakens easily to voice. No complaints at this time. Objective Vital Signs/Intake & Output: Vital Signs 08/28/18 15:54 08/28/18 16:00 08/28/18 20:00 Temperature 99.1 F 99.1 F Pulse Rate 93 H 97 H 102 H Respiratory Rate 18 20 Blood Pressure 137/96 H 143/97 H Pulse Oximetry 96 98 08/28/18 23:00 08/28/18 23:41 08/29/18 03:00 Temperature 99 F Pulse Rate 91 H 97 H 96 H Respiratory Rate 18 Blood Pressure 130/75 Pulse Oximetry 97 08/29/18 03:38 08/29/18 07:00 08/29/18 08:19 Temperature 99.4 F 99.9 F H Pulse Rate 99 H 126 H 118 H Respiratory Rate 18 18 Blood Pressure 147/93 H 154/93 H Pulse Oximetry 96 96 08/29/18 11:00 Temperature Pulse Rate 100 H Respiratory Rate Blood Pressure Pulse Oximetry Intake & Output 08/28/18 08/29/18 08/29/18 18:59 06:59 18:59 Intake Total 1830 / 1830 581 / 581 250 / 250 Output Total 700 / 700 Balance 1830 / 1830 -119 / -119 250 / 250 Intake: IV 1350 / 1350 101 / 101 250 / 250 NS + KCl 20 mEq Inj 1,000 ML @ 1000 / 1000 1 / 1 70 mls/hr IV.CONT .[id number] [facility] Rx#:[id number] Azithromycin Inj 500 MG In NS 250 / 250 250 / 250 Inj 250 ML @ 250 mls/hr IV.SIG Q24H [facility] Rx#:[id number] KCl 20 mEq Premix Inj 20 meq In 100 / 100 100 ml @ 50 mls/hr IV.SIG Q2H [facility] Rx#:[id number] Rocephin Inj 1,000 MG In NS Inj 100 / 100 100 ML @ 200 mls/hr IV.SIG Q24H [facility] Rx#:[id number] Oral 480 / 480 480 / 480 Output: Urine 700 / 700 Other: # Voids 1 Date of Last Bowel Movement 08/19/18 08/27/18 08/26/18 Result Diagrams: 08/29/18 06:00 08/29/18 06:00 Laboratory Results: Laboratory Results - last 24 hr 08/28/18 08/28/18 08/28/18 11:38 16:39 20:34 WBC RBC Hgb Hct MCV MCH MCHC RDW Plt Count MPV Neut % (Auto) Lymph % (Auto) [place] % (Auto) Eos % (Auto) Baso % (Auto) Neut # (Auto) Lymph # (Auto) [place] # (Auto) Eos # (Auto) Baso # (Auto) WBC Differential Differential Comment Sodium Potassium Chloride Carbon Dioxide Anion Gap BUN Creatinine Estimated GFR POC Glucose 170 H 89 Random Glucose Calcium Urine Color Yellow Urine Clarity Clear Urine pH 6.0 Ur Specific [place] 1.035 Urine Protein 500 or greater Urine Glucose (UA) 50 Urine Ketones Negative Urine Occult Blood Negative Urine Nitrate Negative Urine Bilirubin Negative Urine Urobilinogen 0.2 Ur Leukocyte Esterase Negative Urine RBC 1 Urine WBC 1 Ur Squamous Epith Cells <1 Micro UA Comment Culture not ind Ur Microscopic Review Not Reportable Urine Culture Comments Culture not ind 08/29/18 08/29/18 08/29/18 03:25 06:00 06:00 WBC 13.3 H RBC 3.30 L Hgb 10.2 L Hct 29.1 L MCV 88.1 MCH 30.8 MCHC 34.9 RDW 13.8 Plt Count 235 D MPV 7.4 Neut % (Auto) 82.0 H Lymph % (Auto) 10.5 [place] % (Auto) 6.3 Eos % (Auto) 0.8 Baso % (Auto) 0.4 Neut # (Auto) 10.9 H Lymph # (Auto) 1.4 [place] # (Auto) 0.8 Eos # (Auto) 0.1 Baso # (Auto) 0.1 WBC Differential . Differential Comment Auto diff final Sodium 142 Potassium 3.8 D Chloride 108 H Carbon Dioxide 25.6 Anion Gap 8 BUN 14 Creatinine 1.39 H Estimated GFR 51 L POC Glucose 131 H Random Glucose 143 H Calcium 7.9 L D Urine Color Urine Clarity Urine pH Ur Specific [place] Urine Protein Urine Glucose (UA) Urine Ketones Urine Occult Blood Urine Nitrate Urine Bilirubin Urine Urobilinogen Ur Leukocyte Esterase Urine RBC Urine WBC Ur Squamous Epith Cells Micro UA Comment Ur Microscopic Review Urine Culture Comments 08/29/18 08:26 WBC RBC Hgb Hct MCV MCH MCHC RDW Plt Count MPV Neut % (Auto) Lymph % (Auto) [place] % (Auto) Eos % (Auto) Baso % (Auto) Neut # (Auto) Lymph # (Auto) [place] # (Auto) Eos # (Auto) Baso # (Auto) WBC Differential Differential Comment Sodium Potassium Chloride Carbon Dioxide Anion Gap BUN Creatinine Estimated GFR POC Glucose 134 H Random Glucose Calcium Urine Color Urine Clarity Urine pH Ur Specific [place] Urine Protein Urine Glucose (UA) Urine Ketones Urine Occult Blood Urine Nitrate Urine Bilirubin Urine Urobilinogen Ur Leukocyte Esterase Urine RBC Urine WBC Ur Squamous Epith Cells Micro UA Comment Ur Microscopic Review Urine Culture Comments Medications: Active Medications Generic Name Dose Route Start Last Admin Trade Name Freq PRN Reason Stop Dose Admin Amlodipine Besylate 10 mg 08/29/18 09:00 08/29/18 08:26 Norvasc PO 10 mg DAILY [facility] Administration Potassium Chloride/Sodium Chloride 1,000 mls @ 70 mls/hr 08/28/18 03:45 08/28 21:16 Ns + Kcl 20 Meq Inj IV.CONT 70 mls/hr .[id number] [facility] Infusion Ceftriaxone Sodium 1,000 mg/ 100 mls @ 200 mls/hr 08/29/18 04:00 08/29/18 03: 58 Sodium Chloride IV.SIG Infused Q24H [facility] Infusion Azithromycin 500 mg/ Sodium 250 mls @ 250 mls/hr 08/29/18 09:00 08/29/18 09: 52 Chloride IV.SIG Infused Q24H [facility] Infusion Insulin Aspart 0 unit 08/28/18 08:00 08/29/18 08:27 Novolog Insulin Correctional Sugar Inj SQ Not Given ACHS AND 3AM [facility] Protocol Morphine Sulfate 10 mg 08/28/18 13:29 08/28/18 14:30 Roxanol Liq PO 10 mg Q3H PRN Administration PAIN 6-10 Pantoprazole Sodium 40 mg 08/28/18 04:00 08/29/18 03:25 Protonix Inj IV.PUSH 40 mg Q12H [facility] Administration Objective Remarks: GENERAL: Disheveled male patient, in no acute distress. SKIN: Warm and dry. HEAD: Normocephalic. EYES: No scleral icterus. No injection or drainage. NECK: Supple, trachea midline. CARDIOVASCULAR: Regular rate and rhythm without murmurs. RESPIRATORY: Breath sounds equal bilaterally. No accessory muscle use. GASTROINTESTINAL: Abdomen soft, non-tender, nondistended. EXTREMITIES: No cyanosis, or edema. MUSCULOSKELETAL: Adequate muscle tone. NEUROLOGICAL: No obvious focal deficit. Sleeping, awakens easily to voice, alert, and oriented x3. PSYCHIATRIC: Appropriate mood and affect; insight and judgment normal. Assessment/Plan - Plan Mr. 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 He has no evidence of metastatic disease. An attempt at outpatient evaluation and treatment was unsuccessful. The patient has limited resources and is essentially homeless. He has little insight and does not have the ability to direct his own care. Recommendations: 1. GI consulted for gastrostomy tube. 2. IR consulted for port placement. Patient will need combined chemo and radiation. 3. Consult placed to case management, patient will need to go to an assisted living facility and start treatment as soon as possible. 4. Consult placed for radiation oncology. Patient will need combined chemo and radiation. - Attending Statement The exam, history, and the medical decision-making described in the above note were completed with the assistance of the mid-level provider. I reviewed and agree with the findings presented. I attest that I had a [id number] encounter with the patient on the same day, and personally performed and documented my assessment and findings in the medical record. Patient's condition unchanged. He will have a gastrostomy tube placed, an [id number], and he has already seen radiation oncology. Social service have seen him and they are working on placement. I am hopeful that we will be able to get things in place during the next week to proceed with treatment in a timely fashion. As mentioned in my original note this gentleman is not able to do a lot for himself and arrangements will have to be simple and clear for him to proceed.
[2018-08-29] MEDS: Morphine Sulfate Oral Liq 10 MG/0.5 ML Syringe PO PRN ×2 (12:31→19:35)
--- NOTE | 2018-08-29 12:39 | P.PN ---
Subjective Interval history: Follow-up history of throat/esophageal cancer//dysphagia August 28, 2018-patient seen and examined, states he was able to tolerate pured diet after passing swallow eval. Denies any significant shortness of breath. August 29, 2018-patient seen and examined, states he had a good night sleep.. Denies any shortness of breath. Physical Exam Vital signs: Vital Signs 08/28/18 15:54 08/28/18 16:00 08/28/18 20:00 Temperature 99.1 F 99.1 F Pulse Rate 93 H 97 H 102 H Respiratory Rate 18 20 Blood Pressure 137/96 H 143/97 H Pulse Oximetry 96 98 08/28/18 23:00 08/28/18 23:41 08/29/18 03:00 Temperature 99 F Pulse Rate 91 H 97 H 96 H Respiratory Rate 18 Blood Pressure 130/75 Pulse Oximetry 97 08/29/18 03:38 08/29/18 07:00 08/29/18 08:19 Temperature 99.4 F 99.9 F H Pulse Rate 99 H 126 H 118 H Respiratory Rate 18 18 Blood Pressure 147/93 H 154/93 H Pulse Oximetry 96 96 08/29/18 11:00 08/29/18 11:59 Temperature 98.4 F Pulse Rate 100 H 100 H Respiratory Rate 18 Blood Pressure 135/84 Pulse Oximetry 97 Intake & Output 08/28/18 08/29/18 08/29/18 18:59 06:59 18:59 Intake Total 1830 / 1830 581 / 581 1250 / 1250 Output Total 700 / 700 Balance 1830 / 1830 -119 / -119 1250 / 1250 Intake: IV 1350 / 1350 101 / 101 1250 / 1250 NS + KCl 20 mEq Inj 1,000 ML @ 1000 / 1000 1 / 1 1000 / 1000 70 mls/hr IV.CONT .[id number] [facility] Rx#:[id number] Azithromycin Inj 500 MG In NS 250 / 250 250 / 250 Inj 250 ML @ 250 mls/hr IV.SIG Q24H [facility] Rx#:[id number] KCl 20 mEq Premix Inj 20 meq In 100 / 100 100 ml @ 50 mls/hr IV.SIG Q2H [facility] Rx#:[id number] Rocephin Inj 1,000 MG In NS Inj 100 / 100 100 ML @ 200 mls/hr IV.SIG Q24H [facility] Rx#:[id number] Oral 480 / 480 480 / 480 Output: Urine 700 / 700 Other: # Voids 1 Date of Last Bowel Movement 08/19/18 08/27/18 08/26/18 Narrative: Gen.: NAD Head: Normocephalic. Atraumatic. EENT: Pupils equal round and reactive to light. Nose without drainage. Airway intact. Throat without injection. Cardiovascular: Regular rate and rhythm. No murmurs, rubs or gallops. Respiratory: Lungs clear to auscultation bilaterally. No wheezes or rhonchi. Abdomen: Soft, nontender, nondistended. No peritoneal signs.+BS Musculoskeletal: No gross deformities. No edema. Skin: No obvious rashes or erythema. Neuro: Sensory and motor grossly intact. Cranial nerves II through XII grossly intact. Results - Labs CBC & Chem 7: 08/29/18 06:00 08/29/18 06:00 Laboratory Results - last 24 hr 08/28/18 08/28/18 08/29/18 16:39 20:34 03:25 WBC RBC Hgb Hct MCV MCH MCHC RDW Plt Count MPV Neut % (Auto) Lymph % (Auto) [place] % (Auto) Eos % (Auto) Baso % (Auto) Neut # (Auto) Lymph # (Auto) [place] # (Auto) Eos # (Auto) Baso # (Auto) WBC Differential Differential Comment Sodium Potassium Chloride Carbon Dioxide Anion Gap BUN Creatinine Estimated GFR POC Glucose 170 H 89 131 H Random Glucose Calcium 08/29/18 08/29/18 08/29/18 06:00 06:00 08:26 WBC 13.3 H RBC 3.30 L Hgb 10.2 L Hct 29.1 L MCV 88.1 MCH 30.8 MCHC 34.9 RDW 13.8 Plt Count 235 D MPV 7.4 Neut % (Auto) 82.0 H Lymph % (Auto) 10.5 [place] % (Auto) 6.3 Eos % (Auto) 0.8 Baso % (Auto) 0.4 Neut # (Auto) 10.9 H Lymph # (Auto) 1.4 [place] # (Auto) 0.8 Eos # (Auto) 0.1 Baso # (Auto) 0.1 WBC Differential . Differential Comment Auto diff final Sodium 142 Potassium 3.8 D Chloride 108 H Carbon Dioxide 25.6 Anion Gap 8 BUN 14 Creatinine 1.39 H Estimated GFR 51 L POC Glucose 134 H Random Glucose 143 H Calcium 7.9 L D 08/29/18 12:00 WBC RBC Hgb Hct MCV MCH MCHC RDW Plt Count MPV Neut % (Auto) Lymph % (Auto) [place] % (Auto) Eos % (Auto) Baso % (Auto) Neut # (Auto) Lymph # (Auto) [place] # (Auto) Eos # (Auto) Baso # (Auto) WBC Differential Differential Comment Sodium Potassium Chloride Carbon Dioxide Anion Gap BUN Creatinine Estimated GFR POC Glucose 184 H Random Glucose Calcium Assessment and Plan - Plan 68-year-old man with 1. Esophageal cancer with metastasis Biopsy of esophageal mass done on 07/12/18 shows invasive poorly differentiated squamous cell carcinoma arising in a background of Davis's mucosa Oncology consulted, appreciate assistance Plan for port infuse placement Patient will need treatment of both chemo and radiation therapy 2. Dysphagia Speech therapy consulted and patient currently on pured thin liquid diet GI consulted for PEG tube placement, and likely will have it done next week 3. Aspiration pneumonia Currently on azithromycin and Rocephin 4. Diabetes mellitus Holding home glipizide Continue insulin scale Monitor blood glucose 5. Hypertension/hyperlipidemia Continue outpatient medications including Norvasc, statin 6. CKD Creatinine 1.56, baseline Monitor renal function
--- NOTE | 2018-08-29 13:21 | P.CON ---
History of Present Illness Service: radiation oncology Consult date: 08/29/18 Requesting Physician: Neftali Au Reason for Consult: esophageal cancer Primary Care Provider: PROVIDER NON STAFF History of Present Illness: Recent diagnosis esophageal cancer. Plan to place PEG tube. Seen by dr spence , dr au this admission. [facility] - History History Provided By: Patient - Medical History Medical History: Medical History (Last Reviewed 08/29/18 @ 09:30 by Radha Guo) Diabetes Esophageal mass HTN (hypertension) Heart murmur History of abdominal hernia - Surgical History Surgical History: Surgical History (Last Reviewed 08/28/18 @ 03:36 by Lizzie Burkett MD) S/P wrist surgery - Family History Family History: Family History (Last Updated 08/28/18 @ 03:36 by Lizzie Burkett MD) Other Diabetes mellitus - Tobacco History Second Hand Smoke Exposure: Yes Tobacco Use In Past 30 Days: No Smoking Status: Former smoker Tobacco Type: Cigarettes - Alcohol History How Often Do You Have a Drink Containing Alcohol: Never - Substance Use History Substance History: No History of Abuse - Travel History Recent Travel in the [place] Within the Last 8 Weeks: No Recent Travel Out of the Country Within the Last 8 Weeks: No - Immunization History Tetanus Immunization: <5 Years Tetanus Immunization Year if Known: 2014 Hx Influenza Vaccine This Season: No Medications and Allergies Active Medications: Active Medications Amlodipine Besylate (Norvasc) 10 mg PO DAILY [facility] Last Admin: 08/29/18 08:26 Dose: 10 mg Dextrose (D50w Vial) 50 ml IV.PUSH UNSCH PRN PRN Reason: PER HYPOGLYCEMIA PROTOCOL Glucagon (Glucagon Inj) 1 mg OTHER PRN PRN PRN Reason: for Hypoglycemia Protocol Potassium Chloride/Sodium Chloride (Ns + Kcl 20 Meq Inj) 1,000 mls @ 70 mls/hr IV.CONT .[id number] [facility] Last Admin: 08/29/18 12:29 Dose: 70 mls/hr Ceftriaxone Sodium 1,000 mg/ (Sodium Chloride) 100 mls @ 200 mls/hr IV.SIG Q24H [facility] Last Infusion: 08/29/18 03:58 Dose: Infused Azithromycin 500 mg/ Sodium (Chloride) 250 mls @ 250 mls/hr IV.SIG Q24H [facility] Last Infusion: 08/29/18 09:52 Dose: Infused Insulin Aspart (Novolog Insulin Correctional Sugar Inj) 0 unit SQ ACHS AND 3AM [facility]; Protocol Last Admin: 08/29/18 12:27 Dose: 1 unit Morphine Sulfate (Roxanol Liq) 10 mg PO Q3H PRN PRN Reason: PAIN 6-10 Last Admin: 08/29/18 12:31 Dose: 10 mg Ondansetron HCl (Zofran Inj) 4 mg IV.PUSH Q6H PRN PRN Reason: NAUSEA OR VOMITING Pantoprazole Sodium (Protonix Inj) 40 mg IV.PUSH Q12H [facility] Last Admin: 08/29/18 03:25 Dose: 40 mg Allergies Allergy/AdvReac Type Severity Reaction Status Date / Time metoprolol Allergy Severe Itching Verified 08/27/18 20:11 *MDRO Multi-Drug Resistant Allergy Unknown Anxiety Uncoded 07/22/18 19:53 Organism Home Medications Medication Instructions Recorded Confirmed Type pantoprazole 40 mg PO DAILY 08/27/18 08/27/18 History Physical Exam Vital signs: Vital Signs 08/28/18 15:54 08/28/18 16:00 08/28/18 20:00 Temperature 99.1 F 99.1 F Pulse Rate 93 H 97 H 102 H Respiratory Rate 18 20 Blood Pressure 137/96 H 143/97 H Pulse Oximetry 96 98 08/28/18 23:00 08/28/18 23:41 08/29/18 03:00 Temperature 99 F Pulse Rate 91 H 97 H 96 H Respiratory Rate 18 Blood Pressure 130/75 Pulse Oximetry 97 08/29/18 03:38 08/29/18 07:00 08/29/18 08:19 Temperature 99.4 F 99.9 F H Pulse Rate 99 H 126 H 118 H Respiratory Rate 18 18 Blood Pressure 147/93 H 154/93 H Pulse Oximetry 96 96 08/29/18 11:00 08/29/18 11:59 Temperature 98.4 F Pulse Rate 100 H 100 H Respiratory Rate 18 18 Blood Pressure 135/84 Pulse Oximetry 97 Intake & Output 08/28/18 08/29/18 08/29/18 18:59 06:59 18:59 Intake Total 1830 / 1830 581 / 581 1250 / 1250 Output Total 700 / 700 Balance 1830 / 1830 -119 / -119 1250 / 1250 Intake: IV 1350 / 1350 101 / 101 1250 / 1250 NS + KCl 20 mEq Inj 1,000 ML @ 1000 / 1000 1 / 1 1000 / 1000 70 mls/hr IV.CONT .[id number] [facility] Rx#:[id number] Azithromycin Inj 500 MG In NS 250 / 250 250 / 250 Inj 250 ML @ 250 mls/hr IV.SIG Q24H [facility] Rx#:[id number] KCl 20 mEq Premix Inj 20 meq In 100 / 100 100 ml @ 50 mls/hr IV.SIG Q2H [facility] Rx#:[id number] Rocephin Inj 1,000 MG In NS Inj 100 / 100 100 ML @ 200 mls/hr IV.SIG Q24H [facility] Rx#:[id number] Oral 480 / 480 480 / 480 Output: Urine 700 / 700 Other: # Voids 1 Date of Last Bowel Movement 08/19/18 08/27/18 08/26/18 Results - Labs CBC & Chem 7: 08/29/18 06:00 08/29/18 06:00 Labs: Laboratory Results - last 24 hr 08/28/18 08/28/18 08/29/18 16:39 20:34 03:25 WBC RBC Hgb Hct MCV MCH MCHC RDW Plt Count MPV Neut % (Auto) Lymph % (Auto) [place] % (Auto) Eos % (Auto) Baso % (Auto) Neut # (Auto) Lymph # (Auto) [place] # (Auto) Eos # (Auto) Baso # (Auto) WBC Differential Differential Comment Sodium Potassium Chloride Carbon Dioxide Anion Gap BUN Creatinine Estimated GFR POC Glucose 170 H 89 131 H Random Glucose Calcium 08/29/18 08/29/18 08/29/18 06:00 06:00 08:26 WBC 13.3 H RBC 3.30 L Hgb 10.2 L Hct 29.1 L MCV 88.1 MCH 30.8 MCHC 34.9 RDW 13.8 Plt Count 235 D MPV 7.4 Neut % (Auto) 82.0 H Lymph % (Auto) 10.5 [place] % (Auto) 6.3 Eos % (Auto) 0.8 Baso % (Auto) 0.4 Neut # (Auto) 10.9 H Lymph # (Auto) 1.4 [place] # (Auto) 0.8 Eos # (Auto) 0.1 Baso # (Auto) 0.1 WBC Differential . Differential Comment Auto diff final Sodium 142 Potassium 3.8 D Chloride 108 H Carbon Dioxide 25.6 Anion Gap 8 BUN 14 Creatinine 1.39 H Estimated GFR 51 L POC Glucose 134 H Random Glucose 143 H Calcium 7.9 L D 08/29/18 12:00 WBC RBC Hgb Hct MCV MCH MCHC RDW Plt Count MPV Neut % (Auto) Lymph % (Auto) [place] % (Auto) Eos % (Auto) Baso % (Auto) Neut # (Auto) Lymph # (Auto) [place] # (Auto) Eos # (Auto) Baso # (Auto) WBC Differential Differential Comment Sodium Potassium Chloride Carbon Dioxide Anion Gap BUN Creatinine Estimated GFR POC Glucose 184 H Random Glucose Calcium Assessment and Plan - Plan CT simulation tomorrow. Discussed definitive chemo-xrt. Reviewed most recent images and reports. Plan 5-6 weeks xrt. Treat GTV and regional lymphatics and potential boost. Discussed expected acute toxicities less common severe late effects. Discussed CT simulation. Will coordinate with medical oncology. 25 minutes face to face and reviewing imaging and pathology.
--- NOTE | 2018-08-29 14:28 | P.DIET ---
Nutritional Evaluation Type of nutrition evaluation: initial Nutrition consult regarding: Tube Feeding (08/29) Nutrition screening: [facility] Subjective Subjective Comments: Pt reports a poor appetite, difficulty swallowing and recent unintended wt loss Objective - Diagnosis Dysphagia - Objective % IBW: 94 (IBW: 72.7kg) Body Weight Used for Calculations: Actual (68.3kg) Energy Needs - Lower Range (kCal/kg): 30 Energy Needs - Upper Range (kCal/kg): 35 Lower Limit kCal/kg (kCals): 2,049 Upper Limit kCal/kg (kCals): 2,391 Lower Limit Protein Factor (Grams per Kg): 1.2 Upper Limit Protein Factor (Grams per Kg): 1.5 Lower Protein Needs (Protein): 82 Upper Protein Needs (Protein): 102 Fluid Factor (ml/kg): 32 Estimated Fluid Needs (ml): 2,186 Dietitian Reviewed in Medical Record: Current diet, Curent medications, Intake & Output, Labs, Medical history Diet Order: NPO Objective Comments: PMH: DM, HTN, Esophageal Cancer Labs of note: Glucose 143, POC Glu 131, 134, 184 Assessment Assessment: Pt at high nutritional risk r/t dx and need for a TF for nutrition support. Pt admitted with dysphagia r/t esophageal cancer. Pt's nutritional needs as assessed above. Noted MD plans for PEG tube placement soon. Recommend TF Glucerna 1.5 with goal rate 60mls/hr to provide 2160kcals, 119gms protein and 1093mls free water. Pt will need 300mls q 6 hrs to meet his fluid needs. If bolus feedings are preferred, recommend Glucerna 1.5, 4 bolus feedings of 360mls. (i.e. 8am 12pm, 4pm, 8pm). 30mls free water flushes before and after each bolus feeding. Pt will need 300mls free water flushes q 8 hrs to meet fluid needs. Will monitor clinical course. Recommendations: TF Glucerna 1.5 Continuous: goal rate 60ml/hr with 300mls free water flushes q 6 hours Bolus feedings: 360mls 4x/day (ie 8am 12pm, 4pm, 8pm), 30mls free water flushes before and after bolus feedings, 300mls free water flushes q 8 hours. Dietitian to Monitor: Lab values, Intake & Output, Tube feeding tolerance, Weight change, Medical course
--- NOTE | 2018-08-29 16:16 | P.PNGI ---
Subjective Interval history: Patient sitting up in bed awake and alert States tolerating clear liquid diet without difficulty PEG placement planned for tomorrow <Ingrid Gray - Last Filed: 08/29/18 16:12> Physical Exam Vital signs: Vital Signs 08/28/18 20:00 08/28/18 23:00 08/28/18 23:41 Temperature 99.1 F 99 F Pulse Rate 102 H 91 H 97 H Respiratory Rate 20 18 Blood Pressure 143/97 H 130/75 Pulse Oximetry 98 97 08/29/18 03:00 08/29/18 03:38 08/29/18 07:00 Temperature 99.4 F Pulse Rate 96 H 99 H 126 H Respiratory Rate 18 Blood Pressure 147/93 H Pulse Oximetry 96 08/29/18 08:19 08/29/18 11:00 08/29/18 11:59 Temperature 99.9 F H 98.4 F Pulse Rate 118 H 100 H 100 H Respiratory Rate 18 18 18 Blood Pressure 154/93 H 135/84 Pulse Oximetry 96 97 08/29/18 15:49 Temperature 99.2 F Pulse Rate 109 H Respiratory Rate 18 Blood Pressure 141/91 H Pulse Oximetry 97 Intake & Output 08/28/18 08/29/18 08/29/18 18:59 06:59 18:59 Intake Total 1830 / 1830 581 / 581 1250 / 1250 Output Total 700 / 700 Balance 1830 / 1830 -119 / -119 1250 / 1250 Intake: IV 1350 / 1350 101 / 101 1250 / 1250 NS + KCl 20 mEq Inj 1,000 ML @ 1000 / 1000 1 / 1 1000 / 1000 70 mls/hr IV.CONT .[id number] LORIE Rx#:[id number] Azithromycin Inj 500 MG In NS 250 / 250 250 / 250 Inj 250 ML @ 250 mls/hr IV.SIG Q24H LORIE Rx#:[id number] KCl 20 mEq Premix Inj 20 meq In 100 / 100 100 ml @ 50 mls/hr IV.SIG Q2H LORIE Rx#:[id number] Rocephin Inj 1,000 MG In NS Inj 100 / 100 100 ML @ 200 mls/hr IV.SIG Q24H LORIE Rx#:[id number] Oral 480 / 480 480 / 480 Output: Urine 700 / 700 Other: # Voids 1 Date of Last Bowel Movement 08/19/18 08/27/18 08/26/18 - Constitutional no acute distress - Routine HEENT Exam Head: Present: normocephalic - Routine Respiratory Exam Present: CTA bilaterally - Routine Abdominal Exam Present: soft, normoactive bowel sounds. Absent: tenderness, distended, guarding, firm - Routine Skin Exam Present: dry, warm - Routine Neurological Exam Present: alert - Routine Psychiatric Exam Present: normal affect, cooperative <Gray,Ingrid - Last Filed: 08/29/18 16:12> Vital signs: Vital Signs 08/29/18 11:59 08/29/18 15:00 08/29/18 15:49 Temperature 98.4 F 99.2 F Pulse Rate 100 H 94 H 109 H Respiratory Rate 18 18 Blood Pressure 135/84 141/91 H Pulse Oximetry 97 97 08/29/18 19:24 08/29/18 20:07 08/30/18 00:01 Temperature 99.7 F H Pulse Rate 95 H 104 H 96 H Respiratory Rate 18 Blood Pressure 161/94 H Pulse Oximetry 96 08/30/18 00:24 08/30/18 03:00 08/30/18 03:29 Temperature 100.1 F H 99.3 F Pulse Rate 93 H 104 H Respiratory Rate 20 16 16 Blood Pressure 156/96 H 144/91 H Pulse Oximetry 95 96 08/30/18 04:08 08/30/18 07:51 08/30/18 07:55 Temperature 99.1 F Pulse Rate 88 91 H Respiratory Rate 16 Blood Pressure 128/81 Pulse Oximetry 95 Intake & Output 08/29/18 08/30/18 08/30/18 18:59 06:59 18:59 Intake Total 2210 / 2210 1350 / 1350 Output Total 600 / 600 925 / 925 Balance 1610 / 1610 425 / 425 Weight 67.5 kg Intake: IV 1250 / 1250 1110 / 1110 NS + KCl 20 mEq Inj 1,000 ML @ 1000 / 1000 1000 / 1000 70 mls/hr IV.CONT .[id number] LORIE Rx#:[id number] Azithromycin Inj 500 MG In NS 250 / 250 Inj 250 ML @ 250 mls/hr IV.SIG Q24H LORIE Rx#:[id number] Rocephin Inj 1,000 MG In NS Inj 110 / 110 100 ML @ 200 mls/hr IV.SIG Q24H LORIE Rx#:[id number] Oral 960 / 960 240 / 240 Output: Urine 600 / 600 925 / 925 Other: Date of Last Bowel Movement 08/26/18 08/26/18 <Charo Chandler A - Last Filed: 08/30/18 11:21> Results - Labs CBC & Chem 7: 08/29/18 06:00 08/29/18 06:00 Laboratory Results - last 24 hr 08/28/18 08/28/18 08/29/18 16:39 20:34 03:25 WBC RBC Hgb Hct MCV MCH MCHC RDW Plt Count MPV Neut % (Auto) Lymph % (Auto) [place] % (Auto) Eos % (Auto) Baso % (Auto) Neut # (Auto) Lymph # (Auto) [place] # (Auto) Eos # (Auto) Baso # (Auto) WBC Differential Differential Comment Sodium Potassium Chloride Carbon Dioxide Anion Gap BUN Creatinine Estimated GFR POC Glucose 170 H 89 131 H Random Glucose Calcium 08/29/18 08/29/18 08/29/18 06:00 06:00 08:26 WBC 13.3 H RBC 3.30 L Hgb 10.2 L Hct 29.1 L MCV 88.1 MCH 30.8 MCHC 34.9 RDW 13.8 Plt Count 235 D MPV 7.4 Neut % (Auto) 82.0 H Lymph % (Auto) 10.5 Bullitt % (Auto) 6.3 Eos % (Auto) 0.8 Baso % (Auto) 0.4 Neut # (Auto) 10.9 H Lymph # (Auto) 1.4 Bullitt # (Auto) 0.8 Eos # (Auto) 0.1 Baso # (Auto) 0.1 WBC Differential . Differential Comment Auto diff final Sodium 142 Potassium 3.8 D Chloride 108 H Carbon Dioxide 25.6 Anion Gap 8 BUN 14 Creatinine 1.39 H Estimated GFR 51 L POC Glucose 134 H Random Glucose 143 H Calcium 7.9 L D 08/29/18 12:00 WBC RBC Hgb Hct MCV MCH MCHC RDW Plt Count MPV Neut % (Auto) Lymph % (Auto) Bull[place] % (Auto) Eos % (Auto) Baso % (Auto) Neut # (Auto) Lymph # (Auto) Bull[place] # (Auto) Eos # (Auto) Baso # (Auto) WBC Differential Differential Comment Sodium Potassium Chloride Carbon Dioxide Anion Gap BUN Creatinine Estimated GFR POC Glucose 184 H Random Glucose Calcium <IsaacIngrid - Last Filed: 08/29/18 16:12> - Labs CBC & Chem 7: 08/29/18 06:00 08/29/18 06:00 Laboratory Results - last 24 hr 08/29/18 08/29/18 08/29/18 12:00 16:56 21:06 POC Glucose 184 H 195 H 112 H 08/30/18 08/30/18 03:16 07:51 POC Glucose 105 134 H <Charo Chandler - Last Filed: 08/30/18 11:21> Assessment and Plan (1) Dysphagia Status: Acute Code(s): R13.10 - Dysphagia, unspecified (2) PEG (percutaneous endoscopic gastrostomy) adjustment/replacement/removal Status: Acute Code(s): Z43.1 - Encounter for attention to gastrostomy - Plan This patient is a 68-year-old male with past medical history significant for esophageal cancer diagnosed July 2018, type 2 diabetes and hypertension. Patient presented to the emergency room at [facility] for evaluation of difficulty swallowing. Patient states that he began to have increasing difficulty swallowing 2 days ago. He describes pressure and chest fullness when he attempts to eat meals. Patient spitting saliva into emesis bag during consultation. Patient endorses some coughing and choking with meals. Patient denies any shortness of breath fever or chills. Denies any abdominal pain, nausea or vomiting. Patient denies heartburn. States last EGD was done in July 2018 where in he was found to have a gastric mass. Patient denies ever having had a colonoscopy in the past. Patient denies diarrhea or constipation. Denies any noted bleeding or change in bowel habits. Our service has been consulted to evaluate patient for PEG tube placement PEG tube placement Dysphagia Patient recently diagnosed in July 2018 with esophageal mass. Patient presents to [place] emergency room today with complaint of difficulty swallowing times 2 days. Patient spitting saliva into emesis bag intermittently. Reports some coughing and choking with meals. 07/12/2018 EGD revealed the following: Large partially obstructing mid esophageal mass. Unable to traverse. Multiple biopsies obtained. 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 08/29/2018 -Recent diagnosis of esophageal mass with dysphagia Patient presented to [facility] with complaint of difficulty swallowing. Clear liquid diet, patient states tolerating without coughing or choking. -EGD and pathology report as noted above -PEG tube placement planned for 08/30/2018 -Hemoglobin 10.2 hematocrit 29.1 Plan -Diet-clear liquid -N.p.o. after midnight -Aspiration precautions -PEG tube placement consent -Pantoprazole 40 mg IV every 12 -Analgesics and antiemetics as per attending -Patient currently on IV antibiotics-azithromycin and Rocephin daily -Supportive care -Further recommendations to follow This patient has been seen by myself and Dr. Chandler and this note is written on his behalf - Attending Attestation Dr. Chandler <Ingrid Gray - Last Filed: 08/29/18 16:12> (1) Dysphagia Status: Acute Code(s): R13.10 - Dysphagia, unspecified (2) PEG (percutaneous endoscopic gastrostomy) adjustment/replacement/removal Status: Acute Code(s): Z43.1 - Encounter for attention to gastrostomy - Attending Attestation Seen and examined, plan as above. For PEG placement if feasible, further recommendations to follow. <Charo Chandler - Last Filed: 08/30/18 11:21>
[2018-08-29] MEDS: Senna/Docusate Sodium 8.6/50 MG Tablet PO SCH (21:04)
[2018-08-30] MEDS: Insulin NovoLOG Aspart Correctional Sugar Inj SQ SCH ×5 (03:17→21:20)
[2018-08-30] MEDS: Pantoprazole Inj 40 MG Vial IV.PUSH SCH ×2 (03:22→15:00)
[2018-08-30] MEDS ORDERED: ceFAZolin 2 GM Premix Inj 2 GM/50 ML PIGGYBACK IV.SIG SCH (09:05)
[2018-08-30] MEDS: amLODIPine 10 MG Tablet PO SCH (09:43)
[2018-08-30] MEDS: Azithromycin Inj 500 MG in Sodium Chlor 0.9% Inj 250 ML IV.SIG SCH (09:43)
[2018-08-30] MEDS: Senna/Docusate Sodium 8.6/50 MG Tablet PO SCH ×2 (09:43→21:48)
[2018-08-30] MEDS ORDERED: Vancomycin Inj 1,000 MG in Sodium Chlor 0.9% Inj 250 ML IV.SIG SCH (10:00)
--- NOTE | 2018-08-30 12:45 | P.PN ---
Subjective Interval history: Follow-up history of throat/esophageal cancer//dysphagia August 28, 2018-patient seen and examined, states he was able to tolerate pured diet after passing swallow eval. Denies any significant shortness of breath. August 29, 2018-patient seen and examined, states he had a good night sleep.. Denies any shortness of breath. August 30, 2018-patient seen and examined, currently NPO. no complaint . Plan for PEG placement as well as CT stimulation today Physical Exam Vital signs: Vital Signs 08/29/18 15:00 08/29/18 15:49 08/29/18 19:24 Temperature 99.2 F 99.7 F H Pulse Rate 94 H 109 H 95 H Respiratory Rate 18 18 Blood Pressure 141/91 H 161/94 H Pulse Oximetry 97 96 08/29/18 20:07 08/30/18 00:01 08/30/18 00:24 Temperature 100.1 F H Pulse Rate 104 H 96 H 93 H Respiratory Rate 20 Blood Pressure 156/96 H Pulse Oximetry 95 08/30/18 03:00 08/30/18 03:29 08/30/18 04:08 Temperature 99.3 F Pulse Rate 104 H 88 Respiratory Rate 16 16 Blood Pressure 144/91 H Pulse Oximetry 96 08/30/18 07:51 08/30/18 07:55 08/30/18 11:46 Temperature 99.1 F 98.9 F Pulse Rate 91 H 98 H Respiratory Rate 16 16 Blood Pressure 128/81 162/93 H Pulse Oximetry 95 98 Intake & Output 08/29/18 08/30/18 08/30/18 18:59 06:59 18:59 Intake Total 2210 / 2210 1350 / 1350 Output Total 600 / 600 925 / 925 Balance 1610 / 1610 425 / 425 Weight 67.5 kg Intake: IV 1250 / 1250 1110 / 1110 NS + KCl 20 mEq Inj 1,000 ML @ 1000 / 1000 1000 / 1000 70 mls/hr IV.CONT .[id number] LORIE Rx#:[id number] Azithromycin Inj 500 MG In NS 250 / 250 Inj 250 ML @ 250 mls/hr IV.SIG Q24H LORIE Rx#:[id number] Rocephin Inj 1,000 MG In NS Inj 110 / 110 100 ML @ 200 mls/hr IV.SIG Q24H LORIE Rx#:[id number] Oral 960 / 960 240 / 240 Output: Urine 600 / 600 925 / 925 Other: Date of Last Bowel Movement 08/26/18 08/26/18 Narrative: Gen.: NAD Head: Normocephalic. Atraumatic. EENT: Pupils equal round and reactive to light. Nose without drainage. Airway intact. Throat without injection. Cardiovascular: Regular rate and rhythm. No murmurs, rubs or gallops. Respiratory: Lungs clear to auscultation bilaterally. No wheezes or rhonchi. Abdomen: Soft, nontender, nondistended. No peritoneal signs.+BS Musculoskeletal: No gross deformities. No edema. Skin: No obvious rashes or erythema. Neuro: Sensory and motor grossly intact. Cranial nerves II through XII grossly intact. Results - Labs CBC & Chem 7: 08/29/18 06:00 08/29/18 06:00 Laboratory Results - last 24 hr 08/29/18 08/29/18 08/30/18 16:56 21:06 03:16 POC Glucose 195 H 112 H 105 08/30/18 08/30/18 07:51 11:45 POC Glucose 134 H 104 Assessment and Plan - Plan 68-year-old man with 1. Esophageal cancer with metastasis Biopsy of esophageal mass done on 07/12/18 shows invasive poorly differentiated squamous cell carcinoma arising in a background of Davis's mucosa Oncology consulted, appreciate assistance Plan for port infuse placement today 08/30/18 Patient will need treatment of both chemo and radiation therapy 2. Dysphagia Speech therapy consulted and patient currently on pured thin liquid diet Appreciate input from GI Awaiting for PEG tube placement 3. Aspiration pneumonia Currently on azithromycin and Rocephin Aspiration precautions Duo Neb PRN 4. Diabetes mellitus Holding home glipizide Continue insulin scale Monitor blood glucose 5. Hypertension/hyperlipidemia Continue outpatient medications including Norvasc, statin 6. CKD Creatinine 1.56, baseline Monitor renal function
[2018-08-30] MEDS: Morphine Sulfate Oral Liq 10 MG/0.5 ML Syringe PO PRN ×2 (14:19→19:32)
--- NOTE | 2018-08-30 16:29 | P.PNONC ---
Subjective Interval history: T-max 100.1 F. Patient sleeping on approach, awakens easily to voice. Status post PEG tube today. Pending radiation simulation and port placement tomorrow. Objective Vital Signs/Intake & Output: Vital Signs 08/29/18 19:24 08/29/18 20:07 08/30/18 00:01 Temperature 99.7 F H Pulse Rate 95 H 104 H 96 H Respiratory Rate 18 Blood Pressure 161/94 H Pulse Oximetry 96 08/30/18 00:24 08/30/18 03:00 08/30/18 03:29 Temperature 100.1 F H 99.3 F Pulse Rate 93 H 104 H Respiratory Rate 20 16 16 Blood Pressure 156/96 H 144/91 H Pulse Oximetry 95 96 08/30/18 04:08 08/30/18 07:51 08/30/18 07:55 Temperature 99.1 F Pulse Rate 88 91 H Respiratory Rate 16 Blood Pressure 128/81 Pulse Oximetry 95 08/30/18 11:46 08/30/18 13:11 08/30/18 13:30 Temperature 98.9 F 98.4 F Pulse Rate 98 H 112 H 91 H Respiratory Rate 16 29 H Blood Pressure 162/93 H 140/114 H Pulse Oximetry 98 94 L 08/30/18 13:45 08/30/18 14:01 Temperature 98.4 F Pulse Rate 90 91 H Respiratory Rate 16 20 Blood Pressure 145/81 H 146/67 H Pulse Oximetry 97 96 Intake & Output 08/29/18 08/30/18 08/30/18 18:59 06:59 18:59 Intake Total 2210 / 2210 1350 / 1350 650 / 650 Output Total 600 / 600 925 / 925 Balance 1610 / 1610 425 / 425 650 / 650 Weight 67.5 kg Intake: IV 1250 / 1250 1110 / 1110 250 / 250 NS + KCl 20 mEq Inj 1,000 ML @ 1000 / 1000 1000 / 1000 70 mls/hr IV.CONT .[id number] LORIE Rx#:[id number] Azithromycin Inj 500 MG In NS 250 / 250 250 / 250 Inj 250 ML @ 250 mls/hr IV.SIG Q24H LORIE Rx#:[id number] Rocephin Inj 1,000 MG In NS Inj 110 / 110 100 ML @ 200 mls/hr IV.SIG Q24H LORIE Rx#:[id number] Oral 960 / 960 240 / 240 Anesthesia Amount 400 / 400 Output: Urine 600 / 600 925 / 925 Other: Date of Last Bowel Movement 08/26/18 08/26/18 Result Diagrams: 08/29/18 06:00 08/29/18 06:00 Laboratory Results: Laboratory Results - last 24 hr 08/29/18 08/29/18 08/30/18 16:56 21:06 03:16 POC Glucose 195 H 112 H 105 08/30/18 08/30/18 07:51 11:45 POC Glucose 134 H 104 Medications: Active Medications Generic Name Dose Route Start Last Admin Trade Name Freq PRN Reason Stop Dose Admin Amlodipine Besylate 10 mg 08/29/18 09:00 08/30/18 09:43 Norvasc PO 10 mg DAILY LORIE Administration Potassium Chloride/Sodium Chloride 1,000 mls @ 70 mls/hr 08/28/18 03:45 08/30 00:22 Ns + Kcl 20 Meq Inj IV.CONT 70 mls/hr .[id number] LORIE Administration Ceftriaxone Sodium 1,000 mg/ 100 mls @ 200 mls/hr 08/29/18 04:00 08/30/18 05: 02 Sodium Chloride IV.SIG Infused Q24H LORIE Infusion Azithromycin 500 mg/ Sodium 250 mls @ 250 mls/hr 08/29/18 09:00 08/30/18 14: 59 Chloride IV.SIG Infused Q24H LORIE Infusion Insulin Aspart 0 unit 08/28/18 08:00 08/30/18 12:50 Novolog Insulin Correctional Sugar Inj SQ Not Given ACHS AND 3AM LORIE Protocol Lactulose 320 ml 08/29/18 16:42 08/29/18 16:59 Lactulose Liq PO 30 ml DAILY PRN Administration CONSTIPATION Morphine Sulfate 10 mg 08/28/18 13:29 08/30/18 14:19 Roxanol Liq PO 10 mg Q3H PRN Administration PAIN 6-10 Pantoprazole Sodium 40 mg 08/28/18 04:00 08/30/18 15:00 Protonix Inj IV.PUSH 40 mg Q12H LORIE Administration Senna/Docusate Sodium 1 tab 08/29/18 21:00 08/30/18 09:43 Poly-Colace PO 1 tab BID LORIE Administration Objective Remarks: GENERAL: Disheveled male patient, in no acute distress. SKIN: Warm and dry. HEAD: Normocephalic. EYES: No scleral icterus. No injection or drainage. NECK: Supple, trachea midline. CARDIOVASCULAR: Regular rate and rhythm without murmurs. RESPIRATORY: Breath sounds equal bilaterally. No accessory muscle use. GASTROINTESTINAL: Abdomen soft, non-tender, nondistended. Gauze dressing to LUQ dry/intact. EXTREMITIES: No cyanosis, or edema. MUSCULOSKELETAL: Adequate muscle tone. NEUROLOGICAL: No obvious focal deficit. Sleeping, awakens easily to voice, alert, and oriented x3. PSYCHIATRIC: Appropriate mood and affect; insight and judgment normal. Assessment/Plan - Plan Mr. 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 He has no evidence of metastatic disease. An attempt at outpatient evaluation and treatment was unsuccessful. The patient has limited resources and is essentially homeless. He has little insight and does not have the ability to direct his own care. Recommendations: 1. Status post PEG tube placement today. 2. IR consulted for port placement. Patient will need combined chemo and radiation. 3. Consult placed to case management, patient will need to go to an assisted living facility and start treatment as soon as possible. 4. Pending radiation simulation tomorrow. - Attending Statement The exam, history, and the medical decision-making described in the above note were completed with the assistance of the mid-level provider. I reviewed and agree with the findings presented. I attest that I had a [id number] encounter with the patient on the same day, and personally performed and documented my assessment and findings in the medical record. 68 yoM with locally advanced esophageal cancer, concurrent chemotherapy and radiation therapy.
--- NOTE | 2018-08-30 18:31 | GIPROC ---
[facility] [address] [facility]. [facility], [address] EGD WITH PEG PROCEDURE REPORT EXAM DATE: 08/30/2018 PATIENT NAME: Aquiles Miller MR#: [id number] BIRTHDATE: 1950 ATTENDING: Charo Chandler MD ORDER #: [id number] SALES SUPERVISOR: Kristine Nino Stienbarger, Terrie, and Lizzie Redmond STATUS: inpatient INDICATIONS: The patient is a 68 yr old male here for an EGD with PEG due to dysphagia PROCEDURE PERFORMED: EGD with PEG placement MEDICATIONS: Per Anesthesia and None. TOPICAL ANESTHETIC: none CONSENT: The patient understands the risks and benefits of the procedure and understands that these risks include, but are not limited to: sedation, allergic reaction, infection, perforation and/or bleeding. Alternative means of evaluation and treatment include, among others: physical exam, x-rays, and/or surgical intervention. The patient elects to proceed with this endoscopic procedure. medical equipment was checked for proper function. Hand hygiene and appropriate measures for infection prevention was taken. After the risks, benefits and alternatives of the procedure were thoroughly explained, Informed consent was verified, confirmed and timeout was successfully executed by the treatment team. The patient was anesthetized with topical anesthesia and the Pentax [id number] endoscope was introduced through the mouth and advanced to the second portion of the duodenum. The instrument was slowly withdrawn as the mucosa was fully examined. A mass was found in the mid esophagus. almost obstructing lesion. The duodenal bulb was normal in appearance, as was the postbulbar duodenum. The stomach was then inflated with air, and by a combination of transillumination and manual palpation, the site for the gastrostomy tube placement was selected and marked on the anterior abdominal wall. The skin of the anterior abdomen was surgically prepped and draped with sterile towels. Utilizing strict sterile technique, the selected site was then anesthetized with 1% xylocaine by injection into the skin and subcutaneous tissue. A 1 cm incision was made through the skin and subcutaneous tissue, and the needle/cannula assembly was then passed through the abdominal wall and through the anterior wall of the stomach, maintaining visualization with the endoscope. A snare device previously placed through the instrument channel was then opened and placed around the cannula, the needle was removed, and the insertion wire was passed through the cannula and into the stomach lumen. The snare was then loosened from the cannula, and repositioned to snare the insertion wire. The snare was then pulled up to the endoscope distal tip, and the scope was then withdrawn bringing with it the snare and insertion wire. The insertion wire was then released from the snare, and then loop-attached to the Bard 22 Fr gastrostomy tube. Using the "pull technique", the G-tube was then pulled into place by traction on the insertion wire at the abdominal wall end. The G-tube insertion site was then cleansed once again, and the external bolster was placed over the tube to secure it to the abdominal wall. A sterile dressing was then applied, and the procedure terminated. no abnormalities The gastroscope was then slowly withdrawn and removed. ADVERSE EVENT: There were no complications. IMPRESSIONS: 1. A mass was found in the mid esophagus 2. 22 F PEG tube placed successfully. RECOMMENDATIONS: PEG recomendations: 1- NPO for 6 hours except for meds 2- Flush PEG tube every 6 hours with water and after each PEG feeding 3- May resume regular diet in the morning 4- May use Ensure or Boost etc. for PEG tube feeding REPEAT EXAM: procedure as needed Charo Chandler MD eSigned: Charo Chandler MD 08/30/2018 6:31 PM cc: PATIENT NAME: Aquiles Miller MR#: [id number]
[2018-08-31] MEDS: Pantoprazole Inj 40 MG Vial IV.PUSH SCH ×2 (03:15→16:49)
[2018-08-31] MEDS: Insulin NovoLOG Aspart Correctional Sugar Inj SQ SCH ×5 (03:56→21:23)
[2018-08-31 06:45] LABS: Baso % (Auto) 0.3 % (0.0-2.0); Eos # (Auto) 0.1 th/mm3 (0.0-0.4); Eos % (Auto) 0.7 % (0.0-4.0); Hematocrit 28.1 % (39.0-51.0); Hemoglobin 9.7 gm/dL (13.0-17.0); Lymph # (Auto) 1.7 th/mm3 (1.0-4.8); Lymph % (Auto) 11.3 % (9.0-44.0); Mean Corpuscular HGB Conc 34.6 % (32.0-36.0); Mean Corpuscular Hemoglobin 29.8 pg (27.0-34.0); Mean Corpuscular Volume 86.1 fL (80.0-100.0); Mean Platelet Volume 7.5 fL (7.0-11.0); Mono # (Auto) 0.8 th/mm3 (0.0-0.9); Mono % (Auto) 5.3 % (0.0-8.0); Neut # (Auto) 12.5 th/mm3 (1.8-7.7); Neut % (Auto) 82.4 % (16.0-70.0); Platelet Count 250 th/mm3 (150-450); Red Blood Count 3.26 mil/mm3 (4.50-5.90); Red Cell Distribution Width 13.5 % (11.6-17.2); White Blood Count 15.1 th/mm3 (4.0-11.0)
[2018-08-31 06:51] LABS: Alanine Aminotransferase 9 U/L (12-78); Albumin 1.7 g/dL (3.4-5.0); Anion Gap 6 meq/L (5-15); Aspartate Aminotransferase 9 U/L (15-37); Blood Urea Nitrogen 16 mg/dL (7-18); Calcium 7.8 mg/dL (8.5-10.1); Carbon Dioxide 25.9 meq/L (21.0-32.0); Chloride 106 meq/L (98-107); Glomerular Filtration Rate 49 mL/min (>89); Glucose,Random 236 mg/dL (74-106); Potassium 3.6 meq/L (3.5-5.1); Sodium 138 meq/L (136-145)
[2018-08-31 06:53] LABS: Alkaline Phosphatase 109 U/L (45-117); Total Protein 5.4 g/dL (6.4-8.2)
[2018-08-31] MEDS ORDERED: fentaNYL Citrate Inj 250 MCG/5 ML Ampul ONE (08:06)
[2018-08-31] MEDS ORDERED: Heparin Central Flush 100 UNIT/ML 5 ML Vial IV.FLUSH ONE (08:33)
[2018-08-31] MEDS ORDERED: Lidocaine 1%/Epinephrine 1:100,000 Inj 30 ML Vial ONE (08:33)
[2018-08-31] MEDS ORDERED: Heparin Central Flush 100 UNIT/ML 5 ML Vial IV.FLUSH PRN ×2 (08:54)
--- NOTE | 2018-08-31 08:56 | P.RAD ---
Post Procedure Progress Note - Procedure Information Procedure Date: 08/31/18 Supervising Radiologist: Niles Hardy MD Estimated blood loss (mL): 0 Anesthesia: Conscious Sedation - Plan of Activity Patient to Unit: ROPU Patient Condition: Good See PACS Report for procedural detail/treatment.
--- NOTE | 2018-08-31 09:21 | IR ---
EXAM DATE: 08/31/2018 9:18 AM EST AGE/SEX: 68 years / Male INDICATIONS: Patient with recent diagnosis of esophageal cancer. Will be receiving radiation and paula motherapy. CLINICAL DATA: This is the patient's initial encounter. Patient reports that signs and symptoms have been present for 2 months and indicates a pain score of 0/10. MEDICAL/SURGICAL HISTORY: Diabetes. Hypertension. esophageal cancer. former smoker Inguinal h ernia repair. wrist surgery COMPARISON: No prior exams available for comparison. FLUORO TIME (min): 0.2 IMAGE SERIES: 2 SEDATION TIME (min): 30 MEDICATION(S): 2 mg midazolam (Versed) IV 100mcg fentanyl (Sublimaze) IV Prophylactic antibiotics were administered with appropriate pre-procedure timing. Vancomycin within 2 hrs of procedure, Ancef (or alternative) within 1 hr of procedure. DEVICE(S): Right 8 FR XCELA PLUS PORT . . PROCEDURE : 1. Continuous pulse oximetry and EKG monitoring. 2. Intravenous conscious sedation. 3. Ultrasound guidance for venous access. 4. Fluoroscopic guided implantable central venous port placement. The patient was placed supine. The neck was prepped in sterile fashion. Full sterile technique was u sed, including cap, mask, sterile gloves and gown, and a large sterile sheet. Hand hygiene and 2% ch lorhexidine Betadine was utilized per protocol for cutaneous antisepsis with appropriate dry time for site. Sterile gel and sterile probe cover were utilized for ultrasound guidance. The skin and sub cutaneous tissues were infiltrated with local anesthetic solution. Under direct ultrasound guidance, central venous access was accomplished in the targeted vessel. The ultrasound images depicting access guidance were stored and saved to PACS for permanent record. A s ubcutaneous pocket was created using blunt dissection. The port was introduced to the pocket. The c atheter tubing was fed through a subcutaneous tunnel to the venotomy site. The catheter tubing was c ut to a suitable length and then was introduced through a valved Peel-Away sheath and positioned with catheter tubing tip at the cavo-atrial junction level. The pocket incision was closed with subcutic ular Vicryl suture. Steri-Strips were applied. The port was flushed and locked with heparin solutio n per protocol. Sterile dressing was applied to the site. The patient tolerated the procedure well. Conscious sedation was performed with the prescribed dosages and duration as above in the presence of an independent trained radiology nurse to assist in the monitoring of the patient. EKG and oximetry remained stable throughout the procedure. The patient tolerated the procedure well and there were no complications. The patient was sent to post anesthesia recovery in stable condition. CONCLUSION: 1. Uncomplicated ultrasound and fluoroscopic guided implanted central venous port catheter placement as described in detail above. An 8 Greek Power port was placed. Electronically signed by: Niles Hardy MD 08/31/2018 9:20 AM EST
[2018-08-31] MEDS: Azithromycin Inj 500 MG in Sodium Chlor 0.9% Inj 250 ML IV.SIG SCH (11:44)
[2018-08-31] MEDS: amLODIPine 10 MG Tablet PO SCH (11:44)
[2018-08-31] MEDS: Senna/Docusate Sodium 8.6/50 MG Tablet PO SCH ×2 (11:44→23:13)
--- NOTE | 2018-08-31 14:07 | P.PN ---
Subjective Interval history: Follow-up history of throat/esophageal cancer//dysphagia August 28, 2018-patient seen and examined, states he was able to tolerate pured diet after passing swallow eval. Denies any significant shortness of breath. August 29, 2018-patient seen and examined, states he had a good night sleep.. Denies any shortness of breath. August 30, 2018-patient seen and examined, currently NPO. no complaint . Plan for PEG placement as well as CT stimulation today August 31, 2018-patient seen and examined, he is s/p port infusion placement. Plan for rad stimulation today. Otherwise stable Physical Exam Vital signs: Vital Signs 08/30/18 16:35 08/30/18 16:40 08/30/18 19:27 Temperature 98.9 F 100.5 F H Pulse Rate 100 H 87 116 H Respiratory Rate 16 18 Blood Pressure 140/79 161/87 H Pulse Oximetry 96 100 08/30/18 20:49 08/30/18 23:54 08/31/18 00:00 Temperature 99.2 F Pulse Rate 100 H 108 H 100 H Respiratory Rate 18 Blood Pressure 136/81 Pulse Oximetry 94 L 08/31/18 03:22 08/31/18 04:04 08/31/18 07:00 Temperature 99.7 F H Pulse Rate 91 H 84 Respiratory Rate 16 14 Blood Pressure 116/72 Pulse Oximetry 93 L 08/31/18 09:10 08/31/18 09:13 08/31/18 09:25 Temperature 98.1 F 98.4 F Pulse Rate 89 112 H 83 Respiratory Rate 16 16 16 Blood Pressure 131/77 131/77 147/86 H Pulse Oximetry 93 L 96 96 08/31/18 10:09 08/31/18 10:43 08/31/18 11:09 Temperature 98.3 F Pulse Rate 110 H 110 H 101 H Respiratory Rate 16 16 Blood Pressure 138/84 132/86 Pulse Oximetry 97 94 L 08/31/18 12:00 Temperature Pulse Rate 101 H Respiratory Rate Blood Pressure Pulse Oximetry Intake & Output 08/30/18 08/31/18 08/31/18 18:59 06:59 18:59 Intake Total 1890 / 1890 350 / 350 300 / 300 Output Total 675 / 675 550 / 550 Balance 1215 / 1215 -200 / -200 300 / 300 Weight 68.7 kg Intake: IV 1250 / 1250 110 / 110 300 / 300 NS + KCl 20 mEq Inj 1,000 ML @ 1000 / 1000 70 mls/hr IV.CONT .[id number] [facility] Rx#:[id number] Azithromycin Inj 500 MG In NS 250 / 250 Inj 250 ML @ 250 mls/hr IV.SIG Q24H [facility] Rx#:[id number] Vancomycin Inj 1,000 MG In NS 250 / 250 Inj 250 ML @ 250 mls/hr IV.SIG [employer]AME SAMPLE [employer]TERN SUPERVISOR [facility] Rx#:[id number] Ancef 2 GM Premix Inj 2 gm In 50 / 50 50 ml @ 100 mls/hr IV.SIG [employer]PERVISOR [facility] Rx#:[id number] Rocephin Inj 1,000 MG In NS Inj 110 / 110 100 ML @ 200 mls/hr IV.SIG Q24H [facility] Rx#:[id number] Oral 240 / 240 240 / 240 Anesthesia Amount 400 / 400 Output: Urine 675 / 675 550 / 550 Other: # Voids 200 Date of Last Bowel Movement 08/26/18 08/26/18 Narrative: Gen.: NAD Head: Normocephalic. Atraumatic. EENT: Pupils equal round and reactive to light. Nose without drainage. Airway intact. Throat without injection. Cardiovascular: Regular rate and rhythm. No murmurs, rubs or gallops. Port infusion in anterior right chest Respiratory: Lungs clear to auscultation bilaterally. No wheezes or rhonchi. Abdomen: Soft, nontender, nondistended. No peritoneal signs.+BS. PEG tube in place Musculoskeletal: No gross deformities. No edema. Skin: No obvious rashes or erythema. Neuro: Sensory and motor grossly intact. Cranial nerves II through XII grossly intact. Results - Labs CBC & Chem 7: 08/31/18 05:54 08/31/18 05:54 Laboratory Results - last 24 hr 08/30/18 08/30/18 08/31/18 17:20 21:17 03:14 WBC RBC Hgb Hct MCV MCH MCHC RDW Plt Count MPV Neut % (Auto) Lymph % (Auto) [place] % (Auto) Eos % (Auto) Baso % (Auto) Neut # (Auto) Lymph # (Auto) [place] # (Auto) Eos # (Auto) Baso # (Auto) WBC Differential Differential Comment Sodium Potassium Chloride Carbon Dioxide Anion Gap BUN Creatinine Estimated GFR POC Glucose 128 H 116 H 253 H Random Glucose Calcium Total Bilirubin AST ALT Alkaline Phosphatase Total Protein Albumin 08/31/18 08/31/18 08/31/18 05:54 05:54 08:02 WBC 15.1 H RBC 3.26 L Hgb 9.7 L Hct 28.1 L MCV 86.1 MCH 29.8 MCHC 34.6 RDW 13.5 Plt Count 250 MPV 7.5 Neut % (Auto) 82.4 H Lymph % (Auto) 11.3 [place] % (Auto) 5.3 Eos % (Auto) 0.7 Baso % (Auto) 0.3 Neut # (Auto) 12.5 H Lymph # (Auto) 1.7 [place] # (Auto) 0.8 Eos # (Auto) 0.1 Baso # (Auto) 0.0 WBC Differential . Differential Comment Auto diff final Sodium 138 Potassium 3.6 Chloride 106 Carbon Dioxide 25.9 Anion Gap 6 BUN 16 Creatinine 1.43 H Estimated GFR 49 L POC Glucose 183 H Random Glucose 236 H Calcium 7.8 L Total Bilirubin 0.3 AST 9 L ALT 9 L Alkaline Phosphatase 109 Total Protein 5.4 L D Albumin 1.7 L 08/31/18 12:35 WBC RBC Hgb Hct MCV MCH MCHC RDW Plt Count MPV Neut % (Auto) Lymph % (Auto) [place] % (Auto) Eos % (Auto) Baso % (Auto) Neut # (Auto) Lymph # (Auto) [place] # (Auto) Eos # (Auto) Baso # (Auto) WBC Differential Differential Comment Sodium Potassium Chloride Carbon Dioxide Anion Gap BUN Creatinine Estimated GFR POC Glucose 175 H Random Glucose Calcium Total Bilirubin AST ALT Alkaline Phosphatase Total Protein Albumin - Imaging Impressions Port Line Insertion 08/31/18 00:00 CONCLUSION: 1. Uncomplicated ultrasound and fluoroscopic guided implanted central venous port catheter placement as described in detail above. An 8 [place] Power port was placed. - Procedures s/p PEG tube placement 08/30/18 s/p Port infusion placement 08/31/18 Assessment and Plan - Assessment (1) Severe protein-calorie malnutrition Code(s): E43 - Unspecified severe protein-calorie malnutrition Status: Acute - Plan 68-year-old man with 1. 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 Awaiting for Rad stimulation today 08/31/18. Appreciate input from Radiation Oncology 2. Dysphagia Speech therapy consulted and patient currently on pured thin liquid diet Appreciate input from GI s/p PEG tube placement 08/30/18 3. Aspiration pneumonia Currently on azithromycin and Rocephin Aspiration precautions Duo Neb PRN 4. Diabetes mellitus Holding home glipizide Continue insulin scale Monitor blood glucose 5. Hypertension/hyperlipidemia Continue outpatient medications including Norvasc, statin 6. CKD Renal indices improving with Gentle IVF hydration Monitor renal function 7. Severe protein calorie malnutrition first responder consulted 8. DVT prophylaxis: B-SCDs
[2018-08-31] MEDS: Morphine Sulfate Oral Liq 10 MG/0.5 ML Syringe PO PRN (18:19)
--- NOTE | 2018-08-31 19:04 | P.PNGI ---
Subjective Interval history: Patient sitting up in bed eating dinner meal left pured diet PEG tube in place dressing dry and intact patient denies any discomfort No signs of infection noted States tolerating bolus feedings well <GrayIngrid - Last Filed: 08/31/18 18:59> Physical Exam Vital signs: Vital Signs 08/30/18 19:27 08/30/18 20:49 08/30/18 23:54 Temperature 100.5 F H Pulse Rate 116 H 100 H 108 H Respiratory Rate 18 Blood Pressure 161/87 H Pulse Oximetry 100 08/31/18 00:00 08/31/18 03:22 08/31/18 04:04 Temperature 99.2 F 99.7 F H Pulse Rate 100 H 91 H 84 Respiratory Rate 18 16 Blood Pressure 136/81 116/72 Pulse Oximetry 94 L 93 L 08/31/18 07:00 08/31/18 09:10 08/31/18 09:13 Temperature 98.1 F 98.4 F Pulse Rate 89 112 H Respiratory Rate 14 16 16 Blood Pressure 131/77 131/77 Pulse Oximetry 93 L 96 08/31/18 09:25 08/31/18 10:09 08/31/18 10:43 Temperature Pulse Rate 83 110 H 110 H Respiratory Rate 16 16 Blood Pressure 147/86 H 138/84 Pulse Oximetry 96 97 08/31/18 11:09 08/31/18 12:00 08/31/18 16:00 Temperature 98.3 F Pulse Rate 101 H 101 H 104 H Respiratory Rate 16 Blood Pressure 132/86 Pulse Oximetry 94 L 08/31/18 16:54 08/31/18 18:52 Temperature 98.5 F Pulse Rate 91 H Respiratory Rate 16 16 Blood Pressure 153/97 H Pulse Oximetry 98 Intake & Output 08/30/18 08/31/18 08/31/18 18:59 06:59 18:59 Intake Total 1890 / 1890 350 / 350 1540 / 1540 Output Total 675 / 675 550 / 550 625 / 625 Balance 1215 / 1215 -200 / -200 915 / 915 Weight 68.7 kg Intake: IV 1250 / 1250 110 / 110 1300 / 1300 NS + KCl 20 mEq Inj 1,000 ML @ 1000 / 1000 1000 / 1000 70 mls/hr IV.CONT .[id number] [facility] Rx#:[id number] Azithromycin Inj 500 MG In NS 250 / 250 Inj 250 ML @ 250 mls/hr IV.SIG Q24H [facility] Rx#:[id number] Vancomycin Inj 1,000 MG In NS 250 / 250 Inj 250 ML @ 250 mls/hr IV.SIG [employer] SALESPERSON [facility] Rx#:[id number] Ancef 2 GM Premix Inj 2 gm In 50 / 50 50 ml @ 100 mls/hr IV.SIG [employer] SALESPERSON [facility] Rx#:[id number] Rocephin Inj 1,000 MG In NS Inj 110 / 110 100 ML @ 200 mls/hr IV.SIG Q24H [facility] Rx#:[id number] Oral 240 / 240 240 / 240 240 / 240 Anesthesia Amount 400 / 400 Output: Urine 675 / 675 550 / 550 625 / 625 Other: # Voids 200 Date of Last Bowel Movement 08/26/18 08/26/18 - Constitutional no acute distress, chronically ill appearing - Routine HEENT Exam Head: Present: normocephalic - Routine Respiratory Exam Present: CTA bilaterally - Routine Abdominal Exam Present: soft, normoactive bowel sounds, ostomy. Absent: tenderness, distended , guarding, firm - Routine Skin Exam Present: dry, warm - Routine Neurological Exam Present: alert <Gray,Ingrid - Last Filed: 08/31/18 18:59> Vital signs: Vital Signs 08/31/18 16:00 08/31/18 16:54 08/31/18 18:52 Temperature 98.5 F Pulse Rate 104 H 91 H Respiratory Rate 16 16 Blood Pressure 153/97 H Pulse Oximetry 98 08/31/18 20:00 09/01/18 00:00 09/01/18 04:00 Temperature 98.7 F 99.1 F 99.5 F Pulse Rate 104 H 103 H 108 H Respiratory Rate 20 16 16 Blood Pressure 138/94 H 138/83 150/96 H Pulse Oximetry 93 L 94 L 93 L 09/01/18 07:00 09/01/18 08:00 09/01/18 09:00 Temperature 97.8 F Pulse Rate 94 H 90 92 H Respiratory Rate 20 Blood Pressure 131/91 H Pulse Oximetry 96 09/01/18 10:00 09/01/18 11:00 09/01/18 12:00 Temperature 98.1 F Pulse Rate 96 H 88 92 H Respiratory Rate 18 20 Blood Pressure 146/90 H Pulse Oximetry Intake & Output 08/31/18 09/01/18 09/01/18 18:59 06:59 18:59 Intake Total 1790 / 1790 1000 / 1000 Output Total 625 / 625 450 / 450 Balance 1165 / 1165 550 / 550 Weight 70.6 kg Intake: IV 1550 / 1550 1000 / 1000 NS + KCl 20 mEq Inj 1,000 ML @ 1000 / 1000 1000 / 1000 70 mls/hr IV.CONT .[id number] [facility] Rx#:[id number] Azithromycin Inj 500 MG In NS 250 / 250 Inj 250 ML @ 250 mls/hr IV.SIG Q24H [facility] Rx#:[id number] Vancomycin Inj 1,000 MG In NS 250 / 250 Inj 250 ML @ 250 mls/hr IV.SIG [employer] [facility] Rx#:[id number] Ancef 2 GM Premix Inj 2 gm In 50 / 50 50 ml @ 100 mls/hr IV.SIG [employer] SAL[employer]ERSON [facility] Rx#:[id number] Oral 240 / 240 Output: Urine 625 / 625 450 / 450 Other: Date of Last Bowel Movement 08/26/18 08/31/18 08/31/18 <Charo Anglin A - Last Filed: 09/01/18 14:25> Results - Labs CBC & Chem 7: 08/31/18 05:54 08/31/18 05:54 Laboratory Results - last 24 hr 08/30/18 08/30/18 08/31/18 17:20 21:17 03:14 WBC RBC Hgb Hct MCV MCH MCHC RDW Plt Count MPV Neut % (Auto) Lymph % (Auto) [place] % (Auto) Eos % (Auto) Baso % (Auto) Neut # (Auto) Lymph # (Auto) [place] # (Auto) Eos # (Auto) Baso # (Auto) WBC Differential Differential Comment Sodium Potassium Chloride Carbon Dioxide Anion Gap BUN Creatinine Estimated GFR POC Glucose 128 H 116 H 253 H Random Glucose Calcium Total Bilirubin AST ALT Alkaline Phosphatase Total Protein Albumin 08/31/18 08/31/18 08/31/18 05:54 05:54 08:02 WBC 15.1 H RBC 3.26 L Hgb 9.7 L Hct 28.1 L MCV 86.1 MCH 29.8 MCHC 34.6 RDW 13.5 Plt Count 250 MPV 7.5 Neut % (Auto) 82.4 H Lymph % (Auto) 11.3 [place] % (Auto) 5.3 Eos % (Auto) 0.7 Baso % (Auto) 0.3 Neut # (Auto) 12.5 H Lymph # (Auto) 1.7 [place] # (Auto) 0.8 Eos # (Auto) 0.1 Baso # (Auto) 0.0 WBC Differential . Differential Comment Auto diff final Sodium 138 Potassium 3.6 Chloride 106 Carbon Dioxide 25.9 Anion Gap 6 BUN 16 Creatinine 1.43 H Estimated GFR 49 L POC Glucose 183 H Random Glucose 236 H Calcium 7.8 L Total Bilirubin 0.3 AST 9 L ALT 9 L Alkaline Phosphatase 109 Total Protein 5.4 L D Albumin 1.7 L 08/31/18 12:35 WBC RBC Hgb Hct MCV MCH MCHC RDW Plt Count MPV Neut % (Auto) Lymph % (Auto) [place] % (Auto) Eos % (Auto) Baso % (Auto) Neut # (Auto) Lymph # (Auto) [place] # (Auto) Eos # (Auto) Baso # (Auto) WBC Differential Differential Comment Sodium Potassium Chloride Carbon Dioxide Anion Gap BUN Creatinine Estimated GFR POC Glucose 175 H Random Glucose Calcium Total Bilirubin AST ALT Alkaline Phosphatase Total Protein Albumin - Imaging Impressions Port Line Insertion 08/31/18 00:00 CONCLUSION: 1. Uncomplicated ultrasound and fluoroscopic guided implanted central venous port catheter placement as described in detail above. An 8 [place] Power port was placed. - Procedures s/p PEG tube placement 08/30/18 s/p Port infusion placement 08/31/18 <Ingrid Gray - Last Filed: 08/31/18 18:59> - Labs CBC & Chem 7: 08/31/18 05:54 08/31/18 05:54 Laboratory Results - last 24 hr 08/31/18 08/31/18 09/01/18 16:36 21:19 03:16 POC Glucose 201 H 206 H 173 H 09/01/18 12:21 POC Glucose 214 H <Charo Anglin - Last Filed: 09/01/18 14:25> Assessment and Plan (1) Dysphagia Status: Acute Code(s): R13.10 - Dysphagia, unspecified (2) PEG (percutaneous endoscopic gastrostomy) adjustment/replacement/removal Status: Acute Code(s): Z43.1 - Encounter for attention to gastrostomy - Plan This patient is a 68-year-old male with past medical history significant for esophageal cancer diagnosed July 2018, type 2 diabetes and hypertension. Patient presented to the emergency room at [facility] for evaluation of difficulty swallowing. Patient states that he began to have increasing difficulty swallowing 2 days ago. He describes pressure and chest fullness when he attempts to eat meals. Patient spitting saliva into emesis bag during consultation. Patient endorses some coughing and choking with meals. Patient denies any shortness of breath fever or chills. Denies any abdominal pain, nausea or vomiting. Patient denies heartburn. States last EGD was done in July 2018 where in he was found to have a gastric mass. Patient denies ever having had a colonoscopy in the past. Patient denies diarrhea or constipation. Denies any noted bleeding or change in bowel habits. Our service has been consulted to evaluate patient for PEG tube placement PEG tube placement Dysphagia Patient recently diagnosed in July 2018 with esophageal mass. Patient presents to [place] emergency room today with complaint of difficulty swallowing times 2 days. Patient spitting saliva into emesis bag intermittently. Reports some coughing and choking with meals. 07/12/2018 EGD revealed the following: Large partially obstructing mid esophageal mass. Unable to traverse. Multiple biopsies obtained. 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 08/29/2018 -Recent diagnosis of esophageal mass with dysphagia Patient presented to [facility] with complaint of difficulty swallowing. Clear liquid diet, patient states tolerating without coughing or choking. -EGD and pathology report as noted above -PEG tube placement planned for 08/30/2018 -Hemoglobin 10.2 hematocrit 29.1 08/31/[address] without any noted signs of infection Patient tolerating bolus feedings well without any reported nausea or vomiting 08/30/2018 PEG tube placement-- 1. A mass was found in the mid esophagus 2. 22 F PEG tube placed successfully. Plan -Diet as per dietitian recommendation -Bolus feedings as per dietary -Flush PEG every 6 hours with water and after each feeding -Check residuals as ordered per protocol -Aspiration precautions -Pantoprazole 40 mg IV every 12 -Analgesics and antiemetics as per attending -Supportive care GI will sign off at this time please reconsult when needed This patient has been seen by myself and Dr. Anglin and this note is written on his behalf - Attending Attestation Dr. anglin <Ingrid Gray - Last Filed: 08/31/18 18:59> (1) Dysphagia Status: Acute Code(s): R13.10 - Dysphagia, unspecified (2) PEG (percutaneous endoscopic gastrostomy) adjustment/replacement/removal Status: Acute Code(s): Z43.1 - Encounter for attention to gastrostomy - Attending Attestation Agree with the plan as above. Please notify us if needed again. <Charo Anglin - Last Filed: 09/01/18 14:25>
[2018-09-01] MEDS: Insulin NovoLOG Aspart Correctional Sugar Inj SQ SCH ×5 (03:20→23:51)
[2018-09-01] MEDS: Pantoprazole Inj 40 MG Vial IV.PUSH SCH ×2 (03:21→16:43)
[2018-09-01] MEDS: Azithromycin Inj 500 MG in Sodium Chlor 0.9% Inj 250 ML IV.SIG SCH (08:19)
[2018-09-01] MEDS: Senna/Docusate Sodium 8.6/50 MG Tablet PO SCH ×2 (08:20→23:51)
[2018-09-01] MEDS: amLODIPine 10 MG Tablet PO SCH (08:20)
[2018-09-01] MEDS: Morphine Sulfate Oral Liq 10 MG/0.5 ML Syringe PO PRN ×3 (08:36→23:57)
[2018-09-01] MEDS ORDERED: Diatrizoate Meglum/Diatrizoate Sod Liq 9 ML UDC PO ONE (12:16)
--- NOTE | 2018-09-01 17:05 | P.PN ---
Subjective Interval history: awake and alert tolerting pureed diet motivated with physical therapy if too much- sensation of food getting stuck Physical Exam Vital signs: Vital Signs 08/31/18 18:52 08/31/18 20:00 09/01/18 00:00 Temperature 98.7 F 99.1 F Pulse Rate 104 H 103 H Respiratory Rate 16 20 16 Blood Pressure 138/94 H 138/83 Pulse Oximetry 93 L 94 L 09/01/18 04:00 09/01/18 07:00 09/01/18 08:00 Temperature 99.5 F 97.8 F Pulse Rate 108 H 94 H 90 Respiratory Rate 16 20 Blood Pressure 150/96 H 131/91 H Pulse Oximetry 93 L 96 09/01/18 09:00 09/01/18 10:00 09/01/18 11:00 Temperature Pulse Rate 92 H 96 H 88 Respiratory Rate 18 Blood Pressure Pulse Oximetry 09/01/18 12:00 09/01/18 14:00 09/01/18 15:00 Temperature 98.1 F Pulse Rate 92 H 96 H 82 Respiratory Rate 20 Blood Pressure 146/90 H Pulse Oximetry 09/01/18 15:51 09/01/18 15:52 Temperature 98.6 F Pulse Rate 82 96 H Respiratory Rate 20 Blood Pressure 162/89 H Pulse Oximetry Intake & Output 08/31/18 09/01/18 09/01/18 18:59 06:59 18:59 Intake Total 1790 / 1790 1000 / 1000 350 / 350 Output Total 625 / 625 450 / 450 Balance 1165 / 1165 550 / 550 350 / 350 Weight 70.6 kg Intake: IV 1550 / 1550 1000 / 1000 350 / 350 NS + KCl 20 mEq Inj 1,000 ML @ 1000 / 1000 1000 / 1000 70 mls/hr IV.CONT .[id number] [facility] Rx#:[id number] Azithromycin Inj 500 MG In NS 250 / 250 250 / 250 Inj 250 ML @ 250 mls/hr IV.SIG Q24H [facility] Rx#:[id number] Vancomycin Inj 1,000 MG In NS 250 / 250 Inj 250 ML @ 250 mls/hr IV.SIG MARINE MECHANIC [facility] Rx#:[id number] Ancef 2 GM Premix Inj 2 gm In 50 / 50 50 ml @ 100 mls/hr IV.SIG MARINE MECHANIC [facility] Rx#:[id number] Rocephin Inj 1,000 MG In NS Inj 100 / 100 100 ML @ 200 mls/hr IV.SIG Q24H [facility] Rx#:[id number] Oral 240 / 240 Output: Urine 625 / 625 450 / 450 Other: Date of Last Bowel Movement 08/26/18 08/31/18 08/31/18 Narrative: Gen.:awake and alert, no acute distress Head: Normocephalic. Atraumatic. anicteric Cardiovascular: Regular rate and rhythm. Port in place - right side of [facility] chest Respiratory: Lungs clear to auscultation bilaterally. No wheezes or rhonchi. Abdomen: Soft, nontender, nondistended. No peritoneal signs.+BS. PEG tube in place Musculoskeletal: No gross deformities. No edema.moves all extremities spontaenouslyu, no calf tenderness up with a walker Skin: No obvious rashes or erythema. Neuro: Sensory and motor grossly intact. Cranial nerves II through XII grossly intact. Results - Labs CBC & Chem 7: 08/31/18 05:54 08/31/18 05:54 Laboratory Results - last 24 hr 08/31/18 08/31/18 09/01/18 16:36 21:19 03:16 POC Glucose 201 H 206 H 173 H 09/01/18 09/01/18 12:21 16:42 POC Glucose 214 H 143 H - Procedures s/p PEG tube placement 08/30/18 s/p Port infusion placement 08/31/18 Assessment and Plan - Assessment (1) Severe protein-calorie malnutrition Code(s): E43 - Unspecified severe protein-calorie malnutrition Status: Acute - Plan 68-year-old man with 1. 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 had Rad stimulation Appreciate input from Radiation Oncology 2. Dysphagia Speech therapy consulted and patient currently on pured thin liquid diet Appreciate input from GI s/p PEG tube placement 08/30/18- continue TF to meet nutritional requirement 3. Aspiration pneumonia Currently on azithromycin and Rocephin Aspiration precautions Duo Neb PRN 4. Diabetes mellitus Holding home glipizide Continue insulin scale Monitor blood glucose 5. Hypertension/hyperlipidemia Continue outpatient medications including Norvasc, statin 6. CKD Renal indices improving with Gentle IVF hydration Monitor renal function 7. Severe protein calorie malnutrition store promoter consulted 8. DVT prophylaxis: B-SCDs
--- NOTE | 2018-09-01 17:55 | CT ---
EXAM DATE: 09/01/2018 5:48 PM EST AGE/SEX: 68 years / Male INDICATIONS: Esophageal mass, evaluate for metastatic disease to liver. CLINICAL DATA: This is the patient's initial encounter. Patient reports that signs and symptoms have been present for 1 day and indicates a pain score of 0/10. MEDICAL/SURGICAL HISTORY: Carcinoma, esophageal. Diabetes. Hypertension. None. ORAL CONTRAST: Prescribed oral contrast ingested. RADIATION DOSE: 14.71 CTDI (mGy) COMPARISON: [facility] [place], CT ABDOMEN & PELVIS W CONTRAST, 07/12/2018. . TECHNIQUE: Multiple contiguous axial images were obtained through the abdomen following bolus infusi on of 90 ml Omnipaque 350 (iohexol) nonionic water-soluble contrast as a single exam dose. Prescrib ed oral contrast ingested. Using automated exposure control and adjustment of the mA and/or kV accor ding to patient size, radiation dose was kept as low as reasonably achievable to obtain optimal diagn ostic quality images. DICOM format image data is available electronically for review and comparison. FINDINGS: Lower Lungs: Abnormal appearance of the visualized distal esophagus, incompletely seen. Small bilater al effusions with adjacent compressive lung atelectasis. Liver: Cirrhotic liver appearance with nodular surface contours and prominent relative enlargement of the caudate and left lobe. No evidence of focal liver mass or biliary ductal dilatation. Moderate as cites. Spleen: Mild splenomegaly. No focal splenic lesion. Pancreas: Unremarkable without mass or calcification. Kidneys: Several right renal cysts. Miniscule stones in the lower pole collecting system, nonobstruc ting. Left kidney is unremarkable. Adrenal Glands: Unremarkable. Aorta/Retroperitoneum: Enlarged lymph nodes in the hepatic hilum, portal caval region, celiac region and upper abdominal para-aortic tissues. Bowel/Mesentery: Gastrostomy tube. Bowel structures are nondilated. Abdominal Wall: Gastrostomy tube Bony Structures: Unremarkable. CONCLUSION: 1. Distal esophageal abnormality and changes in the lung bases as described. 2. Cirrhotic liver appearance and stigmata of portal hypertension including splenomegaly and ascites . 3. Upper abdominal and retroperitoneal lymph node enlargement which is nonspecific 4. Nothing to suggest metastatic disease to the liver parenchyma at present. Electronically signed by: Kris Acharya MD 09/01/2018 5:53 PM EST
[2018-09-02] MEDS: Pantoprazole Inj 40 MG Vial IV.PUSH SCH (03:15)
[2018-09-02] MEDS: Insulin NovoLOG Aspart Correctional Sugar Inj SQ SCH ×5 (03:21→20:44)
[2018-09-02] MEDS: amLODIPine 10 MG Tablet PO SCH (08:53)
[2018-09-02] MEDS: Senna/Docusate Sodium 8.6/50 MG Tablet PO SCH ×2 (08:54→20:39)
[2018-09-02] MEDS: Azithromycin Inj 500 MG in Sodium Chlor 0.9% Inj 250 ML IV.SIG SCH (09:03)
[2018-09-02] MEDS: Morphine Sulfate Oral Liq 10 MG/0.5 ML Syringe PO PRN ×2 (10:28→20:39)
--- NOTE | 2018-09-02 15:40 | P.PN ---
Subjective Interval history: awake and alert denies any pain sensation of food stuck when swallos too fast denies any pain nausea or vomiting generalized weakness Physical Exam Vital signs: Vital Signs 09/01/18 15:51 09/01/18 15:52 09/01/18 17:00 Temperature 98.6 F Pulse Rate 82 96 H 88 Respiratory Rate 20 Blood Pressure 162/89 H Pulse Oximetry 09/01/18 17:11 09/01/18 19:00 09/01/18 20:00 Temperature 98.6 F Pulse Rate 90 87 89 Respiratory Rate 16 Blood Pressure 157/89 H Pulse Oximetry 94 L 09/01/18 21:00 09/01/18 22:00 09/01/18 23:00 Temperature Pulse Rate 94 H 87 88 Respiratory Rate Blood Pressure Pulse Oximetry 09/02/18 00:00 09/02/18 01:00 09/02/18 02:00 Temperature 98.2 F Pulse Rate 108 H 86 88 Respiratory Rate 16 Blood Pressure 130/79 Pulse Oximetry 96 09/02/18 03:00 09/02/18 04:00 09/02/18 05:00 Temperature 98.9 F Pulse Rate 92 H 88 88 Respiratory Rate 14 Blood Pressure 141/92 H Pulse Oximetry 95 09/02/18 06:00 Temperature Pulse Rate 91 H Respiratory Rate Blood Pressure Pulse Oximetry Intake & Output 09/01/18 09/02/18 09/02/18 18:59 06:59 18:59 Intake Total 890 / 890 1300 / 1300 1350 / 1350 Output Total 800 / 800 700 / 700 Balance 90 / 90 600 / 600 1350 / 1350 Weight 70.4 kg Intake: IV 350 / 350 1000 / 1000 1350 / 1350 NS + KCl 20 mEq Inj 1,000 ML @ 1000 / 1000 1000 / 1000 70 mls/hr IV.CONT .[id number] LORIE Rx#:[id number] Azithromycin Inj 500 MG In NS 250 / 250 250 / 250 Inj 250 ML @ 250 mls/hr IV.SIG Q24H LORIE Rx#:[id number] Rocephin Inj 1,000 MG In NS Inj 100 / 100 100 / 100 100 ML @ 200 mls/hr IV.SIG Q24H LORIE Rx#:[id number] Oral 540 / 540 300 / 300 Tube Feeding 0 / 0 Output: Urine 800 / 800 700 / 700 Other: Date of Last Bowel Movement 08/31/18 08/31/18 Narrative: Gen.:awake and alert, no acute distress Head: Normocephalic. Atraumatic. anicteric Cardiovascular: Regular rate and rhythm. Port in place - right side of jose chest Respiratory: Lungs- No wheezes or rhonchi. Abdomen: Soft, nontender, nondistended. No peritoneal signs.+BS. PEG tube in place Musculoskeletal: No gross deformities. No edema.moves all extremities spontaenouslyu, no calf tenderness Skin: No obvious rashes or erythema. Neuro: Sensory and motor grossly intact. Cranial nerves II through XII grossly intact. Results - Labs CBC & Chem 7: 08/31/18 05:54 08/31/18 05:54 Laboratory Results - last 24 hr 09/01/18 09/01/18 09/02/18 16:42 21:40 03:12 POC Glucose 143 H 129 H 117 H 09/02/18 12:36 POC Glucose 213 H - Imaging Impressions Abdomen CT 09/01/18 00:00 CONCLUSION: 1. Distal esophageal abnormality and changes in the lung bases as described. 2. Cirrhotic liver appearance and stigmata of portal hypertension including splenomegaly and ascites. 3. Upper abdominal and retroperitoneal lymph node enlargement which is nonspecific 4. Nothing to suggest metastatic disease to the liver parenchyma at present. - Procedures s/p PEG tube placement 08/30/18 s/p Port infusion placement 08/31/18 Assessment and Plan - Assessment (1) Severe protein-calorie malnutrition Code(s): E43 - Unspecified severe protein-calorie malnutrition Status: Acute - Plan 68-year-old man with 1. 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 had Rad stimulation Appreciate input from Radiation Oncology 2. Dysphagia Speech therapy consulted and patient currently on pured thin liquid diet Appreciate input from GI s/p PEG tube placement 08/30/18- continue TF to meet nutritional requirement Speech therapist consulted 3. Aspiration pneumonia Currently on azithromycin and Rocephin Aspiration precautions Duo Neb PRN CBC in am 4. Diabetes mellitus Holding home glipizide Continue insulin scale Monitor blood glucose 5. Hypertension/hyperlipidemia Continue outpatient medications including Norvasc, statin 6. CKD Renal indices improving with Gentle IVF hydration Monitor renal function 7. 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 DVT prophylaxis: B-SCDs
[2018-09-03] MEDS: Insulin NovoLOG Aspart Correctional Sugar Inj SQ SCH ×5 (05:36→20:33)
[2018-09-03] MEDS: Morphine Sulfate Oral Liq 10 MG/0.5 ML Syringe PO PRN (05:42)
[2018-09-03] MEDS: Senna/Docusate Sodium 8.6/50 MG Tablet PO SCH ×2 (08:34→20:29)
[2018-09-03] MEDS: amLODIPine 10 MG Tablet PO SCH (08:35)
[2018-09-03] MEDS: Azithromycin Inj 500 MG in Sodium Chlor 0.9% Inj 250 ML IV.SIG SCH (08:36)
[2018-09-03 08:39] LABS: Baso # (Auto) 0.1 th/mm3 (0.0-0.2); Baso % (Auto) 0.4 % (0.0-2.0); Eos # (Auto) 0.1 th/mm3 (0.0-0.4); Eos % (Auto) 0.8 % (0.0-4.0); Hematocrit 27.2 % (39.0-51.0); Hemoglobin 9.4 gm/dL (13.0-17.0); Lymph # (Auto) 0.9 th/mm3 (1.0-4.8); Lymph % (Auto) 6.1 % (9.0-44.0); Mean Corpuscular HGB Conc 34.5 % (32.0-36.0); Mean Corpuscular Hemoglobin 29.5 pg (27.0-34.0); Mean Corpuscular Volume 85.7 fL (80.0-100.0); Mean Platelet Volume 7.6 fL (7.0-11.0); Mono % (Auto) 6.7 % (0.0-8.0); Neut # (Auto) 12.8 th/mm3 (1.8-7.7); Platelet Count 242 th/mm3 (150-450); Red Blood Count 3.17 mil/mm3 (4.50-5.90); Red Cell Distribution Width 13.6 % (11.6-17.2); White Blood Count 14.9 th/mm3 (4.0-11.0)
[2018-09-03 09:01] LABS: Calcium 7.6 mg/dL (8.5-10.1); Carbon Dioxide 25.8 meq/L (21.0-32.0); Potassium 3.9 meq/L (3.5-5.1)
--- NOTE | 2018-09-03 14:22 | P.PN ---
Subjective Interval history: no pain complains tolerating tube feedings pureed diet- tolerated as long as slow and upright voiding Physical Exam Vital signs: Vital Signs 09/02/18 15:00 09/02/18 16:00 09/02/18 20:00 Temperature 99.2 F Pulse Rate 86 84 104 H Respiratory Rate 20 18 Blood Pressure 139/82 144/90 H Pulse Oximetry 94 L 97 09/02/18 20:23 09/02/18 23:00 09/03/18 00:00 Temperature 99.7 F H Pulse Rate 108 H 91 H Respiratory Rate 16 18 Blood Pressure 139/88 Pulse Oximetry 93 L 09/03/18 04:00 09/03/18 04:07 09/03/18 08:46 Temperature 99.9 F H 99.2 F Pulse Rate 105 H 92 H 95 H Respiratory Rate 16 16 Blood Pressure 146/71 H 146/90 H Pulse Oximetry 94 L 96 09/03/18 11:20 Temperature 99.6 F Pulse Rate 92 H Respiratory Rate 16 Blood Pressure 138/85 Pulse Oximetry 92 L Intake & Output 09/02/18 09/03/18 09/03/18 18:59 06:59 18:59 Intake Total 2150 / 2150 120 / 120 Output Total 680 / 680 525 / 525 Balance 1470 / 1470 -405 / -405 Weight 73.6 kg Intake: IV 1550 / 1550 NS + KCl 20 mEq Inj 1,000 ML @ 1200 / 1200 30 mls/hr IV.CONT .Q24H LORIE Rx# :[id number] Azithromycin Inj 500 MG In NS 250 / 250 Inj 250 ML @ 250 mls/hr IV.SIG Q24H LORIE Rx#:[id number] Rocephin Inj 1,000 MG In NS Inj 100 / 100 100 ML @ 200 mls/hr IV.SIG Q24H LORIE Rx#:[id number] Oral 600 / 600 120 / 120 Output: Urine 680 / 680 525 / 525 Other: # Urine Diapers 1 Date of Last Bowel Movement 08/31/18 08/31/18 08/31/18 Narrative: Gen.:awake and alert, no acute distress Head: Normocephalic. Atraumatic. anicteric Cardiovascular: Regular rate and rhythm. Port in place - right side of the chest Respiratory: Lungs- No wheezes or rhonchi. Abdomen: Soft, nontender, nondistended. No peritoneal signs.+BS. PEG tube in place Musculoskeletal: No gross deformities. No edema.moves all extremities spontaenously, no calf tenderness Skin: No obvious rashes or erythema. Neuro: Sensory and motor grossly intact. Cranial nerves II through XII grossly intact. Results - Labs CBC & Chem 7: 09/03/18 08:05 09/03/18 08:05 Laboratory Results - last 24 hr 09/02/18 09/02/18 09/03/18 15:59 20:42 05:33 WBC RBC Hgb Hct MCV MCH MCHC RDW Plt Count MPV Neut % (Auto) Lymph % (Auto) [place] % (Auto) Eos % (Auto) Baso % (Auto) Neut # (Auto) Lymph # (Auto) [place] # (Auto) Eos # (Auto) Baso # (Auto) WBC Differential Differential Comment Sodium Potassium Chloride Carbon Dioxide Anion Gap BUN Creatinine Estimated GFR POC Glucose 158 H 196 H 197 H Random Glucose Calcium 09/03/18 09/03/18 09/03/18 08:05 08:05 08:32 WBC 14.9 H RBC 3.17 L Hgb 9.4 L Hct 27.2 L MCV 85.7 MCH 29.5 MCHC 34.5 RDW 13.6 Plt Count 242 MPV 7.6 Neut % (Auto) 86.0 H Lymph % (Auto) 6.1 L [place] % (Auto) 6.7 Eos % (Auto) 0.8 Baso % (Auto) 0.4 Neut # (Auto) 12.8 H Lymph # (Auto) 0.9 L [place] # (Auto) 1.0 H Eos # (Auto) 0.1 Baso # (Auto) 0.1 WBC Differential . Differential Comment Auto diff final Sodium 137 Potassium 3.9 Chloride 106 Carbon Dioxide 25.8 Anion Gap 5 BUN 16 Creatinine 1.41 H Estimated GFR 50 L POC Glucose 194 H Random Glucose 181 H Calcium 7.6 L 09/03/18 12:01 WBC RBC Hgb Hct MCV MCH MCHC RDW Plt Count MPV Neut % (Auto) Lymph % (Auto) [place] % (Auto) Eos % (Auto) Baso % (Auto) Neut # (Auto) Lymph # (Auto) [place] # (Auto) Eos # (Auto) Baso # (Auto) WBC Differential Differential Comment Sodium Potassium Chloride Carbon Dioxide Anion Gap BUN Creatinine Estimated GFR POC Glucose 207 H Random Glucose Calcium - Procedures s/p PEG tube placement 08/30/18 s/p Port infusion placement 08/31/18 Assessment and Plan - Assessment (1) Severe protein-calorie malnutrition Code(s): E43 - Unspecified severe protein-calorie malnutrition Status: Acute - Plan 68-year-old man with 1. 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 had Rad stimulation Appreciate input from Radiation Oncology 2. Dysphagia Speech therapy consulted and patient currently on pured thin liquid diet Appreciate input from GI s/p PEG tube placement 08/30/18- continue TF to meet nutritional requirement Speech therapist consulted 3. Aspiration pneumonia Currently on azithromycin and Rocephin- change to po in am Aspiration precautions Duo Neb PRN 4. Diabetes mellitus- BS low 200s Holding home glipizide Continue insulin scale . start on 70/30 5 units bid Monitor blood glucose 5. Hypertension/hyperlipidemia Continue outpatient medications including Norvasc, statin 6. CKD- stable Monitor renal function 7. 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 DVT prophylaxis: B-SCDs ROSA planning- consult BUDDY
--- NOTE | 2018-09-03 17:48 | P.PNONC ---
Subjective Interval history: Resting comfortably in bed in no distress. Objective Vital Signs/Intake & Output: Vital Signs 09/02/18 20:00 09/02/18 20:23 09/02/18 23:00 Temperature 99.2 F Pulse Rate 104 H 108 H Respiratory Rate 18 16 Blood Pressure 144/90 H Pulse Oximetry 97 09/03/18 00:00 09/03/18 04:00 09/03/18 04:07 Temperature 99.7 F H 99.9 F H Pulse Rate 91 H 105 H 92 H Respiratory Rate 18 16 Blood Pressure 139/88 146/71 H Pulse Oximetry 93 L 94 L 09/03/18 08:46 09/03/18 11:20 09/03/18 17:03 Temperature 99.2 F 99.6 F 98.8 F Pulse Rate 95 H 92 H 98 H Respiratory Rate 16 16 18 Blood Pressure 146/90 H 138/85 149/91 H Pulse Oximetry 96 92 L 95 Intake & Output 09/02/18 09/03/18 09/03/18 18:59 06:59 18:59 Intake Total 2150 / 2150 120 / 120 1460 / 1460 Output Total 680 / 680 525 / 525 475 / 475 Balance 1470 / 1470 -405 / -405 985 / 985 Weight 73.6 kg Intake: IV 1550 / 1550 NS + KCl 20 mEq Inj 1,000 ML @ 1200 / 1200 30 mls/hr IV.CONT .Q24H LORIE Rx# :[id number] Azithromycin Inj 500 MG In NS 250 / 250 Inj 250 ML @ 250 mls/hr IV.SIG Q24H LORIE Rx#:[id number] Rocephin Inj 1,000 MG In NS Inj 100 / 100 100 ML @ 200 mls/hr IV.SIG Q24H LORIE Rx#:[id number] Oral 600 / 600 120 / 120 220 / 220 Tube Feeding 640 / 640 Water Bolus Amount 600 / 600 Output: Urine 680 / 680 525 / 525 475 / 475 Other: # Urine Diapers 1 Date of Last Bowel Movement 08/31/18 08/31/18 09/01/18 # Bowel Movements 0 Result Diagrams: 09/03/18 08:05 09/03/18 08:05 Laboratory Results: Laboratory Results - last 24 hr 09/02/18 09/03/18 09/03/18 20:42 05:33 08:05 WBC 14.9 H RBC 3.17 L Hgb 9.4 L Hct 27.2 L MCV 85.7 MCH 29.5 MCHC 34.5 RDW 13.6 Plt Count 242 MPV 7.6 Neut % (Auto) 86.0 H Lymph % (Auto) 6.1 L [place] % (Auto) 6.7 Eos % (Auto) 0.8 Baso % (Auto) 0.4 Neut # (Auto) 12.8 H Lymph # (Auto) 0.9 L [place] # (Auto) 1.0 H Eos # (Auto) 0.1 Baso # (Auto) 0.1 WBC Differential . Differential Comment Auto diff final Sodium Potassium Chloride Carbon Dioxide Anion Gap BUN Creatinine Estimated GFR POC Glucose 196 H 197 H Random Glucose Calcium 09/03/18 09/03/18 09/03/18 08:05 08:32 12:01 WBC RBC Hgb Hct MCV MCH MCHC RDW Plt Count MPV Neut % (Auto) Lymph % (Auto) [place] % (Auto) Eos % (Auto) Baso % (Auto) Neut # (Auto) Lymph # (Auto) [place] # (Auto) Eos # (Auto) Baso # (Auto) WBC Differential Differential Comment Sodium 137 Potassium 3.9 Chloride 106 Carbon Dioxide 25.8 Anion Gap 5 BUN 16 Creatinine 1.41 H Estimated GFR 50 L POC Glucose 194 H 207 H Random Glucose 181 H Calcium 7.6 L 09/03/18 17:00 WBC RBC Hgb Hct MCV MCH MCHC RDW Plt Count MPV Neut % (Auto) Lymph % (Auto) [place] % (Auto) Eos % (Auto) Baso % (Auto) Neut # (Auto) Lymph # (Auto) [place] # (Auto) Eos # (Auto) Baso # (Auto) WBC Differential Differential Comment Sodium Potassium Chloride Carbon Dioxide Anion Gap BUN Creatinine Estimated GFR POC Glucose 167 H Random Glucose Calcium Medications: Active Medications Generic Name Dose Route Start Last Admin Trade Name Freq PRN Reason Stop Dose Admin Amlodipine Besylate 10 mg 08/29/18 09:00 09/03/18 08:35 Norvasc PO 10 mg DAILY LORIE Administration Potassium Chloride/Sodium Chloride 1,000 mls @ 30 mls/hr 08/28/18 03:45 09/03 05:37 Ns + Kcl 20 Meq Inj IV.CONT Not Given .Q24H LORIE Ceftriaxone Sodium 1,000 mg/ 100 mls @ 200 mls/hr 08/29/18 04:00 09/03/18 05: 35 Sodium Chloride IV.SIG 200 mls/hr Q24H LORIE Administration Azithromycin 500 mg/ Sodium 250 mls @ 250 mls/hr 08/29/18 09:00 09/03/18 08: 36 Chloride IV.SIG 250 mls/hr Q24H LORIE Administration Cefazolin Sodium/Dextrose 2 gm in 50 mls @ 100 mls/hr 08/30/18 09:05 08:42 Ancef 2 Gm Premix Inj IV.SIG Infused 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 LORIE Infusion Insulin Aspart 0 unit 08/28/18 08:00 09/03/18 17:10 Novolog Insulin Correctional Sugar Inj SQ 1 unit ACHS AND 3AM LORIE Administration Protocol Insulin Human Isoph/Insulin Regular 5 units 09/03/18 17:00 09/03/18 17:10 Novolin 70/30 Inj SQ 5 units BID@0800,1700 LORIE Administration Lactulose 30 ml 08/30/18 19:30 08/30/18 19:33 Lactulose Liq PO 30 ml DAILY PRN Administration CONSTIPATION Lansoprazole 30 mg 09/03/18 09:00 09/03/18 08:35 Prevacid Solutab NG/OG 30 mg DAILY LORIE Administration Morphine Sulfate 10 mg 08/28/18 13:29 09/03/18 05:42 Roxanol Liq PO 10 mg Q3H PRN Administration PAIN 6-10 Senna/Docusate Sodium 1 tab 08/29/18 21:00 09/03/18 08:34 Poly-Colace PO Not Given BID [facility] Objective Remarks: GENERAL: chronically ill appearing man in no distress SKIN: Warm and dry. HEAD: Normocephalic. EYES: No scleral icterus. No injection or drainage. RESPIRATORY: No accessory muscle use. GASTROINTESTINAL: Abdomen soft, non-tender, nondistended. EXTREMITIES: No cyanosis, or edema. MUSCULOSKELETAL: Adequate muscle tone. NEUROLOGICAL: No obvious focal deficit. Awake, alert, and oriented x3. Assessment/Plan - Plan Mr. 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 He has no evidence of metastatic disease. An attempt at outpatient evaluation and treatment was unsuccessful. The patient has limited resources and is essentially homeless. He has little insight and does not have the ability to direct his own care. 1. Locally advanced esophageal adenocarcinoma: will plan to initiated concurrent chemotherapy and radiation therapy. He is s/p simulation. Will cocordinate care with radiation oncology team. 2. Social issues: awaiting placement in rehab facility.
[2018-09-04] MEDS: Insulin NovoLOG Aspart Correctional Sugar Inj SQ SCH ×3 (04:24→12:10)
[2018-09-04] MEDS: Morphine Sulfate Oral Liq 10 MG/0.5 ML Syringe PO PRN ×3 (04:25→13:07)
[2018-09-04] MEDS: Azithromycin Inj 500 MG in Sodium Chlor 0.9% Inj 250 ML IV.SIG SCH (09:19)
[2018-09-04] MEDS: amLODIPine 10 MG Tablet PO SCH (09:20)
--- NOTE | 2018-09-04 09:41 | P.PN ---
Subjective Interval history: awake and alert, no complains no shrtness of breath cough improved- minmal; toelating puree ddiet and TF Physical Exam Vital signs: Vital Signs 09/03/18 11:00 09/03/18 11:20 09/03/18 15:00 Temperature 99.6 F Pulse Rate 85 92 H 88 Respiratory Rate 16 Blood Pressure 138/85 Pulse Oximetry 92 L 09/03/18 17:03 09/03/18 20:00 09/03/18 20:05 Temperature 98.8 F 99.6 F Pulse Rate 98 H 97 H 90 Respiratory Rate 18 18 Blood Pressure 149/91 H 152/96 H Pulse Oximetry 95 94 L 09/03/18 23:00 09/04/18 00:00 09/04/18 04:00 Temperature 99.3 F 99.4 F Pulse Rate 98 H 95 H 110 H Respiratory Rate 18 18 Blood Pressure 136/77 130/72 Pulse Oximetry 94 L 92 L 09/04/18 04:08 09/04/18 08:18 09/04/18 08:22 Temperature 98.2 F Pulse Rate 112 H 90 85 Respiratory Rate 18 Blood Pressure 130/76 Pulse Oximetry 93 L Intake & Output 09/03/18 09/04/18 09/04/18 18:59 06:59 18:59 Intake Total 1710 / 1710 340 / 340 Output Total 475 / 475 500 / 500 Balance 1235 / 1235 -160 / -160 Weight 74.5 kg Intake: IV 250 / 250 100 / 100 Azithromycin Inj 500 MG In NS 250 / 250 Inj 250 ML @ 250 mls/hr IV.SIG Q24H LORIE Rx#:[id number] Rocephin Inj 1,000 MG In NS Inj 100 / 100 100 ML @ 200 mls/hr IV.SIG Q24H LORIE Rx#:[id number] Oral 220 / 220 240 / 240 Tube Feeding 640 / 640 Water Bolus Amount 600 / 600 Output: Urine 475 / 475 500 / 500 Other: # Urine Diapers 1 Date of Last Bowel Movement 09/01/18 08/31/18 # Bowel Movements 0 # Incontinent Bowel Movements 3 Narrative: Gen.:awake and alert, no acute distress Head: Normocephalic. Atraumatic. anicteric Cardiovascular: Regular rate and rhythm. Port in place - right side of the chest Respiratory: Lungs- No wheezes or rhonchi. Abdomen: Soft, nontender, nondistended. No peritoneal signs.+BS. PEG tube in place Musculoskeletal: No gross deformities. No edema.moves all extremities spontaenously, no calf tenderness Skin: No obvious rashes or erythema. Neuro: Sensory and motor grossly intact. Cranial nerves II through XII grossly intact. Results - Labs CBC & Chem 7: 09/03/18 08:05 09/03/18 08:05 Laboratory Results - last 24 hr 09/03/18 09/03/18 09/03/18 12:01 17:00 20:31 POC Glucose 207 H 167 H 344 H 09/04/18 09/04/18 04:21 09:19 POC Glucose 213 H 213 H - Procedures s/p PEG tube placement 08/30/18 s/p Port infusion placement 08/31/18 Assessment and Plan - Assessment (1) Severe protein-calorie malnutrition Code(s): E43 - Unspecified severe protein-calorie malnutrition Status: Acute - Plan 68-year-old man with 1. 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 had Rad stimulation Appreciate input from Radiation Oncology 2. Dysphagia Speech therapy consulted and patient currently on pured thin liquid dietADA Appreciate input from GI s/p PEG tube placement 08/30/18- continue TF to meet nutritional requirement Speech therapist consulted pureed diet for pleasyre 3. Aspiration pneumonia Currently on azithromycin and Rocephin- change to levaquin + Flagyl/PEG today x 4 more days Aspiration precautions Duo Neb PRN 4. Diabetes mellitus- BS low 200s Holding home glipizide Continue insulin scale . started on 70/30- increase to 8 units bid Monitor blood glucose 5. Hypertension/hyperlipidemia Continue outpatient medications including Norvasc, statin 6. CKD- stable Monitor renal function 7. 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 DVT prophylaxis: B-SCDs DC planning- consult CM accepted by [facility] today
[2018-09-04] MEDS ORDERED: metroNIDAZOLE 500 MG Tablet PO SCH (09:45)
--- NOTE | 2018-09-04 10:01 | P.DS ---
Date of admission: 08/27/18 23:33 Primary care physician: PROVIDER NON STAFF Anticipated date of discharge: 09/04/18 Brief History from admission: 68-year-old male with a past medical history significant for recently diagnosed esophageal cancer, biopsy-proven, type 2 diabetes mellitus and hypertension presents the emergency department for the evaluation of inability to swallow. The patient reports that he has been unable to swallow since . He states he has a chest fullness that is worse with swallowing. He is spitting his secretions into a bag. He is an extremely poor historian and states that he was diagnosed at [facility] however records review shows that he was evaluated by oncology at [facility] and a EGD with biopsy was performed here. The patient states he has an appointment with oncology next week and believes that it is in this building but is not sure. He also cannot tell me who his oncologist will be. He denies any fever/chills. No cough or congestion. No chest pain or shortness of breath. No abdominal pain. No nausea/vomiting/diarrhea. No focal neurologic deficits. Patient update on day of discharge: awsk andle alert. no cough, afebrile good lung sounds toelating tube feedings DS: Diagnosis - Discharge Diagnosis (1) Severe protein-calorie malnutrition Status: Acute DS: Summary Hospital Course: 68-year-old man with 1. 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 had Rad stimulation Appreciate input from Radiation Oncology 2. Dysphagia Speech therapy consulted and patient currently on pured thin liquid dietADA Appreciate input from GI s/p PEG tube placement 08/30/18- continue TF to meet nutritional requirement Speech therapist consulted pureed diet for pleasyre 3. Aspiration pneumonia Currently on azithromycin and Rocephin- change to levaquin + Flagyl/PEG today x 4 more days Aspiration precautions Duo Neb PRN 4. Diabetes mellitus- BS low 200s Holding home glipizide Continue insulin scale . started on 70/30- increase to 8 units bid Monitor blood glucose 5. Hypertension/hyperlipidemia Continue outpatient medications including Norvasc, statin 6. CKD- stable Monitor renal function 7. 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 DVT prophylaxis: B-SCDs DC planning- consult CM accepted by Alexis nazario today - Time Spent with Patient Total time spent providing and/or coordinating discharge services: Greater than 30 minutes - Quality: VTE Deep Vein Thrombosis/Pulmonary Embolism Present on Admission: No Exam Vital signs: Vital Signs 09/03/18 11:00 09/03/18 11:20 09/03/18 15:00 Temperature 99.6 F Pulse Rate 85 92 H 88 Respiratory Rate 16 Blood Pressure 138/85 Pulse Oximetry 92 L 09/03/18 17:03 09/03/18 20:00 09/03/18 20:05 Temperature 98.8 F 99.6 F Pulse Rate 98 H 97 H 90 Respiratory Rate 18 18 Blood Pressure 149/91 H 152/96 H Pulse Oximetry 95 94 L 09/03/18 23:00 09/04/18 00:00 09/04/18 04:00 Temperature 99.3 F 99.4 F Pulse Rate 98 H 95 H 110 H Respiratory Rate 18 18 Blood Pressure 136/77 130/72 Pulse Oximetry 94 L 92 L 09/04/18 04:08 09/04/18 08:18 09/04/18 08:22 Temperature 98.2 F Pulse Rate 112 H 90 85 Respiratory Rate 18 Blood Pressure 130/76 Pulse Oximetry 93 L Intake & Output 09/03/18 09/04/18 09/04/18 18:59 06:59 18:59 Intake Total 1710 / 1710 340 / 340 Output Total 475 / 475 500 / 500 Balance 1235 / 1235 -160 / -160 Weight 74.5 kg Intake: IV 250 / 250 100 / 100 Azithromycin Inj 500 MG In NS 250 / 250 Inj 250 ML @ 250 mls/hr IV.SIG Q24H LORIE Rx#:[id number] Rocephin Inj 1,000 MG In NS Inj 100 / 100 100 ML @ 200 mls/hr IV.SIG Q24H LORIE Rx#:[id number] Oral 220 / 220 240 / 240 Tube Feeding 640 / 640 Water Bolus Amount 600 / 600 Output: Urine 475 / 475 500 / 500 Other: # Urine Diapers 1 Date of Last Bowel Movement 09/01/18 08/31/18 # Bowel Movements 0 # Incontinent Bowel Movements 3 Results Procedures completed during hospitalization: s/p PEG tube placement 08/30/18 s/p Port infusion placement 08/31/18 Labs on day of discharge: Labs from last 24 hours 09/04/18 09/04/18 09/03/18 09:19 04:21 20:31 POC Glucose 213 H 213 H 344 H 09/03/18 09/03/18 17:00 12:01 POC Glucose 167 H 207 H - Impressions ITS Impressions Chest CT 08/27/18 20:33 CONCLUSION: 1. Large mass of the mid esophagus. Malignancy is the main diagnostic consideration. Patient does appear to have cirrhosis so a component of varices is in the differential but considered less likely. Direct visualization and, if deemed safe, tissue diagnosis is recommended. 2. Scattered nodular opacities of both lungs. Some of it appears infectious or inflammatory although some of the more isolated individual nodules measuring up to 9 mm in size would also have the differential of metastatic disease. Head CT 08/27/18 20:35 CONCLUSION: 1. No acute intracranial abnormality. 2. Chronic ischemic changes. . Soft Tissue Neck CT 08/27/18 20:37 CONCLUSION: 1. Distended upper esophagus. Patient has a mass in the mid thoracic portion of the esophagus and please refer to the chest CT report. 2. No masses or lymphadenopathy at the level of the neck. Port Line Insertion 08/31/18 00:00 CONCLUSION: 1. Uncomplicated ultrasound and fluoroscopic guided implanted central venous port catheter placement as described in detail above. An 8 [place] port was placed. Abdomen CT 09/01/18 00:00 CONCLUSION: 1. Distal esophageal abnormality and changes in the lung bases as described. 2. Cirrhotic liver appearance and stigmata of portal hypertension including splenomegaly and ascites. 3. Upper abdominal and retroperitoneal lymph node enlargement which is nonspecific 4. Nothing to suggest metastatic disease to the liver parenchyma at present. Discharge Plan - Discharge Disposition Patient Disposition: Discharge to SNF - Discharge Condition Condition: Stable - Discharge Order Discharge Orders: Discharge Order (Routine); Ordered 09/04/18 Ordered By: Sharla Beck - Discharge Details Anticipated Discharge Date: 09/04/18 Discharge Comment: please give instrucvtions to continue TF glucerna at 60 cc/ hr. consult in house nutritonist in SNF for ff up - Physicians Team Primary Care Provider: NON STAFF,PROVIDER Attending Provider: Sharla Beck Other Providers: Charo Chandler MD ; Cameron Hunter MD ; Clay Jean,Agency ; Marina Sanchez ; Imelda Butler,Agency ; [facility], Agency
[2018-09-04] MEDS: Senna/Docusate Sodium 8.6/50 MG Tablet PO SCH (10:47)
[2018-09-04] MEDS ORDERED: metroNIDAZOLE 500 MG Tablet G-TUBE SCH (14:00)
[2018-09-05] MEDS ORDERED: levoFLOXacin 500 MG Tablet G-TUBE SCH (09:00)
[2018-09-05] MEDS ORDERED: levoFLOXacin 500 MG Tablet PO SCH (09:00)
== END 2018-09-04 13:39 ==
LOC: NEPC 19:59 → NEDA 23:33 → HCIN 08-28 04:28
PROVIDERS: ADMIT Internal Medicine; ATTEND Internal Medicine